=== PATIENT | male | born 1950 | race Caucasian/White ===

== ENCOUNTER → 2017-11-17 15:58 | Outpatient (CLI) | payer MEDICARE, MEDICAID, SELFPAY ==
--- NOTE | 2017-11-17 16:09 | MR_ITS ---
MR head/brain wo con HISTORY: ITS.REASON: ESSENTIAL TREMOR, CONFUSION, ABNORMAL CT ORDERING PHYSICIAN: Tiff Snow PATIENT AGE: 67 years Comparison: 10/03/2017 TECHNIQUE: Standard multiplanar multiecho sequences are performed without contrast. FINDINGS: There is mild generalized atrophy. Encephalomalacia changes are present in the left frontal lobe consistent with an old infarction. No midline shift, mass effect, intracranial hemorrhage, hydrocephalus, or acute infarction is evident. There are scattered periventricular and subcortical T2 white matter hyperintensities consistent with ischemic microangiopathic changes. The hippocampal gyri and temporal horns are unremarkable. The limited. Optic chiasm have an unremarkable appearance. The cerebellopontine angles, cerebellum, and brainstem are unremarkable. No mastoid effusion or sinus air-fluid level. IMPRESSION: 1. No acute intracranial findings. 2. Encephalomalacia change from old left frontal infarction. 3. Involutional changes of age with mild atrophy and microangiopathic changes
== END ==
PROVIDERS: Family Provider Internal Medicine Adolescent Medicine; PCP Internal Medicine Adolescent Medicine; Visit Provider Psychiatry & Neurology Neurology
DX: G25.0 Essential tremor (principal); R41.0 Disorientation, unspecified; R93.0 Abnormal findings on diagnostic imaging of skull and head, not elsewhere classified
CPT/HCPCS: 70551

== ENCOUNTER → 2019-03-09 09:39 | Outpatient (CLI) | payer MEDICARE, MEDICAID, SELFPAY ==
[2019-03-09 11:33] LABS: Alanine Aminotransferase 29 U/L (12-78); Albumin Level 4.1 gm/dL (3.4-5.0); Albumin/Globulin Ratio 1.2 (1.1-1.8); Alkaline Phosphatase 78 U/L (46-116); Anion Gap 12.4 mEq/L (5-15); Aspartate Amino Transferase 19 U/L (15-37); Bilirubin,Total 0.3 mg/dL (0.2-1.0); Blood Urea Nitrogen 17 mg/dL (7-18); Carbon Dioxide 29 mmol/L (21.0-32.0); Chloride 93 mmol/L (98-107); Creatinine,Serum 1.37 mg/dL (0.70-1.30); Estimated Glomerular Filt Rate 52 ml/min (>60); GFR (African American) 63 ML/MIN (>60); Globulin 3.3 gm/dl (1.3-3.2); Glucose 122 mg/dL (74-106); Potassium 4.4 mmoL/L (3.5-5.1); Sodium 130 mmol/L (136-145); Total Protein,Serum 7.4 gm/dL (6.4-8.2)
[2019-03-10 11:01] LABS: Prostate Specific Ag 4.8 ng/mL (0.0-4.0)
[2019-03-10 13:29] LABS: Prostate Specific Ag, Diagnost 5.43 ng/mL (0.0-4.0)
== END ==
PROVIDERS: Visit Provider Internal Medicine Adolescent Medicine
DX: R97.20 Elevated prostate specific antigen [PSA] (principal)
CPT/HCPCS: 36415; 80053; 84153; 84154; G0103

== ENCOUNTER → 2019-06-08 09:36 | Outpatient (CLI) | payer MEDICARE, MEDICAID, SELFPAY ==
--- NOTE | 2019-06-08 09:46 | XR_ITS ---
PROCEDURE: XR KNEE LT 3V CLINICAL INDICATION: OSTEOARTHRITIS COMPARISON: No exams were available for comparison FINDINGS: No fracture or dislocation. No lytic or blastic change. There is normal mineralization. Mild patellofemoral osteoarthritis with loss of cartilaginous joint space is noted. Other findings:Mild atherosclerotic vascular calcifications are noted. IMPRESSION: mild osteoarthritis with no acute bone pathology. Dictated by: Tony Bradley 06/08/2019 10:26 Electronically signed by Tony Bradley in [place] 06/08/2019 10:26
--- NOTE | 2019-06-08 09:46 | XR_ITS ---
PROCEDURE: XR KNEE RT 3V CLINICAL INDICATION: OSTEOARTHRITIS COMPARISON: No exams were available for comparison FINDINGS: No fracture or dislocation. No lytic or blastic change. There is normal mineralization. There is mild medial compartment osteoarthritis. A small suprapatellar joint effusion is noted. There are atherosclerotic vascular calcifications. Other findings:None. IMPRESSION: Medial compartment osteoarthritis with small joint effusion. Dictated by: Tony Bradley 06/08/2019 10:24 Electronically signed by Tony Bradley in [facility] 06/08/2019 10:24
== END ==
PROVIDERS: PCP Internal Medicine Adolescent Medicine; Visit Provider Internal Medicine Adolescent Medicine
DX: M17.0 Bilateral primary osteoarthritis of knee (principal)
CPT/HCPCS: 73562

== ENCOUNTER → 2019-06-28 12:55 | Outpatient (POV) | payer MEDICARE, MEDICAID, SELFPAY | PROVIDERS: Visit Provider Dermatology | DX: Z00.00 Encounter for general adult medical examination without abnormal findings (principal) ==

== ENCOUNTER → 2020-03-27 08:59 | Outpatient (POV) | payer MEDICARE, MEDICAID, SELFPAY | PROVIDERS: Visit Provider Dermatology | DX: Z00.00 Encounter for general adult medical examination without abnormal findings (principal) ==

== ENCOUNTER → 2020-05-07 14:08 | Outpatient (CLI) | payer MEDICARE, MEDICAID, SELFPAY ==
--- NOTE | 2020-05-07 14:11 | MR_ITS ---
PROCEDURE: MR HEAD/BRAIN WO CON CLINICAL INDICATION: DIPLOPIA, VERTIGO HX OF STROKE X3-4YRS AGO. HEADACHE. Memory LOSS. ABNORMAL GAIT. PRIOR MRI 06-08-19 COMPARISON: MR BRAINWO MR head/brain wo con from 11/17/2017 TECHNIQUE: Routine multiplanar multi echo sequences are performed without gadolinium enhancement. FINDINGS: No midline shift, mass effect, intracranial hemorrhage, or hydrocephalus. No evidence of acute infarction. There is generalized atrophy with scattered periventricular T2 white matter hyperintensities consistent with ischemic gliotic change from microvascular disease. There are encephalomalacia changes in the left frontal lobe with increased T2 signal but no evidence of restricted diffusion consistent with an old infarction. There are small old lacunar infarctions on the left. The pituitary, optic chiasm, corpus callosum, and craniocervical junction have an unremarkable appearance. There are degenerative changes in the upper cervical spine at C3-C4 with bulging disc/disc osteophyte complex with canal stenosis and mild impingement upon the cord. MRI of the cervical spine may provide further evaluation if clinically warranted. There is mild mucosal thickening of the maxillary sinus on the right. No mastoid effusion IMPRESSION: 1. No acute intracranial findings. No significant change. 2. Chronic ischemic changes as detailed above with old infarction in the left frontal parietal region an old left-sided lacunar infarctions 3. Canal stenosis at C3-C4 with reversal of lordosis and degenerative disc disease Dictated by: Abilio Higuera MD 05/09/2020 09:03 Abilio Higuera MD in [place] 05/09/2020 09:03
--- NOTE | 2020-05-07 14:41 | CA_ITS ---
APPROVED REPORT Account Services Associate: Keily Newton RVT Laterality: Bilateral Study Quality: Good Indications: SLURRED SPEECH Risk Factors Hypertension: TIA/CVA History Hyperlipidemia Doppler Spectral Velocity Analysis ECA (R) 118.20/20.60 cm/s ECA (L) 73.70/12.90 cm/s dICA (R) 68.50/24.80 cm/s dICA (L) 96.80/31.70 cm/s Pérez (R) 61.70/22.30 cm/s Pérez (L) 86.50/25.70 cm/s pICA (R) 84.00/31.70 cm/s pICA (L) 85.70/26.60 cm/s dCCA (R) 52.30/12.00 cm/s dCCA (L) 64.30/16.30 cm/s pCCA (R) 74.90/16.00 cm/s pCCA (L) 87.40/16.30 cm/s Vert (R) 30.80/8.60 cm/s Vert (L) 52.30/12.00 cm/s ICA/CCA 1.61 ICA/CCA 1.51 Findings Study suggests less than 20% stenosis of the right internal cartoid artery. Study suggests 20-49% stenosis (lower end of scale) of the left internal cartoid artery. Antegrade flow seen bilateral vertebral arteries. Conclusion Study suggests less than 20% stenosis of the right internal cartoid artery. Study suggests 20-49% stenosis (lower end of scale) of the left internal cartoid artery. Antegrade flow seen bilateral vertebral arteries. Electronically signed by : Abilio Higuera MD 05/08/2020 17:03:58
== END ==
PROVIDERS: PCP Internal Medicine Adolescent Medicine; Visit Provider Internal Medicine Adolescent Medicine
DX: R42 Dizziness and giddiness (principal); R47.1 Dysarthria and anarthria; H53.2 Diplopia
CPT/HCPCS: 70551; 93880

== ENCOUNTER → 2020-06-20 10:12 | Outpatient (CLI) | payer MEDICARE, MEDICAID, SELFPAY ==
[2020-06-20 11:11] LABS: Coronavirus 19 IgG Antibody Negative (Negative); Coronavirus 19 IgM Antibody Negative (Negative)
== END ==
PROVIDERS: Visit Provider Internal Medicine Gastroenterology
DX: Z01.812 Encounter for preprocedural laboratory examination (principal); Z20.822 Contact with and (suspected) exposure to COVID-19; Z12.11 Encounter for screening for malignant neoplasm of colon; D64.9 Anemia, unspecified; Z86.010 Personal history of colon polyps
CPT/HCPCS: 36415; 86328

== ENCOUNTER 2020-06-22 06:57 | Day surgery (SDC) | payer MEDICARE, MEDICAID, SELFPAY ==
[2020-06-14 14:08] VITALS: BMI 26.2
[2020-06-22] VITALS (7 sets, daily range): BP systolic 104–157; BP diastolic 62–102; PULSE 68–80; RESP 18; TEMP 36.1–36.6; O2SAT 92–97
[2020-06-22 07:31] LABS: POC Glucose,Bedside 153 (70-110)
--- NOTE | 2020-06-22 08:13 | HMH.ANESCL ---
[facility] Anesthesia Checklist - Patient Identification Patient Identification: Arm Band - Structural Data Admitted From: Home Planned Operative Procedure/s: egd/colonoscopy Consent for Planned Operative Procedure(s) Verified: Yes Verified Documents: Surgical Consent, History and Physical - NPO Status Verified Time NPO: 00:00 - Additional verifications Anesthesia Reactions: No - Airway Assessment C-Spine Mobility Assessed: Yes (mp2) TMJ Mobility Assessed: Yes Dentition: Poor Dentition - Neurological Assessment Level of Consciousness: Awake, Alert - Anesthesia Plan Anesthesia Risk discussed: Yes Anesthesia Plan: Verified ASA Class: III Anesthesia Type: MAC [facility] History I have reviewed the patient's past medical history: Yes Medical History: Reports:: Cerebrovascular Accident, Diabetes Mellitus Type 2, Hyperlipidemia, Hypertension Denies:: Cancer, Diabetes Mellitus Type 1, Internal Pacemaker, MRSA, Seizures *Have you ever received a pneumonia vaccine?: Yes *Have you received a flu vaccine this season?: Yes Other Medical History: Reports: Arthritis Anesthesia experience/problems:: nac Other Surgeries: Yes: Other. No: Pacemaker Amputation: No Fractures: No - *Social History Last grade of school completed: 7th or 8th Smoking Status: Unknown if ever smoked Smoking End Date: 25 yrs ago Alcohol Intake: never Substance Use Type: denies use *Occupational Status:: retired Housing: house Household Members: spouse *Travel in the last 8 weeks: None Family Hx:: Stroke
--- NOTE | 2020-06-22 08:23 | P.PCN_ITS ---
[facility] Procedure Note Procedure Note:: Upper Endoscopy Procedure Report: Esophagogastroduodenoscopy with cold biopsies and APC ablation/coagulation Endoscopost: Ascencion Ariza II, MD Referring Physician: Douglas Monge M.D. Date of Procedure: June 22, 2020 Equipment: Olympus GIF 180 standard upper endoscope Sedation: MAC sedation Indications: Mr. Howell is a 69-year-old gentleman with iron deficiency anemia. The patient had similar issues 5 years ago and had diagnostic panendoscopy at that time. The patient reports no anticoagulation. He reports no melena or hematochezia. He has not had any Hemoccult testing to my knowledge. He reports no heartburn, reflux, indigestion, abdominal pain or dysphagia. Procedure: Prior to the procedure, a history and physical exam was performed, and patient's medications and allergies were reviewed. The risks, benefits and alternatives of the sedation and procedure were discussed with the patient. All questions were answered and informed consent was obtained. The patient was brought to the procedure room. Patient identification and proposed procedure were verified by the physician and the nurse. The patient was placed in a left lateral decubitus position and the scope was passed under direct vision. Throughout the procedure, the patient's blood pressure, pulse, and oxygen saturations were monitored continuously. The upper GI endoscopy was accomplished without difficulty. The patient tolerated the procedure well. Findings: The scope was passed directly into the upper esophagus and advanced to the third portion of the duodenum. There were multiple angiodysplasias/AVMs identified in the third, second and first portion of the duodenum and approximately 12 of these were coagulated using APC ablation (argon plasma offset printing pressmen). There were a couple of these angiodysplasia/AVMs in the duodenal bulb and these were also coagulated. The scope was withdrawn through a normal pylorus into the stomach. There was several AVMs/angiodysplasias in the stomach and there was some coffee-ground in the stomach indicative of some active bleeding from these gastric angiodysplasias. These were also all coagulated using the APC. There was some mild erosive gastritis. Cold biopsies were taken from the gastric antrum and body. Upon retroflexion there was no hiatal hernia. The scope was then withdrawn into the esophagus. There was no evidence of reflux esophagitis, varices or Andersen's. There was a proximal esophageal inlet patch. The remainder of the esophageal mucosa was normal. Impression: 1. Gastric and duodenal AVMs/angiodysplasias (multiple) status post APC (argon plasma coagulation) ablation Plan: I do feel that the patient's iron deficiency anemia is related to the angiodysplasias. I will follow-up the gastric biopsies. I will proceed with colonoscopy.
--- NOTE | 2020-06-22 08:42 | P.PCN_ITS ---
[facility] Procedure Note Procedure Note:: Colonoscopy Procedure Report: Colonoscopy Endoscopist: Ascencion Ariza II, MD Referring physician: Douglas Monge M.D. Date of Procedure: June 22, 2020 Equipment: Olympus 180 variable stiffness pediatric colonoscope Sedation: MAC sedation Indication: Mr. Howell is a 69-year-old gentleman who is here for diagnostic colonoscopy secondary to iron deficiency anemia. He does take ibuprofen every 2 to 3 days for headaches. He is not on any anticoagulation. He did have similar iron deficiency 5 years ago and underwent panendoscopy (Dr. Yemi Winkler). He does state that he had polyps. He reports no rectal bleeding, abdominal pain or weight loss. He does have some mild chronic constipation. He does state that his maternal grandmother had colon cancer. The patient did have angiodysplasias of the stomach and duodenum with some old heme. Procedure: Prior to the procedure, a history and physical exam was performed, and patient's medications and allergies were reviewed. The risks, benefits and alternatives of the sedation and procedure were discussed with the patient. All questions we re answered and informed consent was obtained. The patient was brought to the procedure room. Patient identification and proposed procedure were verified by the physician and the nurse. The patient was placed in a left lateral decubitus position and the scope was passed under direct vision. Throughout the procedure, the patient's blood pressure, pulse, and oxygen saturations were monitored continuously. The colonoscopy was accomplished without difficulty. The patient tolerated the procedure well. Findings: On digital rectal examination there was some anal stenosis/anal fibrosis. There were no external hemorrhoids. The prostate was 2+, smooth, soft, symmetric without nodules. The colonoscope was introduced through the anal canal to the rectum and advanced to the cecum. The ileocecal valve and appendiceal orifice were identified. The scope was advanced a short distance into the ileum which appeared grossly normal. The scope was then withdrawn into the colon. The cecum, ascending, transverse, descending, sigmoid and rectum were grossly normal. There were no mucosal abnormalities identified. There was remarkable colonic redundancy. Upon retroflexion within the rectum there were grade 1-2 internal hemorrhoids.The preparation was good throughout with [place] Preparation Score of 7 out of 9. The cecal time was 10 minutes. Impression: 1. Normal colonoscopy with intubation of the terminal ileum 2. Marked colonic redundancy 3. Grade 1-2 internal hemorrhoids 4. Mild anal stenosis/anal fibrosis Plan: There was no etiology for the patient's iron deficiency anemia from the lower digestive tract. I suspect that this is chronic gastrointestinal blood loss from the angiodysplasias in the upper digestive tract. I will discuss this with the patient and family. I am going to repeat hemoglobin, hematocrit and iron studies today. I would also like for him to undergo Hemoccult testing. If he is Hemoccult positive, I would recommend that we do video capsule enterosc opy/PillCam.
[2020-06-22 09:21] LABS: Hematocrit 25.5 % (42.0-52.0)
[2020-06-22 09:29] LABS: Iron 28 ug/dL (49-181)
[2020-06-22 09:39] LABS: Total Iron Binding Capacity 334 ug/dL (261-462)
[2020-06-22 09:40] LABS: Hemoglobin 7.6 g/dL (14.1-18.0)
[2020-06-22 10:05] LABS: Ferritin 10.1 ng/ml (17.9-464)
== END 2020-06-22 09:40 | disposition hospice, home (50) ==
PROVIDERS: PCP Internal Medicine Adolescent Medicine; Visit Provider Internal Medicine Gastroenterology
PROC: 0DJ08ZZ Inspection of Upper Intestinal Tract, Via Natural or Artificial Opening Endoscopic (ICD-10-PCS; CPT 43235; principal; 2020-06-22 08:00)
DX: K31.811 Angiodysplasia of stomach and duodenum with bleeding (principal); K64.0 First degree hemorrhoids; K62.4 Stenosis of anus and rectum; Q43.8 Other specified congenital malformations of intestine; Z86.010 Personal history of colon polyps; Z87.19 Personal history of other diseases of the digestive system; Z79.1 Long term (current) use of non-steroidal anti-inflammatories (NSAID); E11.9 Type 2 diabetes mellitus without complications; E78.5 Hyperlipidemia, unspecified; I10 Essential (primary) hypertension; M19.90 Unspecified osteoarthritis, unspecified site; Z86.73 Personal history of transient ischemic attack (TIA), and cerebral infarction without residual deficits
CPT/HCPCS: 43239; 43270; 36415; 82728; 82962; 83540; 83550; 85014; 85018; 88305; C2618

== ENCOUNTER → 2020-06-23 09:59 | Outpatient (CLI) | payer MEDICARE, MEDICAID, SELFPAY ==
[2020-06-23 10:10] VITALS: BP 136/74; PULSE 81; RESP 16; TEMP 36.9; O2SAT 96
[2020-06-23 10:40] VITALS: BP 131/78; PULSE 79; RESP 16; TEMP 36.9; O2SAT 98
== END ==
PROVIDERS: PCP Internal Medicine Adolescent Medicine; Visit Provider Internal Medicine Gastroenterology
DX: D50.9 Iron deficiency anemia, unspecified (principal)
CPT/HCPCS: 96365; J1756

== ENCOUNTER → 2020-06-24 13:35 | Outpatient (CLI) | payer MEDICARE, MEDICAID, SELFPAY ==
[2020-06-24 13:52] VITALS: BP 105/66; PULSE 62; RESP 16; O2SAT 96
== END ==
PROVIDERS: PCP Internal Medicine Adolescent Medicine; Visit Provider Internal Medicine Gastroenterology
DX: D50.9 Iron deficiency anemia, unspecified (principal)
CPT/HCPCS: 96365; J1756

== ENCOUNTER → 2020-06-27 12:25 | Outpatient (CLI) | payer MEDICARE, MEDICAID, SELFPAY | PROVIDERS: Visit Provider Internal Medicine Gastroenterology | DX: D50.9 Iron deficiency anemia, unspecified (principal) ==

== ENCOUNTER → 2020-06-30 12:00 | Outpatient (CLI) | payer MEDICARE, MEDICAID, SELFPAY ==
[2020-07-01 15:17] LABS: Occult Blood,Stool Negative (Negative)
[2020-07-01 15:17] LABS: Occult Blood,Stool Negative (Negative)
[2020-07-01 15:17] LABS: Occult Blood,Stool Negative (Negative)
== END ==
PROVIDERS: Visit Provider Internal Medicine Gastroenterology
DX: D64.9 Anemia, unspecified (principal)
CPT/HCPCS: 82272; G0328

== ENCOUNTER → 2020-11-28 07:48 | Outpatient (CLI) | payer MEDICARE, MEDICAID, SELFPAY ==
[2020-11-28 08:47] LABS: Basophils # 0.1 K/mm3 (0-0.2); Basophils % 1.2 % (0.1-2.0); Eosinophils # 0.2 K/mm3 (0.0-0.4); Eosinophils % 3.7 % (0.1-12.0); Hematocrit 35.2 % (42.0-52.0); Hemoglobin 11.8 g/dL (14.1-18.0); Lymphocytes # 1.5 K/mm3 (0.7-4.5); Lymphocytes % 28.1 % (10-50); Mean Corpuscular HGB Conc 33.5 g/dL (31.8-35.4); Mean Corpuscular Hemoglobin 28.9 pg (27.0-31.2); Mean Corpuscular Volume 86.4 fl (80-94); Mean Platelet Volume 7.7 fl (7.4-10.4); Monocytes # 0.4 K/mm3 (0.1-1.0); Monocytes % 6.8 % (1.7-9.3); Neutrophils # 3.1 K/mm3 (1.8-7.8); Neutrophils % 60.2 % (37.0-80.0); Platelet Count 202 K/mm3 (142-424); Red Blood Count 4.07 M/mm3 (4.60-6.20); Red Cell Distribution Width 17.1 % (11.5-17.5); White Blood Count 5.2 K/mm3 (4.8-10.8)
[2020-11-28 09:29] LABS: Alanine Aminotransferase 33 U/L (12-78); Albumin Level 4.2 g/dl (3.5-5.0); Albumin/Globulin Ratio 1.5 (1.1-1.8); Alkaline Phosphatase 92 U/L (38-126); Anion Gap 10.3 mEq/L (5-15); Aspartate Amino Transferase 38 U/L (17-59); Bilirubin,Total 0.4 mg/dl (0.2-1.3); Blood Urea Nitrogen 15 mg/dl (9-20); Calcium 9.1 mg/dl (8.4-10.2); Carbon Dioxide 31 mmol/L (22.0-30.0); Chloride 98 mmol/L (98-107); Chol/HDL Ratio 3.1 (1-3.5); Cholesterol 154 mg/dl (140-200); Estimated Glomerular Filt Rate 60 ml/min (>60); GFR (African American) 72 ML/MIN (>60); Globulin 2.8 g/dL (1.3-3.2); Glucose 127 mg/dl (74-100); HDL Cholesterol 49 mg/dl (40-60); Potassium 5.3 mmoL/L (3.5-5.1); Sodium 134 mmol/L (136-145); Triglycerides 75 mg/dl (30-150); VLDL Cholesterol 15 mg/dL (0-40)
[2020-11-28 09:42] LABS: Direct LDL Cholesterol 77.95 mg/dL (100-129)
[2020-11-28 10:02] LABS: Thyroid Stimulating Hormone 1.22 uIU/mL (0.465-4.68)
[2020-11-28 10:20] LABS: Vitamin B12 > 1000 pg/mL (239-931)
[2020-11-28 11:04] LABS: Ferritin 9.92 ng/ml (17.9-464)
== END ==
PROVIDERS: Visit Provider Internal Medicine Adolescent Medicine
DX: E78.5 Hyperlipidemia, unspecified (principal); E11.42 Type 2 diabetes mellitus with diabetic polyneuropathy; D50.9 Iron deficiency anemia, unspecified; Z79.84 Long term (current) use of oral hypoglycemic drugs
CPT/HCPCS: 80053; 80061; 82607; 82728; 84443; 85025

== ENCOUNTER → 2021-01-08 07:42 | Outpatient (CLI) | payer MEDICARE, MEDICAID, SELFPAY ==
[2021-01-08 08:22] LABS: Basophils # 0.1 K/mm3 (0-0.2); Basophils % 1.9 % (0.1-2.0); Eosinophils # 0.1 K/mm3 (0.0-0.4); Hematocrit 39.8 % (42.0-52.0); Hemoglobin 12.9 g/dL (14.1-18.0); Lymphocytes # 1.1 K/mm3 (0.7-4.5); Lymphocytes % 24.1 % (10-50); Mean Corpuscular HGB Conc 32.4 g/dL (31.8-35.4); Mean Corpuscular Hemoglobin 30.1 pg (27.0-31.2); Mean Corpuscular Volume 92.7 fl (80-94); Mean Platelet Volume 7.7 fl (7.4-10.4); Monocytes # 0.3 K/mm3 (0.1-1.0); Monocytes % 6.2 % (1.7-9.3); Neutrophils # 3.1 K/mm3 (1.8-7.8); Neutrophils % 64.7 % (37.0-80.0); Platelet Count 216 K/mm3 (142-424); White Blood Count 4.7 K/mm3 (4.8-10.8)
[2021-01-08 08:36] LABS: Hemoglobin A1C 5.4 % (4.0-6.0)
[2021-01-08 08:43] LABS: Chloride 93 mmol/L (98-107); Potassium 4.8 mmoL/L (3.5-5.1); Sodium 130 mmol/L (136-145)
[2021-01-08 08:45] LABS: Alanine Aminotransferase 32 U/L (12-78); Albumin/Globulin Ratio 1.5 (1.1-1.8); Alkaline Phosphatase 95 U/L (38-126); Anion Gap 11.8 mEq/L (5-15); Aspartate Amino Transferase 34 U/L (17-59); Bilirubin,Total 0.3 mg/dl (0.2-1.3); Blood Urea Nitrogen 16 mg/dl (9-20); Carbon Dioxide 30 mmol/L (22.0-30.0); Estimated Glomerular Filt Rate 55 ml/min (>60); GFR (African American) 66 ML/MIN (>60); Globulin 2.6 g/dL (1.3-3.2); Total Protein,Serum 6.6 g/dl (6.3-8.2)
[2021-01-08 08:46] LABS: Calcium 8.9 mg/dl (8.4-10.2); Glucose 130 mg/dl (74-100); HDL Cholesterol 40 mg/dl (40-60); Triglycerides 114 mg/dl (30-150); VLDL Cholesterol 23 mg/dL (0-40)
[2021-01-08 08:57] LABS: Direct LDL Cholesterol 61.98 mg/dL (100-129)
[2021-01-08 09:47] LABS: Prostate Specific Ag, Diagnost 4.15 ng/ml (0.0-4.0)
[2021-01-08 15:48] LABS: Chol/HDL Ratio 3.3 (1-3.5); Cholesterol 130 mg/dl (140-200)
== END ==
PROVIDERS: Visit Provider Internal Medicine Adolescent Medicine
DX: E11.42 Type 2 diabetes mellitus with diabetic polyneuropathy (principal); E78.5 Hyperlipidemia, unspecified; R97.20 Elevated prostate specific antigen [PSA]
CPT/HCPCS: 36415; 80053; 80061; 83036; 84153; 85025

== ENCOUNTER → 2021-04-16 14:58 | Outpatient (CLI) | payer MEDICARE, MEDICAID, SELFPAY ==
--- NOTE | 2021-04-16 15:02 | CT_ITS ---
PROCEDURE: CT FACIAL BONES WO CON CLINICAL HISTORY: CHRONIC MAXILLARY SINUSITIS COMPARISON: No exams were available for comparison TECHNIQUE: Axial images obtained with sagittal and coronal reformats. All CT scans at the facility use one or more dose reduction, viz: automated exposure control, ma/kV adjustment per patient size (including targeted exams where dose is matched to indication, i.e. head), or iterative reconstruction technique. FINDINGS: There is moderate to severe mucosal thickening of the left maxillary sinus with an air-fluid level in the left maxillary sinus. Moderate lobular mucosal thickening involves the floor the right maxillary sinus consistent with underlying retention cyst. There is mild mucosal thickening of the ethmoid sinuses. The frontal sinus has an unremarkable appearance. No mastoid effusion. There is mild pneumatization of the temporal bone posteriorly on both sides. There is mild leftward nasal septal deviation with small bilateral nisa bullosa left slightly larger than right. There is occlusion of the left ostiomeatal complex from edema or mucous. Right OMC is patent. Unremarkable TMJs. There is a prominent zone of lucency around the right posterior maxillary molar which has 3 roots. Artifact is present from the patient's of dentition. IMPRESSION: Paranasal sinus disease as described above worse in the left maxillary sinus with moderate to severe mucosal thickening and an air-fluid level. There is occlusion of the left OMC. Mild leftward nasal septal deviation Periapical abscess around the right posterior molar which has 3 tooth roots Dictated by: Abilio Higuera MD 04/17/2021 12:17 Abilio Higuera MD in [place] 04/17/2021 12:17
== END ==
PROVIDERS: PCP Internal Medicine Adolescent Medicine; Visit Provider Internal Medicine Adolescent Medicine
DX: J32.0 Chronic maxillary sinusitis (principal)
CPT/HCPCS: 70486

== ENCOUNTER → 2021-08-21 15:58 | Outpatient (CLI) | payer MEDICARE, MEDICAID, SELFPAY ==
--- NOTE | 2021-08-21 16:03 | XR_ITS ---
FINAL REPORT CLINICAL HISTORY: FALL X 3 DAYS AGO. C/O RT HAND PAIN FINDINGS: 3 views of the right hand were obtained. There is a distal radius fracture with mild impaction favored to be acute. This is best seen on the lateral view. There are mild and moderate degenerative changes of the hand and wrist. There is chronic deformity of the distal 5th metacarpal. There are calcifications along the dorsal wrist. IMPRESSION: Mildly impacted distal radius fracture is favored to be acute. Reviewed, Interpreted and Dictated by Brett Velazco III, MD Transcribed by Wyatt Barroso Authenticated by Brett Velazco III, MD on 08/21/2021 04:39:00 PM [facility]
== END ==
PROVIDERS: PCP Internal Medicine Adolescent Medicine; Visit Provider Internal Medicine Adolescent Medicine
DX: M79.641 Pain in right hand (principal)
CPT/HCPCS: 73130

== ENCOUNTER → 2021-09-17 12:14 | Outpatient (CLI) | payer MEDICARE, MEDICAID, SELFPAY ==
--- NOTE | 2021-09-17 12:31 | XR_ITS ---
FINAL REPORT CLINICAL HISTORY: rt wrist fx COMPARISON: Hand radiograph dated August 21, 2021 FINDINGS: RIGHT WRIST Three views demonstrate an impacted fracture of the distal radius favoring acute superimposed over chronic. There is also a fracture of the ulnar styloid process. There are moderate and severe degenerative changes of the wrist. The bones are osteopenic. There is soft tissue calcifications in the wrist. IMPRESSION: Fractures as described. Osteopenia. Moderate and severe degenerative change. Reviewed, Interpreted and Dictated by Brett Velazco III, MD Transcribed by Ana Laura Schroeder Authenticated by Brett Velazco III, MD on 09/17/2021 01:56:22 PM [facility][1]
--- NOTE | 2021-09-17 12:31 | XR_ITS ---
FINAL REPORT CLINICAL HISTORY: wrist pain FINDINGS: LEFT WRIST Three views demonstrate no acute fracture or dislocation. The bones are osteopenic. There are severe degenerative changes. There is soft tissue calcifications. IMPRESSION: Osteopenia. Severe degenerative change. Reviewed, Interpreted and Dictated by Brett Velazco III, MD Transcribed by Ana Laura Schroeder Authenticated by Brett Velazco III, MD on 09/17/2021 01:56:21 PM [facility]
== END ==
PROVIDERS: PCP Internal Medicine Adolescent Medicine; Visit Provider Physician Assistant Surgical
DX: M25.532 Pain in left wrist; S52.501D Unspecified fracture of the lower end of right radius, subsequent encounter for closed fracture with routine healing
CPT/HCPCS: 73110

== ENCOUNTER 2021-09-17 13:50 | Outpatient (RCR) | payer MEDICARE, MEDICAID, SELFPAY | END 2021-09-17 14:48 | disposition home or self-care (01) | LOC: OT 13:50 | PROVIDERS: Visit Provider Orthopaedic Surgery | DX: S52.501D Unspecified fracture of the lower end of right radius, subsequent encounter for closed fracture with routine healing (principal) | CPT/HCPCS: 97763 ==

== ENCOUNTER → 2021-10-08 08:33 | Outpatient (CLI) | payer MEDICARE, MEDICAID, SELFPAY ==
--- NOTE | 2021-10-08 08:51 | XR_ITS ---
FINAL REPORT CLINICAL HISTORY: wrist fx...pain at ulner COMPARISON: September 17, 2021 FINDINGS: 3 views of the right wrist were obtained. There is an impacted, comminuted, and transverse fracture of the distal radial metaphysis. There is indentation of the scaphoid into the distal radial metaphysis measuring up to 4 mm that is similar to the prior exam. Again seen is a nondisplaced transverse fracture through the ulnar styloid process. IMPRESSION: Wrist fractures similar to prior. Reviewed, Interpreted and Dictated by Jad Chatman MD Transcribed by Wyatt Barroso Authenticated by Jad Chatman MD on 10/08/2021 09:33:57 AM [facility]
== END ==
PROVIDERS: PCP Internal Medicine Adolescent Medicine; Visit Provider Orthopaedic Surgery
DX: S52.501D Unspecified fracture of the lower end of right radius, subsequent encounter for closed fracture with routine healing (principal)
CPT/HCPCS: 73110

== ENCOUNTER 2024-09-29 15:28 | Outpatient (CLI) | payer MEDICARE, MEDICAID, SELFPAY ==
[2024-09-29 17:22] LABS: Basophils # 0.1 K/mm3 (0-0.2); Basophils % 0.5 % (0.1-2.0); Eosinophils % 0.2 % (0.1-12.0); Hematocrit 33.6 % (42.0-52.0); Hemoglobin 10.8 g/dL (14.1-18.0); Immature Granulocytes # 0.25 10^3uL; Immature Granulocytes % 1.8 %; Lymphocytes # 0.8 K/mm3 (0.7-4.5); Lymphocytes % 5.8 % (10-50); Mean Corpuscular HGB Conc 32.1 g/dL (31.8-35.4); Mean Corpuscular Hemoglobin 32.7 pg (27.0-31.2); Mean Corpuscular Volume 101.8 fl (80-94); Mean Platelet Volume 9.8 fl (7.4-10.4); Monocytes % 7.4 % (1.7-9.3); Neutrophils # 11.4 K/mm3 (1.8-7.8); Neutrophils % 84.3 % (37.0-80.0); Nucleated Red Blood Cells # 0 10^3/uL; Nucleated Red Blood Cells % 0 %; Platelet Count 503 K/mm3 (142-424); Red Cell Distribution Width 12.8 % (11.5-17.5); Red Cell Distribution Width-SD 47.7 fL; White Blood Count 13.5 K/mm3 (4.8-10.8)
[2024-09-29 17:52] LABS: Alanine Aminotransferase 318 U/L (12-78); Albumin Level 3.9 g/dl (3.5-5.0); Albumin/Globulin Ratio 1.5 (1.1-1.8); Alkaline Phosphatase 366 U/L (38-126); Anion Gap 30.8 mEq/L (5-15); Aspartate Amino Transferase 193 U/L (17-59); Bilirubin,Total 0.8 mg/dl (0.2-1.3); Blood Urea Nitrogen 66 mg/dl (9-20); Calcium 9.6 mg/dl (8.4-10.2); Carbon Dioxide 13 mmol/L (22.0-30.0); Chloride 85 mmol/L (98-107); Estimated Glomerular Filt Rate 18 ml/min (>60); GFR (African American) 22 ML/MIN (>60); Globulin 2.6 g/dL (1.3-3.2); Potassium 5.8 mmoL/L (3.5-5.1); Sodium 123 mmol/L (136-145); Total Protein,Serum 6.5 g/dl (6.3-8.2)
[2024-09-29 18:28] LABS: HIV Combo NEGATIVE (Negative)
[2024-09-29 19:10] LABS: Glucose 825 mg/dl (74-100)
[2024-09-29 19:30] LABS: Hepatitis C Ab Qual. W/ RFX NEGATIVE (Negative)
== END 2024-09-29 23:59 | disposition home or self-care (01) ==
PROVIDERS: PCP Internal Medicine; Visit Provider Internal Medicine
DX: Z00.00 Encounter for general adult medical examination without abnormal findings (principal); Z11.59 Encounter for screening for other viral diseases; Z11.4 Encounter for screening for human immunodeficiency virus [HIV]; N18.9 Chronic kidney disease, unspecified; D64.9 Anemia, unspecified; R53.83 Other fatigue
CPT/HCPCS: 80053; 85025; 86803; 87389

== ENCOUNTER 2024-09-30 11:15 | Inpatient (IN) | payer MEDICARE, MEDICAID, SELFPAY ==
[2024-09-30] VITALS (21 sets, daily range): BP systolic 109–155; BP diastolic 55–95; PULSE 79–107; RESP 14–21; TEMP 36.4–36.7; O2SAT 93–100; BMI 21.3; BMI 21.4; BMI 19.6
[2024-09-30 11:34] LABS: Microscopic, Urine URINE MICROSCOPIC (MICROSCOPIC)
--- NOTE | 2024-09-30 11:38 | ECG_ITS ---
APPROVED REPORT Exam: Resting ECG HR:102 bpm ECG Measurements Heart Rate 102 AXES KS 132 P 56 QRSd 85 QRS 32 QT 329 T 77 QTc 388 Conclusion Sinus tachycardia Nonspecific ST changes Electronically signed by : WALLY MUHAMMAD, 10/02/2024 19:39:32
[2024-09-30 11:42] LABS: Appearance,Urine CLOUDY (Clear); Bilirubin,Urine Negative (Negative); Blood, Urine 3+ (Negative); Color,Urine YELLOW (Yellow); Glucose,Urine (UA) 3+ (Negative); Ketones,Urine 1+ (Negative); Leukocyte Esterase,Urine 1+ (Negative); Nitrate,Urine Negative (Negative); PH,Urine 5.5 (5.0-8.5); Protein,Urine 1+ (Negative); Urobilinogen,Urine 0.2 EU/dl (0.2)
--- NOTE | 2024-09-30 11:44 | PC.NURSE ---
evelia check glucose and it read high
--- NOTE | 2024-09-30 11:46 | PC.NURSE ---
Labs from Dr Smith yesterday included abnormal values on the following: Glucose 825, GFR 18, Creatinine 3.3, Potassium 5.8, Sodium 123, ALT 318, and AST 193
[2024-09-30 12:01] LABS: Bacteria,Urine Trace /lpf; WBC,Urine 20-50 #/hpf (0-3)
--- NOTE | 2024-09-30 12:04 | XR_ITS ---
FINAL REPORT CLINICAL HISTORY: ams, weak, soa COMPARISON: None FINDINGS: A portable view of the chest is obtained. Cardiac and mediastinal silhouettes are normal. Low lung volumes are present, without infiltrate or mass identified. There is no pleural effusion or pneumothorax. IMPRESSION: No acute process on this portable exam. Reviewed, Interpreted and Dictated by Vanessa Elmore MD Transcribed by Rosa Mesa Authenticated and [facility]
[2024-09-30 12:17] LABS: Basophils # 0.1 K/mm3 (0-0.2); Basophils % 0.4 % (0.1-2.0); Eosinophils % 0.1 % (0.1-12.0); Hematocrit 35.6 % (42.0-52.0); Hemoglobin 10.9 g/dL (14.1-18.0); Immature Granulocytes % 1.5 %; Lymphocytes # 0.6 K/mm3 (0.7-4.5); Lymphocytes % 4.3 % (10-50); Mean Corpuscular HGB Conc 30.6 g/dL (31.8-35.4); Mean Corpuscular Hemoglobin 32.7 pg (27.0-31.2); Mean Corpuscular Volume 106.9 fl (80-94); Mean Platelet Volume 9.9 fl (7.4-10.4); Neutrophils # 11.9 K/mm3 (1.8-7.8); Neutrophils % 86.7 % (37.0-80.0); Nucleated Red Blood Cells # 0 10^3/uL; Nucleated Red Blood Cells % 0 %; Platelet Count 474 K/mm3 (142-424); Red Blood Count 3.33 M/mm3 (4.60-6.20); Red Cell Distribution Width 12.8 % (11.5-17.5); Red Cell Distribution Width-SD 49.9 fL; White Blood Count 13.7 K/mm3 (4.8-10.8)
[2024-09-30 12:21] LABS: Albumin Level 4.1 g/dl (3.5-5.0); Chloride 89 mmol/L (98-107); Potassium 5.4 mmoL/L (3.5-5.1); Sodium 127 mmol/L (136-145)
[2024-09-30 12:24] LABS: Alanine Aminotransferase 274 U/L (12-78); Albumin/Globulin Ratio 1.1 (1.1-1.8); Alkaline Phosphatase 387 U/L (38-126); Anion Gap 33.4 mEq/L (5-15); Aspartate Amino Transferase 111 U/L (17-59); Bilirubin,Total 0.7 mg/dl (0.2-1.3); Blood Urea Nitrogen 78 mg/dl (9-20); Calcium 10.3 mg/dl (8.4-10.2); Creatinine Clearance Estimated 16 mL/min (50-200); Estimated Glomerular Filt Rate 14 ml/min (>60); GFR (African American) 17 ML/MIN (>60); Globulin 3.6 g/dL (1.3-3.2); Total Protein,Serum 7.7 g/dl (6.3-8.2)
[2024-09-30 12:25] LABS: Activated Partial Thrombo Time 27.1 seconds (22.8-30.6); Chol/HDL Ratio 4.2 (1-3.5); Cholesterol 129 mg/dl (140-200); HDL Cholesterol 31 mg/dl (40-60); INR 1.15 (0.9-1.1); Lipase 146 U/L (23-300); Prothrombin Time 12.6 seconds (10.1-12.5); Triglycerides 195 mg/dl (30-150); VLDL Cholesterol 39 mg/dL (0-40)
--- NOTE | 2024-09-30 12:29 | PC.NURSE ---
spoke with respiratory(alban) about vbg order and blood was at lab
--- NOTE | 2024-09-30 12:32 | HMH.EDGENADL ---
Discharge Plan Disposition Patient Disposition: Admitted Chief Complaint: Weakness Prescriptions Prescriptions: No Action montelukast 10 mg tablet 10 mg PO DAILY Patient Comments: TAKE ONE TABLET BY MOUTH EVERY DAY atorvastatin 40 mg tablet 40 mg PO DAILY Patient Comments: TAKE ONE TABLET BY MOUTH EVERY DAY amlodipine 5 mg tablet 5 mg PO DAILY Patient Comments: TAKE ONE TABLET BY MOUTH EVERY DAY donepezil 10 mg tablet 10 mg PO DAILY Patient Comments: TAKE ONE TABLET BY MOUTH AT BEDTIME propranolol 20 mg tablet 20 mg PO BID Patient Comments: TAKE ONE TABLET BY MOUTH TWICE DAILY metformin 500 MG tablet 1 tab PO DAILY primidone 250 MG tablet 1 tab PO BID tamsulosin 0.4 MG capsule 1 tab PO DAILY celecoxib 200 MG capsule 200 mg PO BID enalapril maleate 10 MG tablet 10 mg PO DAILY famotidine 20 MG tablet 20 mg PO DAILY lansoprazole 30 MG capsule,delayed release(DR/EC) 30 mg PO DAILY cinnamon bark 500 MG capsule 1,000 mg PO BID [id number] 1 EACH tablet 1 tab PO DAILY mirabegron 25 MG tablet extended release 24 hr 25 mg PO DAILY Referrals Follow up/Referrals: Yonathan Smith DO [Primary Care Provider] - See instructions Clinical Impressions Clinical Impression: Diabetes mellitus with hyperosmolarity without hyperglycemic hyperosmolar nonketotic coma, Hypothyroidism, Acute confusion, Acute hyperkalemia, Acute hyponatremia, Acute UTI, RINA (acute kidney injury) Print Language Print Language: Maltese Discharge ED Provider: Nehemiah Hyman General Adult HPI General Chief complaint: Weakness Stated complaint: abnormal labs-Dr. Opal Smith Time Seen by Provider: 09/30/24 11:35 Mode of Arrival: Wheelchair Source of Information: Patient and Relative Description of Symptoms (Recalled from ER Triage Doc. by RN): Pt was seen at Dr Jordan office yesterday, labs were drawn, pt states he gave him a muscle relaxer. Today he has increased weakness, increased confusion and shaking. Pt denies any CP or SOA History of Present Illness HPI narrative: Please note that above description of symptoms, in this electronic medical record under categorization of recalled from ER triage doctor by RN are reflective of an initial nursing assessment, however, is not reflective of my full history and physical exam that was personally taken and clarified. Consequentially, this preceding description of symptoms, which may include the patient's categorized chief complaint in the EMR, do not reflect my personal clinical impression, and the ultimate description of history of present illness and patient stated complaints should be deferred to this section of the note. Unless stated otherwise or congruent with this section of the note, additional signs, symptoms, or incongruence should be interpreted as inaccurate with my clinical impression. Related Data Home Medications ?Medication ?Instructions ?Recorded ?Confirmed metformin 500 mg tablet 1 tab PO DAILY Diabetes 10/03/17 09/29/24 primidone 250 mg tablet 1 tab PO BID Tremors 10/03/17 09/29/24 tamsulosin 0.4 mg capsule 1 tab PO DAILY URINARY FLOW 10/03/17 09/29/24 celecoxib 200 mg capsule 200 mg PO BID Arthritis 06/14/20 09/29/24 cinnamon bark 500 mg capsule 1,000 mg PO BID Supplement 06/14/20 09/29/24 enalapril maleate 10 mg tablet 10 mg PO DAILY bp 06/14/20 09/29/24 famotidine 20 mg tablet 20 mg PO DAILY Reflux/Acid reflux 06/14/20 09/29/24 lansoprazole 30 mg capsule,delayed 30 mg PO DAILY Reflux/Acid reflux 06/14/20 09/29/24 release mirabegron 25 mg tablet,extended 25 mg PO DAILY urinary 06/14/20 09/29/24 release 24 hr [id number] 300 mcg-K 60 1 tab PO DAILY Supplement 06/14/20 09/29/24 mcg-lycop 600 mcg-lutein 300 mcg tablet amlodipine 5 mg tablet 5 mg PO DAILY 09/29/24 09/29/24 atorvastatin 40 mg tablet 40 mg PO DAILY 09/29/24 09/29/24 donepezil 10 mg tablet 10 mg PO DAILY 09/29/24 09/29/24 montelukast 10 mg tablet 10 mg PO DAILY 09/29/24 09/29/24 propranolol 20 mg tablet 20 mg PO BID 09/29/24 09/29/24 Allergies Allergy/AdvReac Type Severity Reaction Status Date / Time methocarbamol AdvReac Verified 09/29/24 14:45 [facility] Disclaimer: The information contained in this section may have been updated after the patient was seen, as this information can be updated by other users. Medical History (Updated 09/30/24 @ 13:25 by Nehemiah Hyman MD) Occasional tremors Diabetes Alzheimers disease Hypertension Surgical History (Updated 09/29/24 @ 14:38 by MARIELENA Westbrook) History of testicular surgery Social History (Updated 09/29/24 @ 14:25 by MARIELENA Westbrook) Smoking Status: Former smoker second hand exposure: Yes alcohol intake: never substance use type: denies use current occupational status: retired Travel in the last 8 weeks?: None household members: spouse housing: house caffeine: Yes Have you lived/traveled outside [place] in past 30 days?: No Contact w/someone who lives/traveled outside US past 30 days?: No Exposure to someone with infectious disease in past 14 days?: No Do you have a fever (greater than 100.4 F or 38 C)?: No Have you tested positive for COVID-19?: No Exposed to someone with COVID-19 in past 14 days?: No Do you have a sore throat?: No Do you have a cough?: No Do you have any weakness?: No Do you have any diarrhea?: No Are you experiencing any unusual bleeding?: No Do you have any muscle aches/pain?: No Do you have any abdominal pain?: No Are you experiencing loss of taste or smell?: No Other Medical History Have you received the Flu Vaccine for this season: Yes Have you received the Pneumonia Vaccine: No ROS Obtained: Yes All systems reviewed & no additional complaints except as documented Physical Exam General General appearance: alert Head Head exam: atraumatic and normocephalic Eye Eye exam: Present normal appearance, PERRL and EOMI Neck Neck exam: Present normal inspection, full ROM and trachea midline Respiratory Respiratory exam: Absent respiratory distress, wheezes, stridor, accessory muscle use or prolonged expiratory phase Cardiovascular Cardiovascular exam: Present other (Pulses equal symmetric in upper and lower extremities) Abdominal Exam Abdominal exam: Present soft; Absent distention, tenderness or pulsatile mass Extremities Exam Extremities exam: Absent edema Neurological Exam Neurological exam: Present alert, oriented X3 and CN II-XII intact; Absent motor sensory deficit Skin Skin exam: Present warm and dry; Absent diaphoresis or erythema Medical Decision Making Medical Records Medical records reviewed: Yes I reviewed the patient's medical records. Screening: Per USPSTF and CDC recommendations, given the prevalence of disease in our region, it is our hospital?s policy to screen for HIV and viral Hepatitis for all patients aged 18 and over and those with ongoing risk factors. Palmer Inquiry Pt receiving controlled substance: No Palmer was queried for this patient: No Vital Signs: 09/30/24 11:30 09/30/24 11:34 09/30/24 12:00 Temperature 98.1 F 98.1 F Temperature Source Oral Pulse Rate 102 H 97 H Pulse Rate [Left] 103 H Respiratory Rate 14 15 17 Blood Pressure 133/83 109/73 L Blood Pressure [Right Arm] 133/83 Blood Pressure Mean [Right Arm] 99 Blood Pressure Source [Right Arm] Automatic Cuff Blood Pressure Position [Right Arm] Sitting 02 Sat by Pulse Oximetry 95 95 94 L Oxygen Delivery Method Room Air Room Air 09/30/24 12:30 09/30/24 13:00 Temperature Temperature Source Pulse Rate 96 H 97 H Pulse Rate [Left] Respiratory Rate 19 21 Blood Pressure 143/80 H 143/80 H Blood Pressure [Right Arm] Blood Pressure Mean [Right Arm] Blood Pressure Source [Right Arm] Blood Pressure Position [Right Arm] 02 Sat by Pulse Oximetry 96 95 Oxygen Delivery Method Room Air Lab Data Lab Results 09/30/24 11:27: Urine Color Yellow, Urine Appearance Cloudy, Urine pH 5.5, Ur Specific [place] 1.010, Urine Protein 1+ A, Urine Glucose (UA) 3+, Urine Ketones 1+, Urine Blood 3+ A, Urine Nitrate Negative, Urine Bilirubin Negative, Urine Urobilinogen 0.2, Ur Leukocyte Esterase 1+ A, Urine RBC 10-20, Urine WBC 20-50, Ur Squamous Epith Cells None, Urine Bacteria Trace 09/30/24 12:29: VBG pH 7.17 L, VBG pCO2 32.8 L, VBG pO2 50.4 H, VBG HCO3 11.6 L, VBG Total CO2 12.6 L, VBG O2 Saturation 77.7 H, VBG Base Excess -17.0 L, VBG Lactic Acid 2.4 H 09/30/24 : WBC 13.7 H, RBC 3.33 L, Hgb 10.9 L, Hct 35.6 L, MCV 106.9 H, MCH 32.7 H, MCHC 30.6 L, RDW 12.8, Plt Count 474 H, MPV 9.9, Neut % (Auto) 86.7 H, Lymph % (Auto) 4.3 L, [place] % (Auto) 7.0, Eos % (Auto) 0.1, Baso % (Auto) 0.4, Neut # (Auto) 11.9 H, Lymph # (Auto) 0.6 L, [place] # (Auto) 1.0, Eos # (Auto) 0.0, Baso # (Auto) 0.1, PT 12.6 H, INR 1.15 H, APTT 27.1, Sodium 127 L, Potassium 5.4 H, Chloride 89 L, Carbon Dioxide 10 L D, Anion Gap 33.4 H, BUN 78 H, Creatinine 4.10 H D, Estimated Creat Clear 16, Estimated GFR 14 L*, Est GFR ( Amer) 17 L* D, Glucose 1111 H* D, Hemoglobin A1c 10.0 H, Calcium 10.3 H, Magnesium 2.0, Total Bilirubin 0.7, AST 111 H D, ALT 274 H, Alkaline Phosphatase 387 H, Troponin I < 0.01, NT-Pro-B Natriuret Pep 413 H, Total Protein 7.7, Albumin 4.1, Globulin 3.6 H, Albumin/Globulin Ratio 1.1, Triglycerides 195 H, Cholesterol 129 L, LDL Cholesterol Direct 47.87 L, VLDL Cholesterol 39, HDL Cholesterol 31 L, Cholesterol/HDL Ratio 4.2 H, Lipase 146, TSH 0.21 L, Thyroxine (T4) 5.3 L 09/30/24 Unknown 09/30/24 Unknown Orders (Tests/Meds): ED MEDICATIONS Generic Name Dose Route Start Last Admin Trade Name Freq PRN Reason Stop Dose Admin Dextrose 50 ml 09/30/24 12:39 Dextrose 50% 50ml Syringe (Crash Cart) IVP 10/30/24 12:38 NEEDED PRN per DKA protocol for FSBS </= 50 Insulin Human Regular 100 unit 101 mls @ 7.422 mls/hr 09/30/24 12:40 09/30/24 13:10 / Sodium Chloride IV 10/30/24 12:39 0.1 units/kg/hr .[id number] HARI 7.42 mls/hr Administration Protocol 0.1 UNITS/KG/HR Sodium Chloride 1,000 mls @ 150 mls/hr 09/30/24 12:45 Sod Chlor 0.9% 1000ml Bag IV 10/30/24 12:44 .[id number] HARI Potassium Chloride/Sodium Chloride 1,000 mls @ 150 mls/hr 09/30/24 13:00 Kcl 20 Meq In Ns 1,000 Ml Iv Soln IV 10/30/24 12:59 .[id number] HARI Insulin Glargine 20 unit 09/30/24 21:00 Insulin Glargine 100 Units/Ml 3ml Flexpen SUBCUT 10/30/24 20:59 HS HARI Discontinued Medications Generic Name Dose Route Start Last Admin Trade Name Freq PRN Reason Stop Dose Admin Potassium Chloride/Sodium Chloride 1,000 mls @ 150 mls/hr 09/30/24 12:45 Kcl 40 Meq-Ns 1,000ml Iv Soln IV 10/30/24 12:44 .[id number] HARI Sodium Bicarbonate 50 meq 09/30/24 12:39 09/30/24 13:15 Sodium Bicarb 8.4% 50ml Syringe (Crash Cart) IV 09/30/24 12:40 50 meq ONCE ONE Administration ORDERS Category Date Time Status Nutrition Consult [CONS] Routine Cons 09/30/24 13:14 Active XR chest portable Stat Exams 09/30/24 12:04 Completed Basic Metabolic Panel Q4H Lab 09/30/24 13:15 Ordered Basic Metabolic Panel Q4H Lab 09/30/24 17:15 Ordered Basic Metabolic Panel Q4H Lab 09/30/24 21:15 Ordered Basic Metabolic Panel Q4H Lab 10/01/24 01:15 Ordered Basic Metabolic Panel Q4H Lab 10/01/24 05:15 Ordered Basic Metabolic Panel Q4H Lab 10/01/24 09:15 Ordered Complete Blood Count Auto Diff AMLAB Lab 10/01/24 06:00 Ordered Complete Blood Count Auto Diff Stat Lab 09/30/24 Completed Comprehensive Metabolic Panel AMLAB Lab 10/01/24 06:00 Ordered Comprehensive Metabolic Panel Stat Lab 09/30/24 Completed Hemoglobin A1C Stat Lab 09/30/24 Completed Lactic Acid Stat Lab 09/30/24 12:04 Ordered Lipase Stat Lab 09/30/24 Completed Lipid Panel Stat Lab 09/30/24 Completed Magnesium AMLAB Lab 10/01/24 06:00 Ordered Magnesium Q4H Lab 09/30/24 13:15 Ordered Magnesium Q4H Lab 09/30/24 17:15 Ordered Magnesium Q4H Lab 09/30/24 21:15 Ordered Magnesium Q4H Lab 10/01/24 01:15 Ordered Magnesium Q4H Lab 10/01/24 05:15 Ordered Magnesium Q4H Lab 10/01/24 09:15 Ordered Magnesium Stat Lab 09/30/24 Completed NT Pro Brain Natriuretic Pep. Stat Lab 09/30/24 Completed PT INR [Prothrombin Time INR] Stat Lab 09/30/24 Completed PTT [Activated Partial Thrombo Time] Stat Lab 09/30/24 Completed Phosphorous Q4H Lab 09/30/24 13:15 Ordered Phosphorous Q4H Lab 09/30/24 17:15 Ordered Phosphorous Q4H Lab 09/30/24 21:15 Ordered Phosphorous Q4H Lab 10/01/24 01:15 Ordered Phosphorous Q4H Lab 10/01/24 05:15 Ordered Phosphorous Q4H Lab 10/01/24 09:15 Ordered T4 (Thyroxine) Stat Lab 09/30/24 Completed TSH [Thyroid Stimulating Hormone] Stat Lab 09/30/24 Completed Troponin I Q3H Lab 09/30/24 15:15 Ordered Troponin I Q3H Lab 09/30/24 18:15 Ordered Troponin I Stat Lab 09/30/24 Completed UA [Urinalysis and Microscopic] Stat Lab 09/30/24 11:27 Completed Urinalysis and Microscopic Stat Lab 09/30/24 12:05 Ordered Blood Culture Stat Micro 09/30/24 12:23 Received Urine Culture Stat Micro 09/30/24 11:27 Received Venous Blood Gas Stat RT 09/30/24 12:29 Completed Medical Decision Narrative: 74-year-old history of hypertension, hyperlipidemia, CKD, diabetes presenting with multiple lab abnormalities, weakness, confusion. Patient was seen by his family doctor yesterday, labs were drawn, with numerous abnormalities, recommend he come to the emergency department. Patient states that he has been confused and weak for about 7 to 10 days at this point. Family at bedside to provide most of history. States that started with weakness, turned into confusion, now is having largely no appetite. Denies dysuria, hematuria, abdominal pain, nausea, vomiting, chest pain, shortness of breath, or any other concerns. Alert and oriented currently, but intermittently confused about the day with basic tasks [History was obtained via conversation with patient and family. On arrival, patient hemodynamically stable, alert, oriented x4, appropriate, GCS 15, moving all extremities spontaneously, pupils equal and reactive to light. Full physical exam performed and significant for chronically ill-appearing male who is thin, dry mucous membranes. Speaking full sentences, alert and oriented, neurologically intact. Cardiopulmonary exam within normal limits. Lungs are clear anterior and posterior bilaterally, abdomen is soft, nontender, nondistended. Dry mucous membranes. Differential includes HHNK, DKA, other metabolic abnormality/emergency, sepsis, urinary tract infection, pneumonia, medication noncompliance, ACS, SC, among others. Patient placed on continuous cardiac monitoring and continuous pulse ox with initial blood pressure 133/83, heart rate 103, saturation 95% on room air. Independent interpretation of EKG shows sinus tachycardia 102 bpm with [place] interval 132, QRS 85, QTc 388. T wave inversions in 1 and aVL with no reciprocal change. No evidence of peaked T waves or hyperkalemic change. Patient was given IV fluids initially for symptomatic management and correction of underlying abnormalities. Workup independently interpreted and significant for leukocytosis 13.7 with relative neutrophilia. Patient's coags nonactionable. VBG with metabolic acidosis with incomplete respiratory compensation pH 7.17, bicarb low at 11, CO2 low at 32 and lactate elevated at 2.4. Chemistry concerning for severe DKA. Hyponatremia 127, potassium elevated at 5.4, anion gap 33.4 with RINA on CKD creatinine 4.1 and BUN 78 up from baseline creatinine of about 1.3-1.4. Patient's glucose 1100 and A1c 10.0. I will also elevated with AST/ALT/alk phos 111/274/387 respectively. Bilirubin normal. Troponin negative, BNP mildly elevated. Patient's triglycerides also elevated and thyroid studies consistent with hypothyroidism. UA with blood, protein, trace ketones, white cells. On independent interpretation of imaging, no acute cardiopulmonary space disease on chest x-ray. See radiology read for full review of final results. On reevaluation, patient is resting at baseline, very pleasant. Given ceftriaxone for urinary tract infection on catheter specimen UA with blood, protein, leukocyte esterase and numerous leukocytes. Tissue perfusion reassessment performed within 3 hours, patient mentating, following commands, good capillary refill and hemodynamically stable. Given fluids, started on insulin drip. Given patient presentation, workup, history, this most likely represents new onset DKA versus HHNK. Hospitalist was consulted and case was discussed at length, patient to be admitted for further definitive management. Because patient high risk for clinical decompensation, deemed appropriate for inpatient admission. Results were relayed to patient who voiced understanding and patient was agreeable to inpatient admission and management. Patient was admitted to the hospital for further definitive management. [employer] disclaimer Much of this encounter note is an electronic senior management consultant spoken language to printed text. Electronic senior management consultant of the spoken language may permit errors. Although I have reviewed the note, some errors may still exist. Critical Care Critical Care Time Critical Care Time: Yes (endocrine) Attestation: On 09/30/24, the high probability of a clinically significant, sudden or life threatening deterioration of the following system(s) required my full and direct attention, intervention and personal management. The time I documented below is in addition to time spent performing reported procedures but includes the following listed in this critical care notation. Total Time Total Critical Care Time: 45
[2024-09-30 12:33] LABS: VBG HCO3 11.6 mmol/L (23-30); VBG Oxygen Saturation 77.7 % (50-70); VBG PCO2 32.8 mmol/L (35-51); VBG PO2 50.4 mmol/L (28-40); VBG Total CO2 12.6 mmol/L (23-27)
[2024-09-30 12:34] LABS: NT Pro Brain Natriuretic Pep. 413 pg/mL (0-125)
[2024-09-30 12:36] LABS: Direct LDL Cholesterol 47.87 mg/dL (100-129)
[2024-09-30 12:38] LABS: Lactate Venous 2.4 mmol/L (0.4-2.0); VBG PH 7.17 mmol/L (7.31-7.41)
[2024-09-30 12:39] LABS: Carbon Dioxide 10 mmol/L (22.0-30.0); Glucose 1111 mg/dl (74-100)
[2024-09-30 12:40] LABS: Troponin I < 0.01 ng/ml (0.00-0.034)
[2024-09-30 12:41] LABS: T4 (Thyroxine) 5.3 ug/dl (5.53-11.0)
--- NOTE | 2024-09-30 12:44 | PC.NURSE ---
notified of CO2 10, Cr 4.10, and glucose of 1111.
[2024-09-30 12:55] LABS: Thyroid Stimulating Hormone 0.21 uIU/mL (0.465-4.68)
[2024-09-30] MEDS: INSULIN REGULAR, HUMAN 100 UNIT in 0.9 % SODIUM CHLORIDE 100 ML 7.42 UNIT IV (13:10)
--- NOTE | 2024-09-30 13:14 | PC.NURSE ---
niles wants a blood draw for glucose at 15:30
[2024-09-30] MEDS: SODIUM BICARB 8.4% 50ML SYRINGE (CRASH CART) 50 MEQ IV (13:15)
--- NOTE | 2024-09-30 13:16 | P.HP_ITS ---
History of Present Illness *Admission Date: 09/30/24 *Reason for visit:: Tremor, weakness, urinary incontinence *History of present illness: Mr. Howell is a 70-year-old male with history of hypertension, hyperlipidemia, CKD, diabetes, tremor. Presented with worsening weakness and confusion over the past several days. States that symptoms of gotten significantly worse over the past month after starting methocarbamol for leg pain. Presented to new doctor to establish care yesterday and labs were drawn. Found to have significant abnormalities with kidney dysfunction and hyperglycemia. Sent to the ER for further management. Stable on room air. Denies dysuria, vomiting, chest pain or shortness of breath. Does state he has been urinating frequently and having urinary incontinence. Alert and oriented. at bedside helps supplement history. Labs obtained showing glucose of 1111, creatinine of 4.1, baseline approximately 1.4. Afebrile. White count of 13.7. Meeting sepsis criteria along with DKA. Medicine consulted for admission and further management Initiated on DKA protocol with insulin drip. On arrival to the floor, glucose improving to about 800. Continues to be quite elevated necessitating IV fluids and insulin drip. Stable on room air. [facility] Disclaimer: The information contained in this section may have been updated after the patient was seen, as this information can be updated by other users. Medical History Occasional tremors Diabetes Alzheimers disease Hypertension Surgical History History of testicular surgery Social History Smoking Status: Former smoker second hand exposure: Yes alcohol intake: former substance use type: denies use current occupational status: retired Travel in the last 8 weeks?: None household members: spouse housing: house marital status: caffeine: Yes Have you lived/traveled outside [place] in past 30 days?: No Contact w/someone who lives/traveled outside US past 30 days?: No Exposure to someone with infectious disease in past 14 days?: No Do you have a fever (greater than 100.4 F or 38 C)?: No Have you tested positive for COVID-19?: No Exposed to someone with COVID-19 in past 14 days?: No Do you have a sore throat?: No Do you have a cough?: No Do you have any weakness?: No Are you experiencing any nausea/vomitting?: No Do you have any diarrhea?: No Are you experiencing any unusual bleeding?: No Do you have any muscle aches/pain?: No Do you have any abdominal pain?: No Are you experiencing loss of taste or smell?: No Other Medical History Have you received the Flu Vaccine for this season: Yes Have you received the Pneumonia Vaccine: No Review of Systems Review of Systems Review of systems (narrative): 14 point review of systems performed, pertinent positives and negatives as per HPI Meds Home Medications and Allergies Home Medications ?Medication ?Instructions ?Recorded ?Confirmed ?Type metformin 500 mg tablet 500 mg PO DAILY 10/03/17 09/30/24 History primidone 250 mg tablet 500 mg PO BID 10/03/17 09/30/24 History tamsulosin 0.4 mg capsule 1 tab PO DAILY 10/03/17 09/30/24 History celecoxib 200 mg capsule 200 mg PO BID 06/14/20 09/30/24 History famotidine 20 mg tablet 20 mg PO BID 06/14/20 09/30/24 History lansoprazole 30 mg capsule,delayed 30 mg PO DAILY 06/14/20 09/30/24 History release mirabegron 25 mg tablet,extended 25 mg PO DAILY 06/14/20 09/30/24 History release 24 hr amlodipine 5 mg tablet 5 mg PO DAILY 09/29/24 09/30/24 History atorvastatin 40 mg tablet 40 mg PO DAILY 09/29/24 09/30/24 History donepezil 10 mg tablet 10 mg PO HS 09/29/24 09/30/24 History montelukast 10 mg tablet 10 mg PO HS 09/29/24 09/30/24 History cinnamon bark 500 mg capsule 1,000 mg PO BID 09/30/24 09/30/24 History (Cinnamon) loratadine 10 mg tablet 10 mg PO DAILY 09/30/24 09/30/24 History mirabegron 25 mg tablet,extended 25 mg PO DAILY 09/30/24 09/30/24 History release 24 hr (Myrbetriq) [id number] 300 mcg-K 60 1 tab PO DAILY 09/30/24 09/30/24 History mcg-lycop 600 mcg-lutein 300 mcg tablet (Centrum Silver Ultra Men's) propranolol 20 mg tablet 20 mg PO BID 09/30/24 09/30/24 History New Prescriptions to Start Prescriptions: Allergies Allergy/AdvReac Type Severity Reaction Status Date / Time methocarbamol AdvReac Verified 09/29/24 14:45 Exam Data for Last 24 hours Vital signs and Labs for Last 24 Hours: Temp Pulse Resp BP Pulse Ox O2 Del Method 98.1 F 97 H 21 143/80 H 95 Room Air 09/30/24 11:34 09/30/24 13:00 09/30/24 13:00 09/30/24 13:00 09/30/24 13:00 09/30/24 12:30 Laboratory Results - last 24 hr 09/30/24 11:27: Urine Color Yellow, Urine Appearance Cloudy, Urine pH 5.5, Ur Specific [place] 1.010, Urine Protein 1+ A, Urine Glucose (UA) 3+, Urine Ketones 1+, Urine Blood 3+ A, Urine Nitrate Negative, Urine Bilirubin Negative, Urine Urobilinogen 0.2, Ur Leukocyte Esterase 1+ A, Urine RBC 10-20, Urine WBC 20-50, Ur Squamous Epith Cells None, Urine Bacteria Trace 09/30/24 12:29: VBG pH 7.17 L, VBG pCO2 32.8 L, VBG pO2 50.4 H, VBG HCO3 11.6 L, VBG Total CO2 12.6 L, VBG O2 Saturation 77.7 H, VBG Base Excess -17.0 L, VBG Lactic Acid 2.4 H 09/30/24 : WBC 13.7 H, RBC 3.33 L, Hgb 10.9 L, Hct 35.6 L, MCV 106.9 H, MCH 32.7 H, MCHC 30.6 L, RDW 12.8, Plt Count 474 H, MPV 9.9, Neut % (Auto) 86.7 H, Lymph % (Auto) 4.3 L, [place] % (Auto) 7.0, Eos % (Auto) 0.1, Baso % (Auto) 0.4, Neut # (Auto) 11.9 H, Lymph # (Auto) 0.6 L, [place] # (Auto) 1.0, Eos # (Auto) 0.0, Baso # (Auto) 0.1, PT 12.6 H, INR 1.15 H, APTT 27.1, Sodium 127 L, Potassium 5.4 H, Chloride 89 L, Carbon Dioxide 10 L D, Anion Gap 33.4 H, BUN 78 H, Creatinine 4.10 H D, Estimated Creat Clear 16, Estimated GFR 14 L*, Est GFR ( Amer) 17 L* D, Glucose 1111 H* D, Hemoglobin A1c 10.0 H, Calcium 10.3 H, Magnesium 2.0, Total Bilirubin 0.7, AST 111 H D, ALT 274 H, Alkaline Phosphatase 387 H, Troponin I < 0.01, NT-Pro-B Natriuret Pep 413 H, Total Protein 7.7, Albumin 4.1, Globulin 3.6 H, Albumin/Globulin Ratio 1.1, Triglycerides 195 H, Cholesterol 129 L, LDL Cholesterol Direct 47.87 L, VLDL Cholesterol 39, HDL Cholesterol 31 L, Cholesterol/HDL Ratio 4.2 H, Lipase 146, TSH 0.21 L, Thyroxine (T4) 5.3 L I & O for Last 24 hours: Intake & Output 09/27/24 09/28/24 09/29/24 09/30/24 23:59 23:59 23:59 23:59 Weight 73.482 kg Constitutional Constitutional: mild distress, thin, chronically ill appearing and cooperative *Routine HEENT Exam Head: Present normocephalic Eye: Present EOMI and PERRL ENT: Present mucous membranes moist Comments: Poor dentition *Routine Neck Exam Neck: Present supple; Absent lymphadenopathy *Routine Respiratory Exam Respiratory: Present CTA bilaterally; Absent rhonchi, wheezes or crackles *Routine Cardiovascular Exam Cardiovascular: Present tachycardia *Routine Abdominal Exam Abdominal: Present soft and normoactive bowel sounds; Absent tenderness *Routine Rectal Exam Rectal:: deferred *Routine Genitalia Exam Genitalia:: deferred *Routine Extremities Exam Extremities: Absent cyanosis, clubbing or edema Comments: Thin *Routine Skin Exam Skin: Present intact and warm; Absent rash *Routine Neurological Exam Neurological: Present alert, oriented X3, moving all extremities and tremors; Absent altered mental status Assessment and Plan *Assessment and plan (1) DKA (diabetic ketoacidosis): Status: Acute Category: Medical Code(s): E11.10 - Type 2 diabetes mellitus with ketoacidosis without coma (2) High anion gap metabolic acidosis: Status: Acute Category: Medical Code(s): E87.29 - Other acidosis (3) Sepsis: Status: Acute Category: Medical Code(s): A41.9 - Sepsis, unspecified organism (4) Acute UTI: Status: Acute Category: Medical Code(s): N39.0 - Urinary tract infection, site not specified (5) RINA (acute kidney injury): Status: Acute Category: Medical Code(s): N17.9 - Acute kidney failure, unspecified (6) Acute hyponatremia: Status: Acute Category: Medical Code(s): E87.1 - Hypo-osmolality and hyponatremia (7) Acute hyperkalemia: Status: Acute Category: Medical Code(s): E87.5 - Hyperkalemia (8) Hypothyroidism: Status: Acute Category: Medical Code(s): E03.9 - Hypothyroidism, unspecified (9) Essential tremor: Status: Acute Category: Medical Code(s): G25.0 - Essential tremor Plan 74-year-old male who presents with weakness, polyuria, sepsis criteria with elevated white count, tachycardia, renal failure. Discussed case with ER physician, requested admission for further management of DKA. I agreed to admit for further management of his DKA. Admitted to ICU on insulin drip. Glucose severely elevated at 1111 on presentation. Necessitating inpatient management. High risk of decompensation. Problems addressed as follows: DKA High anion gap metabolic acidosis -Anion gap 33, bicarb 10, pH 7.17 on presentation. Glucose 1111. Initiated on DKA protocol with insulin drip. A1c obtained, 10. - Fluids per protocol for DKA - Initiate insulin glargine 20 units this evening - Will transition to basal bolus regimen once gap is closed. BMP ordered every 4 hours. Phosphorus every 4 hours. Repeat CBC, CMP, magnesium ordered for the morning. - TSH 0.21 - Only on metformin at home, holding at this time. UTI: Sepsis: -Meeting criteria with tachycardia, white count of 13.7, grossly abnormal urine. Initiated on ceftriaxone daily. Monitor urine and blood cultures. Continue ceftriaxone pending improvement in symptoms. Will hold on SGLT2 medications for his diabetes due to UTI - Continue tamsulosin 0.4 mg daily RINA, baseline creatinine 1.3. Presented with creatinine of 4.1. BUN 78. Suspect secondary to dehydration versus medication effect. Will obtain CK to rule out rhabdomyolysis given patient's complaint of muscle pain and dark urine. Monitor for improvement with fluid resuscitation in the setting of DKA. Monitoring BMP every 4 hours. - Electrolyte disturbances with pseudohyponatremia with sodium of 127, when corrected for hyperglycemia, sodium within normal range. Potassium 5.4. - Mild elevation in liver enzymes with AST 111, ALT 274, alk phos 387. Longstanding tremor: Continue propranolol 20 mg twice daily and primidone 500 mg twice daily DNR Full liquid Lovenox 30 mg subcu daily
[2024-09-30] MEDS: 0.9% NaCl w/20mEq KCL 1,000 ML 150 ML IV ×2 (13:19→20:09)
--- NOTE | 2024-09-30 13:28 | HMH.PHAINT1 ---
Pharmacy Intervention Comments: MEDICATION RECONCILIATION COMPLETED ON PATIENT USING EXTERNAL FILL HISTORY FROM PHARMACY. -DANIEL LAIRD, GENNAD
[2024-09-30 13:51] LABS: Chloride 90 mmol/L (98-107); Potassium 5.8 mmoL/L (3.5-5.1); Sodium 129 mmol/L (136-145)
[2024-09-30 13:54] LABS: Anion Gap 31.8 mEq/L (5-15); Calcium 9.9 mg/dl (8.4-10.2); Carbon Dioxide 13 mmol/L (22.0-30.0); Creatinine Clearance Estimated 16 mL/min (50-200); Estimated Glomerular Filt Rate 14 ml/min (>60); GFR (African American) 17 ML/MIN (>60)
[2024-09-30 13:59] LABS: Blood Urea Nitrogen 80 mg/dl (9-20)
[2024-09-30] MEDS: CEFTRIAXONE 1 GM 1 GM in 0.9 % SODIUM CHLORIDE 50 ML IV (13:59)
[2024-09-30 14:07] LABS: Glucose,Random 1057 mg/dL (74-100)
[2024-09-30 14:08] LABS: Glucose 1074 mg/dl (74-100)
--- NOTE | 2024-09-30 14:08 | PC.NURSE ---
notified of BUN of 80, Cr of 4.10, Glucose of 1057.
--- NOTE | 2024-09-30 14:25 | PC.NURSE ---
Male wee bag applied to pt due to weakness and unsteadiness. Family at bedside
[2024-09-30] MEDS: ACETAMINOPHEN 1,000MG/100ML VIAL 1000 MG IV (14:29)
[2024-09-30] MEDS: LIDOCAINE 5% TRANSDERMAL PATCH 1 EACH TD (14:29)
--- NOTE | 2024-09-30 15:52 | PC.NURSE ---
arrived by w/c from ED
--- NOTE | 2024-09-30 16:17 | PC.NURSE ---
a FSBS ,per DKA [id number] finger stick protocol, was obtained on the patient @1617, the glucometer read HI
[2024-09-30 16:31] LABS: Troponin I < 0.01 ng/ml (0.00-0.034)
[2024-09-30 16:35] LABS: Reflex Lactic Add Lactic Reflex
[2024-09-30 16:45] LABS: Chloride 96 mmol/L (98-107); Potassium 5.1 mmoL/L (3.5-5.1); Sodium 132 mmol/L (136-145)
[2024-09-30 16:48] LABS: Anion Gap 22.1 mEq/L (5-15); Blood Urea Nitrogen 79 mg/dl (9-20); Calcium 9.9 mg/dl (8.4-10.2); Carbon Dioxide 19 mmol/L (22.0-30.0); Estimated Glomerular Filt Rate 15 ml/min (>60); GFR (African American) 18 ML/MIN (>60); Magnesium 2.1 mg/dl (1.6-2.3); Phosphorous 4.1 mg/dl (2.5-4.5)
[2024-09-30 16:49] LABS: Lactic Acid 1.7 mmol/L (0.7-2.1)
[2024-09-30 16:59] LABS: Creatinine Clearance Estimated 16 mL/min (50-200); Glucose 802 mg/dl (74-100)
[2024-09-30] MEDS: INSULIN GLARGINE 100 UNITS/ML 3ML FLEXPEN 20 UNIT SUBCUT (17:46)
[2024-09-30 18:01] LABS: Creatine Kinase 80 U/L (55-170)
[2024-09-30 18:15] LABS: Glucose,Random 609 mg/dL (74-100)
[2024-09-30 19:10] LABS: Glucose,Random 685 mg/dL (74-100)
[2024-09-30] MEDS: PROPRANOLOL 20MG TAB 20 MG PO (20:06)
[2024-09-30] MEDS: DONEPEZIL 10MG TAB 10 MG PO (20:06)
[2024-09-30] MEDS: MONTELUKAST SODIUM 10MG TAB 10 MG PO (20:06)
[2024-09-30] MEDS: PANTOPRAZOLE 40MG TABLET 40 MG PO (20:07)
[2024-09-30] MEDS: FAMOTIDINE 20MG TABLET 20 MG PO (20:08)
[2024-09-30] MEDS: CYCLOBENZAPRINE 10MG TABLET 10 MG PO (20:13)
--- NOTE | 2024-09-30 20:35 | PC.NURSE ---
critical result received from lab for critical glucose of 813. provider aware. patient insulin gtt continues
[2024-09-30 20:37] LABS: Glucose,Random 813 mg/dL (74-100)
--- NOTE | 2024-09-30 20:52 | PC.NURSE ---
critical result received from lab for critical glucose of 750. provider aware. patient insulin gtt continues
[2024-09-30 20:53] LABS: Glucose,Random 750 mg/dL (74-100)
[2024-09-30 21:44] LABS: Anion Gap 16.7 mEq/L (5-15); Blood Urea Nitrogen 78 mg/dl (9-20); Calcium 9.4 mg/dl (8.4-10.2); Carbon Dioxide 22 mmol/L (22.0-30.0); Chloride 97 mmol/L (98-107); Creatinine Clearance Estimated 19 mL/min (50-200); Estimated Glomerular Filt Rate 18 ml/min (>60); GFR (African American) 22 ML/MIN (>60); Magnesium 2.3 mg/dl (1.6-2.3); Phosphorous 2.9 mg/dl (2.5-4.5); Potassium 4.7 mmoL/L (3.5-5.1); Sodium 131 mmol/L (136-145)
[2024-09-30 21:57] LABS: Glucose 652 mg/dl (74-100)
--- NOTE | 2024-09-30 21:57 | PC.NURSE ---
critical result received from lab for critical glucose of 652. provider aware. patient insulin gtt continues
--- NOTE | 2024-09-30 22:42 | PC.NURSE ---
critical result received from lab for critical glucose of 660. provider aware. patient insulin gtt continues
[2024-09-30 22:43] LABS: Glucose,Random 660 mg/dL (74-100)
[2024-09-30 23:25] LABS: POC Glucose,Bedside 424 (70-110)
[2024-10-01] VITALS (16 sets, daily range): BP systolic 113–193; BP diastolic 73–116; PULSE 73–103; RESP 12–23; TEMP 36.4–37.1; O2SAT 91–98; BMI 20.3
[2024-10-01 01:35] LABS: Chloride 105 mmol/L (98-107); Sodium 137 mmol/L (136-145)
[2024-10-01 01:36] LABS: Potassium 4.6 mmoL/L (3.5-5.1)
[2024-10-01 01:38] LABS: Anion Gap 14.6 mEq/L (5-15); Blood Urea Nitrogen 71 mg/dl (9-20); Carbon Dioxide 22 mmol/L (22.0-30.0); Creatinine Clearance Estimated 18 mL/min (50-200); Estimated Glomerular Filt Rate 17 ml/min (>60); GFR (African American) 21 ML/MIN (>60)
[2024-10-01 01:39] LABS: Calcium 9.9 mg/dl (8.4-10.2); Glucose 367 mg/dl (74-100)
[2024-10-01] MEDS: INSULIN REGULAR, HUMAN 100 UNIT in 0.9 % SODIUM CHLORIDE 100 ML IV (04:41)
[2024-10-01] MEDS: 0.9% NaCl w/20mEq KCL 1,000 ML 150 ML IV (04:42)
[2024-10-01 05:07] LABS: POC Glucose,Bedside 327 (70-110)
[2024-10-01 05:24] LABS: POC Glucose,Bedside 322 (70-110)
[2024-10-01 05:24] LABS: POC Glucose,Bedside 319 (70-110)
[2024-10-01 05:24] LABS: POC Glucose,Bedside 343 (70-110)
[2024-10-01 05:24] LABS: POC Glucose,Bedside 332 (70-110)
[2024-10-01 05:24] LABS: POC Glucose,Bedside 314 (70-110)
[2024-10-01 06:14] LABS: POC Glucose,Bedside 303 (70-110)
[2024-10-01 07:26] LABS: POC Glucose,Bedside 292 (70-110)
[2024-10-01 07:29] LABS: Basophils # 0.1 K/mm3 (0-0.2); Basophils % 0.4 % (0.1-2.0); Eosinophils # 0.1 Kmm3 (0.0-0.4); Eosinophils % 1.1 % (0.1-12.0); Hemoglobin 9.9 g/dL (14.1-18.0); Immature Granulocytes # 0.13 10^3uL; Immature Granulocytes % 1.1 %; Lymphocytes # 0.9 K/mm3 (0.7-4.5); Lymphocytes % 7.9 % (10-50); Mean Corpuscular HGB Conc 34.1 g/dL (31.8-35.4); Mean Corpuscular Hemoglobin 32.6 pg (27.0-31.2); Mean Corpuscular Volume 95.4 fl (80-94); Mean Platelet Volume 9.6 fl (7.4-10.4); Monocytes # 0.7 K/mm3 (0.1-1.0); Monocytes % 6.4 % (1.7-9.3); Neutrophils # 9.6 K/mm3 (1.8-7.8); Neutrophils % 83.1 % (37.0-80.0); Nucleated Red Blood Cells # 0 10^3/uL; Nucleated Red Blood Cells % 0 %; Platelet Count 323 K/mm3 (142-424); Red Blood Count 3.04 M/mm3 (4.60-6.20); Red Cell Distribution Width-SD 41.9 fL; White Blood Count 11.5 K/mm3 (4.8-10.8)
[2024-10-01 07:41] LABS: Anion Gap 14.5 mEq/L (5-15); Blood Urea Nitrogen 67 mg/dl (9-20); Calcium 9.6 mg/dl (8.4-10.2); Carbon Dioxide 21 mmol/L (22.0-30.0); Chloride 108 mmol/L (98-107); Creatinine Clearance Estimated 22 mL/min (50-200); Estimated Glomerular Filt Rate 21 ml/min (>60); GFR (African American) 25 ML/MIN (>60); Glucose 283 mg/dl (74-100); Magnesium 2.1 mg/dl (1.6-2.3); Phosphorous 2.6 mg/dl (2.5-4.5); Potassium 4.5 mmoL/L (3.5-5.1); Sodium 139 mmol/L (136-145)
[2024-10-01 08:07] LABS: Albumin Level 3.1 g/dl (3.5-5.0); Chloride 109 mmol/L (98-107); Potassium 4.7 mmoL/L (3.5-5.1); Sodium 139 mmol/L (136-145)
[2024-10-01 08:10] LABS: Alanine Aminotransferase 278 U/L (12-78); Alkaline Phosphatase 356 U/L (38-126); Anion Gap 13.7 mEq/L (5-15); Aspartate Amino Transferase 254 U/L (17-59); Bilirubin,Total 0.4 mg/dl (0.2-1.3); Blood Urea Nitrogen 67 mg/dl (9-20); Carbon Dioxide 21 mmol/L (22.0-30.0); Creatinine Clearance Estimated 21 mL/min (50-200); Estimated Glomerular Filt Rate 20 ml/min (>60); GFR (African American) 24 ML/MIN (>60); Total Protein,Serum 6.1 g/dl (6.3-8.2)
[2024-10-01 08:11] LABS: Calcium 9.4 mg/dl (8.4-10.2); Glucose 302 mg/dl (74-100); Magnesium 1.8 mg/dl (1.6-2.3)
[2024-10-01 08:24] LABS: POC Glucose,Bedside 359 (70-110)
[2024-10-01] MEDS: INSULIN GLARGINE 100 UNITS/ML 3ML FLEXPEN 30 UNIT SUBCUT (09:02)
[2024-10-01] MEDS: PROPRANOLOL 20MG TAB 20 MG PO ×2 (09:03→21:24)
[2024-10-01] MEDS: ENOXAPARIN 30MG/0.3ML SYRINGE 30 MG SUBCUT (09:03)
[2024-10-01] MEDS: PRIMIDONE 250MG TABLET 500 MG PO ×2 (09:03→21:24)
[2024-10-01 09:23] LABS: POC Glucose,Bedside 467 (70-110)
[2024-10-01 11:12] LABS: POC Glucose,Bedside 468 (70-110)
[2024-10-01] MEDS: humaLOG 100 UNITS/ML 10ML VIAL (SSI) SUBCUT ×3 (11:24→21:29)
[2024-10-01 12:42] LABS: Chloride 106 mmol/L (98-107); Potassium 4.8 mmoL/L (3.5-5.1); Sodium 136 mmol/L (136-145)
[2024-10-01 12:44] LABS: Blood Urea Nitrogen 66 mg/dl (9-20); Creatinine Clearance Estimated 23 mL/min (50-200); Estimated Glomerular Filt Rate 21 ml/min (>60); GFR (African American) 26 ML/MIN (>60)
[2024-10-01 12:45] LABS: Anion Gap 16.8 mEq/L (5-15); Calcium 9.1 mg/dl (8.4-10.2); Carbon Dioxide 18 mmol/L (22.0-30.0); Magnesium 1.9 mg/dl (1.6-2.3); Phosphorous 2.8 mg/dl (2.5-4.5)
[2024-10-01 12:52] LABS: Glucose 446 mg/dl (74-100)
[2024-10-01] MEDS: CEFTRIAXONE 1 GM 1 GM in 0.9 % SODIUM CHLORIDE 50 ML IV (14:58)
--- NOTE | 2024-10-01 15:56 | EXP.ACUTE.PN ---
Subjective *Date: 10/01/24 *Time: 15:56 Interval history: Feeling somewhat better today but still feeling ill. Tremor present. Legs responded well to cyclobenzaprine overnight. Anion gap closed this morning on labs. Will transition from drip to basal bolus regimen. Stable on room air. Afebrile. No nausea or vomiting. Urine culture growing gram-negative rods. Tolerating full liquid diet Medical Exam Vital signs and Labs for Last 24 Hours: Vital Signs Temp Pulse Pulse Resp BP Pulse Ox O2 Del Method 10/01/24 14:00 98.8 F 96 H 20 140/86 93 L 10/01/24 12:00 80 10/01/24 12:00 87 16 137/84 94 L Room Air 10/01/24 11:58 Room Air 10/01/24 11:00 Room Air 10/01/24 11:00 81 22 138/79 93 L Room Air 10/01/24 10:00 77 20 152/94 H 97 Room Air 10/01/24 09:00 96 H 18 135/76 94 L Room Air 10/01/24 09:00 Room Air 10/01/24 08:00 100 H 10/01/24 08:00 Room Air 10/01/24 08:00 97.8 F 103 H 23 145/86 H 98 Room Air 10/01/24 07:00 101 H 21 193/116 H 95 Room Air 10/01/24 06:00 88 13 93 L Room Air 10/01/24 05:00 87 14 134/83 93 L Room Air 10/01/24 04:00 84 10/01/24 04:00 98.4 F 87 17 113/73 92 L Room Air 10/01/24 03:00 86 15 131/79 94 L Room Air 10/01/24 02:00 85 17 123/74 93 L Room Air 10/01/24 01:00 84 16 121/77 92 L Room Air 10/01/24 01:00 Room Air 10/01/24 00:00 97.6 F 81 12 123/76 93 L Room Air 09/30/24 23:00 82 16 126/76 96 Room Air 09/30/24 23:00 Room Air 09/30/24 22:00 79 18 155/95 H 100 Room Air 09/30/24 21:00 79 16 118/78 93 L Room Air 09/30/24 21:00 Room Air 09/30/24 20:00 96 H 09/30/24 20:00 97.7 F 96 H 16 133/75 94 L Room Air 09/30/24 19:00 101 H 19 128/78 97 Room Air 09/30/24 19:00 Room Air 09/30/24 18:00 107 H 18 134/57 L 97 Room Air 09/30/24 17:22 Room Air 09/30/24 16:06 95 H 09/30/24 16:05 97.6 F 89 18 119/75 96 Room Air 09/30/24 16:00 100 H 100 Room Air Intake and Output 09/30/24 10/01/24 10/01/24 23:59 07:59 15:59 Intake Total 1338.133 / 2556.133 1238.40 / 3007.567 1769.167 / 3007.567 Output Total 225 / 225 300 / 600 300 / 600 Balance 1113.133 / 2331.133 938.40 / 2407.567 1469.167 / 2407.567 Intake: Intake, Oral Amount 640 / 880 240 / 840 600 / 840 Intake, Total IV Amount 698.133 / 1676.133 998.40 / 2167.567 1169.167 / 2167.567 0.9% NaCl w/20mEq KCL 1,000 ml 631 / 1609 978 / 2130 1152 / 2130 @ 150 mls/hr IV .[id number] [facility] Rx# :[id number] Output: Output, Urine Amount 225 / 225 300 / 600 300 / 600 Other: Number of Unmeasured Voids 0 1 Weight 69.456 kg 71.985 kg Patient Weight 10/01/24 23:59 Weight 71.985 kg Laboratory Results - last 24 hr 09/30/24 11:27: Urine Color Yellow, Urine Appearance Cloudy, Urine pH 5.5, Ur Specific [place] 1.010, Urine Protein 1+ A, Urine Glucose (UA) 3+, Urine Ketones 1+, Urine Blood 3+ A, Urine Nitrate Negative, Urine Bilirubin Negative, Urine Urobilinogen 0.2, Ur Leukocyte Esterase 1+ A, Urine RBC 10-20, Urine WBC 20-50, Ur Squamous Epith Cells None, Urine Bacteria Trace 09/30/24 15:23: Troponin I < 0.01 09/30/24 16:30: Sodium 132 L, Potassium 5.1, Chloride 96 L, Carbon Dioxide 19 L, Anion Gap 22.1 H, BUN 79 H, Creatinine 4.00 H, Estimated Creat Clear 16, Estimated GFR 15 L*, Est GFR ( Amer) 18 L*, Glucose 802 H* D, Lactate 1.7, Calcium 9.9, Phosphorus 4.1 D, Magnesium 2.1 09/30/24 17:41: Random Glucose 609 H* D, Total Creatine Kinase 80 09/30/24 18:40: Random Glucose 685 H* 09/30/24 19:22: Random Glucose 813 H* 09/30/24 20:16: Random Glucose 750 H* 09/30/24 21:22: Sodium 131 L, Potassium 4.7, Chloride 97 L, Carbon Dioxide 22, Anion Gap 16.7 H, BUN 78 H, Creatinine 3.30 H, Estimated Creat Clear 19, Estimated GFR 18 L*, Est GFR ( Amer) 22 L D, Glucose 652 H*, Calcium 9.4, Phosphorus 2.9 D, Magnesium 2.3 09/30/24 22:15: Random Glucose 660 H* 09/30/24 23:18: POC Glucose 424 H* 09/30/24 23:58: POC Glucose 327 H* 10/01/24 01:08: Sodium 137, Potassium 4.6, Chloride 105, Carbon Dioxide 22, Anion Gap 14.6, BUN 71 H, Creatinine 3.50 H, Estimated Creat Clear 18, Estimated GFR 17 L*, Est GFR ( Amer) 21 L, Glucose 367 H D, POC Glucose 343 H*, Calcium 9.9, Phosphorus 3.0, Magnesium 2.0 D 10/01/24 01:58: POC Glucose 332 H* 10/01/24 03:23: POC Glucose 322 H* 10/01/24 04:08: POC Glucose 314 H* 10/01/24 05:16: POC Glucose 319 H* 10/01/24 05:56: POC Glucose 303 H* 10/01/24 06:15: WBC 11.5 H, RBC 3.04 L, Hgb 9.9 L, Hct 29.0 L, MCV 95.4 H, MCH 32.6 H, MCHC 34.1, RDW 12.0, Plt Count 323 D, MPV 9.6, Neut % (Auto) 83.1 H, Lymph % (Auto) 7.9 L, [place] % (Auto) 6.4, Eos % (Auto) 1.1, Baso % (Auto) 0.4, Neut # (Auto) 9.6 H, Lymph # (Auto) 0.9, [place] # (Auto) 0.7, Eos # (Auto) 0.1, Baso # (Auto) 0.1, Sodium 139 10/01/24 06:15: Sodium 139, Potassium 4.5 10/01/24 06:15: Potassium 4.7, Chloride 108 H 10/01/24 06:15: Chloride 109 H, Carbon Dioxide 21 L 10/01/24 06:15: Carbon Dioxide 21 L, Anion Gap 14.5 10/01/24 06:15: Anion Gap 13.7, BUN 67 H 10/01/24 06:15: BUN 67 H, Creatinine 3.00 H 10/01/24 06:15: Creatinine 3.10 H, Estimated Creat Clear 22 10/01/24 06:15: Estimated Creat Clear 21, Estimated GFR 21 L 10/01/24 06:15: Estimated GFR 20 L, Est GFR ( Amer) 25 L 10/01/24 06:15: Est GFR ( Amer) 24 L, Glucose 283 H D 10/01/24 06:15: Glucose 302 H, Calcium 9.6 10/01/24 06:15: Calcium 9.4, Phosphorus 2.6, Magnesium 2.1 10/01/24 06:15: Magnesium 1.8 D, Total Bilirubin 0.4, AST 254 H D, ALT 278 H, Alkaline Phosphatase 356 H, Total Protein 6.1 L, Albumin 3.1 L D, Globulin 3.0, Albumin/Globulin Ratio 1.0 L 10/01/24 07:16: POC Glucose 292 H 10/01/24 08:07: POC Glucose 359 H* 10/01/24 09:10: POC Glucose 467 H* 10/01/24 11:01: POC Glucose 468 H* 10/01/24 11:58: Sodium 136, Potassium 4.8, Chloride 106, Carbon Dioxide 18 L, Anion Gap 16.8 H, BUN 66 H, Creatinine 2.90 H, Estimated Creat Clear 23, Estimated GFR 21 L, Est GFR ( Amer) 26 L, Glucose 446 H* D, Calcium 9.1, Phosphorus 2.8, Magnesium 1.9 I & O for Labs for Last 24 Hours: Intake & Output 09/28/24 09/29/24 09/30/24 10/01/24 23:59 23:59 23:59 23:59 Intake Total 1338.133 / 2556.133 3007.567 / 3007.567 Output Total 225 / 225 600 / 600 Balance 1113.133 / 2331.133 2407.567 / 2407.567 Weight 69.456 kg 71.985 kg Microbiology Reports for the Last 24 Hours: Microbiology 09/30/24 12:23 Blood Blood Culture - Preliminary 09/30/24 12:23 Blood Blood Culture - Preliminary NO GROWTH AFTER 24 HOURS 09/30/24 11:27 Urine,Clean Catch Urine Culture - Preliminary Gram Negative Rods Constitutional: Present mild distress, thin, chronically ill appearing and cooperative Head: Present atraumatic and normocephalic ENT: Present normal exam Respiratory: Present normal respiratory effort; Absent rhonchi, wheezes or crackles Cardiac: Present Reg Rate and Rhythm GI: Present soft and normal bowel sounds; Absent distention or tenderness Extremities: Present normal inspection and full ROM Skin: Present intact; Absent erythema Neuro: Present Grossly Intact, alert, awake, oriented x 3 and moves all extremities Comment:: tremor Assessment and Plan *Assessment and plan (1) DKA (diabetic ketoacidosis): Status: Acute Category: Medical Code(s): E11.10 - Type 2 diabetes mellitus with ketoacidosis without coma (2) High anion gap metabolic acidosis: Status: Acute Category: Medical Code(s): E87.29 - Other acidosis (3) Sepsis: Status: Acute Category: Medical Code(s): A41.9 - Sepsis, unspecified organism (4) Acute UTI: Status: Acute Category: Medical Code(s): N39.0 - Urinary tract infection, site not specified (5) RINA (acute kidney injury): Status: Acute Category: Medical Code(s): N17.9 - Acute kidney failure, unspecified (6) Acute hyponatremia: Status: Acute Category: Medical Code(s): E87.1 - Hypo-osmolality and hyponatremia (7) Acute hyperkalemia: Status: Acute Category: Medical Code(s): E87.5 - Hyperkalemia (8) Hypothyroidism: Status: Acute Category: Medical Code(s): E03.9 - Hypothyroidism, unspecified (9) Essential tremor: Status: Acute Category: Medical Code(s): G25.0 - Essential tremor Plan 74-year-old male who presents with weakness, polyuria, sepsis criteria with elevated white count, tachycardia, renal failure. Discussed case with ER physician, requested admission for further management of DKA. I agreed to admit for further management of his DKA. Admitted to ICU on insulin drip. Doing better today with glucose, 300s overnight. Gap closed this morning. Transition off drip. Continues to require inpatient management. Downgrade from the ICU. Problems addressed as follows: DKA, high risk of decompensation High anion gap metabolic acidosis -Anion gap 33, bicarb 10, pH 7.17 on presentation. Glucose 1111. Initiated on DKA protocol with insulin drip. A1c obtained, 10. - Anion gap closed this morning at 13, sodium 139, chloride 109, glucose 305 on morning labs. Potassium 4.7. Magnesium 1.8. Liver enzymes improving with AST 254, ALT 278. Repeat CMP ordered for the evening repeat CBC, CMP, magnesium and phosphorus ordered for the morning - Additional dose of insulin glargine 30 units this morning. Will schedule daily - Continue sliding scale insulin with fingersticks ACHS, high intensity. Initiate 10 units short acting insulin with meals in addition to sliding scale - Advance to diabetic diet - TSH 0.21 - Only on metformin at home, holding at this time. - Insulin adjustments needing intensive monitoring UTI: Sepsis: -Meeting criteria with tachycardia, white count of 13.7, grossly abnormal urine. Initiated on ceftriaxone daily. - Urine culture growing gram-negative rods. Blood cultures remain negative. Continue antibiotics with ceftriaxone 1 g daily. White count improved to 11.5 - Will hold on SGLT2 medications for his diabetes due to UTI - Continue tamsulosin 0.4 mg daily RINA, baseline creatinine 1.3. Presented with creatinine of 4.1. BUN 78. Suspect secondary to dehydration versus medication effect. CK normal at 80 - Kidney function showing improvement with BUN 67, creatinine 3.1. Longstanding tremor: Continue propranolol 20 mg twice daily and primidone 500 mg twice daily DNR Diabetic diet Lovenox 30 mg subcu daily
[2024-10-01 17:15] LABS: POC Glucose,Bedside 351 (70-110)
[2024-10-01] MEDS: humaLOG 100 UNITS/ML 10ML VIAL (SSI) 10 UNIT SUBCUT (17:26)
[2024-10-01 18:22] LABS: Chloride 105 mmol/L (98-107)
[2024-10-01 18:23] LABS: Albumin Level 3.4 g/dl (3.5-5.0); Potassium 4.8 mmoL/L (3.5-5.1); Sodium 134 mmol/L (136-145)
[2024-10-01 18:25] LABS: Blood Urea Nitrogen 64 mg/dl (9-20); Creatinine Clearance Estimated 22 mL/min (50-200); Estimated Glomerular Filt Rate 21 ml/min (>60); GFR (African American) 25 ML/MIN (>60)
[2024-10-01 18:26] LABS: Alanine Aminotransferase 367 U/L (12-78); Alkaline Phosphatase 328 U/L (38-126); Anion Gap 13.8 mEq/L (5-15); Aspartate Amino Transferase 427 U/L (17-59); Bilirubin,Total 0.4 mg/dl (0.2-1.3); Calcium 9.1 mg/dl (8.4-10.2); Carbon Dioxide 20 mmol/L (22.0-30.0); Globulin 3.4 g/dL (1.3-3.2); Glucose 365 mg/dl (74-100); Total Protein,Serum 6.8 g/dl (6.3-8.2)
[2024-10-01] MEDS: PANTOPRAZOLE 40MG TABLET 40 MG PO (21:23)
[2024-10-01] MEDS: DONEPEZIL 10MG TAB 10 MG PO (21:23)
[2024-10-01] MEDS: MONTELUKAST SODIUM 10MG TAB 10 MG PO (21:24)
[2024-10-01] MEDS: TAMSULOSIN 0.4MG CAPSULE 0.4 MG PO (21:24)
[2024-10-01] MEDS: FAMOTIDINE 20MG TABLET 10 MG PO (21:25)
[2024-10-01] MEDS: CYCLOBENZAPRINE 10MG TABLET 10 MG PO (21:26)
[2024-10-02] VITALS: BP 153/78; PULSE 93; RESP 18; TEMP 36.8; O2SAT 97
[2024-10-02 04:00] VITALS: BP 143/70; PULSE 103; RESP 18; TEMP 36.6; O2SAT 97; BMI 20.3
[2024-10-02] MEDS: humaLOG 100 UNITS/ML 10ML VIAL (SSI) SUBCUT ×2 (05:31→11:37)
[2024-10-02] MEDS: humaLOG 100 UNITS/ML 10ML VIAL (SSI) 10 UNIT SUBCUT ×2 (05:31→11:37)
[2024-10-02 05:32] LABS: POC Glucose,Bedside 302 (70-110)
--- NOTE | 2024-10-02 06:17 | PC.NURSE ---
pt is alert and oriented x 4 throughout shift. pt has rested well this shift. pt did require insulin coverage at both 2100 and 0600. pt has had no acute changes this shift.
[2024-10-02 07:56] LABS: Basophils % 0.4 % (0.1-2.0); Eosinophils # 0.1 Kmm3 (0.0-0.4); Eosinophils % 1.1 % (0.1-12.0); Hematocrit 30.2 % (42.0-52.0); Hemoglobin 10.2 g/dL (14.1-18.0); Lymphocytes # 1.1 K/mm3 (0.7-4.5); Lymphocytes % 10.8 % (10-50); Mean Corpuscular HGB Conc 33.8 g/dL (31.8-35.4); Mean Corpuscular Hemoglobin 32.4 pg (27.0-31.2); Mean Corpuscular Volume 95.9 fl (80-94); Mean Platelet Volume 9.4 fl (7.4-10.4); Monocytes # 0.5 K/mm3 (0.1-1.0); Monocytes % 5.2 % (1.7-9.3); Neutrophils # 8.4 K/mm3 (1.8-7.8); Neutrophils % 81.5 % (37.0-80.0); Nucleated Red Blood Cells # 0 10^3/uL; Nucleated Red Blood Cells % 0 %; Platelet Count 292 K/mm3 (142-424); Red Blood Count 3.15 M/mm3 (4.60-6.20); Red Cell Distribution Width 12.2 % (11.5-17.5); White Blood Count 10.2 K/mm3 (4.8-10.8)
[2024-10-02 08:00] VITALS: BP 145/85; PULSE 111; RESP 16; TEMP 36.6; O2SAT 94
[2024-10-02 08:13] LABS: Albumin Level 3.4 g/dl (3.5-5.0); Chloride 106 mmol/L (98-107); Potassium 4.2 mmoL/L (3.5-5.1); Sodium 135 mmol/L (136-145)
[2024-10-02 08:16] LABS: Alanine Aminotransferase 360 U/L (12-78); Alkaline Phosphatase 315 U/L (38-126); Anion Gap 13.2 mEq/L (5-15); Aspartate Amino Transferase 346 U/L (17-59); Bilirubin,Total 0.4 mg/dl (0.2-1.3); Blood Urea Nitrogen 62 mg/dl (9-20); Calcium 9.5 mg/dl (8.4-10.2); Carbon Dioxide 20 mmol/L (22.0-30.0); Creatinine Clearance Estimated 24 mL/min (50-200); Estimated Glomerular Filt Rate 23 ml/min (>60); GFR (African American) 28 ML/MIN (>60); Globulin 3.5 g/dL (1.3-3.2); Glucose 300 mg/dl (74-100); Phosphorous 3.2 mg/dl (2.5-4.5); Total Protein,Serum 6.9 g/dl (6.3-8.2)
[2024-10-02 08:17] LABS: Magnesium 1.7 mg/dl (1.6-2.3)
[2024-10-02] MEDS: INSULIN GLARGINE 100 UNITS/ML 3ML FLEXPEN 30 UNIT SUBCUT (08:31)
[2024-10-02] MEDS: ENOXAPARIN 30MG/0.3ML SYRINGE 30 MG SUBCUT (08:31)
[2024-10-02] MEDS: PROPRANOLOL 20MG TAB 20 MG PO (08:32)
[2024-10-02] MEDS: PRIMIDONE 250MG TABLET 500 MG PO (08:32)
[2024-10-02 08:44] LABS: POC Glucose,Bedside 325 (70-110)
--- NOTE | 2024-10-02 09:57 | EXP.DC.SUM ---
General Admission date:: 09/30/24 Discharge date: 10/02/24 HPI HPI HPI: Mr. Howell is a 70-year-old male with history of hypertension, hyperlipidemia, CKD, diabetes, tremor. Presented with worsening weakness and confusion over the past several days. States that symptoms of gotten significantly worse over the past month after starting methocarbamol for leg pain. Presented to new doctor to establish care yesterday and labs were drawn. Found to have significant abnormalities with kidney dysfunction and hyperglycemia. Sent to the ER for further management. Stable on room air. Denies dysuria, vomiting, chest pain or shortness of breath. Does state he has been urinating frequently and having urinary incontinence. Alert and oriented. at bedside helps supplement history. Labs obtained showing glucose of 1111, creatinine of 4.1, baseline approximately 1.4. Afebrile. White count of 13.7. Meeting sepsis criteria along with DKA. Medicine consulted for admission and further management Initiated on DKA protocol with insulin drip. On arrival to the floor, glucose improving to about 800. Continues to be quite elevated necessitating IV fluids and insulin drip. Stable on room air. Hospital Course Hospital Course Hospital Course: 74-year-old male who presents with weakness, polyuria, sepsis criteria with elevated white count, tachycardia, renal failure. Discussed case with ER physician, requested admission for further management of DKA. I agreed to admit for further management of his DKA. Admitted to ICU on insulin drip. Doing better today with glucose, 300s overnight. Gap closed by the following morning. Transitioned off insulin drip to basal bolus regimen. Able to titrate to maintain glucose less than 350. Kidney function improving. Anion gap remains closed. Tolerating p.o. intake. Stable discharge home with close follow-up with his PCP and further management as an outpatient. Problems addressed as follows: DKA, high risk of decompensation High anion gap metabolic acidosis - Anion gap 33, bicarb 10, pH 7.17 on presentation. Glucose 1111. Initiated on DKA protocol with insulin drip. A1c found to be 10. Initiated on insulin drip with good improvement. Anion gap closed by morning. Seeing improvement electrolytes and kidney function. Liver enzymes remain mildly elevated during admission. Liver enzymes remained between 250 and 350. Recommend holding Lipitor at discharge. Gradually titrated insulin regimen. Insulin glargine titrated to 40 units every morning. Will continue with 15 units with every meal. Initiated on metformin 500 mg twice daily. Consider increasing to thousand twice daily at follow-up with PCP. TSH found to be 0.21. Able to advance diet. Patient overall doing better with improvement in glucose control. Morning glucose 300 on day of discharge. Electrolytes stable. Glucometer sent at discharge. Counseled to monitor 3-4 times a day and take log with him to PCP for further adjustment. UTI: Sepsis: - Meeting criteria with tachycardia, white count of 13.7, grossly abnormal urine. Initiated on ceftriaxone daily. Urine growing gram-negative rods. Still awaiting speciation and sensitivity. Given improvement on ceftriaxone however and normalization of white count to 10, will transition to cefdinir 300 mg daily to complete 7 days total of antibiotics. Will hold on SGLT2 medications for his diabetes due to UTI. Continue tamsulosin 0.4 mg daily RINA, baseline creatinine 1.3. Presented with creatinine of 4.1. BUN 78. Suspect secondary to dehydration versus medication effect. CK normal at 80. Gradual improvement in kidney function with BUN 62, creatinine 2.7 on day of discharge. Needs repeat labs within the next week to monitor for continued improvement Longstanding tremor: Continue propranolol 20 mg twice daily and primidone 500 mg twice daily Total time spent on discharge 36 minutes in counseling, documentation, chart review, and direct care with patient. Exam Data for Last 24 hours Vital signs and Labs for Last 24 Hours: Temp Pulse Resp BP Pulse Ox O2 Del Method 97.8 F 111 H 16 145/85 H 94 L Room Air 10/02/24 08:00 10/02/24 08:00 10/02/24 08:00 10/02/24 08:00 10/02/24 08:00 10/02/24 08:55 Laboratory Results - last 24 hr 10/01/24 11:01: POC Glucose 468 H* 10/01/24 11:58: Sodium 136, Potassium 4.8, Chloride 106, Carbon Dioxide 18 L, Anion Gap 16.8 H, BUN 66 H, Creatinine 2.90 H, Estimated Creat Clear 23, Estimated GFR 21 L, Est GFR ( Amer) 26 L, Glucose 446 H* D, Calcium 9.1, Phosphorus 2.8, Magnesium 1.9 10/01/24 17:08: POC Glucose 351 H* 10/01/24 18:10: Sodium 134 L, Potassium 4.8, Chloride 105, Carbon Dioxide 20 L, Anion Gap 13.8, BUN 64 H, Creatinine 3.00 H, Estimated Creat Clear 22, Estimated GFR 21 L, Est GFR ( Amer) 25 L, Glucose 365 H, Calcium 9.1, Total Bilirubin 0.4, AST 427 H* D, ALT 367 H*, Alkaline Phosphatase 328 H, Total Protein 6.8, Albumin 3.4 L, Globulin 3.4 H, Albumin/Globulin Ratio 1.0 L 10/02/24 05:23: POC Glucose 302 H* 10/02/24 07:20: WBC 10.2, RBC 3.15 L, Hgb 10.2 L, Hct 30.2 L, MCV 95.9 H, MCH 32.4 H, MCHC 33.8, RDW 12.2, Plt Count 292, MPV 9.4, Neut % (Auto) 81.5 H, Lymph % (Auto) 10.8, Harvey % (Auto) 5.2, Eos % (Auto) 1.1, Baso % (Auto) 0.4, Neut # (Auto) 8.4 H, Lymph # (Auto) 1.1, Harvey # (Auto) 0.5, Eos # (Auto) 0.1, Baso # (Auto) 0.0, Sodium 135 L, Potassium 4.2, Chloride 106, Carbon Dioxide 20 L, Anion Gap 13.2, BUN 62 H, Creatinine 2.70 H, Estimated Creat Clear 24, Estimated GFR 23 L, Est GFR ( Amer) 28 L, Glucose 300 H, Calcium 9.5, Phosphorus 3.2, Magnesium 1.7 D, Total Bilirubin 0.4, AST 346 H*, ALT 360 H*, Alkaline Phosphatase 315 H, Total Protein 6.9, Albumin 3.4 L, Globulin 3.5 H, Albumin/Globulin Ratio 1.0 L 10/02/24 08:30: POC Glucose 325 H* I & O for Last 24 hours: Intake & Output 09/29/24 09/30/24 10/01/24 10/02/24 23:59 23:59 23:59 23:59 Intake Total 1338.133 / 2556.133 3407.567 / 3407.567 240 / 240 Output Total 225 / 225 600 / 600 0 / 0 Balance 1113.133 / 2331.133 2807.567 / 2807.567 240 / 240 Weight 69.456 kg 71.985 kg 71.94 kg Microbiology Reports for the Last 24 Hours: Microbiology 09/30/24 12:23 Blood Blood Culture - Preliminary 09/30/24 12:23 Blood Blood Culture - Preliminary NO GROWTH AFTER 24 HOURS 09/30/24 11:27 Urine,Clean Catch Urine Culture - Preliminary Gram Negative Rods Constitutional Constitutional: no acute distress, thin, chronically ill appearing and cooperative *Routine HEENT Exam Head: Present normocephalic Eye: Present EOMI and PERRL ENT: Present mucous membranes moist *Routine Neck Exam Neck: Present supple; Absent lymphadenopathy *Routine Respiratory Exam Respiratory: Present CTA bilaterally; Absent rhonchi, wheezes or crackles *Routine Cardiovascular Exam Cardiovascular: Present RRR *Routine Abdominal Exam Abdominal: Present soft and normoactive bowel sounds; Absent tenderness *Routine Rectal Exam Patient deferred: visual exam *Routine Exam Patient deferred: penile exam *Routine Extremities Exam Extremities: Absent cyanosis, clubbing or edema *Routine Skin Exam Skin: Present intact and warm; Absent rash *Routine Neurological Exam Neurological: Present alert, oriented X3, moving all extremities and tremors; Absent altered mental status Results Data Completed and Pending Labs on day of discharge: Labs from last 24 hours 10/02/24 10/02/24 10/02/24 08:30 07:20 05:23 WBC 10.2 RBC 3.15 L Hgb 10.2 L Hct 30.2 L MCV 95.9 H MCH 32.4 H MCHC 33.8 RDW 12.2 Plt Count 292 MPV 9.4 Neut % (Auto) 81.5 H Lymph % (Auto) 10.8 Harvey % (Auto) 5.2 Eos % (Auto) 1.1 Baso % (Auto) 0.4 Neut # (Auto) 8.4 H Lymph # (Auto) 1.1 Harvey # (Auto) 0.5 Eos # (Auto) 0.1 Baso # (Auto) 0.0 Sodium 135 L Potassium 4.2 Chloride 106 Carbon Dioxide 20 L Anion Gap 13.2 BUN 62 H Creatinine 2.70 H Estimated Creat Clear 24 Estimated GFR 23 L Est GFR ( Amer) 28 L Glucose 300 H POC Glucose 325 H* 302 H* Calcium 9.5 Phosphorus 3.2 Magnesium 1.7 D Total Bilirubin 0.4 AST 346 H* ALT 360 H* Alkaline Phosphatase 315 H Total Protein 6.9 Albumin 3.4 L Globulin 3.5 H Albumin/Globulin Ratio 1.0 L 10/01/24 10/01/24 10/01/24 18:10 17:08 11:58 WBC RBC Hgb Hct MCV MCH MCHC RDW Plt Count MPV Neut % (Auto) Lymph % (Auto) Harvey % (Auto) Eos % (Auto) Baso % (Auto) Neut # (Auto) Lymph # (Auto) Harvey # (Auto) Eos # (Auto) Baso # (Auto) Sodium 134 L 136 Potassium 4.8 4.8 Chloride 105 106 Carbon Dioxide 20 L 18 L Anion Gap 13.8 16.8 H BUN 64 H 66 H Creatinine 3.00 H 2.90 H Estimated Creat Clear 22 23 Estimated GFR 21 L 21 L Est GFR ( Amer) 25 L 26 L Glucose 365 H 446 H* D POC Glucose 351 H* Calcium 9.1 9.1 Phosphorus 2.8 Magnesium 1.9 Total Bilirubin 0.4 AST 427 H* D ALT 367 H* Alkaline Phosphatase 328 H Total Protein 6.8 Albumin 3.4 L Globulin 3.4 H Albumin/Globulin Ratio 1.0 L 10/01/24 11:01 WBC RBC Hgb Hct MCV MCH MCHC RDW Plt Count MPV Neut % (Auto) Lymph % (Auto) Harvey % (Auto) Eos % (Auto) Baso % (Auto) Neut # (Auto) Lymph # (Auto) Harvey # (Auto) Eos # (Auto) Baso # (Auto) Sodium Potassium Chloride Carbon Dioxide Anion Gap BUN Creatinine Estimated Creat Clear Estimated GFR Est GFR ( Amer) Glucose POC Glucose 468 H* Calcium Phosphorus Magnesium Total Bilirubin AST ALT Alkaline Phosphatase Total Protein Albumin Globulin Albumin/Globulin Ratio Preliminary micro results at discharge 09/30/24 12:23 Blood Culture - Preliminary Blood 09/30/24 12:23 Blood Culture - Preliminary Blood NO GROWTH AFTER 24 HOURS 09/30/24 11:27 Urine Culture - Preliminary Urine,Clean Catch Gram Negative Rods DS: Diagnosis Discharge Diagnosis (1) DKA (diabetic ketoacidosis): Status: Acute Code(s): E11.10 - Type 2 diabetes mellitus with ketoacidosis without coma (2) High anion gap metabolic acidosis: Status: Acute Code(s): E87.29 - Other acidosis (3) Sepsis: Status: Acute Code(s): A41.9 - Sepsis, unspecified organism (4) Acute UTI: Status: Acute Code(s): N39.0 - Urinary tract infection, site not specified (5) RINA (acute kidney injury): Status: Acute Code(s): N17.9 - Acute kidney failure, unspecified (6) Acute hyponatremia: Status: Acute Code(s): E87.1 - Hypo-osmolality and hyponatremia (7) Acute hyperkalemia: Status: Acute Code(s): E87.5 - Hyperkalemia (8) Hypothyroidism: Status: Acute Code(s): E03.9 - Hypothyroidism, unspecified (9) Essential tremor: Status: Acute Code(s): G25.0 - Essential tremor Meds Home Medications and Allergies Home Medications ?Medication ?Instructions ?Recorded ?Confirmed ?Type primidone 250 mg tablet 500 mg PO BID 10/03/17 09/30/24 History tamsulosin 0.4 mg capsule 1 tab PO DAILY 10/03/17 09/30/24 History celecoxib 200 mg capsule 200 mg PO BID 06/14/20 09/30/24 History famotidine 20 mg tablet 20 mg PO BID 06/14/20 09/30/24 History lansoprazole 30 mg capsule,delayed 30 mg PO DAILY 06/14/20 09/30/24 History release mirabegron 25 mg tablet,extended 25 mg PO DAILY 06/14/20 09/30/24 History release 24 hr amlodipine 5 mg tablet 5 mg PO DAILY 09/29/24 09/30/24 History atorvastatin 40 mg tablet 40 mg PO DAILY 09/29/24 09/30/24 History donepezil 10 mg tablet 10 mg PO HS 09/29/24 09/30/24 History montelukast 10 mg tablet 10 mg PO HS 09/29/24 09/30/24 History cinnamon bark 500 mg capsule 1,000 mg PO BID 09/30/24 09/30/24 History (Cinnamon) loratadine 10 mg tablet 10 mg PO DAILY 09/30/24 09/30/24 History mirabegron 25 mg tablet,extended 25 mg PO DAILY 09/30/24 09/30/24 History release 24 hr (Myrbetriq) szuariph-tu-btxud 300 mcg-K 60 1 tab PO DAILY 09/30/24 09/30/24 History mcg-lycop 600 mcg-lutein 300 mcg tablet (Centrum Silver Ultra Men's) propranolol 20 mg tablet 20 mg PO BID 09/30/24 09/30/24 History cefdinir 300 mg capsule 300 mg PO BID #10 caps 10/02/24 Rx insulin glargine 100 unit/mL (3 40 unit (0.4 mL) SQ DAILY #15 mL 10/02/24 Rx mL) subcutaneous pen (Lantus Solostar U-100 Insulin) insulin lispro 100 unit/mL 15 unit (0.15 mL) SQ AC 30 days 10/02/24 Rx subcutaneous pen #15 mL lancets 23 gauge (Accu-Chek #200 ea 10/02/24 Rx Safe-T-Pro) metformin 500 mg tablet 500 mg PO BIDWMEAL 30 days #60 tabs 10/02/24 Rx pen needle, diabetic 31 gauge x #100 ea 10/02/24 Rx 1/4 New Prescriptions to Start Prescriptions: Yaya Lamb insulin glargine [Lantus Solostar U-100 Insulin] Yaya Lee insulin lispro Yaya Lee lancets [Accu-Chek Safe-T-Pro] Yaya Lee metformin Yaya Lee pen needle, diabetic Yaya Lee Allergies Allergy/AdvReac Type Severity Reaction Status Date / Time methocarbamol AdvReac Verified 09/29/24 14:45 Discharge Plan Disposition Patient Disposition: Home, Self-Care Condition: Fair Discharge Order Discharge Orders: Discharge Order (Routine); Ordered 10/02/24 Ordered By: Yaya Lee Follow up Plan Follow up with: Yonathan Smith DO [Primary Care Provider] - 1 week (Please call for follow up appointment) Prescriptions/Medication Reconciliation: New insulin glargine [Lantus Solostar U-100 Insulin] 100 unit/mL (3 mL) Insulin Pen 40 unit SQ DAILY Qty: 15 0RF insulin lispro 100 unit/mL insulin pen 15 unit SQ AC 30 Days Qty: 15 0RF (DME) pen needle, diabetic 31 gauge x 1/4 needle See Rx Instructions .ROUTE .MEDSUPPLY Qty: 100 4RF Rx Instructions: use with insulin 4x a day (DME) Accu-Chek Safe-T-Pro 23 gauge misc See Rx Instructions .Route Qty: 200 0RF Rx Instructions: 4 times a day cefdinir 300 mg capsule 300 mg PO BID Qty: 10 0RF Continued montelukast 10 mg tablet 10 mg PO HS Patient Comments: TAKE ONE TABLET BY MOUTH EVERY DAY amlodipine 5 mg tablet 5 mg PO DAILY Patient Comments: TAKE ONE TABLET BY MOUTH EVERY DAY donepezil 10 mg tablet 10 mg PO HS Patient Comments: TAKE ONE TABLET BY MOUTH AT BEDTIME propranolol 20 mg tablet 20 mg PO BID Patient Comments: TAKE ONE TABLET BY MOUTH TWICE DAILY loratadine 10 mg Tablet 10 mg PO DAILY cinnamon bark [Cinnamon] 500 mg Capsule 1,000 mg PO BID Centrum Silver Ultra Men's [id number] mcg Tablet 1 tab PO DAILY mirabegron [Myrbetriq] 25 mg tablet extended release 24 hr 25 mg PO DAILY Patient Comments: TAKE ONE TABLET BY MOUTH EVERY DAY primidone 250 MG tablet 500 mg PO BID tamsulosin 0.4 MG capsule 1 tab PO DAILY celecoxib 200 MG capsule 200 mg PO BID famotidine 20 MG tablet 20 mg PO BID lansoprazole 30 MG capsule,delayed release(DR/EC) 30 mg PO DAILY mirabegron 25 MG tablet extended release 24 hr 25 mg PO DAILY Changed metformin 500 MG tablet 500 mg PO BIDWMEAL 30 Days Qty: 60 0RF Held atorvastatin 40 mg tablet 40 mg PO DAILY Hold Instructions: pending improvement/normalization of liver enzymes Patient Comments: TAKE ONE TABLET BY MOUTH EVERY DAY Other Ambulatory Orders: Comprehensive Metabolic Panel (Routine) Timeframe: 3 Days Facility: [facility] - Location: Laboratory Ordered By: Yaya Lee Problem Reconciliation Problems Reviewed?: Yes Patient Discharge Instructions ACTIVITY: Continue current activity DIET: continue same diet and diabetic diet Additional Instructions: glucometer called into [facility] along with test strips. Patient Instructions: DI for Urinary Tract Infection (UTI), Diabetic Ketoacidosis, DI for Diabetic Ketoacidosis, DI for Acute Kidney Injury Print Language: Turkish Providers Primary Care Provider: Yonathan Smith Admit Provider: Yaya Lee Attending Provider: Yaya Lee
[2024-10-02] MEDS: METFORMIN 500MG TABLET 500 MG PO (10:50)
[2024-10-02] MEDS: INSULIN GLARGINE 100 UNITS/ML 3ML FLEXPEN 10 UNIT SUBCUT (10:50)
[2024-10-02 11:12] LABS: POC Glucose,Bedside 392 (70-110)
[2024-10-02] MEDS: CEFTRIAXONE 1 GM 1 GM in 0.9 % SODIUM CHLORIDE 50 ML IV (11:36)
--- NOTE | 2024-10-03 11:07 | SW/DCPLANNER ---
Spoke with patient on the phone. Patient stated that he is doing okay just very tired. Patient stated that he is aware of his upcoming appointment. Patient stated should be getting his medicine today. Patient stated that he has no concerns or questions at this time. Monserrat Chandra
[2024-10-04 14:35] LABS: POC Glucose,Bedside 542 (70-110)
[2024-10-04 14:36] LABS: POC Glucose,Bedside > 600 (70-110)
[2024-10-04 14:37] LABS: POC Glucose,Bedside > 600 (70-110)
[2024-10-04 14:37] LABS: POC Glucose,Bedside > 600 (70-110)
[2024-10-04 14:38] LABS: POC Glucose,Bedside > 600 (70-110)
[2024-10-04 14:39] LABS: POC Glucose,Bedside > 600 (70-110)
[2024-10-04 14:39] LABS: POC Glucose,Bedside > 600 (70-110)
== END 2024-10-02 13:26 | disposition home or self-care (01) | DRG 871 ==
LOC: ER 13:25 → 2ND 14:58
PROVIDERS: Nurse Practitioner Acute Care; Admitting Provider Internal Medicine Adolescent Medicine; Emergency Provider Emergency Medicine; PCP Internal Medicine; Visit Provider Internal Medicine Adolescent Medicine
DX: A41.9 Sepsis, unspecified organism (principal); E11.10 Type 2 diabetes mellitus with ketoacidosis without coma; N17.9 Acute kidney failure, unspecified; N39.0 Urinary tract infection, site not specified; E78.5 Hyperlipidemia, unspecified; G30.9 Alzheimer's disease, unspecified; R25.1 Tremor, unspecified; F02.80 Dementia in other diseases classified elsewhere, unspecified severity, without behavioral disturbance, psychotic disturbance, mood disturbance, and anxiety; E11.22 Type 2 diabetes mellitus with diabetic chronic kidney disease; I12.9 Hypertensive chronic kidney disease with stage 1 through stage 4 chronic kidney disease, or unspecified chronic kidney disease; N18.9 Chronic kidney disease, unspecified; E03.9 Hypothyroidism, unspecified; Z88.8 Allergy status to other drugs, medicaments and biological substances; Z79.84 Long term (current) use of oral hypoglycemic drugs; Z79.899 Other long term (current) drug therapy; Z66 Do not resuscitate; Z87.891 Personal history of nicotine dependence
CPT/HCPCS: 36415; 71045; 80048; 80053; 80061; 81001; 82550; 82803; 82947; 82962; 83036; 83605; 83690; 83735; 83880; 84100; 84436; 84443; 84484; 85025; 85610; 85730; 87040; 87081; 87086; 87088; 87186; 93005; 99291; J0131; J0696; J1650

== ENCOUNTER 2024-10-17 09:21 | Emergency (ER) | payer MEDICARE, MEDICAID, SELFPAY ==
[2024-10-17] VITALS (11 sets, daily range): BP systolic 98–147; BP diastolic 59–96; PULSE 60–83; RESP 10–15; TEMP 36.6; O2SAT 95–100; BMI 22.4
--- NOTE | 2024-10-17 09:29 | ECG_ITS ---
APPROVED REPORT Exam: Resting ECG HR:71 bpm ECG Measurements Heart Rate 71 AXES ME 172 P 69 QRSd 86 QRS 42 QT 355 T 78 QTc 377 Conclusion SINUS RHYTHM NORMAL ECG Electronically signed by : VLADIMIR OCAMPO, 10/19/2024 02:20:12
--- NOTE | 2024-10-17 09:29 | PC.NURSE ---
stroke alert at this time.
--- NOTE | 2024-10-17 09:32 | PC.NURSE ---
Patients FSBS is 192.
--- NOTE | 2024-10-17 09:33 | CT_ITS ---
FINAL REPORT TECHNIQUE: Thin section axial images were obtained from skull base to vertex without contrast. Coronal reconstruction images were obtained from the axial data. Exam was performed using dose reduction techniques such as automated exposure control, adjustment of the mA and kV according to patient size, and use of iterative reconstruction technique. CLINICAL HISTORY: possible stroke, fall, L arm sensory and dysarthri FINDINGS: There is an old lacunar infarct in the left basal ganglia. There is encephalomalacia in the left frontal lobe also likely related to old infarct. No mass effect or midline shift. No intracranial hemorrhage. No hydrocephalus. Periventricular low density is likely related to changes of chronic small vessel ischemia. The basilar cisterns are preserved. The posterior fossa is without acute abnormality. The soft tissues are without acute abnormality. No acute osseous abnormality is identified. IMPRESSION: No acute intracranial abnormality. Chronic findings as above. Reviewed, Interpreted and Dictated by Vanessa Elmore MD Transcribed by Maribeth Ortiz Authenticated and . [facility]
--- NOTE | 2024-10-17 09:33 | CT_ITS ---
FINAL REPORT TECHNIQUE: Thin section axial images were obtained through the neck and head after contrast administration per CT angiogram protocol. Multiplanar reconstruction images were obtained from the axial data. Exam was performed using dose reduction techniques such as automated exposure control, adjustment of the mA and kV according to patient's size, and use of iterative reconstruction technique. CLINICAL HISTORY: possible stroke, fall, L arm sensory and dysarthri FINDINGS: CTA NECK: Aortic arch: There is a normal three-vessel configuration to the aortic arch. There is no significant stenosis of the great vessels at their origins. Right carotid artery: The right common carotid artery is patent without stenosis. There is calcification of the bulb with 50% stenosis of the proximal ICA just distal to the bulb. Remaining right ICA is patent to the skull base. Left carotid artery: The left common carotid artery is patent without stenosis. Calcification is seen at the bulb. Otherwise, the cervical portions of the left internal carotid artery are patent without stenosis. 0% stenosis per NASCET criteria. Vertebral arteries: The vertebral arteries are patent. No significant stenosis. Other soft tissues: Unremarkable. CTA HEAD: The intracerebral portions of the carotid arteries are patent. The anterior and posterior circulation are patent. The basilar artery is patent. The vertebral arteries are patent. There is no significant stenosis, aneurysm, or AVM. IMPRESSION: CTA NECK: 50% stenosis of the right ICA. CTA HEAD: No large vessel occlusion or significant stenosis. Reviewed, Interpreted and Dictated by Vanessa Elmore MD Transcribed by Maribeth Ortiz Authenticated and [facility]
--- NOTE | 2024-10-17 09:33 | CT_ITS ---
FINAL REPORT TECHNIQUE: Thin section axial images were obtained through the neck and head after contrast administration per CT angiogram protocol. Multiplanar reconstruction images were obtained from the axial data. Exam was performed using dose reduction techniques such as automated exposure control, adjustment of the mA and kV according to patient's size, and use of iterative reconstruction technique. CLINICAL HISTORY: possible stroke, fall, L arm sensory and dysarthri FINDINGS: CTA NECK: Aortic arch: There is a normal three-vessel configuration to the aortic arch. There is no significant stenosis of the great vessels at their origins. Right carotid artery: The right common carotid artery is patent without stenosis. There is calcification of the bulb with 50% stenosis of the proximal ICA just distal to the bulb. Remaining right ICA is patent to the skull base. Left carotid artery: The left common carotid artery is patent without stenosis. Calcification is seen at the bulb. Otherwise, the cervical portions of the left internal carotid artery are patent without stenosis. 0% stenosis per NASCET criteria. Vertebral arteries: The vertebral arteries are patent. No significant stenosis. Other soft tissues: Unremarkable. IMPRESSION: 50% stenosis of the proximal right ICA. Reviewed, Interpreted and Dictated by Vanessa Elmore MD Transcribed by Maribeth Ortiz Authenticated and [facility]
--- NOTE | 2024-10-17 09:34 | HMH.EDGENADL ---
Discharge Plan Disposition Patient Disposition: Xfer Short-Term Hosp Prescriptions Prescriptions: No Action montelukast 10 mg tablet 10 mg PO HS Patient Comments: TAKE ONE TABLET BY MOUTH EVERY DAY atorvastatin 40 mg tablet 40 mg PO DAILY Patient Comments: TAKE ONE TABLET BY MOUTH EVERY DAY amlodipine 5 mg tablet 5 mg PO DAILY Patient Comments: TAKE ONE TABLET BY MOUTH EVERY DAY donepezil 10 mg tablet 10 mg PO HS Patient Comments: TAKE ONE TABLET BY MOUTH AT BEDTIME enalapril maleate 10 mg tablet 10 mg PO DAILY Patient Comments: TAKE ONE TABLET BY MOUTH EVERY DAY (DME) blood-glucose meter [Accu-Chek Guide Me Glucose Mtr] [facility] See Rx Instructions .ROUTE .MEDSUPPLY Qty: 1 Patient Comments: USE TO test blood sugar FOUR TIMES DAILY OR NEEDED Rx Instructions: As directed (DME) Accu-Chek Guide test strips Strip See Rx Instructions .ROUTE .MEDSUPPLY Qty: 10 Patient Comments: USE 1 new test strip TO test blood sugar DIRECTED FOUR TIMES DAILY OR NEEDED Rx Instructions: As directed (DME) lancets [Accu-Chek Softclix Lancets] [facility] See Rx Instructions .ROUTE .MEDSUPPLY Qty: 100 Patient Comments: USE 1 new lancet TO test blood sugar FOUR TIMES DAILY OR NEEDED Rx Instructions: As directed (DME) Dexcom G7 Sensor Device See Rx Instructions .Route Qty: 3 6RF Rx Instructions: As directed Jardiance 25 mg tablet 25 mg PO DAILY Qty: 30 2RF metformin 1,000 mg tablet 1,000 mg PO BID Qty: 60 2RF propranolol 20 mg tablet 20 mg PO BID Patient Comments: TAKE ONE TABLET BY MOUTH TWICE DAILY loratadine 10 mg Tablet 10 mg PO DAILY cinnamon bark [Cinnamon] 500 mg Capsule 1,000 mg PO BID Centrum Silver Ultra Men's [id number] mcg Tablet 1 tab PO DAILY mirabegron [Myrbetriq] 25 mg tablet extended release 24 hr 25 mg PO DAILY Patient Comments: TAKE ONE TABLET BY MOUTH EVERY DAY insulin glargine [Lantus Solostar U-100 Insulin] 100 unit/mL (3 mL) Insulin Pen 40 unit SQ DAILY Qty: 15 0RF insulin lispro 100 unit/mL insulin pen 15 unit SQ AC 30 Days Qty: 15 0RF (DME) pen needle, diabetic 31 gauge x 1/4 needle See Rx Instructions .ROUTE .MEDSUPPLY Qty: 100 4RF Rx Instructions: use with insulin 4x a day (DME) Accu-Chek Safe-T-Pro 23 gauge misc See Rx Instructions .Route Qty: 200 0RF Rx Instructions: 4 times a day cefdinir 300 mg capsule 300 mg PO BID Qty: 10 0RF primidone 250 MG tablet 500 mg PO BID tamsulosin 0.4 MG capsule 1 tab PO DAILY celecoxib 200 MG capsule 200 mg PO BID famotidine 20 MG tablet 20 mg PO BID lansoprazole 30 MG capsule,delayed release(DR/EC) 30 mg PO DAILY Referrals Follow up/Referrals: Yonathan Smith DO [Primary Care Provider, Family Practice] - See instructions Clinical Impressions Clinical Impression: Acute CVA (cerebrovascular accident), RINA (acute kidney injury), Acute hyperkalemia, Acute uremia, Acute hyponatremia Print Language Print Language: [place] Discharge ED Provider: Delgado Rice General Adult HPI General Chief complaint: Neuro Symptoms/Deficit Stated complaint: [id number], slurring words, disoriented Time Seen by Provider: 10/17/24 09:25 History of Present Illness HPI narrative: Patient is a 74-year-old male with past medical history of insulin-dependent diabetes, hypothyroidism, CKD who presents emergency department for evaluation of strokelike symptoms. Patient was in his normal state of health in his chair at approximately 7 AM this morning when he was noticed to have slurred speech and sensory changes on the left side of his body. He had an unwitnessed fall prior to this while trying to rise from his chair but denies hitting his head or loss of consciousness as well as anticoagulants. He normally gets around with some difficulty without assistance but is ambulatory under his own accord. No chest pain reported. No other acute complaints at this time. Please note that above description of symptoms, in this electronic medical record under categorization of recalled from ER triage doctor by RN are reflective of an initial nursing assessment, however, is not reflective of my full history and physical exam that was personally taken and clarified. Consequentially, this preceding description of symptoms, which may include the patient's categorized chief complaint in the EMR, do not reflect my personal clinical impression, and the ultimate description of history of present illness and patient stated complaints should be deferred to this section of the note. Unless stated otherwise or congruent with this section of the note, additional signs, symptoms, or incongruence should be interpreted as inaccurate with my clinical impression. Related Data Home Medications ?Medication ?Instructions ?Recorded ?Confirmed primidone 250 mg tablet 500 mg PO BID 10/03/17 10/13/24 tamsulosin 0.4 mg capsule 1 tab PO DAILY 10/03/17 10/13/24 celecoxib 200 mg capsule 200 mg PO BID 06/14/20 10/13/24 famotidine 20 mg tablet 20 mg PO BID 06/14/20 10/13/24 lansoprazole 30 mg capsule,delayed 30 mg PO DAILY 06/14/20 10/13/24 release amlodipine 5 mg tablet 5 mg PO DAILY 09/29/24 10/13/24 atorvastatin 40 mg tablet 40 mg PO DAILY 09/29/24 10/13/24 Held on 10/02/24. Instructions: pending improvement/normalization of liver enzymes donepezil 10 mg tablet 10 mg PO HS 09/29/24 10/13/24 montelukast 10 mg tablet 10 mg PO HS 09/29/24 10/13/24 cinnamon bark 500 mg capsule 1,000 mg PO BID 09/30/24 10/13/24 (Cinnamon) loratadine 10 mg tablet 10 mg PO DAILY 09/30/24 10/13/24 mirabegron 25 mg tablet,extended 25 mg PO DAILY 09/30/24 10/13/24 release 24 hr (Myrbetriq) [id number] 300 mcg-K 60 1 tab PO DAILY 09/30/24 10/13/24 mcg-lycop 600 mcg-lutein 300 mcg tablet (Centrum Silver Ultra Men's) propranolol 20 mg tablet 20 mg PO BID 09/30/24 10/13/24 blood sugar diagnostic (Accu-Chek #10 ea 10/13/24 10/13/24 Guide test strips) blood-glucose meter (Accu-Chek #1 ea 10/13/24 10/13/24 Guide Me Glucose Meter) enalapril maleate 10 mg tablet 10 mg PO DAILY 10/13/24 10/13/24 lancets (Accu-Chek Softclix #100 ea 10/13/24 10/13/24 Lancets) Previous Rx's ?Medication ?Instructions ?Recorded cefdinir 300 mg capsule 300 mg PO BID #10 caps 10/02/24 insulin glargine 100 unit/mL (3 40 unit (0.4 mL) SQ DAILY #15 mL 10/02/24 mL) subcutaneous pen (Lantus Solostar U-100 Insulin) insulin lispro 100 unit/mL 15 unit (0.15 mL) SQ AC 30 days 10/02/24 subcutaneous pen #15 mL lancets 23 gauge (Accu-Chek #200 ea 10/02/24 Safe-T-Pro) pen needle, diabetic 31 gauge x #100 ea 10/02/24 1 blood-glucose sensor (Dexcom G7 #3 ea 10/13/24 Sensor device) empagliflozin 25 mg tablet 25 mg PO DAILY #30 tabs 10/13/24 (Jardiance) metformin 1,000 mg tablet 1,000 mg PO BID #60 tabs 10/13/24 Allergies Allergy/AdvReac Type Severity Reaction Status Date / Time ezetimibe (From Zetia) AdvReac Severe muscle Verified 10/13/24 14:22 cramps methocarbamol AdvReac Verified 10/13/24 14:14 PFSH COUNTS INCLUDE 234 BEDS AT THE [facility] Disclaimer: The information contained in this section may have been updated after the patient was seen, as this information can be updated by other users. Medical History Alzheimers disease Diabetes Hypertension Occasional tremors Surgical History History of testicular surgery Social History (Updated 10/13/24 @ 14:27 by Isabelle Ramírez CMA) Smoking Status: Former smoker second hand exposure: No alcohol intake: former substance use type: denies use current occupational status: retired and disabled Travel in the last 8 weeks?: None household members: spouse housing: house marital status: caffeine: Yes Have you lived/traveled outside [place] in past 30 days?: No Contact w/someone who lives/traveled outside US past 30 days?: No Exposure to someone with infectious disease in past 14 days?: No Do you have a fever (greater than 100.4 F or 38 C)?: No Have you tested positive for COVID-19?: No Exposed to someone with COVID-19 in past 14 days?: No Do you have a sore throat?: No Do you have a cough?: No Do you have any weakness?: No Do you have any diarrhea?: No Are you experiencing any unusual bleeding?: No Do you have any muscle aches/pain?: No Do you have any abdominal pain?: No Are you experiencing loss of taste or smell?: No Other Medical History Have you received the Flu Vaccine for this season: No Have you received the Pneumonia Vaccine: Yes ROS Obtained: Yes Systems reviewed as appropriate & no additional complaints except as documented Physical Exam General General appearance: alert and in no apparent distress Head Head exam: atraumatic and normocephalic Eye Eye exam: Present PERRL and EOMI ENT ENT exam: Present mucous membranes moist Neck Neck exam: Present normal inspection Chest Chest inspection: Present normal inspection and symmetric chest wall rise Respiratory Respiratory exam: Present normal lung sounds bilaterally; Absent respiratory distress Cardiovascular Cardiovascular exam: Present regular rate and normal rhythm Abdominal Exam Abdominal exam: Present soft; Absent tenderness Extremities Exam Extremities exam: Present normal inspection Neurological Exam Neurological exam: Present alert and motor sensory deficit (Decree sensation left upper extremity); Absent CN II-XII intact (Slight decrease sensation on the face on the left, left superior quadrantanopia, mild dysarthria) Psychiatric Psychiatric exam: Present normal affect Skin Skin exam: Present warm and dry Medical Decision Making Medical Records Screening: Per USPSTF and CDC recommendations, given the prevalence of disease in our region, it is our hospital?s policy to screen for HIV and viral Hepatitis for all patients aged 18 and over and those with ongoing risk factors. [place] Inquiry Pt receiving controlled substance: No Vital Signs: 10/17/24 09:30 10/17/24 09:41 10/17/24 09:54 Temperature 97.9 F Temperature Source Oral Pulse Rate 78 Pulse Rate [Left Radial] 70 Respiratory Rate 15 Blood Pressure 98/61 L 112/61 Blood Pressure [Right Arm] 98/61 L Blood Pressure Mean 71 Blood Pressure Mean [Right Arm] 73 02 Sat by Pulse Oximetry 95 97 Oxygen Delivery Method Room Air 10/17/24 10:06 10/17/24 10:30 10/17/24 11:01 Temperature 97.9 F Temperature Source Pulse Rate 79 75 83 Pulse Rate [Left Radial] Respiratory Rate 12 Blood Pressure 102/73 L 118/67 120/96 H Blood Pressure [Right Arm] Blood Pressure Mean Blood Pressure Mean [Right Arm] 02 Sat by Pulse Oximetry 99 100 Oxygen Delivery Method Lab Data Lab Results 10/17/24 09:32: WBC 9.9, RBC 3.00 L, Hgb 9.9 L, Hct 29.2 L, MCV 97.3 H, MCH 33.0 H, MCHC 33.9, RDW 13.5, Plt Count 311, MPV 8.8, Neut % (Auto) 79.8, Lymph % (Auto) 10.2, Dodge % (Auto) 6.9, Eos % (Auto) 2.2, Baso % (Auto) 0.6, Neut # (Auto) 7.9 H, Lymph # (Auto) 1.0, Dodge # (Auto) 0.7, Eos # (Auto) 0.2, Baso # (Auto) 0.1, PT 10.8, INR 0.97, APTT 26.2, Sodium 128 L, Potassium 6.3 H*, Chloride 103, Carbon Dioxide 13 L, Anion Gap 18.3 H, BUN 132 H*, Creatinine 3.60 H, Estimated Creat Clear 19, Estimated GFR 17 L*, Est GFR ( Amer) 20 L, Glucose 185 H, Calcium 9.9, Total Bilirubin 0.5, AST 40, ALT 57, Alkaline Phosphatase 241 H, Troponin I < 0.01, Total Protein 7.4, Albumin 3.8, Globulin 3.6 H, Albumin/Globulin Ratio 1.1, Triglycerides 272 H, Cholesterol 153, LDL Cholesterol Direct 59.86 L, VLDL Cholesterol 54 H, HDL Cholesterol 33 L, Cholesterol/HDL Ratio 4.6 H, TSH 1.54, Free T4 0.71 L, Plasma/Serum Alcohol < 10 10/17/24 09:32 10/17/24 09:32 Orders (Tests/Meds): ED MEDICATIONS Generic Name Dose Route Start Last Admin Trade Name Freq PRN Reason Stop Dose Admin Calcium Gluconate/Sodium Chloride 2 gm in 100 mls @ 50 mls/hr 10/17/24 10:14 10/17/24 10:29 Calcium Gluconate 2,000mg/100ml Nacl Premix IV 10/17/24 12:13 50 mls/hr ONCE ONE Administration Sodium Chloride 10 ml 10/17/24 09:33 10/17/24 09:43 Sodium Chloride 0.9% 10ml Flush Syringe IV 11/16/24 09:32 10 ml NEEDED PRN Administration Maintain IV Site Discontinued Medications Generic Name Dose Route Start Last Admin Trade Name Jodi PRN Reason Stop Dose Admin Dextrose 50 ml 10/17/24 10:13 10/17/24 10:29 Dextrose 50% 50ml Syringe (Crash Cart) IVP 10/17/24 10:14 50 ml ONCE ONE Administration Lactated Ringer's 500 mls @ 999 mls/hr 10/17/24 10:31 Lactated Ringer's 1000 Ml Bag IV 10/17/24 11:01 .Q31M ONE Insulin Human Regular 5 unit 10/17/24 10:13 10/17/24 10:29 Insulin Human Regular 100 Units/Ml 10ml Vial IVP 10/17/24 10:14 5 unit ONCE ONE Administration Iopamidol 80 ml 10/17/24 09:42 10/17/24 09:43 Iopamidol-370 (76%);100ml Bottle IV 10/17/24 09:43 80 ml ONCE ONE Administration Sodium Chloride 50 ml 10/17/24 09:40 10/17/24 09:43 0.9 % Sodium Chloride 50 Ml Vial IV 10/17/24 09:41 50 ml ONCE ONE Administration Tenecteplase 18 mg 10/17/24 10:40 10/17/24 10:59 Tenecteplase 50mg Vial IV 10/17/24 10:41 18 mg ONCE ONE Administration ORDERS Category Date Time Status CT angio head Stat Cat Scan 10/17/24 09:[address] angio neck Stat Cat Scan 10/17/24 09:[address] cervical spine wo con Stat Cat Scan 10/17/24 09:[address] head/brain wo con Stat Cat Scan 10/17/24 09:33 Completed Activated Partial Thrombo Time Stat Lab 10/17/24 09:32 Completed Complete Blood Count Auto Diff Stat Lab 10/17/24 09:32 Completed Comprehensive Metabolic Panel Stat Lab 10/17/24 09:32 Completed Drug Screen,Urine Stat Lab 10/17/24 09:33 Ordered Ethyl Alcohol Stat Lab 10/17/24 09:32 Completed Free T4 (Free Thyroxine) Stat Lab 10/17/24 09:32 Completed Lipid Panel Stat Lab 10/17/24 09:32 Completed Prothrombin Time INR Stat Lab 10/17/24 09:32 Completed TSH [Thyroid Stimulating Hormone] Stat Lab 10/17/24 09:32 Completed Troponin I Q3H Lab 10/17/24 12:45 Ordered Troponin I Q3H Lab 10/17/24 15:45 Ordered Troponin I Stat Lab 10/17/24 09:32 Completed Urinalysis and Microscopic Stat Lab 10/17/24 09:33 Ordered ECG Data Tracing #1: Independently interpreted by me rate is 71, rhythm is regular, axis is normal, no ST elevation in anatomical contiguous leads, QTc 377. Medical Decision Narrative: In summary patient is 74-year-old male with past medical history described above presents emergency department for evaluation of strokelike symptoms after a fall. Patient is hemodynamically stable and nontoxic-appearing upon arrival, afebrile. Last known normal with strokelike symptoms since 7 AM this morning. Patient undergo rapid stroke protocol, CT of the cervical spine without contrast will be added. Fingerstick upon arrival nonactionable. Noncontrasted CT scan of the head informally visualized by me, no acute large intra-axial hemorrhage. Hematologic labs reviewed by me have significant metabolic derangement with potassium of 6.3, hyponatremia 128 significant uremia 132 with worsening creatinine from his baseline. 5 units of insulin and an amp of D50 will be administered as well as 2 g of calcium gluconate, he does not have any significant EKG changes at this time. NIH is 4 with decreased sensation to the left face and left upper extremity, left superior quadrantanopia as well as mild dysarthria. Noncontrasted CT scan of the head no acute intracranial abnormality, chronic findings with old lacunar infarct in the left basal ganglia. CTA head and neck 50% stenosis of the right ICA, no large vessel occlusion. The case was discussed with [facility] stroke navigator, although metabolic derangement can be the cause for his symptoms CVA can also be confounding this picture as well. I had shared decision-making discussion as to the utility of tenecteplase as well as the risks including internal bleeding and intracranial bleeding, they wish to proceed with TNK at this time which will be administered given that he has no absolute contraindications dosed by pharmacy. Patient remained hemodynamically stable in the emergency department without arrhythmias, C-spine was subsequently cleared and he was transferred to [facility] to be taken care of by Dr. Arteaga for continued evaluation. Critical Care Critical Care Time Critical Care Time: Yes Attestation: On 10/17/24, the high probability of a clinically significant, sudden or life threatening deterioration of the following system(s) required my full and direct attention, intervention and personal management. The time I documented below is in addition to time spent performing reported procedures but includes the following listed in this critical care notation. Total Time Total Critical Care Time: 45
--- NOTE | 2024-10-17 09:36 | CT_ITS ---
FINAL REPORT TECHNIQUE: Thin section axial images were obtained through the cervical spine without contrast. Multiplanar reconstruction images were obtained from the axial data. Exam was performed using dose reduction techniques. This study was performed with techniques to keep radiation doses as low as reasonably achievable (ALARA). Individualized dose reduction techniques using automated exposure control or adjustment of mA and/or kV according to the patient's size were employed. CLINICAL HISTORY: fall COMPARISON: None FINDINGS: There is no acute fracture or acute malalignment of the cervical spine. There is mild anterolisthesis of C3 on C4, favor degenerative. The C4 and C5 vertebral bodies are fused. There is no evidence of unilateral or bilateral facet lock. The craniocervical junction is intact. There is advanced multilevel degenerative disc disease present. Vertebral body height is preserved. No acute paraspinal abnormality is identified. IMPRESSION: Advanced multilevel degenerative disease is present, favor chronic. No acute osseous abnormality of the cervical spine. Reviewed, Interpreted and Dictated by Vanessa Elmore MD Transcribed by Rosa Mesa Authenticated and [facility]
[2024-10-17] MEDS: IOPAMIDOL-370 (76%);100ML BOTTLE 80 ML IV (09:43)
[2024-10-17] MEDS: 0.9 % SODIUM CHLORIDE 50 ML VIAL IV (09:43)
[2024-10-17] MEDS: SODIUM CHLORIDE 0.9% 10ML FLUSH SYRINGE 10 ML IV (09:43)
[2024-10-17 09:44] LABS: Basophils # 0.1 K/mm3 (0-0.2); Basophils % 0.6 % (0.1-2.0); Eosinophils # 0.2 Kmm3 (0.0-0.4); Eosinophils % 2.2 % (0.1-12.0); Hematocrit 29.2 % (42.0-52.0); Hemoglobin 9.9 g/dL (14.1-18.0); Immature Granulocytes # 0.03 10^3uL; Immature Granulocytes % 0.3 %; Lymphocytes % 10.2 % (10-50); Mean Corpuscular HGB Conc 33.9 g/dL (31.8-35.4); Mean Corpuscular Volume 97.3 fl (80-94); Mean Platelet Volume 8.8 fl (7.4-10.4); Monocytes # 0.7 K/mm3 (0.1-1.0); Monocytes % 6.9 % (1.7-9.3); Neutrophils # 7.9 K/mm3 (1.8-7.8); Neutrophils % 79.8 % (37.0-80.0); Nucleated Red Blood Cells # 0 10^3/uL; Nucleated Red Blood Cells % 0 %; Platelet Count 311 K/mm3 (142-424); Red Cell Distribution Width 13.5 % (11.5-17.5); Red Cell Distribution Width-SD 48.3 fL; White Blood Count 9.9 K/mm3 (4.8-10.8)
[2024-10-17 09:50] LABS: Chloride 103 mmol/L (98-107); Sodium 128 mmol/L (136-145)
[2024-10-17 09:52] LABS: Creatinine Clearance Estimated 19 mL/min (50-200); Estimated Glomerular Filt Rate 17 ml/min (>60); GFR (African American) 20 ML/MIN (>60)
[2024-10-17 09:53] LABS: Alanine Aminotransferase 57 U/L (12-78); Alkaline Phosphatase 241 U/L (38-126); Aspartate Amino Transferase 40 U/L (17-59); Bilirubin,Total 0.5 mg/dl (0.2-1.3); Calcium 9.9 mg/dl (8.4-10.2); Carbon Dioxide 13 mmol/L (22.0-30.0); Chol/HDL Ratio 4.6 (1-3.5); Cholesterol 153 mg/dl (140-200); Glucose 185 mg/dl (74-100); HDL Cholesterol 33 mg/dl (40-60); Total Protein,Serum 7.4 g/dl (6.3-8.2); Triglycerides 272 mg/dl (30-150); VLDL Cholesterol 54 mg/dL (0-40)
[2024-10-17 09:58] LABS: Activated Partial Thrombo Time 26.2 seconds (22.8-30.6); INR 0.97 (0.9-1.1); Prothrombin Time 10.8 seconds (10.1-12.5)
[2024-10-17 10:04] LABS: Anion Gap 18.3 mEq/L (5-15); Potassium 6.3 mmoL/L (3.5-5.1)
[2024-10-17 10:05] LABS: Blood Urea Nitrogen 132 mg/dl (9-20)
[2024-10-17 10:07] LABS: Albumin Level 3.8 g/dl (3.5-5.0); Albumin/Globulin Ratio 1.1 (1.1-1.8); Direct LDL Cholesterol 59.86 mg/dL (100-129); Globulin 3.6 g/dL (1.3-3.2)
[2024-10-17 10:08] LABS: Troponin I < 0.01 ng/ml (0.00-0.034)
--- NOTE | 2024-10-17 10:20 | PC.NURSE ---
Patient was placed in a C collar until his scans are back.
[2024-10-17 10:22] LABS: Ethyl Alcohol < 10 mg/dl (0-10)
[2024-10-17 10:26] LABS: Thyroid Stimulating Hormone 1.54 uIU/mL (0.465-4.68)
[2024-10-17] MEDS: DEXTROSE 50% 50ML SYRINGE (CRASH CART) 50 ML IVP (10:29)
[2024-10-17] MEDS: CALCIUM GLUC IN NACL, ISO-OSM 2 GM/100 ML BAG IV (10:29)
[2024-10-17] MEDS: INSULIN HUMAN REGULAR 100 UNITS/ML 10ML VIAL 5 UNIT IVP (10:29)
--- NOTE | 2024-10-17 10:30 | PC.NURSE ---
CALLING [facility] AT THIS TIME.
--- NOTE | 2024-10-17 10:32 | PC.NURSE ---
o/p with stroke navigator at this time.
--- NOTE | 2024-10-17 10:47 | PC.NURSE ---
spoke with marco in pharmacy for TNK dosing
--- NOTE | 2024-10-17 10:48 | PC.NURSE ---
weather check with [facility]
[2024-10-17 10:49] LABS: Free T4 (Free Thyroxine) 0.71 ng/dl (0.78-2.19)
--- NOTE | 2024-10-17 10:52 | PC.NURSE ---
[facility] accepted pt. ETA in 20 minutes. house notified
--- NOTE | 2024-10-17 10:53 | PC.NURSE ---
exlcusion criteria went over with pt and family at bedside
--- NOTE | 2024-10-17 10:53 | PC.NURSE ---
facesheet faxed to [facility] at this time.
[2024-10-17] MEDS: TENECTEPLASE 50MG VIAL 18 MG IV (10:59)
== END 2024-10-17 11:35 | disposition short-term general hospital (02) ==
PROVIDERS: Emergency Provider Emergency Medicine; PCP Internal Medicine
DX: I63.9 Cerebral infarction, unspecified (principal); E87.5 Hyperkalemia; E87.1 Hypo-osmolality and hyponatremia; N17.9 Acute kidney failure, unspecified; R47.81 Slurred speech; R29.704 NIHSS score 4; N18.9 Chronic kidney disease, unspecified; I12.9 Hypertensive chronic kidney disease with stage 1 through stage 4 chronic kidney disease, or unspecified chronic kidney disease; E11.22 Type 2 diabetes mellitus with diabetic chronic kidney disease; Z87.891 Personal history of nicotine dependence
CPT/HCPCS: 70450; 70496; 70498; 72125; 80053; 80061; 80320; 84439; 84443; 84484; 85025; 85610; 85730; 93005; 96365; 96375; 99291; J0612; J3101; Q9967

== ENCOUNTER 2024-10-31 07:50 | Outpatient (CLI) | payer MEDICARE, MEDICAID, SELFPAY ==
--- OUTSIDE RECORDS SUMMARY | 2024-10-31 07:53 | XMS_ITS ---
Author Organization Unknown TREATMENT PLAN [facility] Start Date Provider Encounter for Check-up [phone] [facility]
[2024-10-31 09:51] LABS: Albumin Level 3.4 g/dl (3.5-5.0); Chloride 96 mmol/L (98-107)
[2024-10-31 09:52] LABS: Potassium 4.3 mmoL/L (3.5-5.1); Sodium 124 mmol/L (136-145)
[2024-10-31 09:54] LABS: Estimated Glomerular Filt Rate 15 ml/min (>60); GFR (African American) 18 ML/MIN (>60)
[2024-10-31 09:55] LABS: Alanine Aminotransferase 638 U/L (12-78); Alkaline Phosphatase 463 U/L (38-126); Anion Gap 20.3 mEq/L (5-15); Aspartate Amino Transferase 322 U/L (17-59); Bilirubin,Total 0.7 mg/dl (0.2-1.3); Calcium 9.1 mg/dl (8.4-10.2); Carbon Dioxide 12 mmol/L (22.0-30.0); Globulin 3.5 g/dL (1.3-3.2); Glucose 269 mg/dl (74-100); Total Protein,Serum 6.9 g/dl (6.3-8.2)
[2024-10-31 09:57] LABS: Hemoglobin A1C 10.3 % (4.0-6.0)
[2024-10-31 10:07] LABS: Blood Urea Nitrogen 84 mg/dl (9-20)
[2024-11-01 12:07] LABS: Albumin, U 243.3 ug/mL (Not Estab.); Albumin/Creatinine Ratio 294 mg/g creat (0-29); Creatinine, Urine 82.7 mg/dL (Not Estab.)
== END 2024-10-31 23:59 | disposition home or self-care (01) ==
LOC: LAB 07:51
PROVIDERS: Internal Medicine Adolescent Medicine; PCP Internal Medicine; Visit Provider Internal Medicine
DX: E11.00 Type 2 diabetes mellitus with hyperosmolarity without nonketotic hyperglycemic-hyperosmolar coma (NKHHC) (principal); Z79.4 Long term (current) use of insulin
CPT/HCPCS: 36415; 80053; 82043; 82570; 83036

== ENCOUNTER 2024-11-10 08:04 | Outpatient (CLI) | payer MEDICARE, MEDICAID, SELFPAY ==
--- NOTE | 2024-11-10 08:30 | US_ITS ---
FINAL REPORT TECHNIQUE: Multiple transverse and longitudinal images CLINICAL HISTORY: elevated AST/ALT COMPARISON: None FINDINGS: There is a 10 mm gallstone in the proximal gallbladder without acute gallbladder disease. No biliary ductal dilatation is appreciated. No fluid collections are seen. Limited portions of the right liver are unremarkable. Limited portions of the right kidney are unremarkable. Pancreas is largely obscured. IMPRESSION: 1. Uncomplicated cholelithiasis. 2. No evidence of biliary obstruction Reviewed, Interpreted and Dictated by Edita Cervantes MD Transcribed by Rosa Mesa Authenticated and . [facility]
== END 2024-11-10 23:59 | disposition home or self-care (01) ==
LOC: RAD 08:05
PROVIDERS: PCP Internal Medicine; Visit Provider Internal Medicine
DX: K80.20 Calculus of gallbladder without cholecystitis without obstruction (principal)
CPT/HCPCS: 76705

== ENCOUNTER 2024-11-10 10:04 | Outpatient (CLI) | payer MEDICARE, MEDICAID, SELFPAY ==
--- NOTE | 2024-11-10 10:08 | XR_ITS ---
FINAL REPORT CLINICAL HISTORY: left shoulder injury COMPARISON: None FINDINGS: LEFT SHOULDER: 3 views show no evidence of an acute, displaced fracture or dislocation of the visualized bony architecture. Mild degenerative joint disease is present. IMPRESSION: Mild degenerative changes. No acute bony abnormality. Reviewed, Interpreted and Dictated by Edita Cervantes MD Transcribed by Rosa Mesa Authenticated and [facility]
[2024-11-10 15:40] LABS: Basophils # 0.1 K/mm3 (0-0.2); Basophils % 0.6 % (0.1-2.0); Eosinophils % 0.4 % (0.1-12.0); Hematocrit 22.7 % (42.0-52.0); Hemoglobin 7.6 g/dL (14.1-18.0); Immature Granulocytes # 0.07 10^3uL; Immature Granulocytes % 0.6 %; Lymphocytes # 0.8 K/mm3 (0.7-4.5); Lymphocytes % 7.1 % (10-50); Mean Corpuscular HGB Conc 33.5 g/dL (31.8-35.4); Mean Corpuscular Hemoglobin 31.5 pg (27.0-31.2); Mean Corpuscular Volume 94.2 fl (80-94); Mean Platelet Volume 8.6 fl (7.4-10.4); Monocytes % 8.8 % (1.7-9.3); Neutrophils % 82.5 % (37.0-80.0); Nucleated Red Blood Cells # 0 10^3/uL; Nucleated Red Blood Cells % 0 %; Platelet Count 532 K/mm3 (142-424); Red Blood Count 2.41 M/mm3 (4.60-6.20); Red Cell Distribution Width 14.7 % (11.5-17.5); White Blood Count 10.9 K/mm3 (4.8-10.8)
[2024-11-10 16:09] LABS: Alanine Aminotransferase 266 U/L (12-78); Albumin Level 3.9 g/dl (3.5-5.0); Albumin/Globulin Ratio 1.2 (1.1-1.8); Alkaline Phosphatase 374 U/L (38-126); Anion Gap 26.5 mEq/L (5-15); Aspartate Amino Transferase 233 U/L (17-59); Bilirubin,Total 0.8 mg/dl (0.2-1.3); Calcium 9.9 mg/dl (8.4-10.2); Carbon Dioxide 16 mmol/L (22.0-30.0); Chloride 88 mmol/L (98-107); Estimated Glomerular Filt Rate 17 ml/min (>60); GFR (African American) 20 ML/MIN (>60); Globulin 3.3 g/dL (1.3-3.2); Glucose 172 mg/dl (74-100); Potassium 4.5 mmoL/L (3.5-5.1); Sodium 126 mmol/L (136-145); Total Protein,Serum 7.2 g/dl (6.3-8.2)
[2024-11-10 16:24] LABS: Blood Urea Nitrogen 106 mg/dl (9-20)
== END 2024-11-10 23:59 | disposition home or self-care (01) ==
LOC: RAD 10:05
PROVIDERS: PCP Internal Medicine; Visit Provider Internal Medicine
DX: Z00.00 Encounter for general adult medical examination without abnormal findings (principal); M19.012 Primary osteoarthritis, left shoulder; S46.002A Unspecified injury of muscle(s) and tendon(s) of the rotator cuff of left shoulder, initial encounter; S46.212A Strain of muscle, fascia and tendon of other parts of biceps, left arm, initial encounter; D64.9 Anemia, unspecified; E87.1 Hypo-osmolality and hyponatremia; N17.9 Acute kidney failure, unspecified; R74.01 Elevation of levels of liver transaminase levels
CPT/HCPCS: 73030; 80053; 85025

== ENCOUNTER 2024-11-11 14:05 | Inpatient (IN) | payer MEDICARE, MEDICAID, SELFPAY ==
[2024-11-11] VITALS (23 sets, daily range): BP systolic 104–154; BP diastolic 64–85; PULSE 55–108; RESP 14–24; TEMP 36.4–37; O2SAT 94–100; BMI 19.0; BMI 19.4
--- NOTE | 2024-11-11 15:27 | CT_ITS ---
PROCEDURE INFORMATION: Exam: CT Abdomen And Pelvis Without Contrast Exam date and time: 11/11/2024 4:08 PM Age: 74 years old Clinical indication: Abdominal pain; Additional info: Lower pelvic pain, rectal pain TECHNIQUE: Imaging protocol: Computed tomography of the abdomen and pelvis without contrast. Radiation optimization: All CT scans at this facility use at least one of these dose optimization techniques: automated exposure control; mA and/or kV adjustment per patient size (includes targeted exams where dose is matched to clinical indication); or iterative reconstruction. COMPARISON: US ABDOMEN LIMITED 11/10/2024 8:20 AM FINDINGS: Lungs: 3.1 x 5.7 cm thick rimmed cavitating lesion in the right lung base. Diaphragm: Moderate hiatal hernia. Liver: Normal. No mass. Gallbladder and biliary ducts: Nonobstructive cholelithiasis. Pancreas: Normal. No ductal dilation. Spleen: Benign calcified splenic granulomas. Adrenal glands: Normal. No mass. Kidneys and ureters: Air within the bilateral renal pelvicaliceal systems, with mild bilateral symmetric hydroureteronephrosis without obstructing stones. Stomach and bowel: Severe constipation and moderate bloating. No definite bowel obstruction. Suggested mild circumferential wall thickening at the distal rectum, near the anorectal junction. Appendix: No evidence of appendicitis. Intraperitoneal space: Unremarkable. No free air. No significant fluid collection. Vasculature: Severe atherosclerosis. No aneurysms. Lymph nodes: Unremarkable. No enlarged lymph nodes. Urinary bladder: Severely distended urinary bladder with intraluminal air. Slight nodularity to the posterior/inferior wall of the urinary bladder (at the prostate interface). Reproductive: Severe prostatomegaly. Bones/joints: Mild degenerative changes thoracolumbar spine. No aggressive osseous lesions. Soft tissues: Bilateral fat containing inguinal hernias. IMPRESSION: 1. High probability of severe bladder outlet obstruction from prostatomegaly. Additional indenting BPH nodules or early infiltrative prostatic disease into the inferior/posterior wall of the urinary bladder. Consider urology consultation. 2. Air within the renal excretory system and bladder is most probably related to recent catheterization. Differential would include underlying infectious process. Consider urinalysis. 3. Severe constipation and moderate bloating. No definite bowel obstruction. 4. Suggested mild circumferential wall thickening at the distal rectum, near the anorectal junction. Questions artifactual mucosal crowding, mild proctitis, or occult neoplasia. Consider follow-up with direct visualization or MRI of the pelvis (rectal protocol). 5. 3.1 x 5.7 cm thick rimmed cavitating lesion in the right lung base. Incompletely characterized in this examination. Follow-up chest CT with intravenous contrast is recommended.
[2024-11-11] MEDS: LACTATED RINGERS 1000ML 1,000 ML 999 ML IV (15:40)
--- NOTE | 2024-11-11 15:44 | HMH.EDGENADL ---
Discharge Plan Disposition Patient Disposition: Admitted Prescriptions Prescriptions: No Action montelukast 10 mg tablet 10 mg PO HS Patient Comments: TAKE ONE TABLET BY MOUTH EVERY DAY donepezil 10 mg tablet 10 mg PO HS Patient Comments: TAKE ONE TABLET BY MOUTH AT BEDTIME (DME) blood-glucose meter [Accu-Chek Guide Me Glucose Mtr] Misc See Rx Instructions .ROUTE .MEDSUPPLY Qty: 1 Patient Comments: USE TO test blood sugar FOUR TIMES DAILY OR NEEDED Rx Instructions: As directed (DME) Accu-Chek Guide test strips Strip See Rx Instructions .ROUTE .MEDSUPPLY Qty: 10 Patient Comments: USE 1 new test strip TO test blood sugar DIRECTED FOUR TIMES DAILY OR NEEDED Rx Instructions: As directed (DME) lancets [Accu-Chek Softclix Lancets] [facility] [place] .ROUTE .MEDSUPPLY Qty: 100 Patient Comments: USE 1 new lancet TO test blood sugar FOUR TIMES DAILY OR NEEDED Rx Instructions: As directed (DME) Dexcom G7 Sensor Device See Rx Instructions .Route Qty: 3 6RF Rx Instructions: As directed atorvastatin 80 mg tablet 80 mg PO HS Patient Comments: TAKE ONE TABLET BY MOUTH EVERY NIGHT clopidogrel 75 mg tablet 75 mg PO DAILY Patient Comments: TAKE ONE TABLET BY MOUTH EVERY DAY aspirin 81 mg tablet,chewable 1 tab PO DAILY Patient Comments: CHEW ONE TABLET BY MOUTH EVERY DAY sodium bicarbonate 650 mg tablet 650 mg PO BID Patient Comments: TAKE TWO TABLETS BY MOUTH TWICE DAILY midodrine 10 mg tablet 10 mg PO BID Patient Comments: TAKE ONE TABLET BY MOUTH TWICE DAILY polyethylene glycol 3350 17 gram/dose powder 17 g PO DAILY Qty: 119 0RF senna 8.6 mg capsule 8.6 mg PO BID PRN (Reason: constipation) Qty: 60 0RF propranolol 20 mg tablet 20 mg PO BID Patient Comments: TAKE ONE TABLET BY MOUTH TWICE DAILY Centrum Silver Ultra Men's [id number] mcg Tablet 1 tab PO DAILY mirabegron [Myrbetriq] 25 mg tablet extended release 24 hr 25 mg PO DAILY Patient Comments: TAKE ONE TABLET BY MOUTH EVERY DAY insulin glargine [Lantus Solostar U-100 Insulin] 100 unit/mL (3 mL) Insulin Pen 40 unit SQ DAILY Qty: 15 0RF insulin lispro 100 unit/mL insulin pen 15 unit SQ AC 30 Days Qty: 15 0RF (DME) pen needle, diabetic 31 gauge x 1/4 needle See Rx Instructions .ROUTE .MEDSUPPLY Qty: 100 4RF Rx Instructions: use with insulin 4x a day (DME) Accu-Chek Safe-T-Pro 23 gauge misc See Rx Instructions .Route Qty: 200 0RF Rx Instructions: 4 times a day primidone 250 MG tablet 500 mg PO BID tamsulosin 0.4 MG capsule 1 tab PO DAILY famotidine 20 MG tablet 20 mg PO BID lansoprazole 30 MG capsule,delayed release(DR/EC) 30 mg PO DAILY Clinical Impressions Clinical Impression: Acute renal failure, Cholestatic hepatitis, Acute UTI, Sepsis, Metabolic acidosis Print Language Print Language: Czech Discharge ED Provider: Nehemiah Hyman General Adult HPI General Chief complaint: Weakness Stated complaint: Pain and weakness, kidneys Time Seen by Provider: 11/11/24 14:56 Mode of Arrival: Wheelchair Source of Information: Patient Description of Symptoms (Recalled from ER Triage Doc. by RN): everything is wrong with me Patient states he has hemorrhoids and has been unable to urinate. Patient states he has known kidney disease, but is unable to say how long its been going on. Patient states that he saw his PCP yesterday, had labs done, an X-ray of his left shoulder, and ultrasound of his liver and kidneys done. Patient states PCP told him if he gets worse to come to the ER. History of Present Illness HPI narrative: Please note that above description of symptoms, in this electronic medical record under categorization of recalled from ER triage doctor by RN are reflective of an initial nursing assessment, however, is not reflective of my full history and physical exam that was personally taken and clarified. Consequentially, this preceding description of symptoms, which may include the patient's categorized chief complaint in the EMR, do not reflect my personal clinical impression, and the ultimate description of history of present illness and patient stated complaints should be deferred to this section of the note. Unless stated otherwise or congruent with this section of the note, additional signs, symptoms, or incongruence should be interpreted as inaccurate with my clinical impression. Related Data Home Medications ?Medication ?Instructions ?Recorded ?Confirmed primidone 250 mg tablet 500 mg PO BID 10/03/17 11/10/24 tamsulosin 0.4 mg capsule 1 tab PO DAILY 10/03/17 11/10/24 famotidine 20 mg tablet 20 mg PO BID 06/14/20 11/10/24 lansoprazole 30 mg capsule,delayed 30 mg PO DAILY 06/14/20 11/10/24 release donepezil 10 mg tablet 10 mg PO HS 09/29/24 11/10/24 montelukast 10 mg tablet 10 mg PO HS 09/29/24 11/10/24 mirabegron 25 mg tablet,extended 25 mg PO DAILY 09/30/24 11/10/24 release 24 hr (Myrbetriq) zlxsmkaf-[id number] 300 mcg-K 60 1 tab PO DAILY 09/30/24 11/10/24 mcg-lycop 600 mcg-lutein 300 mcg tablet (Centrum Silver Ultra Men's) propranolol 20 mg tablet 20 mg PO BID 09/30/24 11/10/24 blood sugar diagnostic (Accu-Chek #10 ea 10/13/24 11/10/24 Guide test strips) blood-glucose meter (Accu-Chek #1 ea 10/13/24 11/10/24 Guide Me Glucose Meter) lancets (Accu-Chek Softclix #100 ea 10/13/24 11/10/24 Lancets) aspirin 81 mg chewable tablet 1 tab PO DAILY 10/27/24 11/10/24 atorvastatin 80 mg tablet 80 mg PO HS 10/27/24 11/10/24 clopidogrel 75 mg tablet 75 mg PO DAILY 10/27/24 11/10/24 midodrine 10 mg tablet 10 mg PO BID 11/04/24 11/10/24 sodium bicarbonate 650 mg tablet 650 mg PO BID 11/04/24 11/10/24 Previous Rx's ?Medication ?Instructions ?Recorded insulin glargine 100 unit/mL (3 40 unit (0.4 mL) SQ DAILY #15 mL 10/02/24 mL) subcutaneous pen (Lantus Solostar U-100 Insulin) insulin lispro 100 unit/mL 15 unit (0.15 mL) SQ AC 30 days 10/02/24 subcutaneous pen #15 mL lancets 23 gauge (Accu-Chek #200 ea 10/02/24 Safe-T-Pro) pen needle, diabetic 31 gauge x #100 ea 10/02/2405/21 blood-glucose sensor ([employer] G7 #3 ea 10/13/24 Sensor device) polyethylene glycol 3350 17 17 g PO DAILY #119 grams 11/04/24 gram/dose oral powder sennosides 8.6 mg capsule (senna) 8.6 mg PO BID PRN constipation #60 11/04/24 caps Allergies Allergy/AdvReac Type Severity Reaction Status Date / Time ezetimibe (From Zetia) AdvReac Severe muscle Verified 11/10/24 08:54 cramps methocarbamol AdvReac Verified 11/10/24 08:54 PFSH [facility] Disclaimer: The information contained in this section may have been updated after the patient was seen, as this information can be updated by other users. Medical History Occasional tremors Diabetes Alzheimers disease Hypertension Surgical History History of testicular surgery Social History Smoking Status: Former smoker second hand exposure: No alcohol intake: former substance use type: denies use current occupational status: retired and disabled Travel in the last 8 weeks?: None household members: spouse housing: house marital status: caffeine: Yes Have you lived/traveled outside [place] in past 30 days?: No Contact w/someone who lives/traveled outside US past 30 days?: No Exposure to someone with infectious disease in past 14 days?: No Do you have a fever (greater than 100.4 F or 38 C)?: No Have you tested positive for COVID-19?: No Exposed to someone with COVID-19 in past 14 days?: No Do you have a sore throat?: No Do you have a cough?: No Do you have any weakness?: No Do you have any diarrhea?: No Are you experiencing any unusual bleeding?: No Do you have any muscle aches/pain?: No Do you have any abdominal pain?: No Are you experiencing loss of taste or smell?: No Other Medical History Have you received the Flu Vaccine for this season: No Have you received the Pneumonia Vaccine: Yes ROS Obtained: Yes All systems reviewed & no additional complaints except as documented Physical Exam General General appearance: alert, cachectic and other (Chronically ill, in no acute distress) Head Head exam: atraumatic and normocephalic Eye Eye exam: Present normal appearance, PERRL and EOMI Neck Neck exam: Present normal inspection, full ROM and trachea midline Respiratory Respiratory exam: Absent respiratory distress, wheezes, stridor, accessory muscle use or prolonged expiratory phase Cardiovascular Cardiovascular exam: Present regular rate, normal rhythm and other (Pulses equal symmetric in upper and lower extremities) Abdominal Exam Abdominal exam: Present soft; Absent distention, tenderness or pulsatile mass Extremities Exam Extremities exam: Absent edema Neurological Exam Neurological exam: Present alert, oriented X3 and CN II-XII intact; Absent motor sensory deficit Skin Skin exam: Present warm, dry and pallor; Absent diaphoresis or erythema Medical Decision Making Medical Records Medical records reviewed: Yes I reviewed the patient's medical records. Screening: Per USPSTF and CDC recommendations, given the prevalence of disease in our region, it is our hospital?s policy to screen for HIV and viral Hepatitis for all patients aged 18 and over and those with ongoing risk factors. Palmer Inquiry Pt receiving controlled substance: No Palmer was queried for this patient: No Vital Signs: 11/11/24 14:16 11/11/24 15:10 11/11/24 15:30 Temperature 97.8 F Temperature Source Oral Pulse Rate 101 H 100 H Pulse Rate [Right Brachial] 108 H Respiratory Rate 17 18 15 Blood Pressure 134/83 123/81 Blood Pressure [Right Arm] 104/64 L Blood Pressure Mean 99 101 Blood Pressure Mean [Right Arm] 77 Blood Pressure Source [Right Arm] Automatic Cuff Blood Pressure Position [Right Arm] Sitting 02 Sat by Pulse Oximetry 98 94 L 97 Oxygen Delivery Method Room Air Room Air 11/11/24 16:00 11/11/24 16:30 11/11/24 17:00 Temperature Temperature Source Pulse Rate 100 H 55 L 101 H Pulse Rate [Right Brachial] Respiratory Rate 19 14 19 Blood Pressure 141/79 H 149/82 H 154/85 H Blood Pressure [Right Arm] Blood Pressure Mean 102 100 91 Blood Pressure Mean [Right Arm] Blood Pressure Source [Right Arm] Blood Pressure Position [Right Arm] 02 Sat by Pulse Oximetry 98 100 99 Oxygen Delivery Method Room Air Room Air Room Air 11/11/24 17:30 11/11/24 18:00 Temperature Temperature Source Pulse Rate 101 H 101 H Pulse Rate [Right Brachial] Respiratory Rate 16 14 Blood Pressure 147/78 H 144/79 H Blood Pressure [Right Arm] Blood Pressure Mean 101 100 Blood Pressure Mean [Right Arm] Blood Pressure Source [Right Arm] Blood Pressure Position [Right Arm] 02 Sat by Pulse Oximetry 96 100 Oxygen Delivery Method Room Air Room Air Lab Data Lab Results 11/11/24 15:27: VBG pH 7.36, VBG pCO2 34.5 L, VBG pO2 38.8, VBG HCO3 19.1 L, VBG Total CO2 20.2 L, VBG O2 Saturation 70.9 H, VBG Base Excess -6.3 L, VBG Lactic Acid 1.3 11/11/24 15:39: WBC 11.3 H, RBC 2.23 L, Hgb 7.3 L, Hct 21.0 L, MCV 94.2 H, MCH 32.7 H, MCHC 34.8, RDW 14.9, Plt Count 423, MPV 8.2, Neut % (Auto) 87.2 H, Lymph % (Auto) 4.6 L, [place] % (Auto) 6.7, Eos % (Auto) 0.5, Baso % (Auto) 0.4, Neut # (Auto) 9.8 H, Lymph # (Auto) 0.5 L, [place] # (Auto) 0.8, Eos # (Auto) 0.1, Baso # (Auto) 0.1, Total Counted 100, Neutrophils % (Manual) 95 H, Lymphocytes % (Manual) 1 L, Monocytes % (Manual) 4, Platelet Estimate Normal, RBC Morphology Not Reportable, Ovalocytes 1+, Sodium 126 L, Potassium 3.7, Chloride 88 L, Carbon Dioxide 18 L, Anion Gap 23.7 H, BUN 101 H*, Creatinine 3.90 H, Estimated Creat Clear 15, Estimated GFR 15 L*, Est GFR ( Amer) 18 L*, Glucose 198 H, Calcium 9.2, Total Bilirubin 0.7, AST 493 H* D, ALT 409 H*, Alkaline Phosphatase 477 H, Total Protein 8.1, Albumin 4.0, Globulin 4.1 H, Albumin/Globulin Ratio 1.0 L, Lipase 241, Urine Color Yellow, Urine Appearance Slightly cloudy, Urine pH 6.0, Ur Specific [place] 1.010, Urine Protein 1+ A, Urine Glucose (UA) Negative, Urine Ketones Negative, Urine Blood 1+ A, Urine Nitrate Positive A, Urine Bilirubin Negative, Urine Urobilinogen 0.2, Ur Leukocyte Esterase 3+ A, Urine RBC 5-10, Urine WBC Tntc, Ur Squamous Epith Cells 3-5, Urine Bacteria 4+ 11/11/24 17:20: Blood Type A Negative 11/11/24 17:39: Urine Color Yellow, Urine Appearance Slightly cloudy, Urine pH 6.0, Ur Specific [place] 1.010, Urine Protein 1+ A, Urine Glucose (UA) Negative, Urine Ketones Negative, Urine Blood 2+ A, Urine Nitrate Positive A, Urine Bilirubin Negative, Urine Urobilinogen 0.2, Ur Leukocyte Esterase 3+ A, Urine RBC 5-10, Urine WBC Tntc, Ur Squamous Epith Cells 5-10, Urine Bacteria 4+ 11/11/24 15:39 11/11/24 15:39 Orders (Tests/Meds): ED MEDICATIONS Generic Name Dose Route Start Last Admin Trade Name Freq PRN Reason Stop Dose Admin Meropenem 1 gm/ Sodium 100 mls @ 100 mls/hr 11/11/24 18:30 Chloride IV 11/21/24 18:29 Q12H [facility] Insulin Human Lispro 0 unit 11/11/24 21:00 Humalog 100 Units/Ml 10ml Vial ([facility]) SUBCUT 12/11/24 20:59 ACHS [facility] Protocol Discontinued Medications Generic Name Dose Route Start Last Admin Trade Name Freq PRN Reason Stop Dose Admin Lactated Ringer's 1,000 mls @ 999 mls/hr 11/11/24 15:27 11/11/24 15:40 Lactated Ringer's 1000 Ml Bag IV 11/11/24 16:27 999 mls/hr .Q1H1M ONE Administration Sodium Chloride 1,000 mls @ 999 mls/hr 11/11/24 16:22 11/11/24 16:35 Sod Chlor 0.9% 1000ml Bag IV 11/11/24 17:22 999 mls/hr .Q1H1M ONE Administration Ceftriaxone Sodium 2 gm/ 100 mls @ 200 mls/hr 11/11/24 16:22 11/11/24 16:35 Sodium Chloride IV 11/11/24 16:51 200 mls/hr ONCE ONE Administration ORDERS Category Date Time Status Type and Screen Stat BBK 11/11/24 17:[address] abdomen pelvis wo con Stat Cat Scan 11/11/24 15:27 Completed CBC w/Auto Diff [Complete Blood Count Auto Diff] Stat Lab 11/11/24 15:39 Completed CMP [Comprehensive Metabolic Panel] Stat Lab 11/11/24 15:39 Completed Complete Blood Count Auto Diff AMLAB Lab 11/12/24 06:00 Ordered Comprehensive Metabolic Panel AMLAB Lab 11/12/24 06:00 Ordered Lipase Stat Lab 11/11/24 15:39 Completed Magnesium AMLAB Lab 11/12/24 06:00 Ordered Phosphorous AMLAB Lab 11/12/24 06:00 Ordered UA [Urinalysis and Microscopic] Stat Lab 11/11/24 15:39 Completed Urinalysis and Microscopic Stat Lab 11/11/24 17:39 Completed Blood Culture Stat Micro 11/11/24 18:20 Ordered Urine Culture Stat Micro 11/11/24 15:39 Received VBG [Venous Blood Gas] Stat RT 11/11/24 15:27 Completed Medical Decision Narrative: This is a 74-year-old male history of hypertension, lipid, CVA, type 2 diabetes, metabolic derangements, CKD, chronic liver disease, presenting with multiple complaints. Patient states that he has too much potassium in my kidneys. He states that he thinks this is due to a stroke in the past. He also states that today, he mostly presented because he was having multiple episodes of diarrhea throughout the past few days which were nonbloody not mucousy, but he feels like a hemorrhoid fell out and prevented me from going anymore. He thinks that he has a prolapsed hemorrhoid, but no blood in the stool. Urinating without issue. Has not had a bowel movement in 2 days at this point. No abdominal tenderness, has a lot of vague, nondescript complaints. History was obtained via conversation with patient and . On arrival, patient hemodynamically stable, alert, [oriented x4, ][appropriate, ]GCS [15], moving all extremities spontaneously, pupils equal and reactive to light. Full physical exam performed and significant for clinically unwell appearing male who is chronically ill, but no acute distress. Mildly tachycardic. Lungs are clear, cardiac exam without murmurs gallops or rubs. He is peers to be in sinus rhythm. No lower extremity edema. Pulses equal and symmetric. He is pale and sallow. Abdomen is soft, nontender, nondistended. Does have some lower abdominal fullness concern for distended bladder. Patient does have multiple external hemorrhoids, no internal hemorrhoids that are obvious and no prolapsed rectum. Differential includes urinary tract infection, sepsis, pyelonephritis, pancreatitis, stool impaction, bowel obstruction, metabolic abnormality, kidney failure, endocrinologic abnormality, among others. Patient placed on continuous cardiac monitoring and continuous pulse ox with initial blood pressure 104/64, heart rate 108, saturation 98% on room air. Patient was given 1 L fluids initially for symptomatic management[ and correction of underlying abnormalities]. Workup independently interpreted and significant for patient has leukocytosis, anemia of 7.3 which seems to be downtrending over time. VBG with compensated metabolic acidosis. Chemistry with numerous abnormalities including hyponatremia, hypochloremia, anion gap of 23, BUN 101/creatinine 3.9 up from normal baseline consistent with prerenal injury. Acute hepatitis with AST 493, ALT 4 9 and alkaline phosphatase elevated 477 potentially cholestatic. Urinalysis with concern for UTI. Given 2 g of ceftriaxone and another liter of fluids. Because hemoglobin likely to be delusional, type and screen was sent and blood was ordered. On independent interpretation of imaging, patient has bladder distention, gas in his bladder consistent with urinary tract infection and gas producing organism. Rectal fullness, unknown if this is mass, although this was not obvious on physical exam. Radiology also read cavitary lesions in the right lower lung. See radiology read for full review of final results. On reevaluation, I told patient he needs to be transferred. Patient states he does not would be transferred, wants to stay at [facility] at all costs. Causes were discussed with patient including renal failure, hepatic failure, multiorgan failure and . Patient voiced his understanding. He states that he wants to stay here because he is most comfortable here and there are worse things than , per him. Patient in his right mind, has capacity to make this decision. I called the hospitals and had prolonged discussion with him. Hospitalist wants to come see patient before agreeing to admit versus talking to patient to try to convince for transfer, which we both feel is most appropriate. After conversation with hospitalist, agreeable to admission, patient agrees to go DNR/DNI. [Tissue perfusion reassessment performed within 3 hours, patient mentating, following commands, good capillary refill and hemodynamically stable.] Given patient presentation, workup, history, this most likely represents multiorgan system failure, acute urinary retention, acute symptomatic anemia. Because patient high risk for clinical decompensation, deemed appropriate for inpatient admission. Results were relayed to patient who voiced understanding and patient was agreeable to inpatient admission and management. Patient was admitted to the hospital for further definitive management. [employer] disclaimer Much of this encounter note is an electronic chuck boner spoken language to printed text. Electronic chuck boner of the spoken language may permit errors. Although I have reviewed the note, some errors may still exist. Critical Care Critical Care Time Critical Care Time: Yes (renal, hematologic) Attestation: On 11/11/24, the high probability of a clinically significant, sudden or life threatening deterioration of the following system(s) required my full and direct attention, intervention and personal management. The time I documented below is in addition to time spent performing reported procedures but includes the following listed in this critical care notation. Total Time Total Critical Care Time: 45
[2024-11-11 15:46] LABS: Microscopic, Urine URINE MICROSCOPIC (MICROSCOPIC)
[2024-11-11 15:48] LABS: Lactate Venous 1.3 mmol/L (0.4-2.0); VBG HCO3 19.1 mmol/L (23-30); VBG PCO2 34.5 mmol/L (35-51); VBG PH 7.36 mmol/L (7.31-7.41); VBG PO2 38.8 mmol/L (28-40)
[2024-11-11 15:49] LABS: Bilirubin,Urine Negative (Negative); Color,Urine YELLOW (Yellow); Glucose,Urine (UA) Negative (Negative); Ketones,Urine Negative (Negative); Leukocyte Esterase,Urine 3+ (Negative); PH,Urine 6.0 (5.0-8.5); Protein,Urine 1+ (Negative); Specific Gravity, Urine 1.010 (1.005-1.030); Urobilinogen,Urine 0.2 EU/dl (0.2)
[2024-11-11 15:50] LABS: Hemoglobin 7.3 g/dL (14.1-18.0); Immature Granulocytes % 0.6 %; Mean Corpuscular HGB Conc 34.8 g/dL (31.8-35.4); Mean Corpuscular Hemoglobin 32.7 pg (27.0-31.2); Mean Corpuscular Volume 94.2 fl (80-94); Nucleated Red Blood Cells % 0 %; Platelet Count 423 K/mm3 (142-424); Red Blood Count 2.23 M/mm3 (4.60-6.20); Red Cell Distribution Width-SD 50.8 fL; White Blood Count 11.3 K/mm3 (4.8-10.8)
[2024-11-11 15:54] LABS: Albumin Level 4.0 g/dl (3.5-5.0); Chloride 88 mmol/L (98-107)
[2024-11-11 15:55] LABS: Hematocrit 21.0 % (42.0-52.0); Potassium 3.7 mmoL/L (3.5-5.1); Sodium 126 mmol/L (136-145)
--- NOTE | 2024-11-11 15:55 | PC.NURSE ---
Tonya from lab called critical on pt Hematacrit is 21
[2024-11-11 15:57] LABS: Alanine Aminotransferase 409 U/L (12-78); Alkaline Phosphatase 477 U/L (38-126); Anion Gap 23.7 mEq/L (5-15); Aspartate Amino Transferase 493 U/L (17-59); Bilirubin,Total 0.7 mg/dl (0.2-1.3); Carbon Dioxide 18 mmol/L (22.0-30.0); Creatinine Clearance Estimated 15 mL/min (50-200); Creatinine,Serum 3.90 mg/dl (0.66-1.25); Estimated Glomerular Filt Rate 15 ml/min (>60); GFR (African American) 18 ML/MIN (>60)
[2024-11-11 15:58] LABS: Albumin/Globulin Ratio 1.0 (1.1-1.8); Calcium 9.2 mg/dl (8.4-10.2); Globulin 4.1 g/dL (1.3-3.2); Glucose 198 mg/dl (74-100); Lipase 241 U/L (23-300); Total Protein,Serum 8.1 g/dl (6.3-8.2)
[2024-11-11 16:00] LABS: Blood Urea Nitrogen 101 mg/dl (9-20)
--- NOTE | 2024-11-11 16:05 | HMH.ITSTN ---
Per Yenni, okay to change exam to without due to low GFR
[2024-11-11 16:13] LABS: Bacteria,Urine 4+ /lpf; WBC,Urine TNTC #/hpf (0-3)
[2024-11-11] MEDS: 0.9 % SODIUM CHLORIDE 1000ML 1,000 ML 999 ML IV (16:35)
[2024-11-11 16:36] LABS: Total Cells Counted 100
[2024-11-11 16:37] LABS: Ovalocytes 1+
--- NOTE | 2024-11-11 17:13 | PC.NURSE ---
Urine Output 350mL
[2024-11-11 17:42] LABS: Microscopic, Urine URINE MICROSCOPIC (MICROSCOPIC)
--- NOTE | 2024-11-11 17:43 | PC.NURSE ---
Dr. Lee at bedside.
[2024-11-11 17:46] LABS: Bilirubin,Urine Negative (Negative); Color,Urine YELLOW (Yellow); Glucose,Urine (UA) Negative (Negative); Ketones,Urine Negative (Negative); Leukocyte Esterase,Urine 3+ (Negative); PH,Urine 6.0 (5.0-8.5); Protein,Urine 1+ (Negative); Specific Gravity, Urine 1.010 (1.005-1.030); Urobilinogen,Urine 0.2 EU/dl (0.2)
[2024-11-11 18:05] LABS: Bacteria,Urine 4+ /lpf; WBC,Urine TNTC #/hpf (0-3)
--- NOTE | 2024-11-11 18:17 | EXP.HP ---
History of Present Illness *Admission Date: 11/11/24 *Reason for visit:: Difficulty urinating, weakness *History of present illness: Mr. Howell is a 74-year-old male with history of hypertension, hyperlipidemia, CKD, diabetes, tremor, Alzheimer's. Was recently admitted for DKA and uncontrolled diabetes. Also recently had episode of stroke and was sent to [facility] for further management after anticoagulation. He presents today with complaint of everything is wrong with me . Patient states that he has been having inability to urinate, was having diarrhea and now has not had a bowel movement over a day. Seen yesterday by his PCP and found to have some abnormal labs. He was encouraged to come to the ER if symptoms got worse. Denies nausea, vomiting, monica fever. Overall just does not feel well per his report. Workup in the ER with labs and imaging performed. Labs with significant abnormalities, hemoglobin low at 7.3, dropped from 10.2 one month ago. Sodium low at 126, chloride 88. Kidney function abnormal BUN 101, creatinine 3.9. Baseline creatinine approximately 2.5. Glucose elevated 198. Liver enzymes elevated in the 4-500 range with AST, ALT, alk phos. Urine grossly abnormal 4+ bacteria, leuk esterase, nitrates. CT obtained abdomen showing bladder obstruction, enlarged prostate, gas in kidneys/collecting system. Denies any recent catheterization or manipulation of bladder. Also noted to have significant stool burden concerning for constipation, thickening of distal rectum, along with cavitary lesion of right lower lung. Patient such as multiorgan failure with renal failure, liver injury, anemia, concerning for emphysematous pyelonephritis. Medicine consulted for admission. Extensive discussion with patient about need for transfer to higher level of care. Patient states he does not want to be transferred at all cost. States he is DNR/DNI. Wants to stay in be treated to the best of our abilities even if there are things we cannot manage. After much discussion with patient, ER physician, decision made to admit for further care. Cultures obtained in the ER, initiated on broad-spectrum antibiotics with ceftriaxone 2 g IV once PFSH PFSH Disclaimer: The information contained in this section may have been updated after the patient was seen, as this information can be updated by other users. Medical History Severe protein-calorie malnutrition Occasional tremors Diabetes Alzheimers disease Hypertension Surgical History History of testicular surgery Social History Smoking Status: Former smoker second hand exposure: No alcohol intake: former substance use type: denies use current occupational status: retired and disabled Travel in the last 8 weeks?: None household members: spouse housing: house marital status: caffeine: Yes Other Medical History Have you received the Flu Vaccine for this season: No Have you received the Pneumonia Vaccine: Yes Review of Systems Review of Systems Review of systems (narrative): 14 point review of systems performed, pertinent positives and negatives as per HPI Meds Home Medications and Allergies Home Medications ?Medication ?Instructions ?Recorded ?Confirmed ?Type primidone 250 mg tablet 500 mg PO BID 10/03/17 11/10/24 History tamsulosin 0.4 mg capsule 1 tab PO DAILY 10/03/17 11/10/24 History famotidine 20 mg tablet 20 mg PO BID 06/14/20 11/10/24 History lansoprazole 30 mg capsule,delayed 30 mg PO DAILY 06/14/20 11/10/24 History release donepezil 10 mg tablet 10 mg PO HS 09/29/24 11/10/24 History montelukast 10 mg tablet 10 mg PO HS 09/29/24 11/10/24 History mirabegron 25 mg tablet,extended 25 mg PO DAILY 09/30/24 11/10/24 History release 24 hr (Myrbetriq) uldyyoul-dd-dfmvk 300 mcg-K 60 1 tab PO DAILY 09/30/24 11/10/24 History mcg-lycop 600 mcg-lutein 300 mcg tablet (Centrum Silver Ultra Men's) propranolol 20 mg tablet 20 mg PO BID 09/30/24 11/10/24 History insulin glargine 100 unit/mL (3 40 unit (0.4 mL) SQ DAILY #15 mL 10/02/24 11/10/24 Rx mL) subcutaneous pen (Lantus Solostar U-100 Insulin) insulin lispro 100 unit/mL 15 unit (0.15 mL) SQ AC 30 days 10/02/24 11/10/24 Rx subcutaneous pen #15 mL lancets 23 gauge (Accu-Chek #200 ea 10/02/24 11/10/24 Rx Safe-T-Pro) pen needle, diabetic 31 gauge x #100 ea 10/02/24 11/10/24 Rx 1/4 blood sugar diagnostic (Accu-Chek #10 10/13/24 11/10/24 History Guide test strips) blood-glucose meter (Accu-Chek #1 ea 10/13/24 11/10/24 History Guide Me Glucose Meter) blood-glucose sensor (Dexcom G7 #3 ea 10/13/24 11/10/24 Rx Sensor device) lancets (Accu-Chek Softclix #100 10/13/24 11/10/24 History Lancets) aspirin 81 mg chewable tablet 1 tab PO DAILY 10/27/24 11/10/24 History atorvastatin 80 mg tablet 80 mg PO HS 10/27/24 11/10/24 History clopidogrel 75 mg tablet 75 mg PO DAILY 10/27/24 11/10/24 History midodrine 10 mg tablet 10 mg PO BID 11/04/24 11/10/24 History polyethylene glycol 3350 17 17 g PO DAILY #119 grams 11/04/24 11/10/24 Rx gram/dose oral powder sennosides 8.6 mg capsule (senna) 8.6 mg PO BID PRN constipation #60 11/04/24 11/10/24 Rx caps sodium bicarbonate 650 mg tablet 650 mg PO BID 11/04/24 11/10/24 History New Prescriptions to Start Prescriptions: Allergies Allergy/AdvReac Type Severity Reaction Status Date / Time ezetimibe (From Zetia) AdvReac Severe muscle Verified 11/10/24 08:54 cramps methocarbamol AdvReac Verified 11/10/24 08:54 Exam Data for Last 24 hours Vital signs and Labs for Last 24 Hours: Temp Pulse Resp BP Pulse Ox O2 Del Method 97.8 F 101 H 14 144/79 H 100 Room Air 11/11/24 14:16 11/11/24 18:00 11/11/24 18:00 11/11/24 18:00 11/11/24 18:00 11/11/24 18:00 Laboratory Results - last 24 hr 11/11/24 15:27: VBG pH 7.36, VBG pCO2 34.5 L, VBG pO2 38.8, VBG HCO3 19.1 L, VBG Total CO2 20.2 L, VBG O2 Saturation 70.9 H, VBG Base Excess -6.3 L, VBG Lactic Acid 1.3 11/11/24 15:39: WBC 11.3 H, RBC 2.23 L, Hgb 7.3 L, Hct 21.0 L, MCV 94.2 H, MCH 32.7 H, MCHC 34.8, RDW 14.9, Plt Count 423, MPV 8.2, Neut % (Auto) 87.2 H, Lymph % (Auto) 4.6 L, [place] % (Auto) 6.7, Eos % (Auto) 0.5, Baso % (Auto) 0.4, Neut # (Auto) 9.8 H, Lymph # (Auto) 0.5 L, [place] # (Auto) 0.8, Eos # (Auto) 0.1, Baso # (Auto) 0.1, Total Counted 100, Neutrophils % (Manual) 95 H, Lymphocytes % (Manual) 1 L, Monocytes % (Manual) 4, Platelet Estimate Normal, RBC Morphology Not Reportable, Ovalocytes 1+, Sodium 126 L, Potassium 3.7, Chloride 88 L, Carbon Dioxide 18 L, Anion Gap 23.7 H, BUN 101 H*, Creatinine 3.90 H, Estimated Creat Clear 15, Estimated GFR 15 L*, Est GFR ( Amer) 18 L*, Glucose 198 H, Calcium 9.2, Total Bilirubin 0.7, AST 493 H* D, ALT 409 H*, Alkaline Phosphatase 477 H, Total Protein 8.1, Albumin 4.0, Globulin 4.1 H, Albumin/Globulin Ratio 1.0 L, Lipase 241, Urine Color Yellow, Urine Appearance Slightly cloudy, Urine pH 6.0, Ur Specific [place] 1.010, Urine Protein 1+ A, Urine Glucose (UA) Negative, Urine Ketones Negative, Urine Blood 1+ A, Urine Nitrate Positive A, Urine Bilirubin Negative, Urine Urobilinogen 0.2, Ur Leukocyte Esterase 3+ A, Urine RBC 5-10, Urine WBC Tntc, Ur Squamous Epith Cells 3-5, Urine Bacteria 4+ 11/11/24 17:20: Blood Type A Negative 11/11/24 17:39: Urine Color Yellow, Urine Appearance Slightly cloudy, Urine pH 6.0, Ur Specific [place] 1.010, Urine Protein 1+ A, Urine Glucose (UA) Negative, Urine Ketones Negative, Urine Blood 2+ A, Urine Nitrate Positive A, Urine Bilirubin Negative, Urine Urobilinogen 0.2, Ur Leukocyte Esterase 3+ A, Urine RBC 5-10, Urine WBC Tntc, Ur Squamous Epith Cells 5-10, Urine Bacteria 4+ I & O for Last 24 hours: Intake & Output 11/08/24 11/09/24 11/10/24 11/11/24 23:59 23:59 23:59 23:59 Output Total 1250 / 1250 Balance -1250 / -1250 Weight 63.503 kg Constitutional Constitutional: moderate distress, thin, chronically ill appearing and cooperative *Routine HEENT Exam Head: Present normocephalic Eye: Present EOMI and PERRL ENT: Present mucous membranes moist Comments: Poor dentition *Routine Neck Exam Neck: Present supple; Absent lymphadenopathy *Routine Respiratory Exam Respiratory: Present CTA bilaterally; Absent rhonchi, wheezes or crackles *Routine Cardiovascular Exam Cardiovascular: Present tachycardia *Routine Abdominal Exam Abdominal: Present soft, normoactive bowel sounds, tenderness (Mild, nonfocal) and distended *Routine Rectal Exam Rectal:: deferred *Routine Genitalia Exam Genitalia:: deferred *Routine Extremities Exam Extremities: Absent cyanosis, clubbing or edema Comments: Thin *Routine Skin Exam Skin: Present intact and warm; Absent rash *Routine Neurological Exam Neurological: Present alert, oriented X3, moving all extremities and tremors; Absent altered mental status Assessment and Plan *Assessment and plan (1) Emphysematous pyelonephritis: Status: Acute Category: Medical Code(s): N12 - Tubulo-interstitial nephritis, not specified as acute or chronic (2) Cholestatic hepatitis: Status: Acute Category: Medical Code(s): K75.89 - Other specified inflammatory liver diseases (3) RINA (acute kidney injury): Status: Acute Category: Medical Code(s): N17.9 - Acute kidney failure, unspecified (4) Acute uremia: Status: Acute Category: Medical Code(s): N19 - Unspecified kidney failure (5) Insulin dependent type 2 diabetes mellitus: Status: Acute Category: Medical Code(s): E11.9 - Type 2 diabetes mellitus without complications; Z79.4 - emt intermediate (current) use of insulin (6) Tremor: Status: Chronic Category: Medical Code(s): R25.1 - Tremor, unspecified (7) Alzheimers disease: Status: Chronic Category: Medical Code(s): G30.9 - Alzheimer's disease, unspecified; F02.80 - Dementia in other diseases classified elsewhere, unspecified severity, without behavioral disturbance, psychotic disturbance, mood disturbance, and anxiety (8) Acute UTI: Status: Acute Category: Medical Code(s): N39.0 - Urinary tract infection, site not specified (9) Severe protein-calorie malnutrition: Status: Acute Category: Medical Code(s): E43 - Unspecified severe protein-calorie malnutrition Plan 74-year-old male who presents with weakness, urinary obstruction, concern for infection. Imaging showing gas in the renal collecting system concerning for emphysematous pyelonephritis. Aide case with ER physician, extensive discussion about patient's comorbidities, multiorgan dysfunction, severity of illness and need for transfer to higher level of care. Patient unwilling to be transferred but not safe to discharge home. I decided to admit to the ICU for further management given patient's complexity. Patient. Guarded prognosis. Continue broad-spectrum antibiotics. Awaiting cultures. Problems addressed as follows: Emphysematous pyelonephritis UTI -Was admitted a month ago with UTI and DKA. Per my review of CT of abdomen, has gas in his kidneys and collecting system. Urinary obstruction noted. Urine grossly abnormal with 4+ bacteria, leuk esterase and nitrate. - Urine and blood cultures obtained and pending - Received 2 g ceftriaxone in the ER. Will transition to meropenem given risk for resistant pathogens, continue meropenem 1 g twice daily renally dosed - Tracey catheter in place for obstruction. Anticipate discharge with Tracey - Continue tamsulosin 0.4 mg nightly RINA on CKD 4. BUN elevated at 101, creatinine elevated at 3.9. Baseline approximately 2.5-2.8. Cholestatic hepatitis: - Liver function abnormal with AST 493, ALT 4 9, alk phos 477. Bilirubin normal at 0.7. Concern for hepatobiliary pattern. Will hold statin. Repeat CMP, CBC, magnesium and phosphorus ordered for the morning. Will obtain INR to monitor for synthetic function. Albumin normal at 4.0 Poorly controlled diabetes - A1c 10.3 on 10/31. Still above goal of 7. Continue basal insulin 30 units glargine nightly, with sliding scale. Fingersticks ACHS. - Continue diabetic diet - TSH 0.21 1 month ago -Intolerant of metformin. Will hold at this time Anemia:, Unclear etiology. Hemoglobin low at 7.3, repeat level ordered for this afternoon after admission due to fluids in the ER. If drops below 7, low threshold to transfuse. Transfusion threshold less than 7. 2 units typed and crossed. Unclear etiology of potential loss whether its malnutrition, chronic disease, renal failure, secondary to thickening of rectum (neoplasm?). Longstanding tremor: Continue propranolol 20 mg twice daily and primidone 500 mg twice daily Constipation: Initiate MiraLAX once tonight, doxazosin to twice daily. Constipation seen on CT of abdomen. DNR/DNI Anticoagulation contraindicated due to anemia Diabetic diet
--- NOTE | 2024-11-11 18:27 | PC.NURSE ---
PT ADMITTED, ROOM 262SD. HOUSE KEEPING CLEANING ROOM. ALL STAFF NOTIFIED
--- NOTE | 2024-11-11 18:51 | PC.NURSE ---
Patient report called to [facility], ICU.
[2024-11-11 19:05] LABS: Hematocrit 18.5 % (42.0-52.0)
[2024-11-11 19:07] LABS: Hemoglobin 6.3 g/dL (14.1-18.0)
[2024-11-11] MEDS: LIDOCAINE 5% TRANSDERMAL PATCH 2 EACH TD (21:45)
[2024-11-11] MEDS: TAMSULOSIN 0.4MG CAPSULE 0.4 MG PO (21:48)
[2024-11-11] MEDS: humaLOG 100 UNITS/ML 10ML VIAL (SSI) SUBCUT (21:48)
[2024-11-12] VITALS (27 sets, daily range): BP systolic 114–138; BP diastolic 59–87; PULSE 90–103; RESP 11–20; TEMP 36.4–37.6; O2SAT 94–98
[2024-11-12 00:16] LABS: Hematocrit 21.7 % (42.0-52.0)
[2024-11-12 00:29] LABS: Hemoglobin 7.4 g/dL (14.1-18.0)
[2024-11-12 03:52] LABS: POC Glucose,Bedside 168 (70-110)
[2024-11-12 05:44] LABS: Albumin Level 3.0 g/dl (3.5-5.0); Chloride 93 mmol/L (98-107); Sodium 125 mmol/L (136-145)
[2024-11-12 05:45] LABS: Potassium 3.4 mmoL/L (3.5-5.1)
[2024-11-12 05:46] LABS: Nucleated Red Blood Cells % 0 %
[2024-11-12 05:47] LABS: Alanine Aminotransferase 401 U/L (12-78); Albumin/Globulin Ratio 0.9 (1.1-1.8); Alkaline Phosphatase 425 U/L (38-126); Anion Gap 20.4 mEq/L (5-15); Aspartate Amino Transferase 495 U/L (17-59); Bilirubin,Total 0.7 mg/dl (0.2-1.3); Carbon Dioxide 15 mmol/L (22.0-30.0); Creatinine Clearance Estimated 21 mL/min (50-200); Creatinine,Serum 2.90 mg/dl (0.66-1.25); Estimated Glomerular Filt Rate 21 ml/min (>60); GFR (African American) 26 ML/MIN (>60); Globulin 3.2 g/dL (1.3-3.2); Total Protein,Serum 6.2 g/dl (6.3-8.2)
[2024-11-12 05:48] LABS: Calcium 8.2 mg/dl (8.4-10.2); Glucose 270 mg/dl (74-100); Magnesium 1.7 mg/dl (1.6-2.3); Phosphorous 4.5 mg/dl (2.5-4.5)
[2024-11-12 05:52] LABS: Blood Urea Nitrogen 87 mg/dl (9-20)
[2024-11-12 06:11] LABS: Hematocrit 27.2 % (42.0-52.0); Hemoglobin 9.4 g/dL (14.1-18.0); Immature Granulocytes % 0.8 %; Mean Corpuscular HGB Conc 34.6 g/dL (31.8-35.4); Mean Corpuscular Hemoglobin 31.2 pg (27.0-31.2); Mean Corpuscular Volume 90.4 fl (80-94); Platelet Count 345 K/mm3 (142-424); Red Blood Count 3.01 M/mm3 (4.60-6.20); Red Cell Distribution Width-SD 49.1 fL; White Blood Count 9.2 K/mm3 (4.8-10.8)
[2024-11-12] MEDS: humaLOG 100 UNITS/ML 10ML VIAL (SSI) SUBCUT ×4 (06:39→20:58)
[2024-11-12] MEDS: MEROPENEM 1 GM in 0.9 % SODIUM CHLORIDE 100 ML IV ×2 (06:39→17:54)
[2024-11-12 07:06] LABS: RBC Morphology Normal; Total Cells Counted 100
[2024-11-12 07:39] LABS: POC Glucose,Bedside 310 (70-110)
[2024-11-12] MEDS: PRIMIDONE 250MG TABLET 500 MG PO ×2 (08:28→20:11)
[2024-11-12] MEDS: CLOPIDOGREL 75MG TAB 75 MG PO (08:28)
--- NOTE | 2024-11-12 08:30 | PC.NURSE ---
[id number]- yardage caller surgery was paged at this time for consult per order.
[2024-11-12] MEDS: INSULIN GLARGINE 100 UNITS/ML 3ML FLEXPEN 30 UNIT SUBCUT (09:08)
--- NOTE | 2024-11-12 09:59 | HMH.PHAINT1 ---
Pharmacy Intervention Comments: MEDICATION RECONCILIATION COMPLETE USING EXTERNAL PHARMACY FILL HISTORY AND RECENT MD OFFICE VISIT NOTE.
[2024-11-12 11:38] LABS: POC Glucose,Bedside 187 (70-110)
--- NOTE | 2024-11-12 16:13 | HMH.PTEV ---
Physical Therapy Evaluation Rehab PT IP Evaluation Start: 11/11/24 22:11 Freq: ONCE Status: Active Protocol: Document 11/12/24 16:00 PDESEROUX (Rec: 11/12/24 16:13 [email or web address] [id number]) Subjective/History History History Pt. is a 74 year old male w/ a PMH of hypertension, hyperlipidemia, CKD, diabetes, tremor, and Alzheimer's who presents to [facility] ICU w/ a c/o fatigue, weakness, and the inability to urinate. Pt. report he was recently admitted for DKA and uncontrolled diabetes. Pt. states since he had his stroke everything has been down hill from there. Pt. reports prior to his stroke he was able to IND. ambulate and perform ADLs himself. However, pt. states since the stroke he has needed assistance from his family members w/ ADLs including ambulating, transfers, and bathing. Pt.'s was bedside and stated that he was able to ambulate all over the house, but vocalizes having to assist pt. w/ basic ADLs at this current time. Pt. c/o weakness all the time. Pt. reports he lives w/ his in a 1 story home. Pt. reports ambulating w/ an AD in the house, states he has to take his urinal container with him. Subjective Subjective Pt. reports, I'll try to get up for you. Pt.'s and daughter were at bedside upon entering room. New diagnosis of No cancer in past 12 months? [facility] How much help from another person do you currently need... Turning from your A lot back to your side while in a flat bed without using bedrails? Moving from lying on A lot back to sitting on the side of a flat bed without using bedrails? Moving to and from a A lot bed to a chair ( including a wheelchair)? Standing up from a A lot chair using your arms? (e.g., wheelchair, bedside chair) Walking in hospital A lot room? Climbing 3-5 steps Total with a railing? Mobility Score [address] [facility] Mobility 4 Move to chair/commode Mobility Calculator Rehab PT IP Eval Objective Appearance Patient Behavior Appropriate,Cooperative,Fatigued Patient Orientation Person,Place,Time,Birthday Difficulty following none instructions Speech Pattern Clear,Appropriate,Coherent Ambulation Patient Able to No Ambulate Balance Ability to Arise Able, uses arms to help Sitting Balance Steady, safe Standing Balance Steady, wide stance Dynamic Sitting Good Balance Ability Dynamic Standing Good Balance Ability Transfers Bed Transfer Ability Moderate x 1 (50% assist) Chair Transfer Moderate x 1 (50% assist) Ability Sit to Stand Bed Moderate x 1 (50% assist) Transfer Ability Sit to Stand Chair Moderate x 1 (50% assist) Transfer Ability Pain Left Shoulder Pain Intensity 9 ROM LLE PT ROM Status WFL RLE PT ROM Status WFL MMT RLE PT MMT ABN LLE PT MMT ABN Rehab PT IP prob,goals,plan Problems Date of Evaluation: 11/12/24 PT IP Problems Bed Mobility,Transfers,Gait,Balance,Self care,Safety Rehab Potential Rehab Potential Fair Equipment Needs Assistive Devices Standard Walker Plan PT Intervention Plan Bed Mobility,Transfers,Gait,Balance,Self care,Safety, Therapeutic Exercise PT Plan Frequency BID Duration LOS Discharge Goals Bed Transfer Ability Minimal x 1 (25% assist) Sit to Stand Chair Minimal x 1 (25% assist) Transfer Ability Discharge Plan PT Discharge Plan PT recommendation to a Long-term rehab. facility upon discharge from [facility], once medically stable per MD. Pt.'s current level of activity status coupled w/ assistance in home environment increases pt. risk to have a fall. Pt. would receive further benefit on improved muscle strength, stamina, and endurance to enhance current ADL quality and status to improve risk for a fall in home environment. While pt.'s stay at [facility] pt. would receive further benefit from skilled Acute Care PT to improve deficits and reduce risk for a fall. Eval Complexity Eval Charge Codes 64644 - Moderate Complexity PHYSICIAN CERTIFICATION: I certify the specified therapy services for Rene Howell are required, authorized, and reviewed every 30 days.
[2024-11-12 16:36] LABS: POC Glucose,Bedside 251 (70-110)
--- NOTE | 2024-11-12 19:32 | P.PN_ITS ---
Subjective *Date: 11/12/24 *Time: 21:40 Interval history: Patient feeling marginally better today. Remains afebrile. Stable on room air. Blood pressure remains within normal range. No nausea or vomiting. Having a bowel movement this morning. Medical Exam Vital signs and Labs for Last 24 Hours: Vital Signs Temp Pulse Pulse Resp BP BP Pulse Ox 11/12/24 18:57 11/12/24 18:00 99 H 16 125/76 97 11/12/24 17:00 11/12/24 16:00 98.8 F 94 H 16 138/80 96 11/12/24 16:00 90 11/12/24 15:00 11/12/24 14:00 101 H 20 136/87 94 L 11/12/24 14:00 96 11/12/24 14:00 98 H 16 136/87 96 11/12/24 13:00 11/12/24 12:00 90 11/12/24 12:00 98.1 F 92 H 16 124/69 95 11/12/24 11:00 11/12/24 10:00 90 16 121/75 96 11/12/24 08:52 11/12/24 08:46 97 11/12/24 08:00 97.6 F 93 H 18 127/75 97 11/12/24 08:00 90 11/12/24 06:00 90 14 133/76 96 11/12/24 05:00 11/12/24 04:35 98.6 F 94 H 16 131/73 96 11/12/24 04:15 92 H 17 96 11/12/24 04:00 90 11/12/24 04:00 98.8 F 98 H 17 127/71 96 11/12/24 03:35 98.9 F 92 H 14 127/70 95 11/12/24 03:10 98.9 F 92 H 14 125/68 95 11/12/24 03:00 11/12/24 02:10 99.6 F 97 H 14 114/65 94 L 11/12/24 02:00 100 H 95 11/12/24 02:00 11/12/24 02:00 98 H 13 120/67 96 11/12/24 01:55 98.8 F 98 H 14 121/59 L 95 11/12/24 01:40 98.6 F 99 H 11 L 119/61 95 11/12/24 01:25 98.4 F 102 H 14 116/67 96 11/12/24 01:20 99.3 F 103 H 13 138/65 97 11/12/24 01:15 99.6 F 100 H 13 127/66 97 11/12/24 01:10 97.5 F L 99 H 16 132/68 96 11/12/24 01:00 11/12/24 01:00 11/12/24 00:55 98.0 F 100 H 20 125/67 97 11/12/24 00:00 100 H 11/12/24 00:00 98 H 15 127/65 98 11/11/24 22:52 11/11/24 22:40 98.4 F 98 H 17 124/77 96 11/11/24 22:30 98.4 F 97 H 16 122/67 97 11/11/24 22:00 99 H 15 126/69 95 11/11/24 21:30 98.5 F 98 H 16 128/65 96 11/11/24 21:15 98.5 F 102 H 17 130/78 96 11/11/24 21:00 98.6 F 102 H 20 130/71 95 11/11/24 21:00 11/11/24 20:45 98.6 F 101 H 18 123/67 95 11/11/24 20:40 98.2 F 101 H 17 124/65 96 11/11/24 20:35 97.5 F L 101 H 18 113/64 96 11/11/24 20:30 97.8 F 100 H 24 125/66 96 11/11/24 20:05 98.4 F 100 H 20 130/76 100 11/11/24 20:00 100 H 11/11/24 20:00 95 11/11/24 20:00 98.4 F 101 H 16 130/76 96 O2 Del Method 11/12/24 18:57 Room Air 11/12/24 18:00 Room Air 11/12/24 17:00 Room Air 11/12/24 16:00 Room Air 11/12/24 16:00 11/12/24 15:00 Room Air 11/12/24 14:00 Room Air 11/12/24 14:00 Room Air 11/12/24 14:00 Room Air 11/12/24 13:00 Room Air 11/12/24 12:00 11/12/24 12:00 Room Air 11/12/24 11:00 Room Air 11/12/24 10:00 Room Air 11/12/24 08:52 Room Air 11/12/24 08:46 Room Air 11/12/24 08:00 Room Air 11/12/24 08:00 11/12/24 06:00 Room Air 11/12/24 05:00 Room Air 11/12/24 04:35 11/12/24 04:15 11/12/24 04:00 11/12/24 04:00 Room Air 11/12/24 03:35 11/12/24 03:10 11/12/24 03:00 Room Air 11/12/24 02:10 11/12/24 02:00 Room Air 11/12/24 02:00 Room Air 11/12/24 02:00 11/12/24 01:55 11/12/24 01:40 11/12/24 01:25 11/12/24 01:20 11/12/24 01:15 11/12/24 01:10 11/12/24 01:00 Room Air 11/12/24 01:00 Room Air 11/12/24 00:55 11/12/24 00:00 11/12/24 00:00 Room Air 11/11/24 22:52 Room Air 11/11/24 22:40 11/11/24 22:30 11/11/24 22:00 11/11/24 21:30 11/11/24 21:15 11/11/24 21:00 11/11/24 21:00 Room Air 11/11/24 20:45 11/11/24 20:40 11/11/24 20:35 11/11/24 20:30 11/11/24 20:05 11/11/24 20:00 11/11/24 20:00 Room Air 11/11/24 20:00 Room Air Intake and Output 11/12/24 11/12/24 11/12/24 07:59 15:59 23:59 Intake Total 0 / 730 310 / 730 420 / 730 Output Total 1775 / 3500 850 / 3500 875 / 3500 Balance -1775 / -2770 -540 / -2770 -455 / -2770 Intake: Intake, Oral Amount 210 / 630 420 / 630 Intake, Total IV Amount 100 / 100 Meropenem 1 gm In 0.9 % Sodium 100 / 100 Chloride 100 ml @ 100 mls/hr IV Q12H [facility] Rx#:[id number] Intake (Blood Product) Amt 0 / 0 Red Blood Cells Unit 0 / 0 [id number] Output: Output, Urine Amount 1775 / 3500 850 / 3500 875 / 3500 Other: Number of Unmeasured Voids 0 0 0 Number of Bowel Movements 1 Weight 67 kg Patient Weight 11/12/24 23:59 Weight 67 kg Laboratory Results - last 24 hr 11/11/24 15:39: Urine Color Yellow, Urine Appearance Slightly cloudy, Urine pH 6.0, Ur Specific Powderly 1.010, Urine Protein 1+ A, Urine Glucose (UA) Negative, Urine Ketones Negative, Urine Blood 1+ A, Urine Nitrate Positive A, Urine Bilirubin Negative, Urine Urobilinogen 0.2, Ur Leukocyte Esterase 3+ A, Urine RBC 5-10, Urine WBC Tntc, Ur Squamous Epith Cells 3-5, Urine Bacteria 4+ 11/11/24 17:20: Blood Type A Negative, Antibody Screen Negative, Crossmatch (AHG) See Detail 11/11/24 19:19: Blood Type Confirm A Negative 11/11/24 21:29: POC Glucose 168 H 11/12/24 00:00: Hgb 7.4 L D, Hct 21.7 L 11/12/24 05:00: Sodium 125 L, Potassium 3.4 L, Chloride 93 L, Carbon Dioxide 15 L, Anion Gap 20.4 H, BUN 87 H, Creatinine 2.90 H D, Estimated Creat Clear 21, Estimated GFR 21 L, Est GFR ( Amer) 26 L D, Glucose 270 H D, Calcium 8.2 L, Phosphorus 4.5, Magnesium 1.7, Total Bilirubin 0.7, AST 495 H*, ALT 401 H*, Alkaline Phosphatase 425 H, Total Protein 6.2 L, Albumin 3.0 L D, Globulin 3.2, Albumin/Globulin Ratio 0.9 L 11/12/24 05:38: WBC 9.2, RBC 3.01 L D, Hgb 9.4 L D, Hct 27.2 L, MCV 90.4, MCH 31.2, MCHC 34.6, RDW 14.8, Plt Count 345, MPV 8.2, Neut % (Auto) 85.6 H, Lymph % (Auto) 5.9 L, Pitt % (Auto) 6.6, Eos % (Auto) 0.7, Baso % (Auto) 0.4, Neut # (Auto) 7.9 H, Lymph # (Auto) 0.5 L, Pitt # (Auto) 0.6, Eos # (Auto) 0.1, Baso # (Auto) 0.0, Total Counted 100, Neutrophils % (Manual) 84 H, Lymphocytes % (Manual) 6 L, Monocytes % (Manual) 8, Eosinophils % (Manual) 1, Basophils % (Manual) 1.0, Platelet Estimate Normal, RBC Morphology Normal 11/12/24 06:18: POC Glucose 310 H* 11/12/24 11:11: POC Glucose 187 H 11/12/24 16:29: POC Glucose 251 H I & O for Labs for Last 24 Hours: Intake & Output 11/09/24 11/10/24 11/11/24 11/12/24 23:59 23:59 23:59 23:59 Intake Total 282 / 282 730 / 730 Output Total 750 / 750 3500 / 3500 Balance -468 / -468 -2770 / -2770 Weight 65.119 kg 67 kg Microbiology Reports for the Last 24 Hours: Microbiology 11/11/24 18:30 Blood Blood Culture - Preliminary NO GROWTH AFTER 24 HOURS 11/11/24 18:33 Blood Blood Culture - Preliminary NO GROWTH AFTER 24 HOURS 11/11/24 15:39 Urine,Clean Catch Urine Culture - Preliminary Gram Negative Rods Constitutional: Present mild distress, thin, chronically ill appearing and cooperative Head: Present atraumatic and normocephalic ENT: Present normal exam Respiratory: Present normal respiratory effort; Absent rhonchi, wheezes or crackles Cardiac: Present Reg Rate and Rhythm GI: Present soft, tenderness (Nonfocal) and normal bowel sounds; Absent distention Extremities: Present normal inspection and full ROM; Absent edema Skin: Present intact; Absent erythema Neuro: Present Grossly Intact, alert, awake, oriented x 3 and moves all extremities Comment:: tremor Assessment and Plan *Assessment and plan (1) Emphysematous pyelonephritis: Status: Acute Category: Medical Code(s): N12 - Tubulo-interstitial nephritis, not specified as acute or chronic (2) Cholestatic hepatitis: Status: Acute Category: Medical Code(s): K75.89 - Other specified inflammatory liver diseases (3) RINA (acute kidney injury): Status: Acute Category: Medical Code(s): N17.9 - Acute kidney failure, unspecified (4) Acute uremia: Status: Acute Category: Medical Code(s): N19 - Unspecified kidney failure (5) Insulin dependent type 2 diabetes mellitus: Status: Acute Category: Medical Code(s): E11.9 - Type 2 diabetes mellitus without complications; Z79.4 - long-term (current) use of insulin (6) Tremor: Status: Chronic Category: Medical Code(s): R25.1 - Tremor, unspecified (7) Alzheimers disease: Status: Chronic Category: Medical Code(s): G30.9 - Alzheimer's disease, unspecified; F02.80 - Dementia in other diseases classified elsewhere, unspecified severity, without behavioral disturbance, psychotic disturbance, mood disturbance, and anxiety (8) Acute UTI: Status: Acute Category: Medical Code(s): N39.0 - Urinary tract infection, site not specified (9) Severe protein-calorie malnutrition: Status: Acute Category: Medical Code(s): E43 - Unspecified severe protein-calorie malnutrition Plan 74-year-old male who presents with weakness, urinary obstruction, concern for infection. Imaging showing gas in the renal collecting system concerning for emphysematous pyelonephritis. Aide case with ER physician, extensive discussion about patient's comorbidities, multiorgan dysfunction, severity of illness and need for transfer to higher level of care. Patient unwilling to be transferred but not safe to discharge home. I decided to admit to the ICU for further management given patient's complexity. Condition remains serious, prognosis remains guarded. Continuing broad-spectrum antibiotics awaiting urine culture. Problems addressed as follows: Emphysematous pyelonephritis UTI -Was admitted a month ago with UTI and DKA. Urine at that time positive for E. coli. CT on admission showing gas in kidneys and collecting system. - Having good output after placement of catheter yesterday. -3 L since admission. Total output over 4 L. - Blood culture still pending. Urine culture growing greater than 100,000 CFU's of gram-negative rods - Continue meropenem 1 g twice daily - Continue tamsulosin 0.4 mg nightly, initiate finasteride 5 mg daily - Anticipate discharge with Alexy FLYNN on CKD 4. BUN elevated at 101, creatinine elevated at 3.9 on admission; Kidney function improving with BUN 87, creatinine 2.9. Potassium 3.4. Baseline approximately 2.5-2.8. Cholestatic hepatitis: - INR 0.97, synthetic function remains intact - CT shows normal liver, gallbladder and biliary ducts with nonobstructing cholelithiasis. Pancreas with no ductal dilatation. Patient does have circumferential wall thickening in the distal rectum. Will screen for neoplastic process with CEA and CA 19-9 ordered for the morning - AST 495, ALT 401, alk phos 425. Bilirubin normal at less than 1. - Will consider right upper quadrant ultrasound on day to evaluate transaminitis. - GGT ordered for the morning Poorly controlled diabetes - A1c 10.3 on 10/31. Still above goal of 7. Continue morning long-acting insulin 30 units. Increase sliding scale to high intensity. Continue fingersticks ACHS. - Morning glucose 324 - Continue diabetic diet - TSH 0.21 1 month ago -Intolerant of metformin. Will hold at this time Anemia: Transfused last night due to drop in hemoglobin to 6.3. Received 2 units. Hemoglobin improved to 9.4 this morning. - Transfusion threshold less than 7. 2 units typed and crossed. Unclear etiology of potential loss whether its malnutrition, chronic disease, renal failure, secondary to thickening of rectum (neoplasm?). Longstanding tremor: Continue propranolol 20 mg twice daily and primidone 500 mg twice daily Constipation: Continue MiraLAX daily, continue docusate/senna twice daily. Severe Constipation seen on CT of abdomen. DNR/DNI Anticoagulation contraindicated due to anemia and unknown source of blood loss Diabetic diet
[2024-11-12] MEDS: TAMSULOSIN 0.4MG CAPSULE 0.4 MG PO (20:11)
[2024-11-12] MEDS: LIDOCAINE 5% TRANSDERMAL PATCH 2 EACH TD (20:11)
[2024-11-12] MEDS: OXYCODONE 5MG IMMEDIATE RELEASE TABLET 2.5 MG PO (20:20)
[2024-11-12 21:02] LABS: POC Glucose,Bedside 222 (70-110)
[2024-11-13] VITALS (8 sets, daily range): BP systolic 110–146; BP diastolic 60–87; PULSE 80–106; RESP 11–20; TEMP 36.4–37.5; O2SAT 94–96; BMI 25.0
[2024-11-13 04:44] LABS: Acinetobacter calcoaceticus-ba Not Detected; Bacteroides fragilis Not Detected; Candida auris Not Detected; Candida glabrata Not Detected; Enterobacterales Not Detected; Enterococcus faecalis Not Detected; Enterococcus faecium Not Detected; Klebsiella aerogenes Not Detected; Klebsiella pneumoniae grp Not Detected; Proteus spp. Not Detected; Salmonella spp. Not Detected; Serratia marcescens Not Detected; Staphylococcus epidermidis Not Detected; Staphylococcus lugdunensis Not Detected; Staphylococcus spp. Detected; Stenotrophomonas maltophilia Not Detected; Streptococcus agalactiae(GrpB) Not Detected; Streptococcus pyogenes Group A Not Detected; Streptococcus spp. Not Detected; mecA/C and MREJ (MRSA) Detected
[2024-11-13] MEDS: VANCOMYCIN/WATER FOR INJ (PEG) 1.25 GM/250 ML PIGGYBACK IV (05:52)
[2024-11-13] MEDS: humaLOG 100 UNITS/ML 10ML VIAL (SSI) SUBCUT ×4 (06:07→21:37)
[2024-11-13] MEDS: MEROPENEM 1 GM in 0.9 % SODIUM CHLORIDE 100 ML IV (06:08)
[2024-11-13 06:09] LABS: POC Glucose,Bedside 179 (70-110)
[2024-11-13] MEDS: VANCOMYCIN CONSULT REQUEST 1 EACH NOTAPPLIC (06:10)
--- NOTE | 2024-11-13 07:45 | EXP.PHA.CONS ---
Pharmacy Consult Date: 11/13/24 Time: 07:46 Referring provider: DR MEADOWS Reason for Consult:: VANCOMYCIN DOSING CONSULT Allergies Allergy/AdvReac Type Severity Reaction Status Date / Time ezetimibe (From Zetia) AdvReac Severe muscle Verified 11/10/24 08:54 cramps methocarbamol AdvReac Verified 11/10/24 08:54 Home Medications ?Medication ?Instructions ?Recorded ?Confirmed ?Type primidone 250 mg tablet 500 mg PO BID 10/03/17 11/12/24 History tamsulosin 0.4 mg capsule 1 tab PO HS 10/03/17 11/12/24 History famotidine 20 mg tablet 20 mg PO BID 06/14/20 11/12/24 History lansoprazole 30 mg capsule,delayed 30 mg PO DAILY 06/14/20 11/12/24 History release donepezil 10 mg tablet 10 mg PO HS 09/29/24 11/12/24 History montelukast 10 mg tablet 10 mg PO HS 09/29/24 11/12/24 History mirabegron 25 mg tablet,extended 25 mg PO DAILY 09/30/24 11/12/24 History release 24 hr (Myrbetriq) nglnrouw-hy-ajkuh 300 mcg-K 60 1 tab PO DAILY 09/30/24 11/12/24 History mcg-lycop 600 mcg-lutein 300 mcg tablet (Centrum Silver Ultra Men's) propranolol 20 mg tablet 20 mg PO BID 09/30/24 11/12/24 History insulin glargine 100 unit/mL (3 40 unit (0.4 mL) SQ DAILY #15 mL 10/02/24 11/12/24 Rx mL) subcutaneous pen (Lantus Solostar U-100 Insulin) insulin lispro 100 unit/mL 15 unit (0.15 mL) SQ AC 30 days 10/02/24 11/12/24 Rx subcutaneous pen #15 mL aspirin 81 mg chewable tablet 1 tab PO DAILY 10/27/24 11/12/24 History atorvastatin 80 mg tablet 80 mg PO HS 10/27/24 11/12/24 History clopidogrel 75 mg tablet 75 mg PO DAILY 10/27/24 11/12/24 History midodrine 10 mg tablet 10 mg PO BID 11/04/24 11/12/24 History polyethylene glycol 3350 17 17 g PO DAILY #119 grams 11/04/24 11/12/24 Rx gram/dose oral powder sennosides 8.6 mg capsule (senna) 8.6 mg PO BID PRN constipation #60 11/04/24 11/12/24 Rx caps sodium bicarbonate 650 mg tablet 1,300 mg PO BID 11/04/24 11/12/24 History New Prescriptions to Start Prescriptions: Height: 1.83 m Weight: 83.8 kg Laboratory Results:: Laboratory Results - last 24 hr 11/11/24 18:30: A. baumannii (PCR) Not detected, Bacteroides fragilis Not detected, Jenelle albicans (PCR) Not detected, Jenelle auris (PCR) Not detected, C. glabrata (PCR) Not detected, C. krusei (PCR) Not detected, C. parapsilosis (PCR) Not detected, C. tropicalis (PCR) Not detected, Cryptococcus neoformans PCR Not detected, Enterobacterales (PCR) Not detected, Enterococc faecalis PCR Not detected, Enterococc faecium PCR Not detected, E. coli (PCR) Not detected, H. influenzae DNA Not detected, Klebsiella aerogenes (PCR) Not detected, Klebsiella oxytoca PCR Not detected, K. pneumoniae group (PCR) Not detected, List. monocytogenes PCR Not detected, N. meningitidis (PCR) Not detected, Proteus species (PCR) Not detected, Salmonella spp. (PCR) Not detected, Serratia marcescens PCR Not detected, Staphylococcus sp PCR Detected, Staph aureus (PCR) Detected, mecA/C & MREJ Resist Gene Detected, mecA/C-Methicil Resis Gene Not applicable, Staph epidermidis (PCR) Not detected, Staph lugdunensis (TEM-PCR) Not detected, S. maltophilia (PCR) Not detected, Streptococcus sp PCR Not detected, S.agalactiae Grp B FELIBERTO Not detected, Strep pneumoniae (PCR) Not detected, S. pyogenes GrpA FELIBERTO Not detected, P. aeruginosa (PCR) Not detected, Mayte/B-Vanco Res Genes Not applicable, blaIMP Car res Gene PCR Not applicable, KPC-Carbap Res Gene PCR Not applicable, blaNDM Car Res Gene PCR Not applicable, OXA-48 Carbapenem Resis Gene (PCR) Not applicable, blaVIM Car Res Gene PCR Not applicable, CTX-M Gene Resistance (PCR) Not applicable, MCR-1 Resistance Gene Not applicable 11/12/24 11:11: POC Glucose 187 H 11/12/24 16:29: POC Glucose 251 H 11/12/24 20:54: POC Glucose 222 H 11/13/24 06:01: POC Glucose 179 H Medical History: Medical History (Updated 11/11/24 @ 18:51 by Yaya Meadows MD) Severe protein-calorie malnutrition Occasional tremors Diabetes Alzheimers disease Hypertension Assessment and Plan Assessment and plan all Dx Assessment and Plan for all problems:: Pharmacokinetic dosing service Objective: Age: 74 yo Serum creatinine: 2.9 mg/dL Height: 72.0 Inches Weight (kg): 83.8 Assessment: IBW (kg): 77.60 Dosing wt(kg): 83.8 Estimated Creatinine clearance (ml/min): 24.5 CRCL method: Cockcroft and Gault using ibw(default). Drug selected: Vancomycin Vd (liters): 58.7 (factor used: 0.7 L/kg) Cyrus (hr-1): 0.025 Half life (hrs): 27.73 CLvanco=?? 1.468 L/hr Recommended dose: 1250 mg Interval: 36 hrs Infusion time (hrs): 2.0 Predicted peak (mcg/mL): 35.0 Predicted trough (mcg/mL): 14.96 Total body weight is being used for vancomycin dosing. Recommendations: Give Vancomycin 1250 mg q 36 hrs with an expected Cpeak of 35.0 mcg/ml and an expected Ctrough of 14.96 mcg/ml AUC 0-24 /ELICEO Data: ELICEO 0.5 mcg/mL:?? AUC/ELICEO:? 1135.3 ELICEO 1.0 mcg/mL:?? AUC/ELICEO:? 567.7 --------- ELICEO 1.5 mcg/mL:?? AUC/ELICEO:? 378.4 ELICEO 2.0 mcg/mL:?? AUC/ELICEO:? 283.8 Thank you for the consult
[2024-11-13 07:57] LABS: Hematocrit 27.6 % (42.0-52.0); Hemoglobin 9.5 g/dL (14.1-18.0); Immature Granulocytes % 0.6 %; Mean Corpuscular HGB Conc 34.4 g/dL (31.8-35.4); Mean Corpuscular Hemoglobin 31.4 pg (27.0-31.2); Mean Corpuscular Volume 91.1 fl (80-94); Nucleated Red Blood Cells % 0 %; Platelet Count 317 K/mm3 (142-424); Red Blood Count 3.03 M/mm3 (4.60-6.20); Red Cell Distribution Width-SD 51.8 fL; White Blood Count 9.0 K/mm3 (4.8-10.8)
[2024-11-13 08:23] LABS: Alanine Aminotransferase 544 U/L (12-78); Albumin Level 2.9 g/dl (3.5-5.0); Albumin/Globulin Ratio 0.9 (1.1-1.8); Alkaline Phosphatase 491 U/L (38-126); Anion Gap 17.2 mEq/L (5-15); Aspartate Amino Transferase 695 U/L (17-59); Bilirubin,Total 0.6 mg/dl (0.2-1.3); Blood Urea Nitrogen 67 mg/dl (9-20); Calcium 9.1 mg/dl (8.4-10.2); Carbon Dioxide 20 mmol/L (22.0-30.0); Chloride 90 mmol/L (98-107); Creatinine Clearance Estimated 31 mL/min (50-200); Creatinine,Serum 2.50 mg/dl (0.66-1.25); Estimated Glomerular Filt Rate 25 ml/min (>60); GFR (African American) 31 ML/MIN (>60); Gamma Glutamyl Transpeptidase 1162 U/L (15-73); Globulin 3.4 g/dL (1.3-3.2); Glucose 177 mg/dl (74-100); Magnesium 1.5 mg/dl (1.6-2.3); Phosphorous 4.0 mg/dl (2.5-4.5); Potassium 3.2 mmoL/L (3.5-5.1); Sodium 124 mmol/L (136-145); Total Protein,Serum 6.3 g/dl (6.3-8.2)
[2024-11-13 08:57] LABS: Creatine Kinase 48 U/L (55-170)
[2024-11-13 08:58] LABS: Iron 37 ug/dL (49-181)
[2024-11-13 09:07] LABS: Total Iron Binding Capacity 171 ug/dL (261-462)
[2024-11-13] MEDS: OXYCODONE 5MG IMMEDIATE RELEASE TABLET 2.5 MG PO ×2 (09:15→23:58)
[2024-11-13] MEDS: CLOPIDOGREL 75MG TAB 75 MG PO (09:15)
[2024-11-13] MEDS: POLYETHYLENE GLYCOL 3350 17 GM PACKET PO ×2 (09:16→16:31)
[2024-11-13] MEDS: POTASSIUM CHLORIDE 20MEQ TAB 40 MEQ PO ×2 (09:16→12:07)
[2024-11-13] MEDS: SENNOSIDES 8.6MG/DOCUSATE 50MG TABLET 1 TAB PO ×2 (09:16→21:23)
[2024-11-13] MEDS: FINASTERIDE 5MG TABLET 5 MG PO (09:16)
[2024-11-13] MEDS: MAGNESIUM SULFATE IN WATER 2 GM/50 ML PIGGYBACK IV ×2 (09:17→10:22)
[2024-11-13] MEDS: INSULIN GLARGINE 100 UNITS/ML 3ML FLEXPEN 30 UNIT SUBCUT (09:17)
[2024-11-13] MEDS: MAGNESIUM CITRATE 10OZ BOTTLE 5 OZ PO ×2 (09:18→17:40)
[2024-11-13 09:25] LABS: RBC Morphology Normal; Total Cells Counted 100
[2024-11-13 11:04] LABS: Ferritin 4500 ng/ml (17.9-464)
[2024-11-13] MEDS: CEFTRIAXONE 1 GM 1 GM in 0.9 % SODIUM CHLORIDE 50 ML IV (12:07)
--- NOTE | 2024-11-13 13:14 | PC.NURSE ---
Pt arrived to med/surg floor @ this time
--- NOTE | 2024-11-13 14:10 | EXP.ACUTE.PN ---
Subjective *Date: 11/13/24 *Time: 17:25 Interval history: Patient afebrile and on room air this morning. No significant bowel movement, did have small loose stool yesterday. Having good urine output. Kidney function showing improvement but liver enzymes worsening today. Alert and oriented x 3 on exam. Medical Exam Vital signs and Labs for Last 24 Hours: Vital Signs Temp Pulse Resp BP Pulse Ox O2 Del Method 11/13/24 13:00 Room Air 11/13/24 12:00 80 11/13/24 12:00 98.2 F 91 H 12 125/77 96 11/13/24 11:00 Room Air 11/13/24 09:00 Room Air 11/13/24 08:00 100 H 11/13/24 08:00 96 Room Air 11/13/24 08:00 122/70 11/13/24 07:00 91 H 15 115/66 96 Room Air 11/13/24 07:00 Room Air 11/13/24 06:00 95 H 20 110/60 96 Room Air 11/13/24 05:00 Room Air 11/13/24 04:00 96 H 11/13/24 04:00 98.8 F 95 H 11 L 122/73 95 Room Air 11/13/24 02:47 Room Air 11/13/24 02:00 94 L Room Air 11/13/24 02:00 91 H 13 114/69 94 L Room Air 11/13/24 01:00 Room Air 11/13/24 00:00 99.5 F 94 H 12 125/72 95 Room Air 11/13/24 00:00 90 11/12/24 23:00 Room Air 11/12/24 22:00 94 H 13 129/77 95 Room Air 11/12/24 21:00 Room Air 11/12/24 20:00 90 11/12/24 20:00 91 H 20 128/71 96 Room Air 11/12/24 19:53 95 Room Air 11/12/24 19:30 99.5 F 95 H 14 124/72 95 Room Air 11/12/24 18:57 Room Air 11/12/24 18:00 99 H 16 125/76 97 Room Air 11/12/24 17:00 Room Air 11/12/24 16:00 98.8 F 94 H 16 138/80 96 Room Air 11/12/24 16:00 90 06/28/25 15:00 Room Air Intake and Output 11/12/24 11/13/24 11/13/24 23:59 07:59 15:59 Intake Total 420 / 950 297 / 897 600 / 897 Output Total 1450 / 4075 1150 / 2070 920 / 2070 Balance -1030 / -3125 -853 / -1173 -320 / -1173 Intake: Intake, Oral Amount 420 / 850 220 / 820 600 / 820 Intake, Other Amount Intake, Total IV Amount Meropenem 1 gm In 0.9 % Sodium Chloride 100 ml @ 100 mls/hr IV Q12H [facility] Rx#:[id number] Output: Output, Urine Amount 1450 / 4075 1150 / 1150 Output, Urine Amount (Catheter) 920 / 920 Tracey 920 / 920 Other: Intake, Other Source Saline Solution Number of Unmeasured Voids 0 0 0 Weight 83.8 kg Patient Weight 11/13/24 23:59 Weight 83.8 kg Laboratory Results - last 24 hr 11/11/24 18:30: A. baumannii (PCR) Not detected, Bacteroides fragilis Not detected, Jenelle albicans (PCR) Not detected, Jenelle auris (PCR) Not detected, C. glabrata (PCR) Not detected, C. krusei (PCR) Not detected, C. parapsilosis (PCR) Not detected, C. tropicalis (PCR) Not detected, Cryptococcus neoformans PCR Not detected, Enterobacterales (PCR) Not detected, Enterococc faecalis PCR Not detected, Enterococc faecium PCR Not detected, E. coli (PCR) Not detected, H. influenzae DNA Not detected, Klebsiella aerogenes (PCR) Not detected, Klebsiella oxytoca PCR Not detected, K. pneumoniae group (PCR) Not detected, List. monocytogenes PCR Not detected, N. meningitidis (PCR) Not detected, Proteus species (PCR) Not detected, Salmonella spp. (PCR) Not detected, Serratia marcescens PCR Not detected, Staphylococcus sp PCR Detected, Staph aureus (PCR) Detected, mecA/C & MREJ Resist Gene Detected, mecA/C-Methicil Resis Gene Not applicable, Staph epidermidis (PCR) Not detected, Staph lugdunensis (TEM-PCR) Not detected, S. maltophilia (PCR) Not detected, Streptococcus sp PCR Not detected, S.agalactiae Grp B FELIBERTO Not detected, Strep pneumoniae (PCR) Not detected, S. pyogenes GrpA FELIBERTO Not detected, P. aeruginosa (PCR) Not detected, Mayte/B-Vanco Res Genes Not applicable, blaIMP Car res Gene PCR Not applicable, KPC-Carbap Res Gene PCR Not applicable, blaNDM Car Res Gene PCR Not applicable, OXA-48 Carbapenem Resis Gene (PCR) Not applicable, blaVIM Car Res Gene PCR Not applicable, CTX-M Gene Resistance (PCR) Not applicable, MCR-1 Resistance Gene Not applicable 11/12/24 16:29: POC Glucose 251 H 11/12/24 20:54: POC Glucose 222 H 11/13/24 06:01: POC Glucose 179 H 11/13/24 07:35: WBC 9.0, RBC 3.03 L, Hgb 9.5 L, Hct 27.6 L, MCV 91.1, MCH 31.4 H, MCHC 34.4, RDW 15.5, Plt Count 317, MPV 8.0, Neut % (Auto) 87.5 H, Lymph % (Auto) 4.0 L, [place] % (Auto) 7.1, Eos % (Auto) 0.6, Baso % (Auto) 0.2, Neut # (Auto) 7.9 H, Lymph # (Auto) 0.4 L, [place] # (Auto) 0.6, Eos # (Auto) 0.1, Baso # (Auto) 0.0, Total Counted 100, Neutrophils % (Manual) 89 H, Lymphocytes % (Manual) 6 L, Monocytes % (Manual) 4, Basophils % (Manual) 1.0, Platelet Estimate Normal, RBC Morphology Normal, Sodium 124 L, Potassium 3.2 L, Chloride 90 L, Carbon Dioxide 20 L, Anion Gap 17.2 H, BUN 67 H, Creatinine 2.50 H, Estimated Creat Clear 31, Estimated GFR 25 L, Est GFR ( Amer) 31 L, Glucose 177 H, Calcium 9.1, Phosphorus 4.0, Magnesium 1.5 L D, Iron 37 L, TIBC 171 L, Iron Saturation 21.77295, Ferritin 4500 H D, Total Bilirubin 0.6, GGT 1162 H, AST 695 H* D, ALT 544 H*, Alkaline Phosphatase 491 H, Total Creatine Kinase 48 L, Total Protein 6.3, Albumin 2.9 L, Globulin 3.4 H, Albumin/Globulin Ratio 0.9 L I & O for Labs for Last 24 Hours: Intake & Output 11/10/24 11/11/24 11/12/24 11/13/24 23:59 23:59 23:59 23:59 Intake Total 282 / 282 730 / 950 897 / 897 Output Total 750 / 750 4075 / 4075 2069 / 2069 Balance -468 / -468 -3345 / -3125 -1173 / -1173 Weight 65.119 kg 67 kg 83.8 kg Microbiology Reports for the Last 24 Hours: Microbiology 11/11/24 15:39 Urine,Clean Catch Urine Culture - Final Escherichia coli 11/11/24 18:30 Blood Blood Culture - Preliminary 11/11/24 18:33 Blood Blood Culture - Preliminary NO GROWTH AFTER 24 HOURS Constitutional: Present mild distress, thin, chronically ill appearing and cooperative Head: Present atraumatic and normocephalic ENT: Present normal exam Respiratory: Present normal respiratory effort; Absent rhonchi, wheezes or crackles Cardiac: Present Reg Rate and Rhythm GI: Present soft, tenderness (Nonfocal) and normal bowel sounds; Absent distention Extremities: Present normal inspection and full ROM; Absent edema Skin: Present intact; Absent erythema Neuro: Present Grossly Intact, alert, awake, oriented x 3 and moves all extremities Comment:: tremor Assessment and Plan *Assessment and plan (1) Emphysematous pyelonephritis: Status: Acute Category: Medical Code(s): N12 - Tubulo-interstitial nephritis, not specified as acute or chronic (2) Cholestatic hepatitis: Status: Acute Category: Medical Code(s): K75.89 - Other specified inflammatory liver diseases (3) RINA (acute kidney injury): Status: Acute Category: Medical Code(s): N17.9 - Acute kidney failure, unspecified (4) Acute uremia: Status: Acute Category: Medical Code(s): N19 - Unspecified kidney failure (5) Insulin dependent type 2 diabetes mellitus: Status: Acute Category: Medical Code(s): E11.9 - Type 2 diabetes mellitus without complications; 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 (6) Tremor: Status: Chronic Category: Medical Code(s): R25.1 - Tremor, unspecified (7) Alzheimers disease: Status: Chronic Category: Medical Code(s): G30.9 - Alzheimer's disease, unspecified; F02.80 - Dementia in other diseases classified elsewhere, unspecified severity, without behavioral disturbance, psychotic disturbance, mood disturbance, and anxiety (8) Acute UTI: Status: Acute Category: Medical Code(s): N39.0 - Urinary tract infection, site not specified (9) Severe protein-calorie malnutrition: Status: Acute Category: Medical Code(s): E43 - Unspecified severe protein-calorie malnutrition Plan 74-year-old male who presents with weakness, urinary obstruction, concern for infection. Imaging showing gas in the renal collecting system concerning for emphysematous pyelonephritis. Aide case with ER physician, extensive discussion about patient's comorbidities, multiorgan dysfunction, severity of illness and need for transfer to higher level of care. Patient unwilling to be transferred but not safe to discharge home. I decided to admit to the ICU for further management given patient's complexity. Condition remains serious, prognosis remains guarded. Continuing broad-spectrum antibiotics awaiting urine culture. GI consulted to evaluate in the morning. Problems addressed as follows: Emphysematous pyelonephritis UTI, E. coli -Was admitted a month ago with UTI and DKA. Urine at that time positive for E. coli. CT on admission showing gas in kidneys and collecting system. - Negative over 4-1/2 L since admission. Put out -2-1/2 L in the past 24 hours. Catheter helping with obstruction. Will continue to leave in place. - Single bottle from 4 bottles of blood cultures returned positive for MRSA, suspect commensal however empirically started on vancomycin given patient's tenuous condition, will monitor for 48 hours and consider discontinuing. - Urine culture growing E. coli that is pansensitive. Transition to ceftriaxone 1 g daily. - Continue tamsulosin 0.4 mg nightly, initiate finasteride 5 mg daily - Anticipate discharge with Tracey RINA on CKD 4. RINA improving. BUN elevated at 101, creatinine elevated at 3.9 on admission; BUN 67, creatinine 2.5. Potassium 3.2, magnesium 1.5, appears close to baseline kidney function. Cholestatic hepatitis: - INR 0.97, synthetic function remains intact - CT shows normal liver, gallbladder and biliary ducts with nonobstructing cholelithiasis. Pancreas with no ductal dilatation. Patient does have circumferential wall thickening in the distal rectum - CEA and CA 19-9 ordered and pending. - Liver enzymes worsening, bilirubin 0.6, AST 695, ALT 544, alk phos 491. Consistent with cholestatic pattern. GGT elevated at 1162. Will obtain iron studies, ceruloplasmin, Hepatitis panel - GI consulted to evaluate in the morning. -Abdominal duplex ordered to evaluate portal flow -Had right upper quadrant ultrasound obtained a week ago that showed essentially normal liver and no significant biliary obstruction. Unclear etiology of patient's elevated liver enzymes. - Review of medications contains primidone, may impact alk phos and transaminases. Will hold today to monitor for improvement. - Also concern that is related to his underlying metabolic disease/diabetes along with poor p.o. intake/refeeding. - CBC, CMP, magnesium ordered daily. Will repeat BMP this evening to monitor kidney function and electrolytes Poorly controlled diabetes - A1c 10.3 on 10/31. Still above goal of 7. Continue sliding scale high intensity. Continue fingersticks ACHS. - Morning glucose a little better at 177. Will increase basal insulin to 40 units tomorrow morning - Continue diabetic diet - TSH 0.21 1 month ago -Intolerant of metformin. Will hold at this time Anemia: - Status posttransfusion of 2 units, hemoglobin stable at 9.5 this morning. - Transfusion threshold less than 7. Unclear etiology of potential loss whether its malnutrition, chronic disease, renal failure, secondary to thickening of rectum (neoplasm?). Longstanding tremor: Holding propranolol and primidone due to his constipation and liver enzyme elevation. Monitor tremor. Will cautiously resume if necessary Constipation: Severe on CT on admission. Continue MiraLAX daily. Continue docusate senna twice daily. Will administer mag citrate once today. DNR/DNI Initiate Lovenox 30 mg subcu daily Diabetic diet
[2024-11-13 17:29] LABS: Anion Gap 16.2 mEq/L (5-15); Blood Urea Nitrogen 62 mg/dl (9-20); Calcium 9.3 mg/dl (8.4-10.2); Carbon Dioxide 25 mmol/L (22.0-30.0); Chloride 87 mmol/L (98-107); Creatinine Clearance Estimated 31 mL/min (50-200); Creatinine,Serum 2.50 mg/dl (0.66-1.25); Estimated Glomerular Filt Rate 25 ml/min (>60); GFR (African American) 31 ML/MIN (>60); Glucose 301 mg/dl (74-100); Magnesium 2.7 mg/dl (1.6-2.3); Potassium 5.2 mmoL/L (3.5-5.1); Sodium 123 mmol/L (136-145)
[2024-11-13] MEDS: SODIUM BICARBONATE 650MG TABLET 650 MG PO (21:23)
[2024-11-13] MEDS: TAMSULOSIN 0.4MG CAPSULE 0.4 MG PO (21:23)
[2024-11-13 21:37] LABS: POC Glucose,Bedside 197 (70-110)
--- NOTE | 2024-11-13 22:40 | PC.NURSE ---
Patient has lidocaine patches due at 2100 tonight for left shoulder. Patient states he doesn't think that they are really helping so he doesn't want them. Pt was offered a oxycodone for the pain and he stated they didn't help either. Patient was asked about what happened to his left arm and he said a day or 2 before coming into the ER I woke up and was unable to lift my arm, went to family doctor and they did xrays and it shows i have something tore in the shoulder area. Pt denies falling
[2024-11-14] VITALS: BP 139/83; PULSE 105; RESP 16; TEMP 36.8; O2SAT 96
[2024-11-14 04:00] VITALS: BP 137/78; PULSE 100; RESP 16; TEMP 36.6; O2SAT 94; BMI 19.5
[2024-11-14 06:09] LABS: POC Glucose,Bedside 201 (70-110)
--- NOTE | 2024-11-14 06:40 | PC.NURSE ---
Patient alert and oriented all night. Patient slept on and off all night and would call out and ask to be turned from either his back to his right side. Patient has redness on his coccyx. Mepalex has been applied. Patient did not want the lidocaine patches. When patient is repositioned a pillow is placed under the left arm due to patient not being able to lift the arm and any little movement causes him pain. Patient has still not had a bowel movement at this time has only been passing gas. Patient is NPO and has gi consult and possible scope today.
--- NOTE | 2024-11-14 06:43 | PC.NURSE ---
Patient had echo completed this am.
--- NOTE | 2024-11-14 07:13 | PC.NURSE ---
Dr. Ariza in the patients room at this time
--- NOTE | 2024-11-14 07:18 | EXP.GE.CONS ---
History of Present Illness *Admission Date: 11/11/24 *History of present illness: Mr. Howell is a 74-year-old gentleman who is admitted with DKA and uncontrolled diabetes. He recently had a stroke. Incidentally, he has had elevated liver chemistries that are more than 10 times the upper limit of normal with both hepatocellular and cholestatic hepatic injury. This is new and first noted in September 2024. He reports no abdominal pain and CAT scan showed normal liver. He also has renal failure and emphysematous pyelonephritis. The patient has lost 20 to 30 pounds over the last couple of months. He reports no abdominal pain. He reports no alcohol. His ultrasound showed uncomplicated cholelithiasis with no evidence of biliary obstruction. His CAT scan did show severe constipation and moderate bloating. He also had mild circumferential wall thickening at the distal rectum near the anorectal junction (possible mild stercoral proctitis). [facility] Disclaimer: The information contained in this section may have been updated after the patient was seen, as this information can be updated by other users. Medical History Severe protein-calorie malnutrition Occasional tremors Diabetes Alzheimers disease Hypertension Surgical History History of testicular surgery Social History Smoking Status: Former smoker second hand exposure: No alcohol intake: former substance use type: denies use current occupational status: retired and disabled Travel in the last 8 weeks?: None household members: spouse housing: house marital status: caffeine: Yes Have you lived/traveled outside [place] in past 30 days?: No Contact w/someone who lives/traveled outside US past 30 days?: No Exposure to someone with infectious disease in past 14 days?: No Do you have a fever (greater than 100.4 F or 38 C)?: No Have you tested positive for COVID-19?: No Exposed to someone with COVID-19 in past 14 days?: No Do you have a sore throat?: No Do you have a cough?: No Do you have any weakness?: No Are you experiencing any nausea/vomitting?: No Do you have any diarrhea?: No Are you experiencing any unusual bleeding?: No Do you have any muscle aches/pain?: No Do you have any abdominal pain?: No Are you experiencing loss of taste or smell?: No Meds Home Medications and Allergies Home Medications ?Medication ?Instructions ?Recorded ?Confirmed ?Type primidone 250 mg tablet 500 mg PO BID 10/03/17 11/12/24 History tamsulosin 0.4 mg capsule 1 tab PO HS 10/03/17 11/12/24 History famotidine 20 mg tablet 20 mg PO BID 06/14/20 11/12/24 History lansoprazole 30 mg capsule,delayed 30 mg PO DAILY 06/14/20 11/12/24 History release donepezil 10 mg tablet 10 mg PO HS 09/29/24 11/12/24 History montelukast 10 mg tablet 10 mg PO HS 09/29/24 11/12/24 History mirabegron 25 mg tablet,extended 25 mg PO DAILY 09/30/24 11/12/24 History release 24 hr (Myrbetriq) [id number] 300 mcg-K 60 1 tab PO DAILY 09/30/24 11/12/24 History mcg-lycop 600 mcg-lutein 300 mcg tablet (Centrum Silver Ultra Men's) propranolol 20 mg tablet 20 mg PO BID 09/30/24 11/12/24 History insulin glargine 100 unit/mL (3 40 unit (0.4 mL) SQ DAILY #15 mL 10/02/24 11/12/24 Rx mL) subcutaneous pen (Lantus Solostar U-100 Insulin) insulin lispro 100 unit/mL 15 unit (0.15 mL) SQ AC 30 days 10/02/24 11/12/24 Rx subcutaneous pen #15 mL aspirin 81 mg chewable tablet 1 tab PO DAILY 10/27/24 11/12/24 History atorvastatin 80 mg tablet 80 mg PO HS 10/27/24 11/12/24 History clopidogrel 75 mg tablet 75 mg PO DAILY 10/27/24 11/12/24 History midodrine 10 mg tablet 10 mg PO BID 11/04/24 11/12/24 History polyethylene glycol 3350 17 17 g PO DAILY #119 grams 11/04/24 11/12/24 Rx gram/dose oral powder sennosides 8.6 mg capsule (senna) 8.6 mg PO BID PRN constipation #60 11/04/24 11/12/24 Rx caps sodium bicarbonate 650 mg tablet 1,300 mg PO BID 11/04/24 11/12/24 History New Prescriptions to Start Prescriptions: Allergies Allergy/AdvReac Type Severity Reaction Status Date / Time ezetimibe (From Zetia) AdvReac Severe muscle Verified 11/10/24 08:54 cramps methocarbamol AdvReac Verified 11/10/24 08:54 Exam (Inpt) Vital signs and Labs for Last 24 Hours: Temp Pulse Resp BP Pulse Ox O2 Del Method 97.8 F 100 H 16 137/78 94 L Room Air 11/14/24 04:00 11/14/24 04:00 11/14/24 04:00 11/14/24 04:00 11/14/24 04:00 11/14/24 06:39 Laboratory Results - last 24 hr 11/13/24 07:35: WBC 9.0, RBC 3.03 L, Hgb 9.5 L, Hct 27.6 L, MCV 91.1, MCH 31.4 H, MCHC 34.4, RDW 15.5, Plt Count 317, MPV 8.0, Neut % (Auto) 87.5 H, Lymph % (Auto) 4.0 L, [place] % (Auto) 7.1, Eos % (Auto) 0.6, Baso % (Auto) 0.2, Neut # (Auto) 7.9 H, Lymph # (Auto) 0.4 L, [place] # (Auto) 0.6, Eos # (Auto) 0.1, Baso # (Auto) 0.0, Total Counted 100, Neutrophils % (Manual) 89 H, Lymphocytes % (Manual) 6 L, Monocytes % (Manual) 4, Basophils % (Manual) 1.0, Platelet Estimate Normal, RBC Morphology Normal, Sodium 124 L, Potassium 3.2 L, Chloride 90 L, Carbon Dioxide 20 L, Anion Gap 17.2 H, BUN 67 H, Creatinine 2.50 H, Estimated Creat Clear 31, Estimated GFR 25 L, Est GFR ( Amer) 31 L, Glucose 177 H, Calcium 9.1, Phosphorus 4.0, Magnesium 1.5 L D, Iron 37 L, TIBC 171 L, Iron Saturation 21.01314, Ferritin 4500 H D, Total Bilirubin 0.6, GGT 1162 H, AST 695 H* D, ALT 544 H*, Alkaline Phosphatase 491 H, Total Creatine Kinase 48 L, Total Protein 6.3, Albumin 2.9 L, Globulin 3.4 H, Albumin/Globulin Ratio 0.9 L 11/13/24 16:10: Sodium 123 L, Potassium 5.2 H D, Chloride 87 L, Carbon Dioxide 25, Anion Gap 16.2 H, BUN 62 H, Creatinine 2.50 H, Estimated Creat Clear 31, Estimated GFR 25 L, Est GFR ( Amer) 31 L, Glucose 301 H D, Calcium 9.3, Magnesium 2.7 H D 11/13/24 21:30: POC Glucose 197 H 11/14/24 05:55: POC Glucose 201 H I & O for Labs for Last 24 Hours: Intake & Output 11/11/24 11/12/24 11/13/24 11/14/24 23:59 23:59 23:59 23:59 Intake Total 282 / 282 730 / 950 897 / 897 Output Total 750 / 750 4075 / 4075 2970 / 2970 1300 / 1300 Balance -468 / -468 -3345 / -3125 -2073 / -2073 -1300 / -1300 Weight 143 lb 9 oz 147 lb 11.355 oz 184 lb 11.958 oz 144 lb 9 oz Microbiology Reports for the Last 24 Hours: Microbiology 11/11/24 18:33 Blood Blood Culture - Preliminary NO GROWTH AFTER 48 HOURS 11/11/24 15:39 Urine,Clean Catch Urine Culture - Final Escherichia coli 11/11/24 18:30 Blood Blood Culture - Preliminary Constitutional: no acute distress, thin and chronically ill appearing Comment:: Thin chronically ill-appearing male in no acute distress GI: Present soft Comments:: Normoactive bowel sounds, mild distention, nontender Results Labs 11/13/24 07:35 11/13/24 16:10 Labs: Laboratory Results - last 24 hr 11/13/24 07:35: WBC 9.0, RBC 3.03 L, Hgb 9.5 L, Hct 27.6 L, MCV 91.1, MCH 31.4 H, MCHC 34.4, RDW 15.5, Plt Count 317, MPV 8.0, Neut % (Auto) 87.5 H, Lymph % (Auto) 4.0 L, [place] % (Auto) 7.1, Eos % (Auto) 0.6, Baso % (Auto) 0.2, Neut # (Auto) 7.9 H, Lymph # (Auto) 0.4 L, [place] # (Auto) 0.6, Eos # (Auto) 0.1, Baso # (Auto) 0.0, Total Counted 100, Neutrophils % (Manual) 89 H, Lymphocytes % (Manual) 6 L, Monocytes % (Manual) 4, Basophils % (Manual) 1.0, Platelet Estimate Normal, RBC Morphology Normal, Sodium 124 L, Potassium 3.2 L, Chloride 90 L, Carbon Dioxide 20 L, Anion Gap 17.2 H, BUN 67 H, Creatinine 2.50 H, Estimated Creat Clear 31, Estimated GFR 25 L, Est GFR ( Amer) 31 L, Glucose 177 H, Calcium 9.1, Phosphorus 4.0, Magnesium 1.5 L D, Iron 37 L, TIBC 171 L, Iron Saturation 21.55148, Ferritin 4500 H D, Total Bilirubin 0.6, GGT 1162 H, AST 695 H* D, ALT 544 H*, Alkaline Phosphatase 491 H, Total Creatine Kinase 48 L, Total Protein 6.3, Albumin 2.9 L, Globulin 3.4 H, Albumin/Globulin Ratio 0.9 L 11/13/24 16:10: Sodium 123 L, Potassium 5.2 H D, Chloride 87 L, Carbon Dioxide 25, Anion Gap 16.2 H, BUN 62 H, Creatinine 2.50 H, Estimated Creat Clear 31, Estimated GFR 25 L, Est GFR ( Amer) 31 L, Glucose 301 H D, Calcium 9.3, Magnesium 2.7 H D 11/13/24 21:30: POC Glucose 197 H 11/14/24 05:55: POC Glucose 201 H Assessment and Plan *Assessment and plan (1) Cholestatic hepatitis: Status: Acute Category: Medical Code(s): K75.89 - Other specified inflammatory liver diseases (2) Elevated alkaline phosphatase level: Status: Acute Category: Medical Code(s): R74.8 - Abnormal levels of other serum enzymes (3) Elevated liver transaminase level: Status: Acute Category: Medical Code(s): R74.01 - Elevation of levels of liver transaminase levels Plan 1. Acute/subacute elevated liver chemistries and both cholestatic and hepatocellular pattern of liver injury. In terms of etiology, I would consider drug-induced, infectious, granulomatous hepatitis, autoimmune hepatitis or vascular. Will send additional serologies. If no etiology determined, would then consider percutaneous liver biopsy. I have seen and examined the patient.
[2024-11-14 07:37] LABS: Hematocrit 28.2 % (42.0-52.0); Hemoglobin 9.7 g/dL (14.1-18.0); Immature Granulocytes % 0.9 %; Mean Corpuscular HGB Conc 34.4 g/dL (31.8-35.4); Mean Corpuscular Hemoglobin 31.0 pg (27.0-31.2); Mean Corpuscular Volume 90.1 fl (80-94); Nucleated Red Blood Cells % 0 %; Platelet Count 342 K/mm3 (142-424); Red Blood Count 3.13 M/mm3 (4.60-6.20); Red Cell Distribution Width-SD 49.4 fL; White Blood Count 8.1 K/mm3 (4.8-10.8)
[2024-11-14 07:46] LABS: Albumin Level 3.6 g/dl (3.5-5.0); Chloride 92 mmol/L (98-107); Potassium 5.1 mmoL/L (3.5-5.1); Sodium 127 mmol/L (136-145)
[2024-11-14 07:48] LABS: Blood Urea Nitrogen 61 mg/dl (9-20); Creatinine Clearance Estimated 24 mL/min (50-200); Creatinine,Serum 2.50 mg/dl (0.66-1.25); Estimated Glomerular Filt Rate 25 ml/min (>60); GFR (African American) 31 ML/MIN (>60)
[2024-11-14 07:49] LABS: Albumin/Globulin Ratio 0.9 (1.1-1.8); Alkaline Phosphatase 775 U/L (38-126); Anion Gap 17.1 mEq/L (5-15); Bilirubin,Total 0.8 mg/dl (0.2-1.3); Calcium 9.1 mg/dl (8.4-10.2); Carbon Dioxide 23 mmol/L (22.0-30.0); Globulin 4.0 g/dL (1.3-3.2); Glucose 205 mg/dl (74-100); Total Protein,Serum 7.6 g/dl (6.3-8.2)
[2024-11-14 08:00] VITALS: BP 123/80; PULSE 91; RESP 16; TEMP 36.6; O2SAT 93
[2024-11-14 08:00] LABS: Alanine Aminotransferase 1074 U/L (12-78); Aspartate Amino Transferase 1365 U/L (17-59)
--- NOTE | 2024-11-14 08:29 | SW/DCPLANNER ---
Addendum entered by [facility] 11/17/24 14:27: Patient will discharge home w/ Hospice and family today. Addendum entered by [facility] 11/17/24 11:41: Alicja w/ Hospice will be at bedside to evaluate patient today. Addendum entered by [facility] 11/17/24 10:25: I have also updated [facility] masters/ [facility] regarding home w/ Hospice. Addendum entered by [facility] 11/17/24 10:18: Patient/family prefer to return home w/ Hospice services at this time. Patient information will be faxed to [facility] this AM. I will continue to follow up. Addendum entered by [facility] 11/14/24 13:52: Crystal masters/ [facility] is willing to accept this patient SNF level of care under [employer]. Patient is agreeable to placement at [facility] and has accepted bed offer. I will continue to follow up w/ Crystal. Addendum entered by [facility] 11/14/24 10:28: Patient and are agreeable to placement and prefer to stay in [place]. I will fax patient information to [facility] and [facility]. Discharge date is unknown at this time. I will continue to follow up. Original Note: I spoke w/ patient this AM regarding plans once medically stable for discharge. PT evaluated patient and recommends SNF level of care. Patient stated that he is considering this option but wants to have further discussion once arrives at [facility] today. I will follow up w/ patient and once she arrives to visit. Discharge date is unknown at this time.
[2024-11-14] MEDS: SODIUM BICARBONATE 650MG TABLET 650 MG PO ×3 (09:34→20:38)
[2024-11-14] MEDS: INSULIN GLARGINE 100 UNITS/ML 3ML FLEXPEN 40 UNIT SUBCUT (09:35)
[2024-11-14] MEDS: POLYETHYLENE GLYCOL 3350 17 GM PACKET PO ×2 (09:40→16:17)
[2024-11-14] MEDS: FINASTERIDE 5MG TABLET 5 MG PO (09:41)
[2024-11-14] MEDS: CLOPIDOGREL 75MG TAB 75 MG PO (09:41)
[2024-11-14] MEDS: SENNOSIDES 8.6MG/DOCUSATE 50MG TABLET 1 TAB PO ×2 (09:41→20:38)
[2024-11-14] MEDS: humaLOG 100 UNITS/ML 10ML VIAL (SSI) SUBCUT ×3 (10:36→20:38)
--- NOTE | 2024-11-14 10:39 | HMH.OTEV ---
OT Inpatient Evaluation Rehab OT IP Evaluation Start: 11/14/24 10:29 Freq: ONCE Status: Active Protocol: Document 11/14/24 10:30 [facility] (Rec: 11/14/24 10:39 [facility] [id number]) Rehab OT IP Assessment Subjective History Pt oriented x 3 on arrival; pt's present and supportive. Pt admitted on 11/11/24 due to difficulty urinating and weakness. History ad physical: Mr. Howell is a 74-year-old male with history of hypertension, hyperlipidemia, CKD, diabetes, tremor, Alzheimer's. Was recently admitted for DKA and uncontrolled diabetes. Also recently had episode of stroke and was sent to [facility] for further management after anticoagulation. He presents today with complaint of everything is wrong with me . Patient states that he has been having inability to urinate, was having diarrhea and now has not had a bowel movement over a day. Seen yesterday by his PCP and found to have some abnormal labs. He was encouraged to come to the ER if symptoms got worse. Denies nausea, vomiting, monica fever. Overall just does not feel well per his report. Workup in the ER with labs and imaging performed. Labs with significant abnormalities, hemoglobin low at 7.3, dropped from 10.2 one month ago. Sodium low at 126, chloride 88. Kidney function abnormal BUN 101, creatinine 3.9. Baseline creatinine approximately 2.5. Glucose elevated 198. Liver enzymes elevated in the 4-500 range with AST, ALT, alk phos. Urine grossly abnormal 4+ bacteria, leuk esterase, nitrates. CT obtained abdomen showing bladder obstruction, enlarged prostate, gas in kidneys/collecting system. Denies any recent catheterization or manipulation of bladder. Also noted to have significant stool burden concerning for constipation, thickening of distal rectum, along with cavitary lesion of right lower lung. Subjective Prior to being in the hospital, pt lived at home with his . Pt claims he was requiring assistance with dressing and bathing. Pt dependent upon family for completion of all IADLs. Pt was using a rolling walker during functional transfers. Objective Patient Orientation Person,Place,Birthday Right Upper Min Limitation <25% Extremity Gross ROM Left Upper Extremity Min Limitation <25% Gross ROM Shoulder ROM Muscle Weakness Limitations Elbow ROM Muscle Weakness Limitations Wrist Limitations of Muscle Weakness Range of Motion Bed Mobility bed mobility-scooting,bed mobility - supine/sit Assist Level Minimal x 1 (25% assist) Transfer Training Sit/Stand Transfer Assist Level Moderate x 1 (50% assist) Rehab OT IP prob,goals,plan Problems Date of Evaluation: 11/14/24 OT IP Problems Bed Mobility,Transfers,Balance,Self care,Safety Rehab Potential Rehab Potential Good Equipment Needs Assistive Devices Rolling / Wheeled Walker Plan OT intervention Plan Bed Mobility,Transfers,Balance,Self care,Safety, Therapeutic Exercise OT Plan Frequency Daily Duration LOS Discharge Goals Bed Mobility Ability Assistance x1 Sit to Stand Chair Minimal x 1 (25% assist) Transfer Ability Chair Transfer Contact Guard/Hand Hold,Minimal x 1 (25% assist) Ability Chair Transfer Sit to/from Ambulatory Technique Chair Transfer Rolling Walker Assistive Devices Lower Body Dressing Moderate Assistance Ability Upper Body Dressing Minimal Assistance Ability Performing Toilet Minimal Assistance Hygiene Ability Overall Commode/ Contact Guard,Minimal Assistance Toilet Transfer Ability Commode/Toilet Sit to/from Ambulatory Transfer Technique Discharge Plan OT Discharge Plan Pt will continue to be seen for OT services while at [facility]. Pt would benefit most from short term rehab at SNF following discharge. Continued skilled therapy is important in order for patient to improve strength, safety, endurance, and ADL independence to reach PLOF. Eval Complexity Eval Charge Codes 33646 - Moderate Complexity PHYSICIAN CERTIFICATION: I certify the specified therapy services for Rene Howell are required, authorized, and reviewed every 30 days.
[2024-11-14 11:17] LABS: POC Glucose,Bedside 273 (70-110)
[2024-11-14] MEDS: CEFTRIAXONE 1 GM 1 GM in 0.9 % SODIUM CHLORIDE 50 ML IV (11:29)
[2024-11-14 12:33] LABS: POC Glucose,Bedside 340 (70-110)
[2024-11-14 13:16] LABS: CA 19-9 31 U/mL (0-35); CEA 5.9 ng/mL (0.0-4.7)
[2024-11-14 14:40] LABS: POC Glucose,Bedside 323 (70-110)
[2024-11-14 15:45] VITALS: BP 134/80; PULSE 93; RESP 16; TEMP 36.6; O2SAT 96
--- NOTE | 2024-11-14 16:14 | CT_ITS ---
PROCEDURE INFORMATION: Exam: CT Chest Without Contrast; Diagnostic Exam date and time: 11/14/2024 4:54 PM Age: 74 years old Clinical indication: Condition or disease; Other: Right lung cavitary lesion TECHNIQUE: Imaging protocol: Diagnostic computed tomography of the chest without contrast. Radiation optimization: All CT scans at this facility use at least one of these dose optimization techniques: automated exposure control; mA and/or kV adjustment per patient size (includes targeted exams where dose is matched to clinical indication); or iterative reconstruction. COMPARISON: CR XR CHEST PORTABLE 09/30/2024 12:08 PM FINDINGS: Lungs: Thick walled cavitary lesion within the right medial lung base has an elliptical almost pancake shaped morphology. Measures 17 mm in craniocaudal dimension by 5 cm in AP dimension by 3.9 cm medial-lateral dimension. There is minimal surrounding ground-glass reaction. No other lung lesions are identified. The remainder of the lung parenchyma appears unremarkable. Pleural spaces: Unremarkable. No pneumothorax. No pleural effusion. Heart: See Vasculature finding. Coronary arteries: Three-vessel coronary artery calcifications. Lymph nodes: Unremarkable. No enlarged lymph nodes. Vasculature: The mediastinal structures including the esophagus, trachea, great vessels, and heart show no evidence of injury or acute pathologic processes. Bones/joints: Unremarkable. No acute fracture. Soft tissues: Chest wall subcutaneous tissues and musculature appear unremarkable. IMPRESSION: Cavitary thick-walled lesion within the right medial lung base. While malignancy is still within the differential diagnosis, would be unusual morphology. Suspect that this is inflammatory such as a lung abscess possibly due to aspiration given the distribution. Recommend pulmonary consultation.
[2024-11-14 16:35] LABS: POC Glucose,Bedside 257 (70-110)
--- NOTE | 2024-11-14 17:04 | PC.NURSE ---
not notified when patient left floor for radidology but returned at 17:05
--- NOTE | 2024-11-14 17:11 | EXP.ACUTE.PN ---
Subjective *Date: 11/14/24 *Time: 21:40 Interval history: Stable on room air. Denies nausea or vomiting. Complains of mild right upper quadrant pain. Passing gas but no bowel movement. Afebrile. Medical Exam Vital signs and Labs for Last 24 Hours: Vital Signs Temp Pulse Resp BP Pulse Ox O2 Del Method 11/14/24 16:52 Room Air 11/14/24 15:45 98 F 93 H 16 134/80 96 Room Air 11/14/24 15:00 Room Air 11/14/24 12:38 Room Air 11/14/24 10:42 Room Air 11/14/24 08:00 Room Air 11/14/24 08:00 97.9 F 91 H 16 123/80 93 L Room Air 11/14/24 06:39 Room Air 11/14/24 05:00 Room Air 11/14/24 04:00 97.8 F 100 H 16 137/78 94 L Room Air 11/14/24 02:57 Room Air 11/14/24 01:00 Room Air 11/14/24 00:00 98.3 F 105 H 16 139/83 96 Room Air 11/13/24 23:00 Room Air 11/13/24 21:00 Room Air 11/13/24 20:00 106 H 95 Room Air 11/13/24 20:00 97.6 F 106 H 12 146/87 H 95 Room Air 11/13/24 18:26 Room Air Intake and Output 11/14/24 11/14/24 11/14/24 07:59 15:59 23:59 Intake Total 640 / 1120 480 / 1120 Output Total 1300 / 1300 Balance -1300 / -180 640 / -180 480 / -180 Intake: Intake, Oral Amount 640 / 1120 480 / 1120 Output: Output, Urine Amount 1300 / 1300 Other: Weight 65.572 kg Patient Weight 11/14/24 23:59 Weight 65.572 kg Laboratory Results - last 24 hr 11/13/24 07:35: Carcinoembryonic Ag 5.9 H, CA 19-9 Antigen 31 11/13/24 11:16: POC Glucose 340 H* 11/13/24 16:10: Sodium 123 L, Potassium 5.2 H D, Chloride 87 L, Carbon Dioxide 25, Anion Gap 16.2 H, BUN 62 H, Creatinine 2.50 H, Estimated Creat Clear 31, Estimated GFR 25 L, Est GFR ( Amer) 31 L, Glucose 301 H D, Calcium 9.3, Magnesium 2.7 H D 11/13/24 16:29: POC Glucose 323 H* 11/13/24 21:30: POC Glucose 197 H 11/14/24 05:55: POC Glucose 201 H 11/14/24 06:48: WBC 8.1, RBC 3.13 L, Hgb 9.7 L, Hct 28.2 L, MCV 90.1, MCH 31.0, MCHC 34.4, RDW 15.1, Plt Count 342, MPV 8.3, Neut % (Auto) 80.0, Lymph % (Auto) 7.3 L, Liberty % (Auto) 10.0 H, Eos % (Auto) 1.1, Baso % (Auto) 0.7, Neut # (Auto) 6.5, Lymph # (Auto) 0.6 L, Liberty # (Auto) 0.8, Eos # (Auto) 0.1, Baso # (Auto) 0.1, Sodium 127 L, Potassium 5.1, Chloride 92 L, Carbon Dioxide 23, Anion Gap 17.1 H, BUN 61 H, Creatinine 2.50 H, Estimated Creat Clear 24, Estimated GFR 25 L, Est GFR ( Amer) 31 L, Glucose 205 H D, Calcium 9.1, Total Bilirubin 0.8, AST 1365 H* D, ALT 1074 H*, Alkaline Phosphatase 775 H, Total Protein 7.6, Albumin 3.6 D, Globulin 4.0 H, Albumin/Globulin Ratio 0.9 L 11/14/24 10:35: POC Glucose 273 H 11/14/24 16:16: POC Glucose 257 H I & O for Labs for Last 24 Hours: Intake & Output 11/11/24 11/12/24 11/13/24 11/14/24 23:59 23:59 23:59 23:59 Intake Total 282 / 282 730 / 950 897 / 897 1120 / 1120 Output Total 750 / 750 4075 / 4075 2970 / 2970 1300 / 1300 Balance -468 / -468 -3345 / -3125 -2073 / -207 -180 / -180 Weight 65.119 kg 67 kg 83.8 kg 65.572 kg Microbiology Reports for the Last 24 Hours: Microbiology 11/11/24 18:30 Blood Blood Culture - Preliminary Gram Positive Cocci 11/11/24 18:33 Blood Blood Culture - Preliminary NO GROWTH AFTER 48 HOURS Constitutional: Present mild distress, thin, chronically ill appearing and cooperative Head: Present atraumatic and normocephalic ENT: Present normal exam Respiratory: Present normal respiratory effort; Absent rhonchi, wheezes or crackles Cardiac: Present Reg Rate and Rhythm GI: Present soft, tenderness (Nonfocal) and normal bowel sounds; Absent distention Extremities: Present normal inspection and full ROM; Absent edema Skin: Present intact; Absent erythema Neuro: Present Grossly Intact, alert, awake, oriented x 3 and moves all extremities Comment:: tremor Assessment and Plan *Assessment and plan (1) Emphysematous pyelonephritis: Status: Acute Category: Medical Code(s): N12 - Tubulo-interstitial nephritis, not specified as acute or chronic (2) Cholestatic hepatitis: Status: Acute Category: Medical Code(s): K75.89 - Other specified inflammatory liver diseases (3) RINA (acute kidney injury): Status: Acute Category: Medical Code(s): N17.9 - Acute kidney failure, unspecified (4) Acute uremia: Status: Acute Category: Medical Code(s): N19 - Unspecified kidney failure (5) Insulin dependent type 2 diabetes mellitus: Status: Acute Category: Medical Code(s): E11.9 - Type 2 diabetes mellitus without complications; Z79.4 - jail (current) use of insulin (6) Tremor: Status: Chronic Category: Medical Code(s): R25.1 - Tremor, unspecified (7) Alzheimers disease: Status: Chronic Category: Medical Code(s): G30.9 - Alzheimer's disease, unspecified; F02.80 - Dementia in other diseases classified elsewhere, unspecified severity, without behavioral disturbance, psychotic disturbance, mood disturbance, and anxiety (8) Acute UTI: Status: Acute Category: Medical Code(s): N39.0 - Urinary tract infection, site not specified (9) Severe protein-calorie malnutrition: Status: Acute Category: Medical Code(s): E43 - Unspecified severe protein-calorie malnutrition Plan 74-year-old male who presents with weakness, urinary obstruction, concern for infection. Imaging showing gas in the renal collecting system concerning for emphysematous pyelonephritis. Aide case with ER physician, extensive discussion about patient's comorbidities, multiorgan dysfunction, severity of illness and need for transfer to higher level of care. Patient unwilling to be transferred but not safe to discharge home. I decided to admit to the ICU for further management given patient's complexity. Condition remains serious, prognosis remains guarded. Continue ceftriaxone for E. coli UTI. GI evaluated today. Additional labs obtained to evaluate worsening hepatitis. Continues to require patient management. Problems addressed as follows: Emphysematous pyelonephritis UTI, E. coli -Was admitted a month ago with UTI and DKA. Urine at that time positive for E. coli. CT on admission showing gas in kidneys and collecting system. - Negative volume status since admission, appears to be auto diuresing with resolution of bladder obstruction and improvement in kidney function. - Catheter remains in place - Single bottle from 4 bottles of blood cultures returned positive for MRSA, suspect commensal however empirically started on vancomycin given patient's tenuous condition, will monitor for 48 hours and consider discontinuing. - Continue ceftriaxone 1 g daily for total of 7 days to treat pansensitive E. coli - Continue tamsulosin 0.4 mg nightly, initiate finasteride 5 mg daily - Anticipate discharge with Tracey RINA on CKD 4. RINA appears to be stabilized. BUN remains elevated at 61, creatinine 2.5. Sodium 127, showing slight improvement. Potassium 5.1; initiated sodium bicarb 650 mg p.o. twice daily to address acidosis and hyponatremia Cholestatic hepatitis: - CT shows normal liver, gallbladder and biliary ducts with nonobstructing cholelithiasis. Pancreas with no ductal dilatation. Patient does have circumferential wall thickening in the distal rectum -Right upper quadrant Doppler pending to evaluate portal flow and hepatic vein - CEA marginally elevated above 5, CA 19-9 within normal range - Liver enzymes worsening, bilirubin 0.8, AST doubled to 1365, ALT 1074, alk phos 775; GGT elevated at 1162. - Iron studies low with TIBC of 171, iron level 37. Ferritin elevated at 4500, consistent with acute inflammation/acute phase reactant. CRP pending for the morning - GI evaluated, pattern both mixed cholestatic and hepatocellular. Differential includes drug-induced, infectious, granulomatous hepatitis, autoimmune or vascular. Additional serologies ordered including LUIS E, alpha-1 antitrypsin, hepatitis panel -Caution with hepatotoxic drugs - Had right upper quadrant ultrasound obtained a week ago that showed essentially normal liver and no significant biliary obstruction. Unclear etiology of patient's elevated liver enzymes. - Continue to hold primidone and propranolol - Also concern that is related to his underlying metabolic disease/diabetes along with poor p.o. intake/refeeding. - CBC, CMP, magnesium ordered daily. Will repeat BMP this evening to monitor kidney function and electrolytes Poorly controlled diabetes - A1c 10.3 on 10/31. Still above goal of 7. Continue sliding scale high intensity. Continue fingersticks ACHS. - Morning glucose 205. Will increase basal insulin to 40 units tomorrow morning - Continue diabetic diet - TSH 0.21 1 month ago - Intolerant of metformin. Will hold at this time - Cortisol pending for the morning Anemia: - Status posttransfusion of 2 units, hemoglobin stable at 9.7 this morning. - Transfusion threshold less than 7. Unclear etiology of potential loss whether its malnutrition, chronic disease, renal failure, secondary to thickening of rectum (neoplasm?). Longstanding tremor: Holding propranolol and primidone due to his constipation and liver enzyme elevation. Monitor tremor. Will cautiously resume if necessary Constipation: Severe on CT on admission. Continue MiraLAX daily. Continue docusate senna twice daily. Will administer mag citrate once today. DNR/DNI Initiate Lovenox 30 mg subcu daily Diabetic diet
--- NOTE | 2024-11-14 17:26 | PC.NURSE ---
PT IS RESTING IN BED. ALERT AND ORIENTED X4. EATING AND DRINKING WELL. PT TOLERATED SITTING UP IN THE CHAIR FOR A SHORT PERIOD THIS SHIFT. AMBULATED IN THE ROOM WITH WALKER. LEFT ARM TENDERNESS NOTED (PHYSICIAN NOTIFIED). LUNG SOUNDS DIMINISHED. ABDOMEN SOFT/NON TENDER WITH ACTIVE BOWEL SOUNDS. NO BOWEL MOVEMENT THIS SHIFT HOWEVER PT STATES HE IS PASSING FLATUS. WILL CONTINUE TO MONITOR.
[2024-11-14] MEDS: VANCOMYCIN/WATER FOR INJ (PEG) 1.25 GM/250 ML PIGGYBACK IV (17:50)
--- NOTE | 2024-11-14 19:15 | CA_ITS ---
APPROVED REPORT EXAM: Limited 2D Echocardiogram Deli Worker: Vianey Squires CRT Ht: 6 ft 0 in Wt: 184lbs BSA: 2.06 BP: 144/79 mmHg Indications: Heart Failure, CVA/TIA, Diabetes, Hyperlipidemia, Hypertension Very limited echo poor ultrasound windows. PT has Left shoulder injury refused to roll, scanned flat on back. Other Information Study Quality: Technically Difficult Conclusion This is a limited TTE to evaluate for LV systolic function. Limited windows are obtained. The left ventricle is normal in size. There is increased LV wall thickness. There is normal global LV systolic function. There are no regional wall motion abnormalities present. LVEF is 60%. Electronically signed by : Bia Pool MD 11/14/2024 12:44:49
[2024-11-14 19:42] VITALS: BP 157/84; PULSE 98; RESP 18; TEMP 36.8; O2SAT 97
[2024-11-14] MEDS: LIDOCAINE 5% TRANSDERMAL PATCH 2 EACH TD (20:36)
[2024-11-14] MEDS: TAMSULOSIN 0.4MG CAPSULE 0.4 MG PO (20:38)
[2024-11-14 21:38] LABS: POC Glucose,Bedside 252 (70-110)
[2024-11-15] VITALS: BP 133/75; PULSE 99; RESP 17; TEMP 36.5; O2SAT 94
[2024-11-15] MEDS: OXYCODONE 5MG IMMEDIATE RELEASE TABLET 2.5 MG PO (02:09)
[2024-11-15 04:00] VITALS: BP 161/86; PULSE 100; RESP 17; TEMP 36.8; O2SAT 94; BMI 19.5
[2024-11-15 05:21] LABS: Hepatitis B Core Antibody, IgM Negative (Negative); Hepatitis B Surface Antigen Negative (Negative); Hepatitis C Antibody Non Reactive (Non Reactive)
--- NOTE | 2024-11-15 05:21 | PC.NURSE ---
Pt A&OX4 and has tolerated room air. VSS. Lung sounds clear and bowel sounds active. He has complained of left shoulder pain twice this shift and was medicated per MAR. Tracey has remained in place with good output. No complaints at this time, call light within reach.
[2024-11-15] MEDS: humaLOG 100 UNITS/ML 10ML VIAL (SSI) SUBCUT ×4 (05:42→20:33)
[2024-11-15 06:16] LABS: POC Glucose,Bedside 238 (70-110)
[2024-11-15 06:30] LABS: Hematocrit 26.7 % (42.0-52.0); Hemoglobin 9.0 g/dL (14.1-18.0); Immature Granulocytes % 0.6 %; Mean Corpuscular HGB Conc 33.7 g/dL (31.8-35.4); Mean Corpuscular Hemoglobin 30.7 pg (27.0-31.2); Mean Corpuscular Volume 91.1 fl (80-94); Nucleated Red Blood Cells % 0 %; Platelet Count 314 K/mm3 (142-424); Red Blood Count 2.93 M/mm3 (4.60-6.20); Red Cell Distribution Width-SD 50.0 fL; White Blood Count 8.3 K/mm3 (4.8-10.8)
[2024-11-15 06:46] LABS: Alanine Aminotransferase 733 U/L (12-78); Albumin Level 3.4 g/dl (3.5-5.0); Albumin/Globulin Ratio 0.9 (1.1-1.8); Alkaline Phosphatase 641 U/L (38-126); Anion Gap 16.1 mEq/L (5-15); Aspartate Amino Transferase 631 U/L (17-59); Bilirubin,Total 0.9 mg/dl (0.2-1.3); Blood Urea Nitrogen 64 mg/dl (9-20); Calcium 9.4 mg/dl (8.4-10.2); Carbon Dioxide 24 mmol/L (22.0-30.0); Chloride 87 mmol/L (98-107); Creatinine Clearance Estimated 23 mL/min (50-200); Creatinine,Serum 2.60 mg/dl (0.66-1.25); Estimated Glomerular Filt Rate 24 ml/min (>60); GFR (African American) 29 ML/MIN (>60); Globulin 3.7 g/dL (1.3-3.2); Glucose 225 mg/dl (74-100); Potassium 5.1 mmoL/L (3.5-5.1); Sodium 122 mmol/L (136-145); Total Protein,Serum 7.1 g/dl (6.3-8.2)
[2024-11-15 07:00] LABS: C-Reactive Protein 251.0 mg/L (0-4)
[2024-11-15 08:00] VITALS: BP 143/79; PULSE 91; RESP 18; TEMP 36.7; O2SAT 95
[2024-11-15] MEDS: CLOPIDOGREL 75MG TAB 75 MG PO (08:31)
[2024-11-15] MEDS: SODIUM BICARBONATE 650MG TABLET 650 MG PO ×3 (08:31→20:28)
[2024-11-15] MEDS: SENNOSIDES 8.6MG/DOCUSATE 50MG TABLET 1 TAB PO ×2 (08:31→20:28)
[2024-11-15] MEDS: FINASTERIDE 5MG TABLET 5 MG PO (08:31)
[2024-11-15] MEDS: POLYETHYLENE GLYCOL 3350 17 GM PACKET PO ×4 (08:32→23:21)
[2024-11-15] MEDS: INSULIN GLARGINE 100 UNITS/ML 3ML FLEXPEN 40 UNIT SUBCUT (08:32)
--- NOTE | 2024-11-15 11:20 | EXP.PN ---
Subjective *Date: 11/15/24 *Time: 11:20 Interval history: The patient has been up in armchair today and no abdominal complaints. Patient is tolerating diet. He has had much difficulty moving his bowels. He does report that he had Hemoccult testing at [facility] couple weeks ago that was normal. He has had 2 prior colonoscopies according to the patient. His CAT scan showed severe constipation with thickening of the distal rectum at the anorectal junction. Most of his labs which I ordered are pending. Exam Data for Last 24 hours Vital signs and Labs for Last 24 Hours: Temp Pulse Resp BP Pulse Ox O2 Del Method 98.0 F 91 H 18 143/79 H 95 Room Air 11/15/24 08:00 11/15/24 08:00 11/15/24 08:00 11/15/24 08:00 11/15/24 08:00 11/15/24 10:53 Laboratory Results - last 24 hr 11/13/24 07:35: Carcinoembryonic Ag 5.9 H, CA 19-9 Antigen 31 11/13/24 11:16: POC Glucose 340 H* 11/13/24 16:10: Ceruloplasmin 53.8 H, Hepatitis A IgM Ab Negative, Hep Bs Antigen Negative, Hep B Core IgM Ab Negative, Hepatitis C Antibody Non reactive, HCV RNA PCR Test Info Comment 11/13/24 16:29: POC Glucose 323 H* 11/14/24 10:33: Ceruloplasmin 56.4 H, Hepatitis A IgM Ab Negative, Hep Bs Antigen Negative, Hep B Core IgM Ab Negative, Hepatitis C Antibody Non reactive 11/14/24 16:16: POC Glucose 257 H 11/14/24 20:28: POC Glucose 252 H 11/15/24 05:39: POC Glucose 238 H 11/15/24 06:03: WBC 8.3, RBC 2.93 L, Hgb 9.0 L, Hct 26.7 L, MCV 91.1, MCH 30.7, MCHC 33.7, RDW 15.0, Plt Count 314, MPV 8.0, Neut % (Auto) 76.7, Lymph % (Auto) 10.2, Sargent % (Auto) 10.1 H, Eos % (Auto) 1.9, Baso % (Auto) 0.5, Neut # (Auto) 6.4, Lymph # (Auto) 0.9, S[place]ent # (Auto) 0.8, Eos # (Auto) 0.2, Baso # (Auto) 0.0, Sodium 122 L, Potassium 5.1, Chloride 87 L, Carbon Dioxide 24, Anion Gap 16.1 H, BUN 64 H, Creatinine 2.60 H, Estimated Creat Clear 23, Estimated GFR 24 L, Est GFR ( Amer) 29 L, Glucose 225 H, Calcium 9.4, Total Bilirubin 0.9, AST 631 H* D, ALT 733 H*, Alkaline Phosphatase 641 H, C-Reactive Protein 251.0 H, Total Protein 7.1, Albumin 3.4 L, Globulin 3.7 H, Albumin/Globulin Ratio 0.9 L I & O for Last 24 hours: Intake & Output 11/12/24 11/13/24 11/14/24 11/15/24 23:59 23:59 23:59 23:59 Intake Total 730 / 950 897 / 897 1480 / 1730 550 / 550 Output Total 4075 / 4075 2970 / 2970 1300 / 2200 2825 / 2825 Balance -3345 / -3125 -2073 / -2073 180 / -470 -2275 / -2275 Weight 147 lb 11.355 oz 184 lb 11.958 oz 144 lb 9 oz 144 lb 4.8 oz Microbiology Reports for the Last 24 Hours: Microbiology 11/11/24 18:30 Blood Blood Culture - Preliminary Staphylococcus aureus Constitutional Constitutional: no acute distress *Routine HEENT Exam Head: Present normocephalic Eye: Present EOMI and PERRL ENT: Present mucous membranes moist *Routine Neck Exam Neck: Present supple; Absent lymphadenopathy *Routine Respiratory Exam Respiratory: Present CTA bilaterally *Routine Cardiovascular Exam Cardiovascular: Present RRR *Routine Abdominal Exam Abdominal: Present soft and normoactive bowel sounds; Absent tenderness *Routine Extremities Exam Extremities: Absent cyanosis, clubbing or edema *Routine Skin Exam Skin: Present warm; Absent rash *Routine Neurological Exam Neurological: Present alert and oriented X3 Assessment and Plan *Assessment and plan (1) Elevated liver transaminase level: Status: Acute Category: Medical Code(s): R74.01 - Elevation of levels of liver transaminase levels (2) Elevated alkaline phosphatase level: Status: Acute Category: Medical Code(s): R74.8 - Abnormal levels of other serum enzymes (3) Abnormal findings on imaging test: Status: Acute Category: Medical Code(s): R93.89 - Abnormal findings on diagnostic imaging of other specified body structures (4) Constipation: Status: Acute Category: Medical Code(s): K59.00 - Constipation, unspecified Plan 1. Elevated alkaline phosphatase and transaminases (mixed hepatocellular and cholestatic liver injury). Routine viral hepatitis testing is normal. Presently, I would suspect drug-induced hepatic injury versus inflammatory/infectious (granulomatous liver disease or autoimmune disease). I will await autoimmune serologies including smooth muscle antibody and ANGIE level. If all test normal, we will need to decide whether we should proceed with percutaneous liver biopsy or a trial of corticosteroids. He does have an elevated C-reactive protein of 251. He also has an elevated ferritin level of 4500. 2. Abnormal thickening of rectum. The patient does state that he had Hemoccult testing at [facility] a couple of weeks ago that was negative. He has had prior colonoscopies but it has been quite sometime. He does have moderate anemia especially on admission with hemoglobin 6.3 and hematocrit 18.5 with normocytic indices. The patient's ferritin was elevated at 4500. His CEA level was slightly elevated at 5.9. I would consider sooner colonoscopy if he were Hemoccult positive presently and we will await the most recent stool testing.
[2024-11-15 11:55] LABS: POC Glucose,Bedside 319 (70-110)
[2024-11-15 12:00] VITALS: BP 146/80; PULSE 90; RESP 16; TEMP 36.9; O2SAT 98
[2024-11-15] MEDS: MAGNESIUM CITRATE 10OZ BOTTLE 10 OZ PO (12:06)
[2024-11-15] MEDS: CEFTRIAXONE 1 GM 1 GM in 0.9 % SODIUM CHLORIDE 50 ML IV (12:08)
--- NOTE | 2024-11-15 15:25 | PC.NURSE ---
PT IS RESTING IN BED. ALERT AND ORIENTED X4. EATING AND DRINKING FAIR. AMBULATED IN THE ROOM WITH PHYSICAL THERAPY. TENDERNESS NOTED TO THE LUE. LUNG SOUNDS DIMINISHED. ABDOMEN FIRM/NON TENDER WITH HYPOACTIVE BOWEL SOUNDS. PASSING FLATUS. WILL CONTINUE TO MONITOR.
[2024-11-15 16:00] VITALS: BP 134/82; PULSE 86; RESP 18; TEMP 36.9; O2SAT 96
[2024-11-15] MEDS: humaLOG 100 UNITS/ML 10ML VIAL (SSI) 6 UNIT SUBCUT (16:34)
[2024-11-15 16:44] LABS: POC Glucose,Bedside 253 (70-110)
[2024-11-15] MEDS: METHYLPREDNISOLONE SOD SUCC 40MG VIAL 32 MG IV (17:32)
--- NOTE | 2024-11-15 18:52 | P.PN_ITS ---
Subjective *Date: 11/15/24 *Time: 22:53 Interval history: Tolerating p.o. intake. Still no bowel movement. Passing gas. No nausea or vomiting. Afebrile. Stable on room air Medical Exam Vital signs and Labs for Last 24 Hours: Vital Signs Temp Pulse Resp BP Pulse Ox O2 Del Method 11/15/24 18:16 Room Air 11/15/24 16:40 Room Air 11/15/24 16:00 98.4 F 86 18 134/82 96 Room Air 11/15/24 14:36 Room Air 11/15/24 12:53 Room Air 11/15/24 12:00 98.4 F 90 16 146/80 H 98 Room Air 11/15/24 10:53 Room Air 11/15/24 08:00 Room Air 11/15/24 08:00 98.0 F 91 H 18 143/79 H 95 Room Air 11/15/24 07:33 Room Air 11/15/24 06:46 Room Air 11/15/24 05:00 Room Air 11/15/24 04:00 98.3 F 100 H 17 161/86 H 94 L Room Air 11/15/24 03:00 Room Air 11/15/24 01:00 Room Air 11/15/24 00:00 97.7 F 99 H 17 133/75 94 L Room Air 11/14/24 23:00 Room Air 11/14/24 21:00 Room Air 11/14/24 20:00 Room Air 11/14/24 19:42 98.3 F 98 H 18 157/84 H 97 Room Air Intake and Output 11/15/24 11/15/24 11/15/24 07:59 15:59 23:59 Intake Total 250 / 1280 740 / 1280 290 / 1280 Output Total 1675 / 4250 1850 / 4250 725 / 4250 Balance -1425 / -2970 -1110 / -2970 -435 / -2970 Intake: Intake, Oral Amount 740 / 980 240 / 980 Intake, Total IV Amount 250 / 300 50 / 300 Ceftriaxone 1 gm 1 gm In 0.9 % 50 / 50 Sodium Chloride 50 ml @ 100 mls /hr IV Q24H HARI Rx#:[id number] Vancomycin/Water For Inj (Peg) 250 / 250 1.25 gm In 250 ml @ 125 mls/hr IV Q36H HARI Rx#:[id number] Output: Output, Urine Amount 1675 / 4250 1850 / 4250 725 / 4250 Other: Number of Unmeasured Voids 0 0 0 Weight 65.453 kg Patient Weight 11/15/24 23:59 Weight 65.453 kg Laboratory Results - last 24 hr 11/13/24 16:10: Ceruloplasmin 53.8 H, Hepatitis A IgM Ab Negative, Hep Bs Antigen Negative, Hep B Core IgM Ab Negative, Hepatitis C Antibody Non reactive, HCV RNA PCR Test Info Comment 11/14/24 10:33: Ceruloplasmin 56.4 H, Angiotensin Convert Enz 68, LUIS E Comment Comment, LISSETH-1 Antibody <0.2, SS-A Antibody <0.2, SS-B Antibody <0.2, Sm (Snow) Antibody <0.2, [employer] Antibody <0.2, Scl-70 Scleroderma Ab <0.2, Double Strand DNA Ab <1, Chromatin Antibody <0.2, Centromere B Antibody <0.2, Mitochondria M2 Ab <20.0, Anti-Smooth Muscle Ab 6, Liver/Kid Microsomes Ab 1.2, Hepatitis A IgM Ab Negative, Hep Bs Antigen Negative, Hep B Core IgM Ab Negative, Hepatitis C Antibody Non reactive 11/14/24 20:28: POC Glucose 252 H 11/15/24 05:39: POC Glucose 238 H 11/15/24 06:03: WBC 8.3, RBC 2.93 L, Hgb 9.0 L, Hct 26.7 L, MCV 91.1, MCH 30.7, MCHC 33.7, RDW 15.0, Plt Count 314, MPV 8.0, Neut % (Auto) 76.7, Lymph % (Auto) 10.2, [place] % (Auto) 10.1 H, Eos % (Auto) 1.9, Baso % (Auto) 0.5, Neut # (Auto) 6.4, Lymph # (Auto) 0.9, [place] # (Auto) 0.8, Eos # (Auto) 0.2, Baso # (Auto) 0.0, Sodium 122 L, Potassium 5.1, Chloride 87 L, Carbon Dioxide 24, Anion Gap 16.1 H, BUN 64 H, Creatinine 2.60 H, Estimated Creat Clear 23, Estimated GFR 24 L, Est GFR ( Amer) 29 L, Glucose 225 H, Calcium 9.4, Total Bilirubin 0.9, AST 631 H* D, ALT 733 H*, Alkaline Phosphatase 641 H, C-Reactive Protein 251.0 H, Total Protein 7.1, Albumin 3.4 L, Globulin 3.7 H, Albumin/Globulin Ratio 0.9 L 11/15/24 11:46: POC Glucose 319 H* 11/15/24 16:33: POC Glucose 253 H I & O for Labs for Last 24 Hours: Intake & Output 11/12/24 11/13/24 11/14/24 11/15/24 23:59 23:59 23:59 23:59 Intake Total 730 / 950 897 / 897 1480 / 1730 1280 / 1280 Output Total 4075 / 4075 2970 / 2970 1300 / 2200 4250 / 4250 Balance -3345 / -3125 -2073 / -2073 180 / -470 -2970 / -2970 Weight 67 kg 83.8 kg 65.572 kg 65.453 kg Microbiology Reports for the Last 24 Hours: Microbiology 11/11/24 18:33 Blood Blood Culture - Preliminary NO GROWTH AFTER 4 DAYS 11/11/24 18:30 Blood Blood Culture - Preliminary Staphylococcus aureus Constitutional: Present mild distress, thin, chronically ill appearing and cooperative Head: Present atraumatic and normocephalic ENT: Present normal exam Respiratory: Present normal respiratory effort; Absent rhonchi, wheezes or crackles Cardiac: Present Reg Rate and Rhythm GI: Present soft, tenderness (Nonfocal) and normal bowel sounds; Absent distention Extremities: Present normal inspection and full ROM; Absent edema Skin: Present intact; Absent erythema Neuro: Present Grossly Intact, alert, awake, oriented x 3 and moves all extremities Comment:: tremor Assessment and Plan *Assessment and plan (1) Emphysematous pyelonephritis: Status: Acute Category: Medical Code(s): N12 - Tubulo-interstitial nephritis, not specified as acute or chronic (2) Cholestatic hepatitis: Status: Acute Category: Medical Code(s): K75.89 - Other specified inflammatory liver diseases (3) RINA (acute kidney injury): Status: Acute Category: Medical Code(s): N17.9 - Acute kidney failure, unspecified (4) Acute uremia: Status: Acute Category: Medical Code(s): N19 - Unspecified kidney failure (5) Insulin dependent type 2 diabetes mellitus: Status: Acute Category: Medical Code(s): E11.9 - Type 2 diabetes mellitus without complications; Z79.4 - detention (current) use of insulin (6) Tremor: Status: Chronic Category: Medical Code(s): R25.1 - Tremor, unspecified (7) Alzheimers disease: Status: Chronic Category: Medical Code(s): G30.9 - Alzheimer's disease, unspecified; F02.80 - Dementia in other diseases classified elsewhere, unspecified severity, without behavioral disturbance, psychotic disturbance, mood disturbance, and anxiety (8) Acute UTI: Status: Acute Category: Medical Code(s): N39.0 - Urinary tract infection, site not specified (9) Severe protein-calorie malnutrition: Status: Acute Category: Medical Code(s): E43 - Unspecified severe protein-calorie malnutrition Plan 74-year-old male who presents with weakness, urinary obstruction, concern for infection. Imaging showing gas in the renal collecting system concerning for emphysematous pyelonephritis. Aide case with ER physician, extensive discussion about patient's comorbidities, multiorgan dysfunction, severity of illness and need for transfer to higher level of care. Patient unwilling to be transferred but not safe to discharge home. I decided to admit to the ICU for further management given patient's complexity. Condition remains serious, prognosis remains guarded. Transition to Levaquin for UTI and empiric broad-spectrum coverage. Discontinue ceftriaxone and vancomycin. GI evaluating daily. Labs showing some improvement in liver function. Inflammatory labs continue to be elevated. Hepatitis panel negative. Evaluated today. Continues to require inpatient management. Problems addressed as follows: Emphysematous pyelonephritis UTI, E. coli -Was admitted a month ago with UTI and DKA. Urine at that time positive for E. coli. CT on admission showing gas in kidneys and collecting system. - Negative volume status since admission, appears to be auto diuresing with resolution of bladder obstruction and improvement in kidney function. - Catheter remains in place - Single bottle from 4 bottles of blood cultures returned positive for MRSA, suspect commensal however empirically started on vancomycin given patient's tenuous condition. Discontinue after 48 hours. Low suspicion for staph infection. Transition to levofloxacin renally dosed 750 mg every 48 hours for E. coli UTI) for spectrum coverage. - Continue tamsulosin 0.4 mg nightly, initiate finasteride 5 mg daily - Anticipate discharge with Tracey RINA on CKD 4. RINA appears to be stabilized. BUN remains elevated at 64, creatinine 2.6. Sodium 122, potassium 5.1; continue sodium bicarbonate 650 mg twice daily to address acidosis and hyponatremia. Bicarb 24 today. Cholestatic hepatitis: - CT shows normal liver, gallbladder and biliary ducts with nonobstructing cholelithiasis. Pancreas with no ductal dilatation. Patient does have circumferential wall thickening in the distal rectum -Right upper quadrant Doppler pending to evaluate portal flow and hepatic vein - CEA marginally elevated above 5, CA 19-9 within normal range - Liver enzymes showed improvement today with bilirubin 0.9, AST 631, ALT 730, alk phos 640 - Suspect elevated GGT, ferritin, ceruloplasmin which is 56 are related to inflammation of liver. Extensive discussion with GI today about inflammatory liver process, will initiate steroids with methylprednisolone 32 mg daily and monitor for improvement. - Hepatitis panel negative - GI evaluated, pattern both mixed cholestatic and hepatocellular. Differential includes drug-induced, infectious, granulomatous hepatitis, autoimmune or vascular. Additional serologies ordered including LUIS E, alpha-1 antitrypsin, hepatitis panel -Caution with hepatotoxic drugs - Right upper quadrant Doppler obtained, formal read pending. - Continue to hold primidone and propranolol - Also concern that is related to his underlying metabolic disease/diabetes along with poor p.o. intake/refeeding. - CBC, CMP, magnesium ordered daily. Will repeat BMP this evening to monitor kidney function and electrolytes Poorly controlled diabetes - A1c 10.3 on 10/31. Still above goal of 7. Continue sliding scale high intensity. Continue fingersticks ACHS. - Morning glucose 225. Increase basal to 50 units in the morning. Add additional 6 units short acting plus sliding scale with meals. - Continue diabetic diet - TSH 0.21 1 month ago - Intolerant of metformin. Will hold at this time - Cortisol obtained, result pending Anemia: - Status posttransfusion of 2 units, hemoglobin stable at 9.0 this morning. - Transfusion threshold less than 7. Unclear etiology of potential loss whether its malnutrition, chronic disease, renal failure, secondary to thickening of rectum (neoplasm?). Longstanding tremor: Holding propranolol and primidone due to his constipation and liver enzyme elevation. Monitor tremor. Will cautiously resume if necessary Constipation: Severe on CT on admission. Continue MiraLAX scheduled every 6 hours, docusate senna twice daily, additional 10 ounces of mag citrate today. DNR/DNI Lovenox 30 mg subcu daily Diabetic diet
[2024-11-15 20:00] VITALS: BP 131/82; PULSE 88; RESP 17; TEMP 37.1; O2SAT 95
[2024-11-15] MEDS: LACTATED RINGERS 1000ML 500 ML 250 ML IV (20:27)
[2024-11-15 20:28] LABS: POC Glucose,Bedside 176 (70-110)
[2024-11-15] MEDS: TAMSULOSIN 0.4MG CAPSULE 0.4 MG PO (20:28)
[2024-11-15] MEDS: LIDOCAINE 5% TRANSDERMAL PATCH 2 EACH TD (20:32)
[2024-11-16] VITALS: BP 151/82; PULSE 77; RESP 18; TEMP 36.7; O2SAT 94
[2024-11-16 03:47] VITALS: BP 135/80; PULSE 88; RESP 16; TEMP 36.5; O2SAT 96; BMI 20.3
--- NOTE | 2024-11-16 04:30 | PC.NURSE ---
Pt A&O x4. Pt is on RA. Pt's bowel sounds hyperactive. Pt medicated per JUL. Pt had a small bowel movement. Pt's f/c is having good output. Pt has a slight tremor. Pt has redness to coccyx, mepilex intact. Pt has not voiced any further concerns. Pt resting w/ call light in reach. POC ongoing.
[2024-11-16 05:36] LABS: POC Glucose,Bedside 219 (70-110)
[2024-11-16] MEDS: humaLOG 100 UNITS/ML 10ML VIAL (SSI) 6 UNIT SUBCUT ×3 (05:36→16:53)
[2024-11-16] MEDS: humaLOG 100 UNITS/ML 10ML VIAL (SSI) SUBCUT ×3 (05:36→16:54)
[2024-11-16] MEDS: POLYETHYLENE GLYCOL 3350 17 GM PACKET PO ×2 (05:37→13:10)
[2024-11-16] MEDS: PHA TO NURSING INSTRUCTION 1 EACH NOTAPPLIC (05:52)
[2024-11-16 07:10] LABS: Vancomycin,Trough 11.3 ug/mL (5.0-10.0)
[2024-11-16 08:00] VITALS: BP 135/86; PULSE 89; RESP 16; TEMP 36.4; O2SAT 96
[2024-11-16] MEDS: CLOPIDOGREL 75MG TAB 75 MG PO (09:38)
[2024-11-16] MEDS: FINASTERIDE 5MG TABLET 5 MG PO (09:39)
[2024-11-16] MEDS: INSULIN GLARGINE 100 UNITS/ML 3ML FLEXPEN 50 UNIT SUBCUT (09:40)
[2024-11-16] MEDS: METHYLPREDNISOLONE SOD SUCC 40MG VIAL 32 MG IV (09:42)
[2024-11-16] MEDS: SENNOSIDES 8.6MG/DOCUSATE 50MG TABLET 1 TAB PO (09:43)
[2024-11-16] MEDS: SODIUM BICARBONATE 650MG TABLET 650 MG PO ×3 (09:43→20:55)
--- NOTE | 2024-11-16 09:51 | EXP.PULM.CON ---
History of Present Illness History of present illness: Mr. Howell is a 74-year-old male no significant smoking history, last month greater than 30 years ago with reported hypertension dyslipidemia CKD diabetes Alzheimer's recent stroke presented to the hospital abnormal labs, found to multiorgan failure with renal dysfunction liver injury pyelonephritis being managed in the hospital had a CT abdomen performed that showed concerning right lower lobe pleural-based opacity and pulmonary was called for further evaluation and management. [facility] Disclaimer: The information contained in this section may have been updated after the patient was seen, as this information can be updated by other users. Medical History (Updated 11/16/24 @ 15:45 by Lucas Reis MD) Cavitary lesion of lung Severe protein-calorie malnutrition Occasional tremors Diabetes Alzheimers disease Hypertension Surgical History History of testicular surgery Social History Smoking Status: Former smoker second hand exposure: No alcohol intake: former substance use type: denies use current occupational status: retired and disabled Travel in the last 8 weeks?: None household members: spouse housing: house marital status: caffeine: Yes Review of Systems Constitutional Constitutional: Reports anorexia and Reports fatigue Eyes Eyes: Denies eye discharge, Denies dry eyes, Denies irritation and Denies itchy eyes ENT Ears, Nose, Mouth, and Throat: Denies epistaxis, Denies facial pain, Denies lip swelling and Denies throat swelling *Cardiovascular Cardiovascular: Denies dyspnea and Reports dyspnea on exertion *Respiratory Respiratory: Denies change in phlegm color, Reports chest congestion, Reports cough, Denies dyspnea, Reports dyspnea on exertion, Denies excessive phlegm production, Denies hemoptysis, Denies pain on inspiration, Denies pain with cough and Denies wheezing *Gastrointestinal Gastrointestinal: Denies abdominal pain, Denies belching and Denies cramping *Musculoskeletal Musculoskeletal: Reports back pain, Reports myalgias and Reports other (No small joint swelling or Pain) Psychiatric Psychiatric: Denies homicidal ideation and Denies suicidal ideation Endocrine Endocrine: Reports fatigue and Denies heat intolerance Hematologic/Lymphatic Hematologic/Lymphatic: Denies easy bleeding and Denies lymphadenopathy Allergic/Immunologic Allergic/Immunologic: Denies itchy eyes, Denies lip swelling, Denies throat swelling and Denies wheezing Pulmonology Exam Inpatient Vital signs and Labs for Last 24 Hours: Temp Pulse Resp BP Pulse Ox O2 Del Method 97.5 F L 89 16 135/86 96 Room Air 11/16/24 08:00 11/16/24 08:00 11/16/24 08:00 11/16/24 08:00 11/16/24 08:00 11/16/24 08:00 Laboratory Results - last 24 hr 11/14/24 10:33: Angiotensin Convert Enz 68, LUIS E Comment Comment, LISSETH-1 Antibody <0.2, SS-A Antibody <0.2, SS-B Antibody <0.2, Sm (Snow) Antibody <0.2, INJURY/SAFETY HAZARD ASSESSMENT Antibody <0.2, Scl-70 Scleroderma Ab <0.2, Double Strand DNA Ab <1, Chromatin Antibody <0.2, Centromere B Antibody <0.2, Mitochondria M2 Ab <20.0, Anti-Smooth Muscle Ab 6, Liver/Kid Microsomes Ab 1.2 11/15/24 06:03: Cortisol 35.4 H 11/15/24 11:46: POC Glucose 319 H* 11/15/24 16:33: POC Glucose 253 H 11/15/24 20:20: POC Glucose 176 H 11/16/24 05:29: POC Glucose 219 H 11/16/24 05:49: Vancomycin Trough 11.3 H I & O for Labs for Last 24 Hours: Intake & Output 11/13/24 11/14/24 11/15/24 11/16/24 23:59 23:59 23:59 23:59 Intake Total 897 / 897 1480 / 1730 1280 / 1780 500 / 500 Output Total 2970 / 2970 1300 / 2200 4850 / 5400 1550 / 1550 Balance -2073 / -2073 180 / -470 -3570 / -3620 -1050 / -1050 Weight 184 lb 11.958 oz 144 lb 9 oz 144 lb 4.8 oz 150 lb 1.6 oz Microbiology Reports for the Last 24 Hours: Microbiology 11/11/24 18:33 Blood Blood Culture - Preliminary NO GROWTH AFTER 4 DAYS 11/11/24 18:30 Blood Blood Culture - Preliminary Staphylococcus aureus Constitutional: Present mild distress Head: Present normocephalic and atraumatic ENT: Present normal exam, normal oropharynx and mucous membranes moist Neck: Present normal inspection and full ROM Respiratory: Present prolonged expiratory phase, diminished air movement and able to speak in complete sentences; Absent respiratory distress, wheezes or crackles Cardiac: Present S1/S2, Tachycardia and radial pulses present GI: Present soft and distention; Absent tenderness or guarding Skin: Present intact; Absent cyanosis or jaundice Neuro: Present alert, awake and oriented x 3 Extremities: Present normal inspection; Absent clubbing or cyanosis Psychiatric: Present normal affect and cooperative Meds Home Medications and Allergies Home Medications ?Medication ?Instructions ?Recorded ?Confirmed ?Type primidone 250 mg tablet 500 mg PO BID 10/03/17 11/12/24 History tamsulosin 0.4 mg capsule 1 tab PO HS 10/03/17 11/12/24 History famotidine 20 mg tablet 20 mg PO BID 06/14/20 11/12/24 History lansoprazole 30 mg capsule,delayed 30 mg PO DAILY 06/14/20 11/12/24 History release donepezil 10 mg tablet 10 mg PO HS 09/29/24 11/12/24 History montelukast 10 mg tablet 10 mg PO HS 09/29/24 11/12/24 History mirabegron 25 mg tablet,extended 25 mg PO DAILY 09/30/24 11/12/24 History release 24 hr (Myrbetriq) [id number] 300 mcg-K 60 1 tab PO DAILY 09/30/24 11/12/24 History mcg-lycop 600 mcg-lutein 300 mcg tablet (Centrum Silver Ultra Men's) propranolol 20 mg tablet 20 mg PO BID 09/30/24 11/12/24 History insulin glargine 100 unit/mL (3 40 unit (0.4 mL) SQ DAILY #15 mL 10/02/24 11/12/24 Rx mL) subcutaneous pen (Lantus Solostar U-100 Insulin) insulin lispro 100 unit/mL 15 unit (0.15 mL) SQ AC 30 days 10/02/24 11/12/24 Rx subcutaneous pen #15 mL aspirin 81 mg chewable tablet 1 tab PO DAILY 10/27/24 11/12/24 History atorvastatin 80 mg tablet 80 mg PO HS 10/27/24 11/12/24 History clopidogrel 75 mg tablet 75 mg PO DAILY 10/27/24 11/12/24 History midodrine 10 mg tablet 10 mg PO BID 11/04/24 11/12/24 History polyethylene glycol 3350 17 17 g PO DAILY #119 grams 11/04/24 11/12/24 Rx gram/dose oral powder sennosides 8.6 mg capsule (senna) 8.6 mg PO BID PRN constipation #60 11/04/24 11/12/24 Rx caps sodium bicarbonate 650 mg tablet 1,300 mg PO BID 11/04/24 11/12/24 History New Prescriptions to Start Prescriptions: Allergies Allergy/AdvReac Type Severity Reaction Status Date / Time ezetimibe (From Zetia) AdvReac Severe muscle Verified 11/10/24 08:54 cramps methocarbamol AdvReac Verified 11/10/24 08:54 Results Laboratory Findings 11/16/24 12:13 11/16/24 12:13 Abnormal lab findings: Abnormal Labs 11/11/24 11/11/24 11/11/24 15:27 15:39 17:20 WBC 11.3 H RBC 2.23 L Hgb 7.3 L Hct 21.0 L MCV 94.2 H MCH 32.7 H Neut % (Auto) 87.2 H Lymph % (Auto) 4.6 L Major % (Auto) Neut # (Auto) 9.8 H Lymph # (Auto) 0.5 L Neutrophils % (Manual) 95 H Lymphocytes % (Manual) 1 L VBG pCO2 34.5 L VBG HCO3 19.1 L VBG Total CO2 20.2 L VBG O2 Saturation 70.9 H VBG Base Excess -6.3 L Sodium 126 L Potassium Chloride 88 L Carbon Dioxide 18 L Anion Gap 23.7 H BUN 101 H* Creatinine 3.90 H Estimated GFR 15 L* Est GFR ( Amer) 18 L* Glucose 198 H POC Glucose Calcium Magnesium Iron TIBC Ferritin GGT AST 493 H* D ALT 409 H* Alkaline Phosphatase 477 H Total Creatine Kinase C-Reactive Protein Total Protein Albumin Globulin 4.1 H Albumin/Globulin Ratio 1.0 L Ceruloplasmin Carcinoembryonic Ag Cortisol Urine Protein 1+ A Urine Blood 1+ A Urine Nitrate Positive A Ur Leukocyte Esterase 3+ A Vancomycin Trough Crossmatch ([facility]) See Detail 11/11/24 11/11/24 11/11/24 17:39 18:57 21:29 WBC RBC Hgb 6.3 L* Hct 18.5 L* MCV MCH Neut % (Auto) Lymph % (Auto) Major % (Auto) Neut # (Auto) Lymph # (Auto) Neutrophils % (Manual) Lymphocytes % (Manual) VBG pCO2 VBG HCO3 VBG Total CO2 VBG O2 Saturation VBG Base Excess Sodium Potassium Chloride Carbon Dioxide Anion Gap BUN Creatinine Estimated GFR Est GFR ( Amer) Glucose POC Glucose 168 H Calcium Magnesium Iron TIBC Ferritin GGT AST ALT Alkaline Phosphatase Total Creatine Kinase C-Reactive Protein Total Protein Albumin Globulin Albumin/Globulin Ratio Ceruloplasmin Carcinoembryonic Ag Cortisol Urine Protein 1+ A Urine Blood 2+ A Urine Nitrate Positive A Ur Leukocyte Esterase 3+ A Vancomycin Trough Crossmatch (G) 11/12/24 11/12/24 11/12/24 00:00 05:00 05:38 WBC RBC 3.01 L D Hgb 7.4 L D 9.4 L D Hct 21.7 L 27.2 L MCV MCH Neut % (Auto) 85.6 H Lymph % (Auto) 5.9 L Major % (Auto) Neut # (Auto) 7.9 H Lymph # (Auto) 0.5 L Neutrophils % (Manual) 84 H Lymphocytes % (Manual) 6 L VBG pCO2 VBG HCO3 VBG Total CO2 VBG O2 Saturation VBG Base Excess Sodium 125 L Potassium 3.4 L Chloride 93 L Carbon Dioxide 15 L Anion Gap 20.4 H BUN 87 H Creatinine 2.90 H D Estimated GFR 21 L Est GFR ( Amer) 26 L D Glucose 270 H D POC Glucose Calcium 8.2 L Magnesium Iron TIBC Ferritin GGT AST 495 H* ALT 401 H* Alkaline Phosphatase 425 H Total Creatine Kinase C-Reactive Protein Total Protein 6.2 L Albumin 3.0 L D Globulin Albumin/Globulin Ratio 0.9 L Ceruloplasmin Carcinoembryonic Ag Cortisol Urine Protein Urine Blood Urine Nitrate Ur Leukocyte Esterase Vancomycin Trough Crossmatch ([facility]) 11/12/24 11/12/24 11/12/24 06:18 11:11 16:29 WBC RBC Hgb Hct MCV MCH Neut % (Auto) Lymph % (Auto) Major % (Auto) Neut # (Auto) Lymph # (Auto) Neutrophils % (Manual) Lymphocytes % (Manual) VBG pCO2 VBG HCO3 VBG Total CO2 VBG O2 Saturation VBG Base Excess Sodium Potassium Chloride Carbon Dioxide Anion Gap BUN Creatinine Estimated GFR Est GFR ( Amer) Glucose POC Glucose 310 H* 187 H 251 H Calcium Magnesium Iron TIBC Ferritin GGT AST ALT Alkaline Phosphatase Total Creatine Kinase C-Reactive Protein Total Protein Albumin Globulin Albumin/Globulin Ratio Ceruloplasmin Carcinoembryonic Ag Cortisol Urine Protein Urine Blood Urine Nitrate Ur Leukocyte Esterase Vancomycin Trough Crossmatch ([facility]) 11/12/24 11/13/24 11/13/24 20:54 06:01 07:35 WBC RBC 3.03 L Hgb 9.5 L Hct 27.6 L MCV MCH 31.4 H Neut % (Auto) 87.5 H Lymph % (Auto) 4.0 L Major % (Auto) Neut # (Auto) 7.9 H Lymph # (Auto) 0.4 L Neutrophils % (Manual) 89 H Lymphocytes % (Manual) 6 L VBG pCO2 VBG HCO3 VBG Total CO2 VBG O2 Saturation VBG Base Excess Sodium 124 L Potassium 3.2 L Chloride 90 L Carbon Dioxide 20 L Anion Gap 17.2 H BUN 67 H Creatinine 2.50 H Estimated GFR 25 L Est GFR ( Amer) 31 L Glucose 177 H POC Glucose 222 H 179 H Calcium Magnesium 1.5 L D Iron 37 L TIBC 171 L Ferritin 4500 H D GGT 1162 H AST 695 H* D ALT 544 H* Alkaline Phosphatase 491 H Total Creatine Kinase 48 L C-Reactive Protein Total Protein Albumin 2.9 L Globulin 3.4 H Albumin/Globulin Ratio 0.9 L Ceruloplasmin Carcinoembryonic Ag 5.9 H Cortisol Urine Protein Urine Blood Urine Nitrate Ur Leukocyte Esterase Vancomycin Trough Crossmatch ([facility]) 11/13/24 11/13/24 11/13/24 11:16 16:10 16:29 WBC RBC Hgb Hct MCV MCH Neut % (Auto) Lymph % (Auto) Major % (Auto) Neut # (Auto) Lymph # (Auto) Neutrophils % (Manual) Lymphocytes % (Manual) VBG pCO2 VBG HCO3 VBG Total CO2 VBG O2 Saturation VBG Base Excess Sodium 123 L Potassium 5.2 H D Chloride 87 L Carbon Dioxide Anion Gap 16.2 H BUN 62 H Creatinine 2.50 H Estimated GFR 25 L Est GFR ( Amer) 31 L Glucose 301 H D POC Glucose 340 H* 323 H* Calcium Magnesium 2.7 H D Iron TIBC Ferritin GGT AST ALT Alkaline Phosphatase Total Creatine Kinase C-Reactive Protein Total Protein Albumin Globulin Albumin/Globulin Ratio Ceruloplasmin 53.8 H Carcinoembryonic Ag Cortisol Urine Protein Urine Blood Urine Nitrate Ur Leukocyte Esterase Vancomycin Trough Crossmatch ([facility]) 11/13/24 11/14/24 11/14/24 21:30 05:55 06:48 WBC RBC 3.13 L Hgb 9.7 L Hct 28.2 L MCV MCH Neut % (Auto) Lymph % (Auto) 7.3 L Major % (Auto) 10.0 H Neut # (Auto) Lymph # (Auto) 0.6 L Neutrophils % (Manual) Lymphocytes % (Manual) VBG pCO2 VBG HCO3 VBG Total CO2 VBG O2 Saturation VBG Base Excess Sodium 127 L Potassium Chloride 92 L Carbon Dioxide Anion Gap 17.1 H BUN 61 H Creatinine 2.50 H Estimated GFR 25 L Est GFR ( Amer) 31 L Glucose 205 H D POC Glucose 197 H 201 H Calcium Magnesium Iron TIBC Ferritin GGT AST 1365 H* D ALT 1074 H* Alkaline Phosphatase 775 H Total Creatine Kinase C-Reactive Protein Total Protein Albumin Globulin 4.0 H Albumin/Globulin Ratio 0.9 L Ceruloplasmin Carcinoembryonic Ag Cortisol Urine Protein Urine Blood Urine Nitrate Ur Leukocyte Esterase Vancomycin Trough Crossmatch ([facility]) 11/14/24 11/14/24 11/14/24 10:33 10:35 16:16 WBC RBC Hgb Hct MCV MCH Neut % (Auto) Lymph % (Auto) Major % (Auto) Neut # (Auto) Lymph # (Auto) Neutrophils % (Manual) Lymphocytes % (Manual) VBG pCO2 VBG HCO3 VBG Total CO2 VBG O2 Saturation VBG Base Excess Sodium Potassium Chloride Carbon Dioxide Anion Gap BUN Creatinine Estimated GFR Est GFR ( Amer) Glucose POC Glucose 273 H 257 H Calcium Magnesium Iron TIBC Ferritin GGT AST ALT Alkaline Phosphatase Total Creatine Kinase C-Reactive Protein Total Protein Albumin Globulin Albumin/Globulin Ratio Ceruloplasmin 56.4 H Carcinoembryonic Ag Cortisol Urine Protein Urine Blood Urine Nitrate Ur Leukocyte Esterase Vancomycin Trough Crossmatch ([facility]) 11/14/24 11/15/24 11/15/24 20:28 05:39 06:03 WBC RBC 2.93 L Hgb 9.0 L Hct 26.7 L MCV MCH Neut % (Auto) Lymph % (Auto) Major % (Auto) 10.1 H Neut # (Auto) Lymph # (Auto) Neutrophils % (Manual) Lymphocytes % (Manual) VBG pCO2 VBG HCO3 VBG Total CO2 VBG O2 Saturation VBG Base Excess Sodium 122 L Potassium Chloride 87 L Carbon Dioxide Anion Gap 16.1 H BUN 64 H Creatinine 2.60 H Estimated GFR 24 L Est GFR ( Amer) 29 L Glucose 225 H POC Glucose 252 H 238 H Calcium Magnesium Iron TIBC Ferritin GGT AST 631 H* D ALT 733 H* Alkaline Phosphatase 641 H Total Creatine Kinase C-Reactive Protein 251.0 H Total Protein Albumin 3.4 L Globulin 3.7 H Albumin/Globulin Ratio 0.9 L Ceruloplasmin Carcinoembryonic Ag Cortisol 35.4 H Urine Protein Urine Blood Urine Nitrate Ur Leukocyte Esterase Vancomycin Trough Crossmatch ([facility]) 11/15/24 11/15/24 11/15/24 11:46 16:33 20:20 WBC RBC Hgb Hct MCV MCH Neut % (Auto) Lymph % (Auto) Major % (Auto) Neut # (Auto) Lymph # (Auto) Neutrophils % (Manual) Lymphocytes % (Manual) VBG pCO2 VBG HCO3 VBG Total CO2 VBG O2 Saturation VBG Base Excess Sodium Potassium Chloride Carbon Dioxide Anion Gap BUN Creatinine Estimated GFR Est GFR ( Amer) Glucose POC Glucose 319 H* 253 H 176 H Calcium Magnesium Iron TIBC Ferritin GGT AST ALT Alkaline Phosphatase Total Creatine Kinase C-Reactive Protein Total Protein Albumin Globulin Albumin/Globulin Ratio Ceruloplasmin Carcinoembryonic Ag Cortisol Urine Protein Urine Blood Urine Nitrate Ur Leukocyte Esterase Vancomycin Trough Crossmatch ([facility]) 11/16/24 11/16/24 05:29 05:49 WBC RBC Hgb Hct MCV MCH Neut % (Auto) Lymph % (Auto) Major % (Auto) Neut # (Auto) Lymph # (Auto) Neutrophils % (Manual) Lymphocytes % (Manual) VBG pCO2 VBG HCO3 VBG Total CO2 VBG O2 Saturation VBG Base Excess Sodium Potassium Chloride Carbon Dioxide Anion Gap BUN Creatinine Estimated GFR Est GFR ( Amer) Glucose POC Glucose 219 H Calcium Magnesium Iron TIBC Ferritin GGT AST ALT Alkaline Phosphatase Total Creatine Kinase C-Reactive Protein Total Protein Albumin Globulin Albumin/Globulin Ratio Ceruloplasmin Carcinoembryonic Ag Cortisol Urine Protein Urine Blood Urine Nitrate Ur Leukocyte Esterase Vancomycin Trough 11.3 H Crossmatch ([facility]) Assessment and Plan *Assessment and plan (1) Abnormal findings on imaging test: Status: Acute Category: Medical Code(s): R93.89 - Abnormal findings on diagnostic imaging of other specified body structures (2) Cavitary lesion of lung: Status: Acute Category: Medical Code(s): J98.4 - Other disorders of lung Plan Mr. Howell is a 74-year-old male no significant smoking history, last month greater than 30 years ago with reported hypertension dyslipidemia CKD diabetes Alzheimer's recent stroke presented to the hospital abnormal labs, found to multiorgan failure with renal dysfunction liver injury pyelonephritis being managed in the hospital had a CT abdomen performed that showed concerning right lower lobe pleural-based opacity and pulmonary was called for further evaluation and management. CT chest concerning right lower lobe medial pleural-based opacity with central cavitation noted. No other airspace or consolidative changes appreciated no significant mediastinal or hilar lymphadenopathy appreciated. No recent prior imaging other than CT abdomen from earlier this admission available for review. Noted findings more likely infectious and malignant etiology however cannot completely rule out. Afebrile. Hemodynamically stable. No evidence of leukocytosis. Plan: Continue levofloxacin to complete a total of 10-day course Follow with repeat CT chest in 6 to 8 weeks to further determine the need for biopsy.
--- NOTE | 2024-11-16 11:20 | DIET.NUTRFU ---
meal intake reviewed, meal refusal last 2 meals. Glucerna added to trays. Continue to trigger for severe protein calorie malnutrition. Possible hospice upon discharge, will continue to follow
[2024-11-16] MEDS: MAGNESIUM CITRATE 10OZ BOTTLE 10 OZ PO (11:33)
[2024-11-16] MEDS: LEVOFLOXACIN/D5W 750 MG/150 ML 750 MG/150 ML PIGGYBACK 100 MG IV (11:33)
[2024-11-16 12:00] VITALS: BP 143/88; PULSE 92; RESP 20; TEMP 36.3; O2SAT 99
[2024-11-16 12:00] LABS: Chloride 85 mmol/L (98-107); Potassium 5.4 mmoL/L (3.5-5.1); Sodium 124 mmol/L (136-145)
[2024-11-16 12:03] LABS: Anion Gap 17.4 mEq/L (5-15); Blood Urea Nitrogen 69 mg/dl (9-20); Calcium 9.2 mg/dl (8.4-10.2); Carbon Dioxide 27 mmol/L (22.0-30.0); Creatinine Clearance Estimated 27 mL/min (50-200); Creatinine,Serum 2.30 mg/dl (0.66-1.25); Estimated Glomerular Filt Rate 28 ml/min (>60); GFR (African American) 34 ML/MIN (>60); Glucose 228 mg/dl (74-100)
[2024-11-16 12:38] LABS: Albumin Level 4.0 g/dl (3.5-5.0); Chloride 84 mmol/L (98-107); Potassium 5.5 mmoL/L (3.5-5.1); Sodium 124 mmol/L (136-145)
[2024-11-16 12:40] LABS: Anion Gap 18.5 mEq/L (5-15); Blood Urea Nitrogen 69 mg/dl (9-20); Carbon Dioxide 27 mmol/L (22.0-30.0); Creatinine Clearance Estimated 28 mL/min (50-200); Creatinine,Serum 2.20 mg/dl (0.66-1.25); Estimated Glomerular Filt Rate 29 ml/min (>60); GFR (African American) 36 ML/MIN (>60)
[2024-11-16 12:41] LABS: Alanine Aminotransferase 637 U/L (12-78); Albumin/Globulin Ratio 0.9 (1.1-1.8); Alkaline Phosphatase 728 U/L (38-126); Aspartate Amino Transferase 347 U/L (17-59); Bilirubin,Total 0.7 mg/dl (0.2-1.3); Calcium 9.7 mg/dl (8.4-10.2); Globulin 4.4 g/dL (1.3-3.2); Glucose 246 mg/dl (74-100); Magnesium 2.4 mg/dl (1.6-2.3); Total Protein,Serum 8.4 g/dl (6.3-8.2)
[2024-11-16 12:48] LABS: Hematocrit 31.5 % (42.0-52.0); Hemoglobin 10.5 g/dL (14.1-18.0); Immature Granulocytes % 0.6 %; Mean Corpuscular HGB Conc 33.3 g/dL (31.8-35.4); Mean Corpuscular Hemoglobin 31.0 pg (27.0-31.2); Mean Corpuscular Volume 92.9 fl (80-94); Nucleated Red Blood Cells % 0 %; Platelet Count 376 K/mm3 (142-424); Red Blood Count 3.39 M/mm3 (4.60-6.20); Red Cell Distribution Width-SD 50.0 fL; White Blood Count 8.5 K/mm3 (4.8-10.8)
[2024-11-16 13:25] LABS: RBC Morphology Normal; Total Cells Counted 100
[2024-11-16 16:00] VITALS: BP 140/75; PULSE 82; RESP 18; TEMP 36.9; O2SAT 97
--- NOTE | 2024-11-16 16:39 | P.PN_ITS ---
Subjective *Date: 11/16/24 *Time: 16:39 Interval history: The patient is still having difficulty having a bowel movement. Exam Data for Last 24 hours Vital signs and Labs for Last 24 Hours: Temp Pulse Resp BP Pulse Ox O2 Del Method 97.4 F L 92 H 20 143/88 H 99 Room Air 11/16/24 12:00 11/16/24 12:00 11/16/24 12:00 11/16/24 12:00 11/16/24 12:00 11/16/24 15:00 Laboratory Results - last 24 hr 11/15/24 06:03: Cortisol 35.4 H 11/15/24 16:33: POC Glucose 253 H 11/15/24 20:20: POC Glucose 176 H 11/16/24 05:29: POC Glucose 219 H 11/16/24 05:49: Sodium 124 L, Potassium 5.4 H, Chloride 85 L, Carbon Dioxide 27, Anion Gap 17.4 H, BUN 69 H, Creatinine 2.30 H, Estimated Creat Clear 27, Estimated GFR 28 L, Est GFR ( Amer) 34 L, Glucose 228 H, Calcium 9.2, Vancomycin Trough 11.3 H 11/16/24 12:13: WBC 8.5, RBC 3.39 L, Hgb 10.5 L, Hct 31.5 L, MCV 92.9, MCH 31.0, MCHC 33.3, RDW 14.7, Plt Count 376, MPV 8.5, Neut % (Auto) 89.6 H, Lymph % (Auto) 4.3 L, [place] % (Auto) 4.0, Eos % (Auto) 1.1, Baso % (Auto) 0.4, Neut # (Auto) 7.7, Lymph # (Auto) 0.4 L, [place] # (Auto) 0.3, Eos # (Auto) 0.1, Baso # (Auto) 0.0, Total Counted 100, Neutrophils % (Manual) 90 H, Lymphocytes % (Manual) 4 L, Monocytes % (Manual) 5, Eosinophils % (Manual) 1, Platelet Estimate Normal, RBC Morphology Normal, Sodium 124 L, Potassium 5.5 H, Chloride 84 L, Carbon Dioxide 27, Anion Gap 18.5 H, BUN 69 H, Creatinine 2.20 H, Estimated Creat Clear 28, Estimated GFR 29 L, Est GFR ( Amer) 36 L, Glucose 246 H, Calcium 9.7, Magnesium 2.4 H D, Total Bilirubin 0.7, AST 347 H* D , ALT 637 H*, Alkaline Phosphatase 728 H, Total Protein 8.4 H, Albumin 4.0 D, Globulin 4.4 H, Albumin/Globulin Ratio 0.9 L I & O for Last 24 hours: Intake & Output 11/13/24 11/14/24 11/15/24 11/16/24 23:59 23:59 23:59 23:59 Intake Total 897 / 897 1480 / 1730 1280 / 1780 1010 / 1010 Output Total 2970 / 2970 1300 / 2200 4850 / 5400 2100 / 2100 Balance -2073 / -2073 180 / -470 -3570 / -3620 -1090 / -1090 Weight 184 lb 11.958 oz 144 lb 9 oz 144 lb 4.8 oz 150 lb 1.6 oz Microbiology Reports for the Last 24 Hours: Microbiology 11/11/24 18:33 Blood Blood Culture - Preliminary NO GROWTH AFTER 4 DAYS Constitutional Constitutional: no acute distress *Routine HEENT Exam Head: Present normocephalic Eye: Present EOMI and PERRL ENT: Present mucous membranes moist *Routine Neck Exam Neck: Present supple; Absent lymphadenopathy *Routine Respiratory Exam Respiratory: Present CTA bilaterally *Routine Cardiovascular Exam Cardiovascular: Present RRR *Routine Abdominal Exam Abdominal: Present soft and normoactive bowel sounds; Absent tenderness *Routine Extremities Exam Extremities: Absent cyanosis, clubbing or edema *Routine Skin Exam Skin: Present warm; Absent rash *Routine Neurological Exam Neurological: Present alert and oriented X3 Assessment and Plan *Assessment and plan (1) Constipation: Status: Acute Category: Medical Code(s): K59.00 - Constipation, unspecified (2) Elevated liver transaminase level: Status: Acute Category: Medical Code(s): R74.01 - Elevation of levels of liver transaminase levels (3) Elevated alkaline phosphatase level: Status: Acute Category: Medical Code(s): R74.8 - Abnormal levels of other serum enzymes Plan 1. Hepatocellular/cholestatic hepatitis of unknown etiology. This could be drug-induced, reactive, metabolic. I do feel that a trial of corticosteroids/me thylprednisolone is warranted. I would favor percutaneous liver biopsy if he had less comorbidities. I do think the biopsy poses some risk and methylprednisolone makes sense. I would check liver chemistries at 1, 2 and 4 weeks. If there is complete resolution, I would consider slow taper. If there is no resolution within 4 weeks, I would rapidly taper off. If we have improvement and then taper off of the methylprednisolone and he has repeat escalation then I would consider retrial of methylprednisolone and probably addition of immunosuppressant. At that point we may still consider liver biopsy. 2. Marked constipation With imaging studies showing circumferential wall thickening of the distal rectum at the anorectal junction. I am going to recommend sigmoidoscopy tomorrow morning to assess anal rectal area and exclude mass (benign or malignant stricturing)
[2024-11-16 16:51] LABS: POC Glucose,Bedside 195 (70-110)
[2024-11-16 16:52] LABS: POC Glucose,Bedside 247 (70-110)
--- NOTE | 2024-11-16 17:30 | PC.NURSE ---
pt is A&Ox4. he is a DNR/DNI. he still has had no bowel movement although we have given him several different things to make him go. he still has a pearl catheter. he will be NPO after midnight to have a sigmoidoscopy in the morning. he did not want the lidocaine patch today. he states he didn't feel as if they helped anyways. pt to start the go adonay vidal. Call light is within reach.
[2024-11-16] MEDS: PEG-ELECTROLYTE SOLN 4000ML BOTTLE 4000 ML PO (17:59)
[2024-11-16] MEDS: MINERAL OIL ENEMA 133ML 133 ML RC (18:32)
[2024-11-16 20:00] VITALS: BP 155/90; PULSE 107; RESP 22; TEMP 36.4; O2SAT 96
--- NOTE | 2024-11-16 20:52 | P.PN_ITS ---
Subjective *Date: 11/16/24 *Time: 20:52 Interval history: Had a small bowel movement this morning. Decreased gas production today. Feeling some mild nausea. Afebrile, stable in room air Medical Exam Vital signs and Labs for Last 24 Hours: Vital Signs Temp Pulse Resp BP Pulse Ox O2 Del Method 11/16/24 20:00 97.6 F 107 H 22 155/90 H 96 Room Air 11/16/24 19:36 Room Air 11/16/24 19:03 Room Air 11/16/24 17:15 Room Air 11/16/24 16:00 98.5 F 82 18 140/75 97 Room Air 11/16/24 15:00 Room Air 11/16/24 13:12 Room Air 11/16/24 12:00 97.4 F L 92 H 20 143/88 H 99 Room Air 11/16/24 11:05 Room Air 11/16/24 09:00 Room Air 11/16/24 08:00 96 Room Air 11/16/24 08:00 97.5 F L 89 16 135/86 96 Room Air 11/16/24 06:50 Room Air 11/16/24 05:00 Room Air 11/16/24 03:47 97.7 F 88 16 135/80 96 Room Air 11/16/24 03:00 Room Air 11/16/24 01:00 Room Air 11/16/24 00:00 98.1 F 77 18 151/82 H 94 L Room Air 11/15/24 23:00 Room Air 11/15/24 21:00 Room Air Intake and Output 11/16/24 11/16/24 11/16/24 07:59 15:59 23:59 Intake Total 500 / 1130 240 / 1130 390 / 1130 Output Total 1350 / 3200 750 / 3200 1100 / 3200 Balance -850 / -2070 -510 / -2070 -710 / -2070 Intake: Intake, Oral Amount 240 / 480 240 / 480 Intake, Total IV Amount 500 / 650 150 / 650 Lactated Ringers 1000ML 500 ml 500 / 500 @ 250 mls/hr IV .Q2H ONE Rx#: [id number] Levofloxacin/D5w 750 mg/150 ml 150 / 150 750 mg In 150 ml @ 100 mls/hr IV Q48H [facility] Rx#:[id number] Output: Output, Urine Amount 1350 / 3200 750 / 3200 1100 / 3200 Other: Number of Unmeasured Voids 0 0 Number of Bowel Movements 1 1 Weight 68.084 kg Patient Weight 11/16/24 23:59 Weight 68.084 kg Laboratory Results - last 24 hr 11/14/24 06:48: TB Test (QFT) Nil 0.08, TB Test (QFT) Mitogen 2.48, TB Test (QFT) Ag 1 0.08, TB Test (QFT) Ag 2 0.08, TB Positive Criteria Comment, TB Test (QFT) Interp Negative 11/15/24 06:03: Cortisol 35.4 H 11/16/24 05:29: POC Glucose 219 H 11/16/24 05:49: Sodium 124 L, Potassium 5.4 H, Chloride 85 L, Carbon Dioxide 27, Anion Gap 17.4 H, BUN 69 H, Creatinine 2.30 H, Estimated Creat Clear 27, Estimated GFR 28 L, Est GFR ( Amer) 34 L, Glucose 228 H, Calcium 9.2, Vancomycin Trough 11.3 H 11/16/24 11:35: POC Glucose 247 H 11/16/24 12:13: WBC 8.5, RBC 3.39 L, Hgb 10.5 L, Hct 31.5 L, MCV 92.9, MCH 31.0, MCHC 33.3, RDW 14.7, Plt Count 376, MPV 8.5, Neut % (Auto) 89.6 H, Lymph % (Auto) 4.3 L, Cache % (Auto) 4.0, Eos % (Auto) 1.1, Baso % (Auto) 0.4, Neut # (Auto) 7.7, Lymph # (Auto) 0.4 L, Cache # (Auto) 0.3, Eos # (Auto) 0.1, Baso # (Auto) 0.0, Total Counted 100, Neutrophils % (Manual) 90 H, Lymphocytes % (Manual) 4 L, Monocytes % (Manual) 5, Eosinophils % (Manual) 1, Platelet Es timate Normal, RBC Morphology Normal, Sodium 124 L, Potassium 5.5 H, Chloride 84 L, Carbon Dioxide 27, Anion Gap 18.5 H, BUN 69 H, Creatinine 2.20 H, Estimated Creat Clear 28, Estimated GFR 29 L, Est GFR ( Amer) 36 L, Glucose 246 H, Calcium 9.7, Magnesium 2.4 H D, Total Bilirubin 0.7, AST 347 H* D, ALT 637 H*, Alkaline Phosphatase 728 H, Total Protein 8.4 H, Albumin 4.0 D, Globulin 4.4 H, Albumin/Globulin Ratio 0.9 L 11/16/24 16:44: POC Glucose 195 H I & O for Labs for Last 24 Hours: Intake & Output 11/13/24 11/14/24 11/15/24 11/16/24 23:59 23:59 23:59 23:59 Intake Total 897 / 897 1480 / 1730 1280 / 1780 1130 / 1130 Output Total 2970 / 2970 1300 / 2200 4850 / 5400 3200 / 3200 Balance -2072 / -2072 180 / -470 -3570 / -3620 -2069 / -2069 Weight 83.8 kg 65.572 kg 65.453 kg 68.084 kg Microbiology Reports for the Last 24 Hours: Microbiology 11/11/24 18:33 Blood Blood Culture - Final NO GROWTH AFTER 5 DAYS Constitutional: Present mild distress, thin, chronically ill appearing and cooperative Head: Present atraumatic and normocephalic ENT: Present normal exam Respiratory: Present normal respiratory effort; Absent rhonchi, wheezes or crackles Cardiac: Present Reg Rate and Rhythm GI: Present soft, tenderness (Nonfocal) and normal bowel sounds; Absent distention Extremities: Present normal inspection and full ROM; Absent edema Skin: Present intact; Absent erythema Neuro: Present Grossly Intact, alert, awake, oriented x 3 and moves all extremities Comment:: tremor Assessment and Plan *Assessment and plan (1) Emphysematous pyelonephritis: Status: Acute Category: Medical Code(s): N12 - Tubulo-interstitial nephritis, not specified as acute or chronic (2) Cholestatic hepatitis: Status: Acute Category: Medical Code(s): K75.89 - Other specified inflammatory liver diseases (3) RINA (acute kidney injury): Status: Acute Category: Medical Code(s): N17.9 - Acute kidney failure, unspecified (4) Acute uremia: Status: Acute Category: Medical Code(s): N19 - Unspecified kidney failure (5) Insulin dependent type 2 diabetes mellitus: Status: Acute Category: Medical Code(s): E11.9 - Type 2 diabetes mellitus without complications; Z79.4 - [facility] (current) use of insulin (6) Tremor: Status: Chronic Category: Medical Code(s): R25.1 - Tremor, unspecified (7) Alzheimers disease: Status: Chronic Category: Medical Code(s): G30.9 - Alzheimer's disease, unspecified; F02.80 - Dementia in other diseases classified elsewhere, unspecified severity, without behavioral disturbance, psychotic disturbance, mood disturbance, and anxiety (8) Acute UTI: Status: Acute Category: Medical Code(s): N39.0 - Urinary tract infection, site not specified (9) Severe protein-calorie malnutrition: Status: Acute Category: Medical Code(s): E43 - Unspecified severe protein-calorie malnutrition Plan 74-year-old male who presents with weakness, urinary obstruction, concern for infection. Imaging showing gas in the renal collecting system concerning for emphysematous pyelonephritis. Aide case with ER physician, extensive discussion about patient's comorbidities, multiorgan dysfunction, severity of illness and need for transfer to higher level of care. Patient unwilling to be transferred but not safe to discharge home. I decided to admit to the ICU for further manag ement given patient's complexity. Condition remains serious, prognosis remains guarded. Transition to Levaquin for UTI and empiric broad-spectrum coverage. Discontinue ceftriaxone and vancomycin. GI evaluating daily. Labs showing some improvement in liver function. Inflammatory labs continue to be elevated. Hepatitis panel negative. Evaluated today. Continues to require inpatient management. Problems addressed as follows: Emphysematous pyelonephritis UTI, E. coli -Was admitted a month ago with UTI and DKA. Urine at that time positive for E. coli. CT on admission showing gas in kidneys and collecting system. - Negative volume status since admission, appears to be auto diuresing with resolution of bladder obstruction and improvement in kidney function. - Catheter remains in place - Single bottle from 4 bottles of blood cultures returned positive for MRSA, suspect commensal however empirically started on vancomycin given patient's tenuous condition. Low suspicion for staph infection. Transition to levofloxacin renally dosed 750 mg every 48 hours for E. coli UTI) for spectrum coverage. - Continue tamsulosin 0.4 mg nightly, initiate finasteride 5 mg daily - Anticipate discharge with Tracey RINA on CKD 4. RINA appears to be stabilized. BUN remains elevated at 69, creatinine 2.2. Showing slight improvement. Potassium 5.5, sodium 124. continue sodium bicarbonate 650 mg twice daily to address acidosis and hyponatremia. Bicarb 27 today. Cholestatic hepatitis: - CT shows normal liver, gallbladder and biliary ducts with nonobstructing cholelithiasis. Pancreas with no ductal dilatation. Patient does have circumferential wall thickening in the distal rectum - CEA marginally elevated above 5, CA 19-9 within normal range - Liver enzymes showed improvement today with bilirubin 0.9, AST 631, ALT 730, alk phos 640 - Suspect elevated GGT, ferritin, ceruloplasmin which is 56 are related to inflammation of liver. Extensive discussion with GI today about inflammatory liver process, will initiate steroids with methylprednisolone 32 mg daily and monitor for improvement. - Hepatitis panel negative, TB negative, autoimmune labs pending. - Discussed case with GI today, recommend continuing the steroids. Transition to prednisone 40 mg p.o. daily in the morning. Continue aggressive treatment of constipation. Will proceed with sigmoidoscopy in the morning to evaluate circumferential wall thickening of the distal rectum and anorectal junction -Caution with hepatotoxic drugs - Continue to hold primidone and propranolol - Also concern that is related to his underlying metabolic disease/diabetes along with poor p.o. intake/refeeding. - CBC, CMP, magnesium ordered daily. Poorly controlled diabetes - A1c 10.3 on 10/31. Still above goal of 7. Continue sliding scale high intensity. Continue fingersticks ACHS. - Morning glucose 246. Increase basal to 60 units in the morning. Continue additional 6 units short acting plus sliding scale with meals. - Continue diabetic diet - TSH 0.21 1 month ago - Intolerant of metformin. Will hold at this time - Cortisol elevated at 35, consistent with stress reaction Anemia: - Status posttransfusion of 2 units, hemoglobin stable at 10.5 this morning. - Transfusion threshold less than 7. Unclear etiology of potential loss whether its malnutrition, chronic disease, renal failure, secondary to thickening of rectum (neoplasm?). Longstanding tremor: Holding propranolol and primidone due to his constipation and liver enzyme elevation. Monitor tremor. Will cautiously resume if necessary Constipation: Severe on CT on admission. Continue MiraLAX 1 more time today. Additional dose of mag citrate 10 ounces. Administer mineral oil enema DNR/DNI Lovenox 30 mg subcu daily Diabetic diet
[2024-11-16] MEDS: SENNOSIDES 8.6MG/DOCUSATE 50MG TABLET 2 TAB PO (20:54)
[2024-11-16] MEDS: TAMSULOSIN 0.4MG CAPSULE 0.4 MG PO (20:55)
[2024-11-16 21:10] LABS: POC Glucose,Bedside 120 (70-110)
[2024-11-17] VITALS (14 sets, daily range): BP systolic 117–139; BP diastolic 67–87; PULSE 72–114; RESP 16–18; TEMP 36.2–36.8; O2SAT 93–100; BMI 18.7
--- NOTE | 2024-11-17 05:17 | PC.NURSE ---
Addendum entered by Bronwyn Golden RN 11/17/24 05:54: NPO at midnight Original Note: V/s, ox4. Pt had severe diarrhea due to bowel prep. Pt denied sob and pain. Pt's bottom was clean and a fresh meplex was placed over broken skin/wound area. Plan of care ongoing.
[2024-11-17 06:34] LABS: Hematocrit 26.3 % (42.0-52.0); Immature Granulocytes % 0.8 %; Mean Corpuscular HGB Conc 33.8 g/dL (31.8-35.4); Mean Corpuscular Hemoglobin 30.9 pg (27.0-31.2); Mean Corpuscular Volume 91.3 fl (80-94); Nucleated Red Blood Cells % 0 %; Platelet Count 369 K/mm3 (142-424); Red Blood Count 2.88 M/mm3 (4.60-6.20); Red Cell Distribution Width-SD 49.0 fL; White Blood Count 7.8 K/mm3 (4.8-10.8)
[2024-11-17 06:57] LABS: Alanine Aminotransferase 411 U/L (12-78); Albumin Level 3.3 g/dl (3.5-5.0); Albumin/Globulin Ratio 0.9 (1.1-1.8); Alkaline Phosphatase 515 U/L (38-126); Anion Gap 14.0 mEq/L (5-15); Aspartate Amino Transferase 208 U/L (17-59); Bilirubin,Total 0.6 mg/dl (0.2-1.3); Blood Urea Nitrogen 64 mg/dl (9-20); Calcium 9.1 mg/dl (8.4-10.2); Carbon Dioxide 36 mmol/L (22.0-30.0); Chloride 82 mmol/L (98-107); Creatinine Clearance Estimated 24 mL/min (50-200); Creatinine,Serum 2.40 mg/dl (0.66-1.25); Estimated Glomerular Filt Rate 27 ml/min (>60); GFR (African American) 32 ML/MIN (>60); Globulin 3.5 g/dL (1.3-3.2); Glucose 140 mg/dl (74-100); Magnesium 2.5 mg/dl (1.6-2.3); Potassium 4.0 mmoL/L (3.5-5.1); Sodium 128 mmol/L (136-145); Total Protein,Serum 6.8 g/dl (6.3-8.2)
[2024-11-17 07:01] LABS: POC Glucose,Bedside 154 (70-110)
[2024-11-17 07:59] LABS: Hemoglobin 8.9 g/dL (14.1-18.0)
[2024-11-17] MEDS: CLOPIDOGREL 75MG TAB 75 MG PO (08:22)
[2024-11-17] MEDS: FINASTERIDE 5MG TABLET 5 MG PO (08:22)
[2024-11-17] MEDS: METHYLPREDNISOLONE SOD SUCC 40MG VIAL 32 MG IV (08:23)
[2024-11-17] MEDS: SODIUM BICARBONATE 650MG TABLET 650 MG PO ×2 (08:23→13:50)
[2024-11-17] MEDS: INSULIN GLARGINE 100 UNITS/ML 3ML FLEXPEN 60 UNIT SUBCUT (08:24)
[2024-11-17 08:53] LABS: POC Glucose,Bedside 148 (70-110)
--- NOTE | 2024-11-17 09:09 | EXP.DC.SUM ---
General Admission date:: 11/11/24 Discharge date: 11/17/24 HPI HPI HPI: Mr. Howell is a 74-year-old gentleman who is admitted with DKA and uncontrolled diabetes. He recently had a stroke. Incidentally, he has had elevated liver chemistries that are more than 10 times the upper limit of normal with both hepatocellular and cholestatic hepatic injury. This is new and first noted in September 2024. He reports no abdominal pain and CAT scan showed normal liver. He also has renal failure and emphysematous pyelonephritis. The patient has lost 20 to 30 pounds over the last couple of months. He reports no abdominal pain. He reports no alcohol. His ultrasound showed uncomplicated cholelithiasis with no evidence of biliary obstruction. His CAT scan did show severe constipation and moderate bloating. He also had mild circumferential wall thickening at the distal rectum near the anorectal junction (possible mild stercoral proctitis). Hospital Course Hospital Course Hospital Course: 74-year-old male who presents with weakness, urinary obstruction, concern for infection. Imaging showing gas in the renal collecting system concerning for emphysematous pyelonephritis. Aide case with ER physician, extensive discussion about patient's comorbidities, multiorgan dysfunction, severity of illness and need for transfer to higher level of care. Patient unwilling to be transferred but not safe to discharge home. I decided to admit to the ICU for further management given patient's complexity. Condition showed gradual improvement during admission. Antibiotics were downgraded to Levaquin to complete full course. Pulmonology and GI assisted with care during admission. Liver enzymes showing improvement. Having bowel movements and tolerating p.o. intake prior to discharge home. Tracey catheter left in for chronic retention. Stable discharge home with close follow-up as an outpatient with GI and pulmonology. Patient discharged with hospice due to request of patient and family for resources and given complexity of his underlying condition. Problems addressed as follows: Emphysematous pyelonephritis UTI, E. coli RINA on CKD 4 - Was admitted a month ago at our facility with UTI and DKA. Urine at that time positive for E. coli. CT on admission showing gas in kidneys and collecting system. Tracey catheter was placed due to retention. Had significant output thereafter. Patient showed moderate diuresis and was -11 L during admission. Kidney function improved. Plateaued with BUN of 64, creatinine 2.4. Creatinine initially 3.7. Given obstruction, will leave catheter in place at discharge. Recommend consideration for outpatient urology referral. At a minimum will need his catheter exchanged in 1 month. Initial urine culture showed E. coli that was pansensitive. Antibiotics were de-escalated and transitioned to Levaquin. Will treat for 7 days total with Levaquin 750 mg renally dosed. Completed antibiotic course during admission initiated on tamsulosin 0.4 mg nightly and finasteride 5 mg daily. Consider voiding trial and catheter removal at patient's preference within the next 2 to 4 weeks. - Due to hyponatremia, patient was started on oral sodium bicarbonate. Metabolic acidosis improved with bicarb of 36 on day of discharge. Sodium improving to 128. Chloride 82. Continue to discharge Cholestatic hepatitis: Severe constipation - CT shows normal liver, gallbladder and biliary ducts with nonobstructing cholelithiasis. Pancreas with no ductal dilatation. Patient does have circumferential wall thickening in the distal rectum. Sigmoidoscopy performed on day of discharge that showed stenosis but otherwise low concern for malignancy. Biopsies obtained. GI assisted with care. Extensive workup for transaminitis performed. CEA marginally elevated above 5, CA 19-9 within normal range. Liver enzymes showed gradual improvement. Peaked at AST of 1100, on day of discharge bilirubin 0.6, AST 208, ALT 411, alk phos 515. Elevated GGT, ferritin, ceruloplasmin which is 56 suspected to be related to inflammation of liver. Extensive discussion with GI today about inflammatory liver process, initiated on methylprednisolone. Showing response. Transitioned to prednisone 40 mg daily. Continue for at least a month. Seeing improvement in liver enzymes with steroids. - Hepatitis panel negative, TB negative, autoimmune labs pending. - Patient also found to have significant constipation on abdominal imaging on admission. Aggressive bowel regimen administered. Finally had bowel movements after initiation of bowel prep for sigmoidoscopy. Several large stools. Patient at this time appears to be relatively cleaned out. Continue bowel regimen at discharge. - Recommend holding propranolol. Okay to resume primidone at half dose. If tremors still problematic, okay to increase to full dose 500 mg twice daily at patient's preference in a week. Poorly controlled diabetes - A1c 10.3 on 10/31. Still above goal of 7. Treated with sliding scale insulin and fingersticks ACHS along with basal insulin. Insulin glargine Derrell increased during admission to 60 units daily. Continue insulin lispro 15 units with meals. TSH normal at 0.211-month ago. - Intolerant of metformin. Will hold at this time - Cortisol elevated at 35, consistent with stress reaction Anemia: - Status posttransfusion of 2 units, hemoglobin stable at at 9 or higher with no active signs of bleeding. Unclear etiology of potential loss whether its malnutrition, chronic disease, renal failure, secondary to thickening of rectum. Longstanding tremor: Holding propranolol and primidone due to his constipation and liver enzyme elevation. Tremor worsened. Okay to resume primidone at 250 mg twice daily. If tremor not tolerable in a week, increase to 500 mg twice daily thereafter Total time spent on discharge 32 minutes in counseling, documentation, chart review, and direct care with patient. Exam Data for Last 24 hours Vital signs and Labs for Last 24 Hours: Temp Pulse Resp BP Pulse Ox O2 Del Method 97.5 F L 96 H 16 135/75 98 Room Air 11/17/24 08:00 11/17/24 08:00 11/17/24 08:00 11/17/24 08:00 11/17/24 08:00 11/17/24 08:00 Laboratory Results - last 24 hr 11/14/24 06:48: TB Test (QFT) Nil 0.08, TB Test (QFT) Mitogen 2.48, TB Test (QFT) Ag 1 0.08, TB Test (QFT) Ag 2 0.08, TB Positive Criteria Comment, TB Test (QFT) Interp Negative 11/16/24 05:49: Sodium 124 L, Potassium 5.4 H, Chloride 85 L, Carbon Dioxide 27, Anion Gap 17.4 H, BUN 69 H, Creatinine 2.30 H, Estimated Creat Clear 27, Estimated GFR 28 L, Est GFR ( Amer) 34 L, Glucose 228 H, Calcium 9.2 11/16/24 11:35: POC Glucose 247 H 11/16/24 12:13: WBC 8.5, RBC 3.39 L, Hgb 10.5 L, Hct 31.5 L, MCV 92.9, MCH 31.0, MCHC 33.3, RDW 14.7, Plt Count 376, MPV 8.5, Neut % (Auto) 89.6 H, Lymph % (Auto) 4.3 L, [place] % (Auto) 4.0, Eos % (Auto) 1.1, Baso % (Auto) 0.4, Neut # (Auto) 7.7, Lymph # (Auto) 0.4 L, [place] # (Auto) 0.3, Eos # (Auto) 0.1, Baso # (Auto) 0.0, Total Counted 100, Neutrophils % (Manual) 90 H, Lymphocytes % (Manual) 4 L, Monocytes % (Manual) 5, Eosinophils % (Manual) 1, Platelet Estimate Normal, RBC Morphology Normal, Sodium 124 L, Potassium 5.5 H, Chloride 84 L, Carbon Dioxide 27, Anion Gap 18.5 H, BUN 69 H, Creatinine 2.20 H, Estimated Creat Clear 28, Estimated GFR 29 L, Est GFR ( Amer) 36 L, Glucose 246 H, Calcium 9.7, Magnesium 2.4 H D, Total Bilirubin 0.7, AST 347 H* D, ALT 637 H*, Alkaline Phosphatase 728 H, Total Protein 8.4 H, Albumin 4.0 D, Globulin 4.4 H, Albumin/Globulin Ratio 0.9 L 11/16/24 16:44: POC Glucose 195 H 11/16/24 20:58: POC Glucose 120 H 11/17/24 05:47: WBC 7.8, RBC 2.88 L, Hgb 8.9 L D, Hct 26.3 L, MCV 91.3, MCH 30.9, MCHC 33.8, RDW 14.6, Plt Count 369, MPV 8.2, Neut % (Auto) 73.6, Lymph % (Auto) 12.3, [place] % (Auto) 11.3 H, Eos % (Auto) 1.5, Baso % (Auto) 0.5, Neut # (Auto) 5.7, Lymph # (Auto) 1.0, [place] # (Auto) 0.9, Eos # (Auto) 0.1, Baso # (Auto) 0.0, Sodium 128 L, Potassium 4.0 D, Chloride 82 L, Carbon Dioxide 36 H, Anion Gap 14.0, BUN 64 H, Creatinine 2.40 H, Estimated Creat Clear 24, Estimated GFR 27 L, Est GFR ( Amer) 32 L, Glucose 140 H D, Calcium 9.1, Magnesium 2.5 H, Total Bilirubin 0.6, AST 208 H D, ALT 411 H*, Alkaline Phosphatase 515 H, Total Protein 6.8, Albumin 3.3 L D, Globulin 3.5 H, Albumin/Globulin Ratio 0.9 L 11/17/24 06:53: POC Glucose 154 H 11/17/24 08:24: POC Glucose 148 H I & O for Last 24 hours: Intake & Output 11/14/24 11/15/24 11/16/24 11/17/24 23:59 23:59 23:59 23:59 Intake Total 1480 / 1730 1280 / 1780 1130 / 1250 120 / 120 Output Total 1300 / 2200 4850 / 5400 3200 / 3625 725 / 725 Balance 180 / -470 -3570 / -3620 -2070 / -2375 -605 / -605 Weight 65.572 kg 65.453 kg 68.084 kg 62.641 kg Microbiology Reports for the Last 24 Hours: Microbiology 11/11/24 18:33 Blood Blood Culture - Final NO GROWTH AFTER 5 DAYS Constitutional Constitutional: no acute distress, thin, chronically ill appearing and cooperative *Routine HEENT Exam Head: Present normocephalic Eye: Present EOMI and PERRL ENT: Present mucous membranes moist Comments: Poor dentition, missing front mandibular teeth *Routine Neck Exam Neck: Present supple; Absent lymphadenopathy Routine Chest/Breast/Axilla Exam Comments: Prominent ribs, *Routine Respiratory Exam Respiratory: Present CTA bilaterally; Absent rhonchi, wheezes or crackles *Routine Cardiovascular Exam Cardiovascular: Present RRR *Routine Abdominal Exam Abdominal: Present soft and normoactive bowel sounds; Absent tenderness Comments: Scaphoid *Routine Rectal Exam Patient deferred: visual exam *Routine Exam Patient deferred: penile exam *Routine Extremities Exam Extremities: Absent cyanosis, clubbing or edema Comments: Thin, sarcopenia *Routine Skin Exam Skin: Present intact and warm; Absent rash *Routine Neurological Exam Neurological: Present alert, oriented X3, abnormal gait (Gait shuffling), moving all extremities and tremors; Absent altered mental status Results Data Completed and Pending Labs on day of discharge: Labs from last 24 hours 11/17/24 11/17/24 11/17/24 08:24 06:53 05:47 WBC 7.8 RBC 2.88 L Hgb 8.9 L D Hct 26.3 L MCV 91.3 MCH 30.9 MCHC 33.8 RDW 14.6 Plt Count 369 MPV 8.2 Neut % (Auto) 73.6 Lymph % (Auto) 12.3 [place] % (Auto) 11.3 H Eos % (Auto) 1.5 Baso % (Auto) 0.5 Neut # (Auto) 5.7 Lymph # (Auto) 1.0 [place] # (Auto) 0.9 Eos # (Auto) 0.1 Baso # (Auto) 0.0 Total Counted Neutrophils % (Manual) Lymphocytes % (Manual) Monocytes % (Manual) Eosinophils % (Manual) Platelet Estimate RBC Morphology Sodium 128 L Potassium 4.0 D Chloride 82 L Carbon Dioxide 36 H Anion Gap 14.0 BUN 64 H Creatinine 2.40 H Estimated Creat Clear 24 Estimated GFR 27 L Est GFR ( Amer) 32 L Glucose 140 H D POC Glucose 148 H 154 H Calcium 9.1 Magnesium 2.5 H Total Bilirubin 0.6 AST 208 H D ALT 411 H* Alkaline Phosphatase 515 H Total Protein 6.8 Albumin 3.3 L D Globulin 3.5 H Albumin/Globulin Ratio 0.9 L TB Test (QFT) Nil TB Test (QFT) Mitogen TB Test (QFT) Ag 1 TB Test (QFT) Ag 2 TB Positive Criteria TB Test (QFT) Interp 11/16/24 11/16/24 11/16/24 20:58 16:44 12:13 WBC 8.5 RBC 3.39 L Hgb 10.5 L Hct 31.5 L MCV 92.9 MCH 31.0 MCHC 33.3 RDW 14.7 Plt Count 376 MPV 8.5 Neut % (Auto) 89.6 H Lymph % (Auto) 4.3 L [place] % (Auto) 4.0 Eos % (Auto) 1.1 Baso % (Auto) 0.4 Neut # (Auto) 7.7 Lymph # (Auto) 0.4 L [place] # (Auto) 0.3 Eos # (Auto) 0.1 Baso # (Auto) 0.0 Total Counted 100 Neutrophils % (Manual) 90 H Lymphocytes % (Manual) 4 L Monocytes % (Manual) 5 Eosinophils % (Manual) 1 Platelet Estimate Normal RBC Morphology Normal Sodium 124 L Potassium 5.5 H Chloride 84 L Carbon Dioxide 27 Anion Gap 18.5 H BUN 69 H Creatinine 2.20 H Estimated Creat Clear 28 Estimated GFR 29 L Est GFR ( Amer) 36 L Glucose 246 H POC Glucose 120 H 195 H Calcium 9.7 Magnesium 2.4 H D Total Bilirubin 0.7 AST 347 H* D ALT 637 H* Alkaline Phosphatase 728 H Total Protein 8.4 H Albumin 4.0 D Globulin 4.4 H Albumin/Globulin Ratio 0.9 L TB Test (QFT) Nil TB Test (QFT) Mitogen TB Test (QFT) Ag 1 TB Test (QFT) Ag 2 TB Positive Criteria TB Test (QFT) Interp 11/16/24 11/16/24 11/14/24 11:35 05:49 06:48 WBC RBC Hgb Hct MCV MCH MCHC RDW Plt Count MPV Neut % (Auto) Lymph % (Auto) [place] % (Auto) Eos % (Auto) Baso % (Auto) Neut # (Auto) Lymph # (Auto) [place] # (Auto) Eos # (Auto) Baso # (Auto) Total Counted Neutrophils % (Manual) Lymphocytes % (Manual) Monocytes % (Manual) Eosinophils % (Manual) Platelet Estimate RBC Morphology Sodium 124 L Potassium 5.4 H Chloride 85 L Carbon Dioxide 27 Anion Gap 17.4 H BUN 69 H Creatinine 2.30 H Estimated Creat Clear 27 Estimated GFR 28 L Est GFR ( Amer) 34 L Glucose 228 H POC Glucose 247 H Calcium 9.2 Magnesium Total Bilirubin AST ALT Alkaline Phosphatase Total Protein Albumin Globulin Albumin/Globulin Ratio TB Test (QFT) Nil 0.08 TB Test (QFT) Mitogen 2.48 TB Test (QFT) Ag 1 0.08 TB Test (QFT) Ag 2 0.08 TB Positive Criteria Comment TB Test (QFT) Interp Negative Preliminary micro results at discharge 11/11/24 18:30 Blood Culture - Preliminary Blood Staphylococcus aureus DS: Diagnosis Discharge Diagnosis (1) Emphysematous pyelonephritis: Status: Acute Code(s): N12 - Tubulo-interstitial nephritis, not specified as acute or chronic (2) Cholestatic hepatitis: Status: Acute Code(s): K75.89 - Other specified inflammatory liver diseases (3) RINA (acute kidney injury): Status: Acute Code(s): N17.9 - Acute kidney failure, unspecified (4) Acute uremia: Status: Acute Code(s): N19 - Unspecified kidney failure (5) Insulin dependent type 2 diabetes mellitus: Status: Acute Code(s): E11.9 - Type 2 diabetes mellitus without complications; Z79.4 - [facility] (current) use of insulin (6) Tremor: Status: Chronic Code(s): R25.1 - Tremor, unspecified (7) Alzheimers disease: Status: Chronic Code(s): G30.9 - Alzheimer's disease, unspecified; F02.80 - Dementia in other diseases classified elsewhere, unspecified severity, without behavioral disturbance, psychotic disturbance, mood disturbance, and anxiety (8) Acute UTI: Status: Acute Code(s): N39.0 - Urinary tract infection, site not specified (9) Severe protein-calorie malnutrition: Status: Acute Code(s): E43 - Unspecified severe protein-calorie malnutrition Meds Home Medications and Allergies Home Medications ?Medication ?Instructions ?Recorded ?Confirmed ?Type tamsulosin 0.4 mg capsule 1 tab PO HS 10/03/17 11/12/24 History famotidine 20 mg tablet 20 mg PO BID 06/14/20 11/12/24 History lansoprazole 30 mg capsule,delayed 30 mg PO DAILY 06/14/20 11/12/24 History release donepezil 10 mg tablet 10 mg PO HS 09/29/24 11/12/24 History montelukast 10 mg tablet 10 mg PO HS 09/29/24 11/12/24 History mirabegron 25 mg tablet,extended 25 mg PO DAILY 09/30/24 11/12/24 History release 24 hr (Myrbetriq) womvyovi-hw-zwamd 300 mcg-K 60 1 tab PO DAILY 09/30/24 11/12/24 History mcg-lycop 600 mcg-lutein 300 mcg tablet (Centrum Silver Ultra Men's) insulin lispro 100 unit/mL 15 unit (0.15 mL) SQ AC 30 days 10/02/24 11/12/24 Rx subcutaneous pen #15 mL aspirin 81 mg chewable tablet 1 tab PO DAILY 10/27/24 11/12/24 History atorvastatin 80 mg tablet 80 mg PO HS 10/27/24 11/12/24 History clopidogrel 75 mg tablet 75 mg PO DAILY 10/27/24 11/12/24 History midodrine 10 mg tablet 10 mg PO BID 11/04/24 11/12/24 History polyethylene glycol 3350 17 17 g PO DAILY #119 grams 11/04/24 11/12/24 Rx gram/dose oral powder sodium bicarbonate 650 mg tablet 1,300 mg PO BID 11/04/24 11/12/24 History finasteride 5 mg tablet 5 mg PO DAILY 30 days #30 tabs 11/17/24 Rx insulin glargine 100 unit/mL (3 60 unit (0.6 mL) SQ DAILY #15 mL 11/17/24 Rx mL) subcutaneous pen (Lantus Solostar U-100 Insulin) prednisone 20 mg tablet 40 mg (2 x 20 mg) PO DAILY 30 days 11/17/24 Rx #60 tabs primidone 250 mg tablet 250 mg PO BID 30 days #0 tabs 11/17/24 11/12/24 Rx sennosides 8.6 mg-docusate sodium 1 tab PO BID 30 days #60 tabs 11/17/24 Rx 50 mg tablet (Stimulant Laxative Plus) New Prescriptions to Start Prescriptions: Yaya Chu insulin glargine [Lantus Solostar U-100 Insulin] Yaya Lee prednisone Yaya Lee sennosides-docusate sodium [Stimulant Laxative Plus] Yaya Lee Allergies Allergy/AdvReac Type Severity Reaction Status Date / Time ezetimibe (From Zetia) AdvReac Severe muscle Verified 11/10/24 08:54 cramps methocarbamol AdvReac Verified 11/10/24 08:54 Discharge Plan Disposition Patient Disposition: Hospice - Home Condition: Fair Discharge Order Discharge Orders: Discharge Order (Routine); Ordered 11/17/24 Ordered By: Yaya Lee Follow up Plan Follow up with: Ascencion Ariza II, MD [Staff Physician, Gastroenterology] - 12/05/24 12:00 pm Referral Note: Yonathan Smith DO [Primary Care Provider, Family Practice] - 11/24/24 11:30 am Lucas Reis MD [Physician, Pulmonology] - 12/02/24 10:40 am Prescriptions/Medication Reconciliation: New sennosides-docusate sodium [Stimulant Laxative Plus] 8.6-50 mg Tablet 1 tab PO BID 30 Days Qty: 60 0RF finasteride 5 mg Tablet 5 mg PO DAILY 30 Days Qty: 30 0RF prednisone 20 mg tablet 40 mg PO DAILY 30 Days Qty: 60 0RF insulin glargine [Lantus Solostar U-100 Insulin] 100 unit/mL (3 mL) Insulin Pen 60 unit SQ DAILY Qty: 15 0RF Continued montelukast 10 mg tablet 10 mg PO HS Patient Comments: TAKE ONE TABLET BY MOUTH EVERY DAY donepezil 10 mg tablet 10 mg PO HS Patient Comments: TAKE ONE TABLET BY MOUTH AT BEDTIME atorvastatin 80 mg tablet 80 mg PO HS Patient Comments: TAKE ONE TABLET BY MOUTH EVERY NIGHT clopidogrel 75 mg tablet 75 mg PO DAILY Patient Comments: TAKE ONE TABLET BY MOUTH EVERY DAY aspirin 81 mg tablet,chewable 1 tab PO DAILY sodium bicarbonate 650 mg tablet 1,300 mg PO BID Patient Comments: TAKE TWO TABLETS BY MOUTH TWICE DAILY midodrine 10 mg tablet 10 mg PO BID Patient Comments: TAKE ONE TABLET BY MOUTH TWICE DAILY polyethylene glycol 3350 17 gram/dose powder 17 g PO DAILY Qty: 119 0RF Centrum Silver Ultra Men's [id number] mcg Tablet 1 tab PO DAILY mirabegron [Myrbetriq] 25 mg tablet extended release 24 hr 25 mg PO DAILY Patient Comments: TAKE ONE TABLET BY MOUTH EVERY DAY insulin lispro 100 unit/mL insulin pen 15 unit SQ AC 30 Days Qty: 15 0RF tamsulosin 0.4 MG capsule 1 tab PO HS famotidine 20 MG tablet 20 mg PO BID lansoprazole 30 MG capsule,delayed release(DR/EC) 30 mg PO DAILY Changed primidone 250 MG tablet 250 mg PO BID 30 Days Qty: 0 0RF Discontinued senna 8.6 mg capsule 8.6 mg PO BID PRN (Reason: constipation) Qty: 60 0RF propranolol 20 mg tablet 20 mg PO BID Patient Comments: TAKE ONE TABLET BY MOUTH TWICE DAILY insulin glargine [Lantus Solostar U-100 Insulin] 100 unit/mL (3 mL) Insulin Pen 40 unit SQ DAILY Qty: 15 0RF Problem Reconciliation Problems Reviewed?: Yes Patient Discharge Instructions ACTIVITY: Continue current activity DIET: continue same diet Patient Instructions: DI for Kidney Infection, DI for Urinary Tract Infection (UTI), DI for Malnutrition - Older Adults, DI for Sepsis -- Adult, Catheter-Associated Urinary Tract Infection, Stop Light Infection Print Language: Gabonese Providers Primary Care Provider: Yonathan Smith Admit Provider: Yaya Lee Attending Provider: Yaya Lee
--- NOTE | 2024-11-17 09:23 | EXP.PULM.PN ---
Subjective *Date: 11/17/24 *Time: 13:39 Interval history: No acute respiratory vents overnight. Patient denies any new respiratory complaints. Pulmonology Exam Inpatient Vital signs and Labs for Last 24 Hours: Temp Pulse Resp BP Pulse Ox O2 Del Method 97.5 F L 96 H 16 135/75 98 Room Air 11/17/24 08:00 11/17/24 08:00 11/17/24 08:00 11/17/24 08:00 11/17/24 08:00 11/17/24 08:00 Laboratory Results - last 24 hr 11/14/24 06:48: TB Test (QFT) Nil 0.08, TB Test (QFT) Mitogen 2.48, TB Test (QFT) Ag 1 0.08, TB Test (QFT) Ag 2 0.08, TB Positive Criteria Comment, TB Test (QFT) Interp Negative 11/16/24 05:49: Sodium 124 L, Potassium 5.4 H, Chloride 85 L, Carbon Dioxide 27, Anion Gap 17.4 H, BUN 69 H, Creatinine 2.30 H, Estimated Creat Clear 27, Estimated GFR 28 L, Est GFR ( Amer) 34 L, Glucose 228 H, Calcium 9.2 11/16/24 11:35: POC Glucose 247 H 11/16/24 12:13: WBC 8.5, RBC 3.39 L, Hgb 10.5 L, Hct 31.5 L, MCV 92.9, MCH 31.0, MCHC 33.3, RDW 14.7, Plt Count 376, MPV 8.5, Neut % (Auto) 89.6 H, Lymph % (Auto) 4.3 L, [place] % (Auto) 4.0, Eos % (Auto) 1.1, Baso % (Auto) 0.4, Neut # (Auto) 7.7, Lymph # (Auto) 0.4 L, [place] # (Auto) 0.3, Eos # (Auto) 0.1, Baso # (Auto) 0.0, Total Counted 100, Neutrophils % (Manual) 90 H, Lymphocytes % (Manual) 4 L, Monocytes % (Manual) 5, Eosinophils % (Manual) 1, Platelet Estimate Normal, RBC Morphology Normal, Sodium 124 L, Potassium 5.5 H, Chloride 84 L, Carbon Dioxide 27, Anion Gap 18.5 H, BUN 69 H, Creatinine 2.20 H, Estimated Creat Clear 28, Estimated GFR 29 L, Est GFR ( Amer) 36 L, Glucose 246 H, Calcium 9.7, Magnesium 2.4 H D, Total Bilirubin 0.7, AST 347 H* D, ALT 637 H*, Alkaline Phosphatase 728 H, Total Protein 8.4 H, Albumin 4.0 D, Globulin 4.4 H, Albumin/Globulin Ratio 0.9 L 11/16/24 16:44: POC Glucose 195 H 11/16/24 20:58: POC Glucose 120 H 11/17/24 05:47: WBC 7.8, RBC 2.88 L, Hgb 8.9 L D, Hct 26.3 L, MCV 91.3, MCH 30.9, MCHC 33.8, RDW 14.6, Plt Count 369, MPV 8.2, Neut % (Auto) 73.6, Lymph % (Auto) 12.3, [place] % (Auto) 11.3 H, Eos % (Auto) 1.5, Baso % (Auto) 0.5, Neut # (Auto) 5.7, Lymph # (Auto) 1.0, [place] # (Auto) 0.9, Eos # (Auto) 0.1, Baso # (Auto) 0.0, Sodium 128 L, Potassium 4.0 D, Chloride 82 L, Carbon Dioxide 36 H, Anion Gap 14.0, BUN 64 H, Creatinine 2.40 H, Estimated Creat Clear 24, Estimated GFR 27 L, Est GFR ( Amer) 32 L, Glucose 140 H D, Calcium 9.1, Magnesium 2.5 H, Total Bilirubin 0.6, AST 208 H D, ALT 411 H*, Alkaline Phosphatase 515 H, Total Protein 6.8, Albumin 3.3 L D, Globulin 3.5 H, Albumin/Globulin Ratio 0.9 L 11/17/24 06:53: POC Glucose 154 H 11/17/24 08:24: POC Glucose 148 H Temp Pulse Resp BP Pulse Ox O2 Del Method 97.5 F L 89 16 135/86 96 Room Air 11/16/24 08:00 11/16/24 08:00 11/16/24 08:00 11/16/24 08:00 11/16/24 08:00 11/16/24 08:00 Laboratory Results - last 24 hr 11/14/24 10:33: Angiotensin Convert Enz 68, LUIS E Comment Comment, LISSETH-1 Antibody <0.2, SS-A Antibody <0.2, SS-B Antibody <0.2, Sm (Snow) Antibody <0.2, [employer] EN[employer]OR Antibody <0.2, Scl-70 Scleroderma Ab <0.2, Double Strand DNA Ab <1, Chromatin Antibody <0.2, Centromere B Antibody <0.2, Mitochondria M2 Ab <20.0, Anti-Smooth Muscle Ab 6, Liver/Kid Microsomes Ab 1.2 11/15/24 06:03: Cortisol 35.4 H 11/15/24 11:46: POC Glucose 319 H* 11/15/24 16:33: POC Glucose 253 H 11/15/24 20:20: POC Glucose 176 H 11/16/24 05:29: POC Glucose 219 H 11/16/24 05:49: Vancomycin Trough 11.3 H I & O for Labs for Last 24 Hours: Intake & Output 11/14/24 11/15/24 11/16/24 11/17/24 23:59 23:59 23:59 23:59 Intake Total 1480 / 1730 1280 / 1780 1130 / 1250 120 / 120 Output Total 1300 / 2200 4850 / 5400 3200 / 3625 725 / 725 Balance 180 / -470 -3570 / -3620 -2070 / -2375 -605 / -605 Weight 144 lb 9 oz 144 lb 4.8 oz 150 lb 1.6 oz 138 lb 1.6 oz Intake & Output 11/13/24 11/14/24 11/15/24 11/16/24 23:59 23:59 23:59 23:59 Intake Total 897 / 897 1480 / 1730 1280 / 1780 500 / 500 Output Total 2970 / 2970 1300 / 2200 4850 / 5400 1550 / 1550 Balance -207 / -2073 180 / -470 -3570 / -3620 -1050 / -1050 Weight 184 lb 11.958 oz 144 lb 9 oz 144 lb 4.8 oz 150 lb 1.6 oz Microbiology Reports for the Last 24 Hours: Microbiology 11/11/24 18:33 Blood Blood Culture - Final NO GROWTH AFTER 5 DAYS Microbiology 11/11/24 18:33 Blood Blood Culture - Preliminary NO GROWTH AFTER 4 DAYS 11/11/24 18:30 Blood Blood Culture - Preliminary Staphylococcus aureus Constitutional: Present mild distress Head: Present normocephalic and atraumatic ENT: Present normal exam, normal oropharynx and mucous membranes moist Neck: Present normal inspection and full ROM Respiratory: Present prolonged expiratory phase, diminished air movement and able to speak in complete sentences; Absent respiratory distress, wheezes or crackles Cardiac: Present S1/S2, Tachycardia and radial pulses present GI: Present soft and distention; Absent tenderness or guarding Skin: Present intact; Absent cyanosis or jaundice Neuro: Present alert, awake and oriented x 3 Extremities: Present normal inspection; Absent clubbing or cyanosis Psychiatric: Present normal affect and cooperative Assessment and Plan *Assessment and plan (1) Abnormal findings on imaging test: Status: Acute Category: Medical Code(s): R93.89 - Abnormal findings on diagnostic imaging of other specified body structures (2) Cavitary lesion of lung: Status: Acute Category: Medical Code(s): J98.4 - Other disorders of lung Plan Mr. Howell is a 74-year-old male no significant smoking history, last month greater than 30 years ago with reported hypertension dyslipidemia CKD diabetes Alzheimer's recent stroke presented to the hospital abnormal labs, found to multiorgan failure with renal dysfunction liver injury pyelonephritis being managed in the hospital had a CT abdomen performed that showed concerning right lower lobe pleural-based opacity and pulmonary was called for further evaluation and management. CT chest concerning right lower lobe medial pleural-based opacity with central cavitation noted. No other airspace or consolidative changes appreciated no significant mediastinal or hilar lymphadenopathy appreciated. No recent prior imaging other than CT abdomen from earlier this admission available for review. Noted findings more likely infectious and malignant etiology however cannot completely rule out. Afebrile. Hemodynamically stable. No evidence of leukocytosis. Interval update: No acute respiratory events overnight. Continue to receive levofloxacin. Continue to remain on room air. Plan: Continue levofloxacin to complete a total of 10-day course Follow with repeat CT chest in 6 weeks to further determine the need for biopsy. # Thank you for involving pulmonary in this patient care. Follow patient in pulmonary clinic 1 to 2 weeks postdischarge.
[2024-11-17 11:11] LABS: POC Glucose,Bedside 157 (70-110)
--- NOTE | 2024-11-17 11:28 | EXP.HP ---
History of Present Illness *Admission Date: 11/11/24 *Reason for visit:: Constipation/anemia and abnormal CAT scan of rectum *History of present illness: Mr. Howell is a 74-year-old gentleman who is admitted with DKA and uncontrolled diabetes. He recently had a stroke. Incidentally, he has had elevated liver chemistries that are more than 10 times the upper limit of normal with both hepatocellular and cholestatic hepatic injury. This is new and first noted in September 2024. He reports no abdominal pain and CAT scan showed normal liver. He also has renal failure and emphysematous pyelonephritis. The patient has lost 20 to 30 pounds over the last couple of months. He reports no abdominal pain. He reports no alcohol. His ultrasound showed uncomplicated cholelithiasis with no evidence of biliary obstruction. His CAT scan did show severe constipation and moderate bloating. He also had mild circumferential wall thickening at the distal rectum near the anorectal junction (possible mild stercoral proctitis). [facility] Disclaimer: The information contained in this section may have been updated after the patient was seen, as this information can be updated by other users. Medical History (Updated 11/17/24 @ 11:29 by Ascencion Ariza II, MD) Cavitary lesion of lung Severe protein-calorie malnutrition Occasional tremors Diabetes Alzheimers disease Hypertension Surgical History History of testicular surgery Social History Smoking Status: Former smoker second hand exposure: No alcohol intake: former substance use type: denies use current occupational status: retired and disabled Travel in the last 8 weeks?: None household members: spouse housing: house marital status: caffeine: Yes Other Medical History Have you received the Flu Vaccine for this season: Yes Have you received the Pneumonia Vaccine: No Review of Systems Review of Systems Review of systems (narrative): Negative *Cardiovascular Comments: Negative *Gastrointestinal Comments: Negative *Genitourinary Comments: Negative *Musculoskeletal Comments: Negative *Neurologic Comments: Negative Meds Home Medications and Allergies Home Medications ?Medication ?Instructions ?Recorded ?Confirmed ?Type primidone 250 mg tablet 500 mg PO BID 10/03/17 11/12/24 History tamsulosin 0.4 mg capsule 1 tab PO HS 10/03/17 11/12/24 History famotidine 20 mg tablet 20 mg PO BID 06/14/20 11/12/24 History lansoprazole 30 mg capsule,delayed 30 mg PO DAILY 06/14/20 11/12/24 History release donepezil 10 mg tablet 10 mg PO HS 09/29/24 11/12/24 History montelukast 10 mg tablet 10 mg PO HS 09/29/24 11/12/24 History mirabegron 25 mg tablet,extended 25 mg PO DAILY 09/30/24 11/12/24 History release 24 hr (Myrbetriq) [id number] 300 mcg-K 60 1 tab PO DAILY 09/30/24 11/12/24 History mcg-lycop 600 mcg-lutein 300 mcg tablet (Centrum Silver Ultra Men's) propranolol 20 mg tablet 20 mg PO BID 09/30/24 11/12/24 History insulin glargine 100 unit/mL (3 40 unit (0.4 mL) SQ DAILY #15 mL 10/02/24 11/12/24 Rx mL) subcutaneous pen (Lantus Solostar U-100 Insulin) insulin lispro 100 unit/mL 15 unit (0.15 mL) SQ AC 30 days 10/02/24 11/12/24 Rx subcutaneous pen #15 mL aspirin 81 mg chewable tablet 1 tab PO DAILY 10/27/24 11/12/24 History atorvastatin 80 mg tablet 80 mg PO HS 10/27/24 11/12/24 History clopidogrel 75 mg tablet 75 mg PO DAILY 10/27/24 11/12/24 History midodrine 10 mg tablet 10 mg PO BID 11/04/24 11/12/24 History polyethylene glycol 3350 17 17 g PO DAILY #119 grams 11/04/24 11/12/24 Rx gram/dose oral powder sennosides 8.6 mg capsule (senna) 8.6 mg PO BID PRN constipation #60 11/04/24 11/12/24 Rx caps sodium bicarbonate 650 mg tablet 1,300 mg PO BID 11/04/24 11/12/24 History New Prescriptions to Start Prescriptions: Allergies Allergy/AdvReac Type Severity Reaction Status Date / Time ezetimibe (From Zetia) AdvReac Severe muscle Verified 11/10/24 08:54 cramps methocarbamol AdvReac Verified 11/10/24 08:54 Exam Data for Last 24 hours Vital signs and Labs for Last 24 Hours: Temp Pulse Resp BP Pulse Ox O2 Del Method 97.5 F L 96 H 16 135/75 98 Room Air 11/17/24 11:09 11/17/24 11:09 11/17/24 11:09 11/17/24 11:09 11/17/24 11:09 11/17/24 11:09 Laboratory Results - last 24 hr 11/14/24 06:48: TB Test (QFT) Nil 0.08, TB Test (QFT) Mitogen 2.48, TB Test (QFT) Ag 1 0.08, TB Test (QFT) Ag 2 0.08, TB Positive Criteria Comment, TB Test (QFT) Interp Negative 11/16/24 05:49: Sodium 124 L, Potassium 5.4 H, Chloride 85 L, Carbon Dioxide 27, Anion Gap 17.4 H, BUN 69 H, Creatinine 2.30 H, Estimated Creat Clear 27, Estimated GFR 28 L, Est GFR ( Amer) 34 L, Glucose 228 H, Calcium 9.2 11/16/24 11:35: POC Glucose 247 H 11/16/24 12:13: WBC 8.5, RBC 3.39 L, Hgb 10.5 L, Hct 31.5 L, MCV 92.9, MCH 31.0, MCHC 33.3, RDW 14.7, Plt Count 376, MPV 8.5, Neut % (Auto) 89.6 H, Lymph % (Auto) 4.3 L, [place] % (Auto) 4.0, Eos % (Auto) 1.1, Baso % (Auto) 0.4, Neut # (Auto) 7.7, Lymph # (Auto) 0.4 L, [place] # (Auto) 0.3, Eos # (Auto) 0.1, Baso # (Auto) 0.0, Total Counted 100, Neutrophils % (Manual) 90 H, Lymphocytes % (Manual) 4 L, Monocytes % (Manual) 5, Eosinophils % (Manual) 1, Platelet Estimate Normal, RBC Morphology Normal, Sodium 124 L, Potassium 5.5 H, Chloride 84 L, Carbon Dioxide 27, Anion Gap 18.5 H, BUN 69 H, Creatinine 2.20 H, Estimated Creat Clear 28, Estimated GFR 29 L, Est GFR ( Amer) 36 L, Glucose 246 H, Calcium 9.7, Magnesium 2.4 H D, Total Bilirubin 0.7, AST 347 H* D, ALT 637 H*, Alkaline Phosphatase 728 H, Total Protein 8.4 H, Albumin 4.0 D, Globulin 4.4 H, Albumin/Globulin Ratio 0.9 L 11/16/24 16:44: POC Glucose 195 H 11/16/24 20:58: POC Glucose 120 H 11/17/24 05:47: WBC 7.8, RBC 2.88 L, Hgb 8.9 L D, Hct 26.3 L, MCV 91.3, MCH 30.9, MCHC 33.8, RDW 14.6, Plt Count 369, MPV 8.2, Neut % (Auto) 73.6, Lymph % (Auto) 12.3, [place] % (Auto) 11.3 H, Eos % (Auto) 1.5, Baso % (Auto) 0.5, Neut # (Auto) 5.7, Lymph # (Auto) 1.0, [place] # (Auto) 0.9, Eos # (Auto) 0.1, Baso # (Auto) 0.0, Sodium 128 L, Potassium 4.0 D, Chloride 82 L, Carbon Dioxide 36 H, Anion Gap 14.0, BUN 64 H, Creatinine 2.40 H, Estimated Creat Clear 24, Estimated GFR 27 L, Est GFR ( Amer) 32 L, Glucose 140 H D, Calcium 9.1, Magnesium 2.5 H, Total Bilirubin 0.6, AST 208 H D, ALT 411 H*, Alkaline Phosphatase 515 H, Total Protein 6.8, Albumin 3.3 L D, Globulin 3.5 H, Albumin/Globulin Ratio 0.9 L 11/17/24 06:53: POC Glucose 154 H 11/17/24 08:24: POC Glucose 148 H 11/17/24 11:03: POC Glucose 157 H I & O for Last 24 hours: Intake & Output 11/14/24 11/15/24 11/16/24 11/17/24 23:59 23:59 23:59 23:59 Intake Total 1480 / 1730 1280 / 1780 1130 / 1250 120 / 120 Output Total 1300 / 2200 4850 / 5400 3200 / 3625 1225 / 1225 Balance 180 / -470 -3570 / -3620 -2070 / -2375 -1105 / -1105 Weight 144 lb 9 oz 144 lb 4.8 oz 150 lb 1.6 oz 138 lb 1.6 oz Microbiology Reports for the Last 24 Hours: Microbiology 11/11/24 18:33 Blood Blood Culture - Final NO GROWTH AFTER 5 DAYS *Routine HEENT Exam Head: Present normocephalic Eye: Present EOMI and PERRL ENT: Present mucous membranes moist *Routine Neck Exam Neck: Present supple *Routine Respiratory Exam Respiratory: Present CTA bilaterally *Routine Cardiovascular Exam Cardiovascular: Present RRR *Routine Abdominal Exam Abdominal: Present soft and normoactive bowel sounds; Absent tenderness *Routine Rectal Exam Rectal:: deferred *Routine Genitalia Exam Genitalia:: deferred *Routine Extremities Exam Extremities: Absent cyanosis, clubbing or edema *Routine Skin Exam Skin: Present warm; Absent rash *Routine Neurological Exam Neurological: Present alert and oriented X3 Assessment and Plan *Assessment and plan (1) Constipation: Status: Acute Category: Medical Code(s): K59.00 - Constipation, unspecified (2) Anemia: Status: Acute Category: Medical Code(s): D64.9 - Anemia, unspecified (3) Abnormal findings on imaging test: Status: Acute Category: Medical Code(s): R93.89 - Abnormal findings on diagnostic imaging of other specified body structures Plan A/P: 1. Intractable constipation, anemia and abnormal findings on CAT scan in the rectum with wall thickening is the preprocedural diagnosis. The patient will be anesthetized/sedated using MAC sedation. The patient has been seen and examined. Cardiac and lung assessment prior to the examination is stable. Proceed with planned diagnostic sigmoidoscopy.
--- NOTE | 2024-11-17 11:30 | HMH.PROCNOTE ---
[facility] Procedure Note Date: 11/17/24 Time: 11:41 Procedure Note:: Flexible Sigmoidoscopy Procedure Report: Sigmoidoscopy with TTS balloon dilation and manual dilation of anal canal Endoscopist: Ascencion Ariza II, MD Referring physician: Yonathan Smith DO Date of Procedure: November 17, 2024 Equipment: Olympus 180 variable stiffness pediatric colonoscope Sedation: MAC sedation Indication: Mr. Howell is a 74-year-old gentleman who is here for diagnostic sigmoidoscopy or colonoscopy because of his intractable constipation, anemia and abnormal findings on his CAT scan. His CAT scan had shown circumferential wall thickening of the distal rectum at the anorectal junction. The patient reports no rectal bleeding. The patient's colonoscopy with md in June 2020 had shown some mild anal stenosis and anal fibrosis with marked colonic redundancy. Procedure: Prior to the procedure, a history and physical exam was performed, and patient's medications and allergies were reviewed. The risks, benefits and alternatives of the sedation and procedure were discussed with the patient. All questions were answered and informed consent was obtained. The patient was brought to the procedure room. Patient identification and proposed procedure were verified by the physician and the nurse. The patient was placed in a left lateral decubitus position and the scope was passed under direct vision. Throughout the procedure, the patient's blood pressure, pulse, and oxygen saturations were monitored continuously. The colonoscopy was accomplished without difficulty. The patient tolerated the procedure well. Findings: On digital rectal examination there was mild anal stenosis. The scope was then inserted through the anal canal to the rectum and advanced to 25 to 30 cm. The preparation was very poor with a lot of lot of liquid brown stool impairing visualization. Upon withdrawal of the distal sigmoid, rectosigmoid and rectum are normal with no evidence of colitis, polyps or masses. Upon retroflexion within the rectum there was no anal papilla or masses. There were grade 1-2 internal hemorrhoids. Because of the anal stenosis, the anal canal was dilated to 20 mm with a TTS hydrostatic balloon. I also perform some manual dilation of the anal canal. Impression: 1. Mild anal stenosis otherwise normal sigmoidoscopy to 30 cm Plan: I do feel that some of his constipation is related to mild anal stenosis and I dilated this manually. The patient did have good results with the bowel preparation and I would resume a fiber bowel regimen (combined MiraLAX plus Citrucel mixed together twice daily). We are seeing a precipitous decline in his transaminases with methylprednisolone.
--- NOTE | 2024-11-17 11:32 | EXP.ANES.CKL ---
[facility] Disclaimer: The information contained in this section may have been updated after the patient was seen, as this information can be updated by other users. Medical History (Updated 11/17/24 @ 11:29 by Ascencion Ariza II, MD) Cavitary lesion of lung Severe protein-calorie malnutrition Occasional tremors Diabetes Alzheimers disease Hypertension Surgical History History of testicular surgery Social History Smoking Status: Former smoker second hand exposure: No alcohol intake: former substance use type: denies use current occupational status: retired and disabled Travel in the last 8 weeks?: None household members: spouse housing: house marital status: caffeine: Yes [facility] Anesthesia Checklist Patient Identification Patient Identification: Arm Band and Verbal (Name & ) Structural Data Admitted From: Inpatient Planned Operative Procedure/s: Flex sigmoidoscopy Verified Documents: Surgical Consent NPO Status Verified Time NPO: 00:00 Additional verifications Anesthesia Reactions: No Airway Assessment Mallampati Score:: Class II C-Spine Mobility Assessed: Yes TMJ Mobility Assessed: Yes Dentition: Poor Dentition Neurological Assessment Level of Consciousness: Awake, Alert and Appropriate Hx Seizures: No Numbness or tingling in extremities: No Anesthesia Plan Anesthesia Risk discussed: Yes Anesthesia Plan: Verified ASA Class: III Anesthesia Type: MAC
[2024-11-17 16:27] LABS: POC Glucose,Bedside 318 (70-110)
[2024-11-17] MEDS: humaLOG 100 UNITS/ML 10ML VIAL (SSI) SUBCUT (16:28)
[2024-11-17] MEDS: humaLOG 100 UNITS/ML 10ML VIAL (SSI) 6 UNIT SUBCUT (16:28)
== END 2024-11-17 17:30 | disposition hospice, home (50) | DRG 689 ==
LOC: ER 15:58 → ICU 18:36 → 2ND 11-13 13:08
PROVIDERS: Internal Medicine Gastroenterology; Admitting Provider Internal Medicine Adolescent Medicine; Emergency Provider Emergency Medicine; PCP Internal Medicine; Visit Provider Internal Medicine Adolescent Medicine
PROC: 0DJD8ZZ Inspection of Lower Intestinal Tract, Via Natural or Artificial Opening Endoscopic (ICD-10-PCS; CPT 45330; principal; 2024-11-17 15:00)
DX: N12 Tubulo-interstitial nephritis, not specified as acute or chronic (principal); E43 Unspecified severe protein-calorie malnutrition; E87.1 Hypo-osmolality and hyponatremia; E87.20 Acidosis, unspecified; K75.89 Other specified inflammatory liver diseases; N17.9 Acute kidney failure, unspecified; R25.1 Tremor, unspecified; G30.9 Alzheimer's disease, unspecified; F02.80 Dementia in other diseases classified elsewhere, unspecified severity, without behavioral disturbance, psychotic disturbance, mood disturbance, and anxiety; B96.20 Unspecified Escherichia coli [E. coli] as the cause of diseases classified elsewhere; E11.22 Type 2 diabetes mellitus with diabetic chronic kidney disease; N18.4 Chronic kidney disease, stage 4 (severe); K59.00 Constipation, unspecified; I12.9 Hypertensive chronic kidney disease with stage 1 through stage 4 chronic kidney disease, or unspecified chronic kidney disease; D63.1 Anemia in chronic kidney disease; E87.8 Other disorders of electrolyte and fluid balance, not elsewhere classified; Z66 Do not resuscitate; E78.5 Hyperlipidemia, unspecified; J98.4 Other disorders of lung; E11.65 Type 2 diabetes mellitus with hyperglycemia; Z79.82 Long term (current) use of aspirin; Z79.02 Long term (current) use of antithrombotics/antiplatelets; Z79.4 Long term (current) use of insulin; Z79.899 Other long term (current) drug therapy; Z88.8 Allergy status to other drugs, medicaments and biological substances; Z87.891 Personal history of nicotine dependence; Z86.73 Personal history of transient ischemic attack (TIA), and cerebral infarction without residual deficits
CPT/HCPCS: 36415; 36430; 51702; 71250; 74176; 80048; 80053; 80074; 80202; 81001; 82103; 82104; 82164; 82378; 82390; 82533; 82550; 82728; 82803; 82962; 82977; 83540; 83550; 83690; 83735; 84100; 85007; 85014; 85018; 85025; 86140; 86225; 86235; 86255; 86256; 86301; 86376; 86480; 86705; 86709; 86850; 87040; 87077; 87086; 87088; 87154; 87186; 87340; 87380; 93306; 93308; 97162; 97166; 97530; C1726; J0696; J1650; J1956; J2003; J2185; J2704; J2919; J3372; J3475; J7030; J7120; P9016

== ENCOUNTER 2024-11-24 10:04 | Emergency (ER) | payer MEDICARE, MEDICAID, SELFPAY ==
[2024-11-24] VITALS (8 sets, daily range): BP systolic 111–143; BP diastolic 78–89; PULSE 81–99; RESP 15–26; TEMP 37.1; O2SAT 96–100; BMI 17.9
[2024-11-24] MEDS: DEXTROSE 50% 50ML SYRINGE (CRASH CART) 50 ML IVP (10:05)
--- NOTE | 2024-11-24 10:14 | PC.NURSE ---
DR HENRIQUEZ AT BEDSIDE
--- NOTE | 2024-11-24 10:18 | PC.NURSE ---
spoke with respiratory regarding VBG
[2024-11-24] MEDS: LACTATED RINGERS 1000ML 1,000 ML 999 ML IV (10:20)
--- NOTE | 2024-11-24 10:20 | HMH.EDGENADL ---
Discharge Plan Disposition Patient Disposition: Home, Self-Care Condition: Good Prescriptions Prescriptions: New (DME) blood-glucose meter [Gluco Navii Glucose Monitor] Kit See Rx Instructions .Route Qty: 1 0RF Rx Instructions: As directed No Action montelukast 10 mg tablet 10 mg PO HS Patient Comments: TAKE ONE TABLET BY MOUTH EVERY DAY donepezil 10 mg tablet 10 mg PO HS Patient Comments: TAKE ONE TABLET BY MOUTH AT BEDTIME atorvastatin 80 mg tablet 80 mg PO HS Patient Comments: TAKE ONE TABLET BY MOUTH EVERY NIGHT clopidogrel 75 mg tablet 75 mg PO DAILY Patient Comments: TAKE ONE TABLET BY MOUTH EVERY DAY aspirin 81 mg tablet,chewable 1 tab PO DAILY sodium bicarbonate 650 mg tablet 1,300 mg PO BID Patient Comments: TAKE TWO TABLETS BY MOUTH TWICE DAILY midodrine 10 mg tablet 10 mg PO BID Patient Comments: TAKE ONE TABLET BY MOUTH TWICE DAILY polyethylene glycol 3350 17 gram/dose powder 17 g PO DAILY Qty: 119 0RF Centrum Silver Ultra Men's [id number] mcg Tablet 1 tab PO DAILY mirabegron [Myrbetriq] 25 mg tablet extended release 24 hr 25 mg PO DAILY Patient Comments: TAKE ONE TABLET BY MOUTH EVERY DAY insulin lispro 100 unit/mL insulin pen 15 unit SQ AC 30 Days Qty: 15 0RF sennosides-docusate sodium [Stimulant Laxative Plus] 8.6-50 mg Tablet 1 tab PO BID 30 Days Qty: 60 0RF finasteride 5 mg Tablet 5 mg PO DAILY 30 Days Qty: 30 0RF primidone 250 MG tablet 250 mg PO BID 30 Days Qty: 0 0RF prednisone 20 mg tablet 40 mg PO DAILY 30 Days Qty: 60 0RF insulin glargine [Lantus Solostar U-100 Insulin] 100 unit/mL (3 mL) Insulin Pen 60 unit SQ DAILY Qty: 15 0RF tamsulosin 0.4 MG capsule 1 tab PO HS famotidine 20 MG tablet 20 mg PO BID lansoprazole 30 MG capsule,delayed release(DR/EC) 30 mg PO DAILY Referrals Follow up/Referrals: Yonathan Smith DO [Primary Care Provider, Family Practice] - See instructions Activity Restrictions/Add. Instructions Additional Instructions/Restrictions: Please pick go the Clinic Pharmacy to get the glucometer. I want you to monitor your blood sugar closely at home. If you have any new or worsening symptoms please return. Clinical Impressions Clinical Impression: Hypoglycemia Instructions Patient Instructions: DI for Hypoglycemia Print Language Print Language: Mohawk Discharge ED Provider: Murali Garcia General Adult HPI General Chief complaint: Hyper/Hypoglycemia Stated complaint: HYPOGLYCEMIA Time Seen by Provider: 11/24/24 10:10 History of Present Illness HPI narrative: This is a 74-year-old male patient, with past medical history of hypertension, Alzheimer's disease, and type 2 diabetes for which he is insulin-dependent, who is presenting to the emergency department Aday for evaluation of hypoglycemia. The patient states that he woke up this morning and took his morning dose of 15 units of insulin. He did not eat following administration of his insulin and he began feeling profoundly weak in a short period of time after receiving this medication. When EMS arrived to the scene the patient's blood sugar was in the 50s and administered an ampule of D50. They brought him here for further evaluation. The patient states the right now he feels cold and weak. Over the last several days he has been in a usual state of health. He has not experienced cough, chest pain, shortness of breath, production of phlegm, dysuria, urinary frequency, hematuria, abdominal pain, nausea, vomiting, or diarrhea. Related Data Home Medications ?Medication ?Instructions ?Recorded ?Confirmed tamsulosin 0.4 mg capsule 1 tab PO HS 10/03/17 11/12/24 famotidine 20 mg tablet 20 mg PO BID 06/14/20 11/12/24 lansoprazole 30 mg capsule,delayed 30 mg PO DAILY 06/14/20 11/12/24 release donepezil 10 mg tablet 10 mg PO HS 09/29/24 11/12/24 montelukast 10 mg tablet 10 mg PO HS 09/29/24 11/12/24 mirabegron 25 mg tablet,extended 25 mg PO DAILY 09/30/24 11/12/24 release 24 hr (Myrbetriq) emkcojbc-vo-lifld 300 mcg-K 60 1 tab PO DAILY 09/30/24 11/12/24 mcg-lycop 600 mcg-lutein 300 mcg tablet (Centrum Silver Ultra Men's) aspirin 81 mg chewable tablet 1 tab PO DAILY 10/27/24 11/12/24 atorvastatin 80 mg tablet 80 mg PO HS 10/27/24 11/12/24 clopidogrel 75 mg tablet 75 mg PO DAILY 10/27/24 11/12/24 midodrine 10 mg tablet 10 mg PO BID 11/04/24 11/12/24 sodium bicarbonate 650 mg tablet 1,300 mg PO BID 11/04/24 11/12/24 Previous Rx's ?Medication ?Instructions ?Recorded insulin lispro 100 unit/mL 15 unit (0.15 mL) SQ AC 30 days 10/02/24 subcutaneous pen #15 mL polyethylene glycol 3350 17 17 g PO DAILY #119 grams 11/04/24 gram/dose oral powder finasteride 5 mg tablet 5 mg PO DAILY 30 days #30 tabs 11/17/24 insulin glargine 100 unit/mL (3 60 unit (0.6 mL) SQ DAILY #15 mL 11/17/24 mL) subcutaneous pen (Lantus Solostar U-100 Insulin) prednisone 20 mg tablet 40 mg (2 x 20 mg) PO DAILY 30 days 11/17/24 #60 tabs primidone 250 mg tablet 250 mg PO BID 30 days #0 tabs 11/17/24 sennosides 8.6 mg-docusate sodium 1 tab PO BID 30 days #60 tabs 11/17/24 50 mg tablet (Stimulant Laxative Plus) blood-glucose meter (Gluco Navii #1 ea 11/24/24 Glucose Monitor kit) Allergies Allergy/AdvReac Type Severity Reaction Status Date / Time ezetimibe (From Zetia) AdvReac Severe muscle Verified 11/10/24 08:54 cramps methocarbamol AdvReac Verified 11/10/24 08:54 PFS PFS Disclaimer: The information contained in this section may have been updated after the patient was seen, as this information can be updated by other users. Medical History (Updated 11/24/24 @ 12:41 by Murali Garcia DO) Cavitary lesion of lung Severe protein-calorie malnutrition Occasional tremors Diabetes Alzheimers disease Hypertension Surgical History History of testicular surgery Social History Smoking Status: Never smoker second hand exposure: No alcohol intake: former substance use type: denies use current occupational status: retired and disabled Travel in the last 8 weeks?: None household members: spouse housing: house marital status: caffeine: Yes Have you lived/traveled outside [place] in past 30 days?: No Contact w/someone who lives/traveled outside US past 30 days?: No Exposure to someone with infectious disease in past 14 days?: No Do you have a fever (greater than 100.4 F or 38 C)?: No Have you tested positive for COVID-19?: No Exposed to someone with COVID-19 in past 14 days?: No Do you have a sore throat?: No Do you have a cough?: No Do you have any weakness?: Yes Do you have any diarrhea?: No Are you experiencing any unusual bleeding?: No Do you have any muscle aches/pain?: No Do you have any abdominal pain?: No Are you experiencing loss of taste or smell?: No Other Medical History Have you received the Flu Vaccine for this season: No Have you received the Pneumonia Vaccine: No ROS Obtained: Yes Systems reviewed as appropriate & no additional complaints except as documented Physical Exam General General appearance: alert Respiratory Respiratory exam: Present normal lung sounds bilaterally Cardiovascular Cardiovascular exam: Present regular rate Neurological Exam Neurological exam: Present alert and oriented X3 Medical Decision Making Medical Records Screening: Per USPSTF and CDC recommendations, given the prevalence of disease in our region, it is our hospital?s policy to screen for HIV and viral Hepatitis for all patients aged 18 and over and those with ongoing risk factors. Palmer Inquiry Pt receiving controlled substance: No Palmer was queried for this patient: No Vital Signs: 11/24/24 10:12 11/24/24 10:31 11/24/24 11:00 Temperature 98.7 F Temperature Source Oral Pulse Rate 90 87 Pulse Rate [Right] 99 H Respiratory Rate 26 H 21 16 Blood Pressure 134/86 131/78 Blood Pressure [Right Arm] 111/89 Blood Pressure Mean 102 103 Blood Pressure Mean [Right Arm] 96 Blood Pressure Source [Right Arm] Automatic Cuff 02 Sat by Pulse Oximetry 96 100 99 Oxygen Delivery Method Room Air Room Air Room Air 11/24/24 11:30 11/24/24 12:00 11/24/24 12:30 Temperature Temperature Source Pulse Rate 81 89 93 H Pulse Rate [Right] Respiratory Rate 16 16 15 Blood Pressure 132/81 133/84 143/81 H Blood Pressure [Right Arm] Blood Pressure Mean 98 103 101 Blood Pressure Mean [Right Arm] Blood Pressure Source [Right Arm] 02 Sat by Pulse Oximetry 99 98 97 Oxygen Delivery Method Room Air Room Air Lab Data Lab Results 11/24/24 10:12: WBC Cancelled, Corrected WBC Cancelled, RBC Cancelled, Hgb Cancelled, Hct Cancelled, MCV Cancelled, MCH Cancelled, MCHC Cancelled, RDW Cancelled, Plt Count Cancelled, MPV Cancelled, Neut % (Auto) Cancelled, Lymph % (Auto) Cancelled, [place] % (Auto) Cancelled, Eos % (Auto) Cancelled, Baso % (Auto) Cancelled, Neut # (Auto) Cancelled, Lymph # (Auto) Cancelled, [place] # (Auto) Cancelled, Eos # (Auto) Cancelled, Baso # (Auto) Cancelled, Total Counted Cancelled, Neutrophils % (Manual) Cancelled, Band Neutrophils % Cancelled, Lymphocytes % (Manual) Cancelled, Atypical Lymphs % Cancelled, Monocytes % (Manual) Cancelled, Eosinophils % (Manual) Cancelled, Basophils % (Manual) Cancelled, Metamyelocytes % Cancelled, Myelocytes % Cancelled, Promyelocytes % Cancelled, Blast Cells % Cancelled, Nucleated RBCs Cancelled, Differential Comment Cancelled, Hypersegmented Neuts Cancelled, Toxic Granulation Cancelled, Toxic Vacuolation Cancelled, Dohle Bodies Cancelled, Lakia Rods Cancelled, Platelet Estimate Cancelled, Giant Platelets Cancelled, RBC Morphology Cancelled, Polychromasia Cancelled, Hypochromasia Cancelled, Poikilocytosis Cancelled, Basophilic Stippling Cancelled, Anisocytosis Cancelled, Microcytosis Cancelled, Macrocytosis Cancelled, Spherocytes Cancelled, Pappenheimer Bodies Cancelled, Sickle Cells Cancelled, Target Cells Cancelled, Tear Drop Cells Cancelled, Ovalocytes Cancelled, Stomatocytes Cancelled, Helmet Cells Cancelled, Carter-Pope Bodies Cancelled, Howell Rings Cancelled, Andrew Cells Cancelled, Elliptocytes Cancelled, Acanthocytes (Spur) Cancelled, Rouleaux Cancelled, Schistocytes Cancelled, Sodium Cancelled, Potassium Cancelled, Chloride Cancelled, Carbon Dioxide Cancelled, Anion Gap Cancelled, BUN Cancelled, Creatinine Cancelled, Estimated Creat Clear Cancelled, Estimated GFR Cancelled, Est GFR ( Amer) Cancelled, Glucose Cancelled, Calcium Cancelled, Total Bilirubin Cancelled, AST Cancelled, ALT Cancelled, Alkaline Phosphatase Cancelled, Total Protein Cancelled, Albumin Cancelled, Globulin Cancelled, Albumin/Globulin Ratio Cancelled 11/24/24 10:35: VBG pH Cancelled, VBG pCO2 Cancelled, VBG pO2 Cancelled, VBG HCO3 Cancelled, VBG Total CO2 Cancelled, VBG O2 Saturation Cancelled, VBG Base Excess Cancelled, VBG Lactic Acid Cancelled 11/24/24 11:19: WBC 9.3, RBC 2.94 L, Hgb 9.0 L, Hct 27.9 L, MCV 94.9 H, MCH 30.6, MCHC 32.3, RDW 14.6, Plt Count 504 H, MPV 8.4, Neut % (Auto) 92.6 H, Lymph % (Auto) 2.5 L, [place] % (Auto) 3.9, Eos % (Auto) 0.1, Baso % (Auto) 0.3, Neut # (Auto) 8.6 H, Lymph # (Auto) 0.2 L, [place] # (Auto) 0.4, Eos # (Auto) 0.0, Baso # (Auto) 0.0, Total Counted 100, Neutrophils % (Manual) 95 H, Lymphocytes % (Manual) 3 L, Monocytes % (Manual) 2, Platelet Estimate Moderate increase, RBC Morphology Normal, VBG pH 7.52 H, VBG pCO2 34.6 L, VBG pO2 29.6, VBG HCO3 27.5, VBG Total CO2 28.6 H, VBG O2 Saturation 64.3, VBG Base Excess 4.6 H, VBG Lactic Acid 5.7 H, Sodium 129 L, Potassium 3.9, Chloride 87 L, Carbon Dioxide 28, Anion Gap 17.9 H, BUN 56 H, Creatinine 1.70 H, Estimated Creat Clear 34, Estimated GFR 40 L, Est GFR ( Amer) 48 L, Glucose 240 H, Calcium 9.4, Total Bilirubin 0.4, AST 279 H, ALT 253 H, Alkaline Phosphatase 408 H, Total Protein 7.3, Albumin 3.9, Globulin 3.4 H, Albumin/Globulin Ratio 1.1 11/24/24 11:19 11/24/24 11:19 Orders (Tests/Meds): ED MEDICATIONS Discontinued Medications Generic Name Dose Route Start Last Admin Trade Name Freq PRN Reason Stop Dose Admin Dextrose 50 ml 11/24/24 10:10 11/24/24 10:05 Dextrose 50% 50ml Syringe (Crash Cart) IVP 11/24/24 10:11 50 ml ONCE ONE Administration Lactated Ringer's 1,000 mls @ 999 mls/hr 11/24/24 10:16 11/24/24 10:20 Lactated Ringer's 1000 Ml Bag IV 11/24/24 11:16 999 mls/hr .Q1H1M ONE Administration ORDERS Category Date Time Status CMP [Comprehensive Metabolic Panel] Stat Lab 11/24/24 11:19 Completed Complete Blood Count Auto Diff Stat Lab 11/24/24 11:19 Completed VBG [Venous Blood Gas] Stat RT 11/24/24 11:19 Completed ECG Data Tracing #1: I reviewed this ECG and interpreted as documented below: EKG personally interpreted by me demonstrates sinus rhythm with a rate of 91 bpm. Normal axis, no NE prolongation, narrow QRS, no QTc elongation. EKG is difficult to interpret secondary to significant baseline artifact. There does not appear to be any overt ischemic changes Medical Decision Narrative: In summary, this is a 74-year-old male patient who is presenting to the emergency department today for weakness in the setting of hypoglycemia after taking 15 units of insulin and not eating following administration of this medication. His comorbidities include hypertension, Alzheimer's disease, and type 2 diabetes for which she is insulin-dependent. On initial evaluation of the patient they were resting comfortably in no acute distress and nontoxic in appearance. They are hemodynamically stable, saturating well room air, and are neurologically intact. On examination of the patient he is tachypneic and appears cold. He is mildly tachycardic. His heart and lungs are clear to auscultation otherwise. He has no lower extremity erythema or edema. He does appear tremulous. Differential diagnosis includes hypoglycemia secondary to insulin administration without eating, I have a low suspicion for infectious etiology as the cause of his hypoglycemia at this time. Based off of information provided in the history and physical portion of this note, I do not feel this patient's presentation is consistent with pneumonia or urinary tract infection. On arrival to the emergency department the patient's fingerstick glucose was 49. We did proceed with hematologic labs which were personally interpreted by me and demonstrate no actionable abnormalities. The patient's creatinine is 1.6 but this is significantly improved from his prior hospitalization this past week where he had an acute kidney injury with a creatinine above 2. He does have hyponatremia but this seems to be consistent with his baseline. He also has a transaminitis but this is significantly improved from prior. CBC is unremarkable. After 2 A of D50 and orange juice we did recheck the patient's blood glucose and it was 94. We did observe the patient in the emergency department for a period of 2 and half hours. On serial blood sugar monitoring his blood sugar was 200. He feels significantly improved and states that his symptoms have resolved. He is eating and drinking without difficulty. The patient is now requesting to be discharged home. At this time all questions have been answered and all parties are agreeable with the decision to discharge home. Critical Care Critical Care Time Critical Care Time: No
--- NOTE | 2024-11-24 10:31 | PC.NURSE ---
FSBG 95
--- NOTE | 2024-11-24 10:43 | PC.NURSE ---
Patient alert and oriented, FSBG 95, patient consumed 240mL of [place] Juice. VSS. Respirations even and unlabored. Family at bedside.
--- NOTE | 2024-11-24 11:05 | PC.NURSE ---
FSBG 127 now, patient alert and oriented. VSS. Patient denies complaints at this time. Family at bedside.
--- NOTE | 2024-11-24 11:14 | PC.NURSE ---
NEW BLOOD COLLECTED AT THIS TIME. PREVIOUS BLOOD DRAW FROM IV SITE WAS CONTAMINATED FROM D50 GIVEN BY EMS, ED MD NOTIFIED AND SENT TO LAB
[2024-11-24 11:29] LABS: VBG HCO3 27.5 mmol/L (23-30); VBG PCO2 34.6 mmol/L (35-51); VBG PH 7.52 mmol/L (7.31-7.41); VBG PO2 29.6 mmol/L (28-40)
[2024-11-24 11:32] LABS: Lactate Venous 5.7 mmol/L (0.4-2.0)
--- NOTE | 2024-11-24 11:34 | PC.NURSE ---
FSBG 182, Patient alert and oriented. VSS. Respirations even and unlabored. Family at bedside.
--- NOTE | 2024-11-24 12:04 | PC.NURSE ---
FSBS is 208, RN notified
--- NOTE | 2024-11-24 12:23 | PC.NURSE ---
Patient cleared to eat per Dr. Garcia, patient given sandwich, chips, and water. Patient denies complaints at this time. Call light in reach. Family at bedside.
[2024-11-24 12:24] LABS: Hematocrit 27.9 % (42.0-52.0); Hemoglobin 9.0 g/dL (14.1-18.0); Immature Granulocytes % 0.6 %; Mean Corpuscular HGB Conc 32.3 g/dL (31.8-35.4); Mean Corpuscular Hemoglobin 30.6 pg (27.0-31.2); Mean Corpuscular Volume 94.9 fl (80-94); Nucleated Red Blood Cells % 0 %; Platelet Count 504 K/mm3 (142-424); Red Blood Count 2.94 M/mm3 (4.60-6.20); Red Cell Distribution Width-SD 50.1 fL; White Blood Count 9.3 K/mm3 (4.8-10.8)
[2024-11-24 12:28] LABS: Chloride 87 mmol/L (98-107)
[2024-11-24 12:29] LABS: Albumin Level 3.9 g/dl (3.5-5.0); Potassium 3.9 mmoL/L (3.5-5.1); Sodium 129 mmol/L (136-145)
[2024-11-24 12:31] LABS: Alanine Aminotransferase 253 U/L (12-78); Anion Gap 17.9 mEq/L (5-15); Aspartate Amino Transferase 279 U/L (17-59); Blood Urea Nitrogen 56 mg/dl (9-20); Carbon Dioxide 28 mmol/L (22.0-30.0); Creatinine Clearance Estimated 34 mL/min (50-200); Creatinine,Serum 1.70 mg/dl (0.66-1.25); Estimated Glomerular Filt Rate 40 ml/min (>60); GFR (African American) 48 ML/MIN (>60)
[2024-11-24 12:32] LABS: Albumin/Globulin Ratio 1.1 (1.1-1.8); Alkaline Phosphatase 408 U/L (38-126); Bilirubin,Total 0.4 mg/dl (0.2-1.3); Calcium 9.4 mg/dl (8.4-10.2); Globulin 3.4 g/dL (1.3-3.2); Glucose 240 mg/dl (74-100); Total Protein,Serum 7.3 g/dl (6.3-8.2)
[2024-11-24 12:52] LABS: Total Cells Counted 100
[2024-11-24 12:53] LABS: RBC Morphology Normal
--- NOTE | 2024-11-24 13:13 | PC.NURSE ---
Dr. Garcia notified patient states he is unable to urinate, reports he had a Tracey placed during his last admission and wanted it taken out this AM at home. Reports his removed it without speaking to the MD. Bladder Scan shows 461mL. Dr. Garcia gives order to replace Tracey now.
[2024-11-24 13:37] LABS: Microscopic,Cath URINE MICROSCOPIC (MICROSCOPIC)
[2024-11-24 13:42] LABS: Appearance,Urine/Cath CLEAR (Clear); Bilirubin,Cath Negative (Negative); Blood, Urine/Cath 3+ (Negative); Color,Urine/Cath YELLOW (Yellow); Glucose,Urine/Cath (UA) 1+ (Negative); Ketones,Urine/Cath Negative (Negative); Leukocyte Esterase,Cath 3+ (Negative); Nitrate,Cath Negative (Negative); PH,Urine/Cath 6.5 (5.0-8.5); Protein,Urine/Cath 1+ (Negative); Specific Gravity, Urine/Cath 1.010 (1.005-1.030); Urobilinogen,Cath 0.2 EU/dl (0.2)
[2024-11-24 13:58] LABS: Bacteria,Urine/Cath 1+ /lpf; Renal Epithelial Cells,Ur/Cath Occasional #/lpf (0); Squamous Epithelial Ur./Cath Occasional #/hpf (0-5); WBC,Urine/Cath TNTC #/hpf (0-3)
--- NOTE | 2024-11-24 14:00 | PC.WOUNDNOTE ---
Tracey Catheter placed, patient tolerated well. Education given on care and use. Patient, , and son verbalize understanding.
== END 2024-11-24 14:02 | disposition home or self-care (01) ==
PROVIDERS: Emergency Provider Student in an Organized Health Care Education/Training Program; PCP Internal Medicine
DX: E16.2 Hypoglycemia, unspecified (principal); D64.9 Anemia, unspecified; G30.9 Alzheimer's disease, unspecified; E87.1 Hypo-osmolality and hyponatremia; E11.9 Type 2 diabetes mellitus without complications
CPT/HCPCS: 51702; 80053; 81001; 82803; 85007; 85025; 85027; 87086; 96361; 96374; 99284; J7120

== ENCOUNTER 2025-01-03 13:20 | Outpatient (CLI) | payer MEDICARE, MEDICAID, SELFPAY ==
--- OUTSIDE RECORDS SUMMARY | 2025-01-03 13:24 | XMS_ITS ---
[facility] Care Plan Created on: December 13, 2024 Rene Howell : 1950 Sex: Male Author Organization [employer]. Address [address] [facility] [address] [facility] [address] [place] [address] Phone Health Concerns Health Status CKD 3 Health Concerns None
--- OUTSIDE RECORDS SUMMARY | 2025-01-03 13:24 | XMS_ITS | Encounter Summary ---
Author Organization [facility] Address [address] [place] [address] Care Team Providers Care Concrete Panel Installer Name Role Phone LuisYonathan solorio Nicola Primary Care Provider + Encounter Details Date Type Department Care Team (Late st Contact Info) Description 11/22/2024 Telephone [facility] [address] [place] [address] Daisy Carpenter, PUBLIC RELATIONS SPECIALIST [address] [place] [address] Social History Tobacco Use Types Packs/Day Years Used Date Smoking Tobacco: Former Cigarettes Smokeless Tobacco: Never Alcohol Use Standard Drinks/Week Comments Never 0 (1 standard drink = 0.6 oz pur e alcohol) [facility] Utilities Answer Date Recorded In the past 12 months has [facility], gas, oil, or water [employer] threatened to shut off services in your home? No 10/18/2024 AUDIT-C Answer Date Recorded Q1: How often do you have a drink containing alcohol? Never 10/17/2024 Q2: How many drinks containi ng alcohol do you have on a typical day when you are drinking? Patient does not drink Q3: How often do you have si x or more drinks on one occasion? Never 10/17/2024 Hunger Vital Sign Answer Date Recorded Within the past 12 months, y ou worried that your food would run out before you got the money to buy more. Never true 10/19/19 25 Within the past 12 months, t he food you bought just didn't last and you didn't have money to get more. Never true 10/18/2024 PRAPARE - Transportation Answer Date Re corded In the past 12 months, has l ack of transportation kept you from medical appointments or from getting medications? No 07/2024 In the past 12 months, has l ack of transportation kept you from meetings, work, or from getting things needed for daily living? No 10/18/2024 Abuse Screen Answer Date Recorded Feels Unsafe at Home or Work/School no 10/17/2024 Feels Threatened by Someone no 06/2024 Does Anyone Try to Keep You From Having Contact with Others or Doing Things Outside Your Home? no 10/17/2024 Physical Signs of Abuse Present no 10/17/2024 Housing Stability Answer Date Recorded Current Living Arrangements home 07/2024 Potentially Unsafe Housing Conditions none 10/18/2024 Family and Community Support Answer Del e Recorded If for any reason you need h elp with day-to-day activities such as bathing, preparing meals, shopping, managing finances, etc., do you get the help you need? I get all the help I need 10/18/2024 Lonely or Isolated Not on file 10/18/2024 Employment Answer Date Recorded Do you want help finding or keeping work or a job? I do not need or want help 10/18/2024 Disabilities Answer Date Recorded Difficulty Concentrating, Remembering or Making Decisions no 10/17/2024 Difficulty Managing Errands Independently no 10/17/2024 Education Answer Date Recorded Do you want help with school or training? For example, starting or completing job training or getting a high school diploma, GED or equivalent No 10/18/2024 Preferred Language Malagasy 10/18/2024 Sex and Gender Information Value Date Recorded Sex Assigned at Not on file Legal Sex Male 11:08 AM EDT Gender Identity Not on file Sexual Orientation Not on file documented as of this encounter Miscellaneous Notes * Telephone Encounter - Mabel Javier RegSched Rep - 11/22/2024 11:20 AM EDT CALLED PT ON 11/22/24 AT 11:20 AM TO RESCHEDULE HIS HOSP F/U 11/29/24 AND PATIENT STATED HE IS TOO TIRED TO MAKE THE TRIP TO [place] AND TO CANCEL HIS APPT. CANCELLED HOSP F/U 11/22/24TJ documented in this encounter Plan of Treatment Not on file documented as of this encounter Visit Diagnoses Not on filedocumented in this encounter Care Teams Concrete Panel Installer Relationship Specialty Start Date End Date Yonathan Smith DO [address] [place] [id number] PCP - General Internal Medicine 10/17/24 documented as of this encounter
--- OUTSIDE RECORDS SUMMARY | 2025-01-03 13:24 | XMS_ITS | Clinical Summary ---
Author Organization [facility] Address [address] [place] [address] Care Team Providers Care Front Facer Name Role Phone LuisYonathan solorio Nicola Primary Care Provider + Allergies No known active allergies Medications PRIMIDONE PO Take 500 mg by mouth 2 (Two) Times a Day. Active tamsulosin (FLOMAX) 0.4 MG capsule 24 hr capsule Take 1 capsule by mouth Daily. Active famotidine (PEPCID) 20 MG tablet Take 1 tablet by mouth 2 (Two) Times a Day. Active lansoprazole (PREVACID) 30 MG capsule Take 1 capsule by mouth Daily. Active amLODIPine (NORVASC) 5 MG tablet Take 1 tablet by mouth Daily. Active donepezil (ARICEPT) 10 MG tablet Take 1 tablet by mouth Every Night. Active montelukast (SINGULAIR) 10 MG tablet Take 1 tablet by mouth Every Night. Active Mirabegron ER (MYRBETRIQ) 25 MG tablet sustained-relea se 24 hour 24 hr tablet Take 1 tablet by mouth Daily. Active multivitamin with minerals (CENTRUM SILVER 50+MEN PO) Take 1 tablet by mouth Daily. Active propranolol (INDERAL) 20 MG tablet Take 1 tablet by mouth 2 (Two) Times a Day. Active Insulin Lispro (humaLOG) 100 UNIT/ML injection Inject 5 Units under the skin into the appropriate area as directed 3 (Three) Times a Day With Meals. 1350 Units 5 Active aspirin 81 MG chewable tablet Chew 1 tablet Daily. 90 tablet Active atorvastatin (LIPITOR) 80 MG tablet Take 1 tablet by mouth Every Night. 90 tablet Active clopidogrel (PLAVIX) 75 MG tablet Take 1 tablet by mouth Daily. 90 tablet Active insulin glargine (LANTUS, SEMGLEE) 100 UNIT/ML injection Inject 10 Units under the skin into the appropriate area as directed Every Night. Active Active Problems Problem Noted Date Diagnosed Date Aneurysm of right popliteal artery, with mural t hrombus 10/19/2024 Suspected cerebrovascular accident (CVA) 025 CKD (chronic kidney disease) 10/17/2024 T2DM (type 2 diabetes mellitus) 10/17/2024 Dyslipidemia 10/17/2024 Hyperkalemia 10/17/2024 RINA (acute kidney injury) 10/17/2024 History of CVA (cerebrovascular accident) 2024 CVA (cerebral vascular accident) 10/17/2024 Encounters Date Type Department Care Team Description 11/22/2024 Telephone [facility]UR[facility] [address] [facility] [place] [address] Daisy Carpenter, YARD HOSTLER 10/25/2024 Readmission Management [facility] [address] [place] [address] Gabi Ash, VLADIMIR 10/24/2024 Documentation [facility] CASE MAN [address] [place] [id number] Idalia Ruth RN 10/24/2024 Readmission Management [facility] [address] [place] [address] Gabi Ash, VLADIMIR 10/21/2024 Readmission Management [facility] [address] [place] [address] Helen Nguyen, VLADIMIR 10/17/2024 12:08 PM EDT - 10/21/2024 2:20 PM EDT Hospital Encounter [facility] 2B ICU [address] [place] [id number] Yousif Arteaga MD Cognitive communication deficit (Primary Dx); Dysarthria; Stroke aborted by administration of thrombolytic agent [place] Dis[place] [facility] [place] Travel from Last 3 Months Social History Tobacco Use Types Packs/Day Years Used Date Smoking Tobacco: Former Cigarettes Smokeless Tobacco: Never Tobacco Cessation:Counseling Given: No Alcohol Use Standard Drinks/Week Comments Never 0 (1 standard drink = 0.6 oz pur e alcohol) [facility] Utilities Answer Date Recorded In the past 12 months has th e electric, gas, oil, or water company threatened to shut off services in your [...] GED or equivalent No 10/18/2024 Preferred Language Syriac 10/18/2024 Sex and Gender Information Value Date Recorded Sex Assigned at Not on file Legal Sex Male 11:08 AM EDT Gender Identity Not on file Sexual Orientation Not on file Last Filed Vital Signs Vital Sign Reading Time Taken Comments Blood Pressure 117/81 10/21/2024 12:00 PM EDT Pulse 92 10/21/2024 12:00 PM EDT Temperature 36.4 C (97.6 F) 10/21/2024 11:00 AM EDT Respiratory Rate 16 10/21/2024 11:00 AM EDT Oxygen Saturation 98% 10/21/2024 12:00 PM EDT Inhaled Oxygen Concentration - - Weight 79.8 kg (176 lb) 10/18/2024 5:42 PM EDT Height 182.9 cm (6' 0.01 ) 10/18/2024 5:42 PM ED T Body Mass Index 23.86 10/18/2024 5:42 PM EDT Plan of Treatment Health Maintenance Due Date Last Done Comments DIABETIC EYE EXAM 1960 DIABETIC FOOT EXAM 1960 COLOGUARD 09/03/1995 COLON CANCER SCREENING 5 YEA R SIGMOIDOSCOPY 09/03/1995 COLONOSCOPY 09/03/1995 COLORECTAL CANCER SCREENING 09/03/1995 CT COLONOGRAPHY 09/03/1995 FECAL OCCULT BLOOD TEST 09/03/1995 FIT Testing (1 year) 09/03/1995 AAA SCREEN ONCE 09/03/2015 COVID-19 Vaccine (2 - 2024-2 5 season) 2024 08/24/2020 ANNUAL WELLNESS VISIT 10/21/2024 HEPATITIS C SCREENING 10/21/2024 INFLUENZA VACCINE 02/15/2025 03/09/2024, , 02/03/2022, Additional history exists HEMOGLOBIN A1C 04/19/2025 10/18/2024 URINE MICROALBUMIN-CREATININ E RATIO (uACR) 10/18/2025 10/18/2024 TDAP/TD VACCINES (2 - Td or Tdap) 12/06/2033 024 Pneumococcal Vaccine 50+ Completed 06/08/2019, 07/2016 ZOSTER VACCINE Completed 08/03/2023, 02/02/2023 Procedures Procedure Name Priority Date/Time Associated Diagnosis Comments POCT GLUCOSE FINGERSTICK Routine 10/21/2024 11:28 AM EDT POCT GLUCOSE FINGERSTICK Routine 10/21/2024 7:23 AM EDT BASIC METABOLIC PANEL Routine 10/21/2024 3:41 AM EDT MAGNESIUM Routine 10/21/2024 3:41 AM EDT CBC (NO DIFF) Routine 10/21/2024 3:25 AM EDT US RENAL LIMITED Routine 10/20/2024 9:54 PM EDT POCT GLUCOSE FINGERSTICK Routine 10/20/2024 7:19 PM EDT POCT GLUCOSE FINGERSTICK Routine 10/20/2024 4:17 PM EDT HEMOGLOBIN AND HEMATOCRIT, BLOOD Routine 10/20/2024 3:11 PM EDT POCT GLUCOSE FINGERSTICK Routine 10/20/2024 11:38 AM EDT POCT GLUCOSE FINGERSTICK Routine 10/20/2024 7:21 AM EDT MAGNESIUM Routine 10/20/2024 3:34 AM EDT IRON PROFILE Routine 10/20/2024 3:34 AM EDT CBC (NO DIFF) Routine 10/20/2024 3:34 AM EDT RENAL FUNCTION PANEL Routine 10/20/2024 3:34 AM EDT POCT GLUCOSE FINGERSTICK Routine 10/19/2024 8:31 PM EDT POCT GLUCOSE FINGERSTICK Routine 10/19/2024 5:31 PM EDT HEMOGLOBIN AND HEMATOCRIT, BLOOD Timed 10/19/2024 3:53 PM EDT POCT GLUCOSE FINGERSTICK Routine 10/19/2024 12:01 PM EDT DUPLEX VENOUS LOWER EXTREMITY BILATERAL CAR Routine 10/19/2024 10:01 AM EDT POCT GLUCOSE FINGERSTICK Routine 10/19/2024 7:59 AM EDT RENAL FUNCTION PANEL Routine 10/19/2024 3:20 AM EDT CBC (NO DIFF) Routine 10/19/2024 3:20 AM EDT POCT GLUCOSE FINGERSTICK Routine 10/18/2024 8:03 PM EDT DUPLEX CAROTID BILATERAL CAR - PERFORMED PROCEDURE Routine 10/18/2024 5:42 PM EDT ECHO COMPLETE W/ DOPPLER, COLOR FLOW AND CONTRAST Routine 10/18/2024 4:42 PM EDT POCT GLUCOSE FINGERSTICK Routine 10/18/2024 4:35 PM EDT BASIC METABOLIC PANEL Routine 10/18/2024 1:56 PM EDT SODIUM, URINE, RANDOM Add-On 10/18/2024 1:37 PM EDT MICROALBUMIN / CREATININE URINE RATIO Add-On 10/18/2024 1:37 PM EDT URINALYSIS, MICROSCOPIC ONLY Routine 10/18/2024 1:37 PM EDT URINALYSIS W/ MICROSCOPIC IF INDICATED (NO CULTURE) Routine 10/18/2024 1:37 PM EDT POCT GLUCOSE FINGERSTICK Routine 10/18/2024 11:[address] HEAD WO CONTRAST Routine 10/18/2024 1 1:10 AM EDT POCT GLUCOSE FINGERSTICK Routine 10/18/2024 7:32 AM EDT BASIC METABOLIC PANEL Routine 10/18/2024 3:21 AM EDT CBC (NO DIFF) Routine 10/18/2024 3:21 AM EDT MAGNESIUM Routine 10/18/2024 3:21 AM EDT LIPID PANEL Routine 10/18/2024 3:21 AM EDT HEMOGLOBIN A1C Routine 10/18/2024 3:21 AM EDT MRI BRAIN WO CONTRAST Routine 10/17/2024 11:20 PM EDT BLOOD GAS, VENOUS W/CO-OXIMETRY Routine 10/17/2024 8:40 PM EDT BASIC METABOLIC PANEL Routine 10/17/2024 8:37 PM EDT POCT GLUCOSE FINGERSTICK Routine 10/17/2024 7:54 PM EDT POCT GLUCOSE FINGERSTICK Routine 10/17/2024 6:38 PM EDT POCT GLUCOSE FINGERSTICK Routine 10/17/2024 5:48 PM EDT ECG 12-LEAD STAT 10/17/2024 5:06 PM EDT POCT GLUCOSE FINGERSTICK Routine 10/17/2024 4:[address] OUTSIDE HEAD Routine 10/17/2024 4:[address] OUTSIDE NECK Routine 10/17/2024 4:[address] OUTSIDE HEAD Routine 10/17/2024 4:24 PM EDT CBC AND DIFFERENTIAL STAT 10/17/2024 2:15 PM EDT CK STAT 10/17/2024 2:15 PM EDT PROTIME-INR STAT 10/17/2024 2:15 PM EDT CBC WITH AUTO DIFFERENTIAL STAT 10/17/2024 2:15 PM EDT PHOSPHORUS STAT 10/17/2024 2:15 PM EDT COMPREHENSIVE METABOLIC PANEL STAT 10/17/2024 2:15 PM EDT SCANNED EKG 10/17/2024 SCANNED - LABS 10/17/2024 SCANNED - IMAGING 10/17/2024 SCANNED - IMAGING 10/17/2024 SCANNED - IMAGING 10/17/2024 from Last 3 Months Results * (ABNORMAL) POC Glucose Once (10/21/2024 11:28 AM EDT) Only the most recent of18 resultswithin the time period is included. [facility] Signature Glucose 218(H) 70 - 130 mg/dL 10/21/2024 11:35 AM EDT [facility] Blood 10/21/2024 11:2 8 AM EDT 10/21/2024 11:35 AM EDT Yousif Arteaga MD POINT OF CARE TEST ORDERABLES F inal Result Performing Organization Address [facility] Co de Phone Number [facility]
[address] [place] [address], * Magnesium (10/21/2024 3:41 AM EDT) Only the most recent of3 resultswithin the time period is included. Magnesium 2.0 1.6 - 2.4 mg/dL 10/21/2024 4:49 AM EDT [facility] Blood Venipuncture / Unknown 10/21/2024 3:41 AM EDT 10/21/2024 4:21 AM EDT Akanksha Linares MD LAB BLOOD ORDERABLES Fin al Result Performing Organization Address [facility] Co de Phone Number [facility]
[address] [place] [address], * (ABNORMAL) Basic Metabolic Panel (10/21/2024 3:41 AM EDT) Only the most recent of4 resultswithin the time period is included. Glucose 174(H) 65 - 99 mg/dL 10/21/2024 4:49 AM EDT [facility] BUN 59.5(H) 8.0 - 23.0 mg/dL 10/21/2024 4:49 AM EDT [facility] Creatinine 2.54(H) 0.76 - 1.27 mg/dL 10/21/2024 4:49 AM EDT [facility] Sodium 133(L) 136 - 145 mmol/L 10/21/2024 4:49 AM EDT [facility] Potassium 4.5 3.5 - 5.2 mmol/L 10/21/2024 4:49 AM EDT [facility] Chloride 103 98 - 107 mmol/L 10/21/2024 4:49 AM EDT [facility] CO2 17.0(L) 22.0 - 29.0 mmol/L 10/21/2024 4:49 AM EDT [facility] Calcium 9.1 8.6 - 10.5 mg/dL 10/21/2024 4:49 AM EDT [facility] BUN/Creatinine Ratio 23.4 7.0 - 25.0 10/21/2024 4:49 AM EDT [facility] Anion Gap 13.0 5.0 - 15.0 mmol/L 10/21/2024 4:49 AM EDT [facility] eGFR 25.8(L) >60.0 mL/min/1.7 3 10/21/2024 4:49 AM EDT [facility] Blood Venipuncture / Unknown 10/21/2024 3:41 AM EDT 10/21/2024 4:21 AM EDT [facility] - 10/21/2024 4:49 AM EDT GFR Categories in Chronic Kidney Disease (CKD) GFR Category GFR (mL/min/1.73) Interpretation G1 90 or greater Normal or high (1) G2 60-89 Mild decrease (1) G3a 45-59 Mild to moderate decrease G3b 30-44 Moderate to severe decrease G4 15-29 Severe decrease G5 14 or less Kidney failure (1)In the absence of evidence of kidney disease, neither GFR category G1 or G2 fulfill the criteria for CKD. eGFR calculation 2020 CKD-EPI creatinine equation, which does not include race as a factor us Mer Miranda YARD HOSTLER LAB BLOOD ORDERABLES Final Result [facility]
[address] [place] [address], * (ABNORMAL) CBC (No Diff) (10/21/2024 3:25 AM EDT) Only the most recent of4 resultswithin the time period is included. WBC 6.45 3.40 - 10.80 10*3/mm3 10/21/2024 7:23 AM EDT [facility] RBC 2.61(L) 4.14 - 5.80 10*6/mm3 10/21/2024 7:23 AM EDT [facility] Hemoglobin 8.5(L) 13.0 - 17.7 g/dL 10/21/2024 7:23 AM EDT [facility] Hematocrit 25.6(L) 37.5 - 51.0 % 10/21/2024 7:23 AM EDT [facility] MCV 98.1(H) 79.0 - 97.0 fL 10/21/2024 7:23 AM EDT [facility] MCH 32.6 26.6 - 33.0 pg 10/21/2024 7:23 AM EDT [facility] MCHC 33.2 31.5 - 35.7 g/dL 10/21/2024 7:23 AM EDT [facility] RDW 13.7 12.3 - 15.4 % 10/21/2024 7:23 AM EDT [facility] RDW-SD 49.2 37.0 - 54.0 fl 10/21/2024 7:23 AM EDT [facility] MPV 9.0 6.0 - 12.0 fL 10/21/2024 7:23 AM EDT [facility] Platelets 242 140 - 450 10*3/mm3 10/21/2024 7:23 AM EDT [facility] Blood Venipuncture / Unknown 10/21/2024 3:25 AM EDT 10/21/2024 7:20 AM EDT us Mer Miranda APRN LAB BLOOD ORDERABLES Final Result [facility]
[address] [place] [address], * US Renal Limited (10/20/2024 9:54 PM EDT) Anatomical Region Laterality Modality Body, Abdomen Ultrasound 10/20/2024 10:0 9 PM EDT Impressions 10/20/2024 10:13 PM EDT Impression: 1.Right renal cortical thinning measuring 8 mm. No right-sided hydronephrosis. 2.Mild prominence of the left lower pole renal calyces. No dilation of the renal pelvis or proximal ureter. 3.Bilateral nonobstructing renal calculi measuring up to 1.7 cm on the right and 1.3 cm on the left. 4.Dependent sludge or debris within the urinary bladder. Electronically Signed: Donnell Wallace MD 10/20/2024 10:13 PM EDT Workstation ID: [id number] Narrative 10/20/2024 10:13 PM EDT US RENAL LIMITED Date of Exam: 10/20/2024 9:23 PM EDT Indication: RINA on CKD. Comparison: None available Technique: Grayscale and color Doppler ultrasound evaluation of the kidneys and urinary bladder was performed. Findings: The right kidney measures 11.0 x 5.3 x 5.2 cm. There is renal cortical thinning measuring 8 mm. There is an echogenic nonobstructing stone measuring 1.4 x 1.7 cm within the upper pole of the right kidney. The left kidney measures 11.2 x 4.8 x 6.4 cm. There is normal renal cortical thickness measuring 1.1 cm. There is mild prominence of the lower pole renal calyces. There is a echogenic shadowing stone measuring 1.3 cm within the mid left kidney. The urinary bladder wall is thickened. There is dependent sludge or debris. Procedure Note Donnell Wallace MD - 10/20/2024 US RENAL LIMITED Date of Exam: 10/20/2024 9:23 PM EDT Indication: RINA on CKD. Comparison: None available Technique: Grayscale and color Doppler ultrasound evaluation of thekidneys and urinary bladder was performed. Findings: The right kidney measures 11.0 x 5.3 x 5.2 cm. There is renal corticalthinning measuring 8 mm. There is an echogenic nonobstructing stonemeasuring 1.4 x 1.7 cm within the upper pole of the right kidney. The left kidney measures 11.2 x 4.8 x 6.4 cm. There is normal renalcortical thickness measuring 1.1 cm. There is mild prominence of the lowerpole renal calyces. There is a echogenic shadowing stone measuring 1.3 cmwithin the mid left kidney. The urinary bladder wall is thickened. There is dependent sludge ordebris. IMPRESSION: Impression: 1.Right renal cortical thinning measuring 8 mm. No right-sidedhydronephrosis. 2.Mild prominence of the left lower pole renal calyces. No dilation of therenal pelvis or proximal ureter. 3.Bilateral nonobstructing renal calculi measuring up to 1.7 cm on theright and 1.3 cm on the left. 4.Dependent sludge or debris within the urinary bladder. Electronically Signed: Donnell Wallace MD 10/20/2024 10:13 PM EDT Workstation ID: [id number] Jan Watts MD [facility] US ORDERABLES Final Result * (ABNORMAL) Hemoglobin & Hematocrit, Blood (10/20/2024 3:11 PM EDT) Only the most recent of2 resultswithin the time period is included. [facility] Hemoglobin 8.9(L) 13.0 - 17.7 g/dL 10/20/2024 4:25 PM EDT [facility] Hematocrit 28.5(L) 37.5 - 51.0 % 10/20/2024 4:25 PM EDT [facility] Blood Venipuncture / Unknown 10/20/2024 3:11 PM EDT 10/20/2024 4:15 PM EDT Douglas Alexander PharmD LAB BLOOD ORDERABLES Fin al Result [facility]
[address] [place] [address], * (ABNORMAL) Iron Profile w/o Ferritin (10/20/2024 3:34 AM EDT) Iron 74 59 - 158 mcg/dL 10/20/2024 4:48 AM EDT [facility] Iron Saturation (TSAT) 28 20 - 50 % 10/20/2024 4:48 AM EDT [facility] Transferrin 176(L) 200 - 360 mg/dL 10/20/2024 4:48 AM EDT [facility] TIBC 262(L) 298 - 536 mcg/dL 10/20/2024 4:48 AM EDT [facility] Blood Venipuncture / Unknown 10/20/2024 3:34 AM EDT 10/20/2024 3:42 AM EDT Akanksha Linares MD LAB BLOOD ORDERABLES Fin al Result [facility]
[address] [place] [address], * (ABNORMAL) Renal Function Panel (10/20/2024 3:34 AM EDT) Only the most recent of2 resultswithin the time period is included. Glucose 153(H) 65 - 99 mg/dL 10/20/2024 4:08 AM EDT [facility] BUN 68.6(H) 8.0 - 23.0 mg/dL 10/20/2024 4:08 AM EDT [facility] Creatinine 2.74(H) 0.76 - 1.27 mg/dL 10/20/2024 4:08 AM EDT [facility] Sodium 134(L) 136 - 145 mmol/L 10/20/2024 4:08 AM EDT [facility] Potassium 4.6 3.5 - 5.2 mmol/L 10/20/2024 4:08 AM EDT [facility] Chloride 105 98 - 107 mmol/L 10/20/2024 4:08 AM EDT [facility] CO2 16.0(L) 22.0 - 29.0 mmol/L 10/20/2024 4:08 AM EDT [facility] Calcium 8.5(L) 8.6 - 10.5 mg/dL 10/20/2024 4:08 AM EDT [facility] Albumin 3.0(L) 3.5 - 5.2 g/dL 10/20/2024 4:08 AM EDT [facility] Phosphorus 2.5 2.5 - 4.5 mg/dL 10/20/2024 4:08 AM EDT [facility] Anion Gap 13.0 5.0 - 15.0 mmol/L 10/20/2024 4:08 AM EDT [facility] BUN/Creatinine Ratio 25.0 7.0 - 25.0 10/20/2024 4:08 AM EDT [facility] eGFR 23.6(L) >60.0 mL/min/1.7 3 10/20/2024 4:08 AM EDT [facility] Blood Venipuncture / Unknown 10/20/2024 3:34 AM EDT 10/20/2024 3:42 AM EDT Narrative [facility] - 10/20/2024 4:08 AM EDT GFR Categories in Chronic Kidney Disease (CKD) GFR Category GFR (mL/min/1.73) Interpretation G1 90 or greater Normal or high (1) G2 60-89 Mild decrease (1) G3a 45-59 Mild to moderate decrease G3b 30-44 Moderate to severe decrease G4 15-29 Severe decrease G5 14 or less Kidney failure (1)In the absence of evidence of kidney disease, neither GFR category G1 or G2 fulfill the criteria for CKD. eGFR calculation 2020 CKD-EPI creatinine equation, which does not include race as a factor us Akanksha Linares MD LAB BLOOD ORDERABLES Fin al Result [facility]
[address] [place] [address], * Duplex Venous Lower Extremity - Bilateral CAR (10/19/2024 10:01 AM EDT) Right Common Femoral Spont Y Right Common Femoral Competent Y Right Common Femoral Phasic Y Right Common Femoral Compress C Right Common Femoral Augment Y Right Saphenofemoral Junction Compress C Right Profunda Femoral Compress C Right Proximal Femoral Compress C Right Mid Femoral Spont Y Right Mid Femoral Competent Y Right Mid Femoral Phasic Y Right Mid Femoral Compress C Right Mid Femoral Augment Y Right Distal Femoral Compress C Right Popliteal Spont Y Right Popliteal Competent Y Right Popliteal Phasic Y Right Popliteal Compress C Right Popliteal Augment Y Right Posterior Tibial Compress C Right Peroneal Compress C Right Gastronemius Compress C Right Greater Saph AK Compress C Right Greater Saph BK Compress C Right Lesser Saph Compress C Left Common Femoral Spont Y Left Common Femoral Competent Y Left Common Femoral Phasic Y Left Common Femoral Compress C Left Common Femoral Augment Y Left Saphenofemoral Junction Compress C Left Profunda Femoral Compress C Left Proximal Femoral Compress C Left Mid Femoral Spont Y Left Mid Femoral Competent Y Left Mid Femoral Phasic Y Left Mid Femoral Compress C Left Mid Femoral Augment Y Left Distal Femoral Compress C Left Popliteal Spont Y Left Popliteal Competent Y Left Popliteal Phasic Y Left Popliteal Compress C Left Popliteal Augment Y Left Posterior Tibial Compress C Left Peroneal Compress C Left Gastronemius Compress C Left Greater Saph AK Compress C Left Greater Saph BK Compress C Left Lesser Saph Compress C BH CV VAS PRELIMINARY FINDINGS SCRIPTING 1.0 Anatomical Region Laterality Modality Ultrasound Narrative 10/19/2024 10:35 AM EDT No evidence of DVT or thrombophlebitis bilaterally Incidentally noted right popliteal artery aneurysm measuring 1.4 x 1.3 cm. There is associated mural thrombus. Study Findings - Right Right sided additional findings: Incidental Finding: Right Popliteal artery aneurysm measuring 1.35 x 1.27. There is mural thrombus noted. Additional Study Details Study findings given to Tiff Ivey on 10/19/2024 at 10:28 EDT. Study performed at bedside. The study is technically excellent for diagnosis. INCIDENTAL FINDING: Right popliteal aneurysm. us Tiff Ivey MD CV VASCULAR ORDERABLES Stephanie l Result * DUPLEX CAROTID BILATERAL CAR - PERFORMED PROCEDURE (10/18/2024 5:42 PM EDT) Prox CCA PSV 101.4 cm/sec Prox CCA EDV 11.3 cm/sec Right Mid CCA PSV 94.0 cm/sec right Mid CCA EDV 18.2 cm/sec Dist CCA PSV 72.9 cm/sec Dist CCA EDV 15.1 cm/sec Prox ICA PSV 95.8 cm/sec Prox ICA EDV 32.3 cm/sec Mid ICA PSV 68.7 cm/sec Mid ICA EDV 25.8 cm/sec Dist ICA PSV 46.4 cm/sec Dist ICA EDV 15.4 cm/sec Prox ECA PSV 109.3 cm/sec Prox ECA EDV 13.4 cm/sec Vertebral A PSV 89.0 cm/sec Vertebral A EDV 21.4 cm/sec Prox CCA PSV 145.4 cm/sec Prox CCA EDV 14.1 cm/sec left Mid CCA PSV 94.8 cm/sec left Mid CCA EDV 12.4 cm/sec Dist CCA PSV 89.6 cm/sec Dist CCA EDV 20.2 cm/sec Prox ICA PSV 111.7 cm/sec Prox ICA EDV 29.9 cm/sec Mid ICA PSV 88.9 cm/sec Mid ICA EDV 24.6 cm/sec Dist ICA PSV 97.9 cm/sec Dist ICA EDV 24.7 cm/sec Prox ECA PSV 121.3 cm/sec Prox ECA EDV 10.7 cm/sec Vertebral A PSV 72.7 cm/sec Vertebral A EDV 15.8 cm/sec XLRA MELY RIGHT CAROTID BULB PSV 74.3 cm/sec XLRA MELY RIGHT CAROTID BULB EDV 19.7 cm/sec Prox SCLA PSV 95.2 cm/sec ICA/CCA ratio 0.94 Diastolic ICA/CCA Ratio 2.86 Prox SCLA PSV 168.3 cm/sec ICA/CCA ratio 1.25 ICA/CCA diastolic ratio 1.48 Right arm BP 106/86 mmHg Anatomical Region Laterality Modality Ultrasound Narrative 10/18/2024 10:55 PM EDT Right internal carotid artery demonstrates a less than 50% stenosis. Antegrade right vertebral flow. Left internal carotid artery demonstrates a less than 50% stenosis. Antegrade left vertebral flow. Study Impression Right ICA: Imaging indicates <50% stenosis. Left ICA: Imaging indicates <50% stenosis. Study Findings Right CCA Prox: Irregular calcified heterogeneous plaque present. Right CCA Mid: Calcified plaque present. Right CCA Dist: Irregular calcified plaque present. Right Carotid Bulb: Heterogeneous plaque present. Right ICA Prox: Calcified plaque present. Right ICA Mid: No plaque visualized. Right ICA Dist: No plaque visualized. Right ECA: Calcific plaque present. Right Vertebral: Antegrade flow noted. Left CCA Prox: Calcified heterogeneous plaque present. Left CCA Mid: Calcified plaque present. Left CCA Dist: Calcified heterogeneous plaque present. Left Carotid Bulb: Irregular calcified heterogeneous plaque present. Left ICA Prox: Irregular calcified heterogeneous plaque present. Left ICA Mid: No plaque visualized. Left ICA Dist: No plaque visualized. Left ECA: Calcific plaque present. Left Vertebral: Antegrade flow noted. Additional Study Details Study performed at bedside. The study is technically good for diagnosis. No prior for comparison. us Tiff Ivey MD CV VASCULAR ORDERABLES Stephanie livingston Result * ECHO COMPLETE W/ DOPPLER, COLOR FLOW AND CONTRAST (10/18/2024 4:42 PM EDT) Pathologist [facility] EF(MOD-bp) 71.4 % LV Sys Vol (BSA corrected) 8.7 cm2 LV Bach Vol (BSA corrected) 33.8 cm2 LVOT area 3.1 cm2 LVOT diam 2.00 cm EDV(MOD-sp2) 81.0 ml EDV(MOD-sp4) 68.3 ml ESV(MOD-sp2) 24.0 ml ESV(MOD-sp4) 17.6 ml SV(MOD-sp2) 57.0 ml SV(MOD-sp4) 50.7 ml SVi(MOD-SP2) 28.2 ml/m2 SVi(MOD-SP4) 25.1 ml/m2 SVi (LVOT) 43.4 ml/m2 EF(MOD-sp2) 70.4 % EF(MOD-sp4) 74.2 % MV E max adri 43.5 cm/sec MV A max adri 60.8 cm/sec MV dec time 0.18 sec MV E/A 0.72 SV(LVOT) 87.7 ml TAPSE (>1.6) 2.34 cm LV V1 max 147.0 cm/sec LV V1 max PG 8.6 mmHg LV V1 mean PG 5.0 mmHg LV V1 VTI 27.9 cm Ao pk adri 152.0 cm/sec Ao max PG 9.2 mmHg Ao mean PG 5.0 mmHg Ao V2 VTI 24.3 cm DEE(I,D) 3.6 cm2 Dimensionless Index 1.15 (DI) MV max PG 2.6 mmHg MV mean PG 1.00 mmHg MV V2 VTI 15.4 cm MV P1/2t 50.6 msec MVA(P1/2t) 4.3 cm2 MVA(VTI) 5.7 cm2 MV dec slope 422.0 cm/sec2 PA V2 max 124.0 cm/sec PA acc time 0.09 sec LVIDd 3.0 cm LVIDs 1.80 cm IVSd 0.90 cm LVPWd 1.00 cm FS 40.0 % IVS/LVPW 0.90 cm ESV(cubed) 5.8 ml EDV(cubed) 27.0 ml LV mass(C)d 76.0 grams RV Base 3.3 cm RV Mid 3.0 cm RV Length 6.5 cm BH CV ECHO SHUNT ASSESSMENT PERFORMED (HIDDEN SCRIPTING) 1 BH CV VAS BP RIGHT ARM 125/69 mmHg Anatomical Region Laterality Modality Ultrasound Narrative 10/18/2024 10:59 PM EDT Left ventricular systolic function is normal. Left ventricular ejection fraction appears to be 61 - 65%. Saline test results are positive. Left Ventricle Left ventricular systolic function is normal. Left ventricular ejection fraction appears to be 61 - 65%. Normal left ventricular cavity size and wall thickness noted. All left ventricular wall segments contract normally. Left ventricular diastolic function was indeterminate. Right Ventricle Right ventricle not well visualized. Normal right ventricular cavity size and systolic function noted. Left Atrium Normal left atrial size and volume noted. Saline test results are positive. Right Atrium Normal right atrial cavity size noted. Mitral Valve Mitral valve is not well visualized. The mitral valve is grossly normal in structure. No mitral valve regurgitation or significant stenosis is present. Tricuspid Valve Tricuspid valve not well visualized. No significant tricuspid valve regurgitation or significant stenosis present. The tricuspid valve is grossly normal in structure. Insufficient TR velocity profile to estimate the right ventricular systolic pressure. Aortic Valve No aortic valve regurgitation or stenosis is present. The aortic valve is grossly normal in structure. Pulmonic Valve The pulmonic valve is not well visualized. The pulmonic valve is grossly normal in structure. No pulmonic valve regurgitation or significant stenosis is present. Pericardium The pericardium was not well visualized. Greater Vessels The aortic root not well visualized. Study Quality The study is technically suboptimal for diagnosis. The quality of the study is limited with poor acoustic windows in the parasternal window and apical window. Enhancement Agent Details Verbal consent was obtained from the patient to use Lumason image enhancer in order to optimize the study. The use of Lumason was indicated to improve delineation of the left ventricular endocardial border. 5 mL of Lumason was manually activated. A total of 2 mL of the activated Lumason was administered and the remaining contrast was wasted and discarded. No adverse reaction to image enhancer was noted. Shunt Assessment Verbal consent was obtained from the patient for use of agitated saline to assess for shunting. A total of 20 mL of agitated saline was administered. Lori Munson APRN CV ECHO ORDERABLES Final Result * (ABNORMAL) Urinalysis, Microscopic Only - Urine, Clean Catch (10/18/2024 1:37 PM EDT) RBC, UA 6-10(A) None Seen, 0-2 /HPF 10/18/2024 1:58 PM EDT [facility] WBC, UA Too Numerous to Count(A) None Seen, 0-2 /HPF 10/18/2024 1:58 PM EDT [facility] Bacteria, UA None Seen None Seen, Trace /HPF 10/18/2024 1:58 PM EDT [facility] Squamous Epithelial Cells, UA None Seen None Seen, 0-2 /HPF 10/18/2024 1:58 PM EDT [facility] Hyaline Casts, UA None Seen 0 - 6 /LPF 10/18/2024 1:58 PM EDT [facility] Methodology Automated Microscopy 10/18/2024 1:58 PM EDT [facility] Urine Urine specimen obtained by clean catch procedure / Unknown Collection / Unknown 10/18/2024 1:37 PM EDT 10/18/2024 1:49 PM EDT Akanksha Linares MD URINE ORDERABLES Final R esult [facility]
[id number] [id number], * (ABNORMAL) Urinalysis With Microscopic If Indicated (No Culture) - Urine, Clean Catch (10/18/2024 1:37 PM EDT) Color, UA Yellow Yellow, Straw 10/18/2024 1:58 PM EDT [facility] Appearance, UA Cloudy(A) Clear 10/18/2024 1:58 PM EDT [facility] pH, UA 6.0 5.0 - 8.0 10/18/2024 1:58 PM EDT [facility] Specific [place], UA 1.014 1.001 - 1.030 10/18/2024 1:58 PM EDT [facility] Glucose, UA 100 mg/dL (Trace)(A) Negative 10/18/2024 1:58 PM EDT [facility] Ketones, UA Negative Negative 10/18/2024 1:58 PM EDT [facility] Bilirubin, UA Negative Negative 10/18/2024 1:58 PM EDT [facility] Blood, UA Small (1+)(A) Negative 10/18/2024 1:58 PM EDT [facility] Protein, UA 30 mg/dL (1+)(A) Negative 10/18/2024 1:58 PM EDT [facility] Leuk Esterase, UA Large (3+)(A) Negative 10/18/2024 1:58 PM EDT [facility] Nitrite, UA Negative Negative 10/18/2024 1:58 PM EDT [facility] Urobilinogen, UA 0.2 E.U./dL 0.2 - 1.0 E.U./dL 10/18/2024 1:58 PM EDT [facility] Urine Urine specimen obtained by clean catch procedure / Unknown Collection / Unknown 10/18/2024 1:37 PM EDT 10/18/2024 1:49 PM EDT Akanksha Linares MD URINE ORDERABLES Final R esult [facility]
[address] [place] [address], [place] [phone] * (ABNORMAL) Microalbumin / Creatinine Urine Ratio - Urine, Clean Catch (10/18/2024 1:37 PM EDT) Microalbumin/C reatinine Ratio 184.1(H) 0.0 - 29.0 mg/g 10/19/2024 11:37 PM EDT [facility] Creatinine, Urine 31.5 mg/dL 10/19/2024 11:37 PM EDT [facility] Microalbumin, Urine 5.8 mg/dL 10/19/2024 11:37 PM EDT [facility] Urine Urine specimen obtained by clean catch procedure / Unknown Collection / Unknown 10/18/2024 1:37 PM EDT 10/19/2024 7:40 PM EDT Jan Watts MD URINE ORDERABLES Final Result Performing Organization Address City/[facility]/ZIP Co de Phone Number [facility]
[address] [place] [address], [place] [phone] * Sodium, Urine, Random - Urine, Clean Catch (10/18/2024 1:37 PM EDT) Sodium, Urine 51 mmol/L 10/19/2024 8:49 PM EDT [facility] Urine Urine specimen obtained by clean catch procedure / Unknown Collection / Unknown 10/18/2024 1:37 PM EDT 10/18/2024 1:49 PM EDT Narrative [facility] - 10/19/2024 8:49 PM EDT Reference intervals for random urine have not been established. Clinical usage is dependent upon physician's interpretation in combination with other laboratory tests. us Jan Watts MD URINE ORDERABLES Final Result [facility]
[address] [id number], [place] [phone] * CT Head Without Contrast (10/18/2024 11:10 AM EDT) Anatomical Region Laterality Modality Head N/A Computed Tomogra phy 10/18/2024 12:2 0 PM EDT Impressions 10/18/2024 12:24 PM EDT Impression: 1.No acute intracranial abnormality identified by noncontrast CT. no evidence of intracranial hemorrhage. 2.Stable chronic changes as above. Electronically Signed: Juan Calderon MD 10/18/2024 12:24 PM EDT Workstation ID: [id number] Narrative 10/18/2024 12:[address] HEAD WO CONTRAST Date of Exam: 10/18/2024 10:58 AM EDT Indication: Stroke, follow up 24 hour post-TNK 24 Hours Post Thrombolytic Administration. Comparison: 10/17/2024 Technique: Axial CT images were obtained of the head without contrast administration. Automated exposure control and iterative construction methods were used. Findings: There is no evidence of mass effect, midline shift, acute hemorrhage. Large area of encephalomalacia again noted in the left frontal region consistent with chronic ischemic change. There is moderate to advanced periventricular white matter hypodensity, most commonly secondary to chronic small vessel ischemic change. No abnormal fluid collections are identified. Ventricles are appropriate in size and configuration. Chronic lacunar type infarct in the left caudate head. Visualized paranasal sinuses and mastoid air cells are clear. Orbits are grossly unremarkable. No acute calvarial defects are seen. Atherosclerotic vascular calcification is noted. Procedure Note Juan Calderon MD - 10/18/2024 CT HEAD WO CONTRAST Date of Exam: 10/18/2024 10:58 AM EDT Indication: Stroke, follow up 24 hour post-TNK 24 Hours Post Thrombolytic Administration. Comparison: 10/17/2024 Technique: Axial CT images were obtained of the head without contrastadministration. Automated exposure control and iterative constructionmethods were used. Findings: There is no evidence of mass effect, midline shift, acute hemorrhage.Large area of encephalomalacia again noted in the left frontal regionconsistent with chronic ischemic change. There is moderate to advancedperiventricular white matter hypodensity, most commonly secondary to chronic small vessel ischemic change. Noabnormal fluid collections are identified. Ventricles are appropriate insize and configuration. Chronic lacunar type infarct in the left caudatehead. Visualized paranasal sinuses and mastoid air cells are clear. Orbits are grossly unremarkable. No acutecalvarial defects are seen. Atherosclerotic vascular calcification isnoted. IMPRESSION: Impression: 1.No acute intracranial abnormality identified by noncontrast CT. noevidence of intracranial hemorrhage. 2.Stable chronic changes as above. Electronically Signed: Juan Calderon MD 10/18/2024 12:24 PM EDT Workstation ID: [id number] Lori Munson APRN IMG CT ORDERABLES F inal Result * (ABNORMAL) Hemoglobin A1c (10/18/2024 3:21 AM EDT) Pathologist [facility] Hemoglobin A1C 10.90(H) 4.80 - 5.60 % 10/18/2024 4:44 AM EDT [facility] Blood Venipuncture / Unknown 10/18/2024 3:21 AM EDT 10/18/2024 3:51 AM EDT Narrative [facility] - 10/18/2024 4:44 AM EDT Hemoglobin A1C Ranges: Increased Risk for Diabetes 5.7% to 6.4% Diabetes >= 6.5% Diabetic Goal < 7.0% Lori Munson APRN LAB BLOOD ORDERABLE S Final Result [facility]
[address] [place] [address], * (ABNORMAL) Lipid Panel (10/18/2024 3:21 AM EDT) Total Cholesterol 120 0 - 200 mg/dL 10/18/2024 4:31 AM EDT [facility] Triglycerides 179(H) 0 - 150 mg/dL 10/18/2024 4:31 AM EDT [facility] HDL Cholesterol 34(L) 40 - 60 mg/dL 10/18/2024 4:31 AM EDT [facility] LDL Cholesterol 56 0 - 100 mg/dL 10/18/2024 4:31 AM EDT [facility] VLDL Cholesterol 30 5 - 40 mg/dL 10/18/2024 4:31 AM EDT [facility] LDL/HDL Ratio 1.48 10/18/2024 4:31 AM T [facility] Blood Venipuncture / Unknown 10/18/2024 3:21 AM EDT 10/18/2024 3:51 AM EDT Narrative [facility] - 10/18/2024 4:31 AM EDT Cholesterol Reference Ranges (U.S. Department of Health and Human Services ATP III Classifications) Desirable <200 mg/dL Borderline High 200-239 mg/dL High Risk >240 mg/dL Triglyceride Reference Ranges (U.S. Department of Health and Human Services ATP III Classifications) Normal <150 mg/dL Borderline High 150-199 mg/dL High 200-499 mg/dL Very High >500 mg/dL HDL Reference Ranges (U.S. Department of Health and Human Services ATP III Classifications) Low <40 mg/dl (major risk factor for CHD) High >60 mg/dl ('negative' risk factor for CHD) LDL Reference Ranges (U.S. Department of Health and Human Services ATP III Classifications) Optimal <100 mg/dL Near Optimal 100-129 mg/dL Borderline High 130-159 mg/dL High 160-189 mg/dL Very High >189 mg/dL LDL is calculated using the NIH LDL-C calculation. us Lori Munson APRN LAB BLOOD ORDERABLE S Final Result [facility]
[address] [place], [place] [address] [phone] * MRI Brain Without Contrast (10/17/2024 11:20 PM EDT) Anatomical Region Laterality Modality Head, Neck N/A Magnetic Resonan ce 10/18/2024 2:13 AM EDT Impressions 10/18/2024 2:18 AM EDT Impression: Atrophy and chronic microvascular ischemic change. Old left frontal infarct. No acute intracranial process. Electronically Signed: Juan Burgos MD 10/18/2024 2:18 AM EDT Workstation ID: [id number] Narrative 10/18/2024 2:18 AM EDT MRI BRAIN WO CONTRAST Date of Exam: 10/17/2024 10:57 PM EDT Indication: Stroke, follow up Dysarthria, left-sided numbness, left superior visual deficit. Comparison: CT head 10/17/2024 Technique: Routine multiplanar/multisequence sequence images of the brain were obtained without contrast administration. Findings: There is mild diffuse generalized atrophy. There are areas of increased T2 and FLAIR signal throughout the bilateral periventricular white matter consistent with chronic microvascular ischemic change. There is a focal area of encephalomalacia at in the left frontal lobe consistent with a previous infarct. There is no evidence of mass, mass effect or midline shift. There are no areas of acute hemorrhage. There is no pathologic extra-axial fluid collection. The major intracranial flow voids are preserved. The diffusion weighted sequences are normal. The paranasal sinuses and mastoid air cells are clear. Procedure Note Juan Burgos MD - 10/18/2024 MRI BRAIN WO CONTRAST Date of Exam: 10/17/2024 10:57 PM EDT Indication: Stroke, follow up Dysarthria, left-sided numbness, left superior visual deficit. Comparison: CT head 10/17/2024 Technique: Routine multiplanar/multisequence sequence images of the brainwere obtained without contrast administration. Findings: There is mild diffuse generalized atrophy. There are areas of increased T2and FLAIR signal throughout the bilateral periventricular white matterconsistent with chronic microvascular ischemic change. There is a focalarea of encephalomalacia at in the left frontal lobe consistent with a previous infarct. There is no evidenceof mass, mass effect or midline shift. There are no areas of acutehemorrhage. There is no pathologic extra-axial fluid collection. The majorintracranial flow voids are preserved. The diffusion weighted sequences are normal. The paranasalsinuses and mastoid air cells are clear. IMPRESSION: Impression: Atrophy and chronic microvascular ischemic change. Old left frontalinfarct. No acute intracranial process. Electronically Signed: Juan Burgos MD 10/18/2024 2:18 AM EDT Workstation ID: [id number] Lori Munson [facility] IMG MRI ORDERABLES Final Result * (ABNORMAL) Blood Gas, Venous With Co-Ox (10/17/2024 8:40 PM EDT) Site Nurse/Dr Barcenas 10/17/2024 8:39 PM EDT [facility] pH, Venous 7.241(LL) 7.310 - 7.410 pH Units 10/17/2024 8:39 PM EDT [facility] Comment:85 Value below criti marty limit pCO2, Venous 42.2 41.0 - 51.0 mm Hg 10/17/2024 8:39 PM EDT [facility] pO2, Venous 25.8(L) 27.0 - 53.0 mm Hg 10/17/2024 8:39 PM EDT [facility] Comment:84 Value below refer ence range HCO3, Venous 18.1(L) 22.0 - 28.0 mmol/L 10/17/2024 8:39 PM EDT [facility] Base Excess, Venous -8.7(L) -2.0 - 2.0 mmol/L 10/17/2024 8:39 PM EDT [facility] Hemoglobin, Blood Gas 9.6(L) 13.5 - 17.5 g/dL 10/17/2024 8:39 PM EDT [facility] Oxyhemoglobin Venous 46.0 % 06/2024 8:39 PM EDT [facility] Methemoglobin Venous 0.2 % 06/2024 8:39 PM EDT [facility] Carboxyhemoglobin Venous 1.7 % 10/17/2024 8:39 PM EDT [facility] CO2 Content 19.4(L) 22 - 33 mmol/L 10/17/2024 8:39 PM EDT [facility] Temperature 37.0 10/17/2024 8:39 PM EDT [facility] Barometric Pressure for Blood Gas 10/17/2024 8:39 PM EDT [facility] Comment:N/A Modality Room Air 10/17/2024 8:39 PM EDT [facility] FIO2 21 % 10/17/2024 8:39 PM EDT [facility] Rate 0 Breaths/ minute 10/17/2024 8:39 PM EDT [facility] PIP 0 cmH2O 10/17/2024 8:39 PM EDT [facility] Comment:Meter: [id number] Crisis Manager: [id number] IPAP 0 10/17/2024 8:39 PM EDT [facility] EPAP 0 10/17/2024 8:39 PM EDT [facility] Notified Who GARETT GUILLEN 10/17/2024 8:39 PM EDT [facility] Notified By [id number] 10/17/2024 8:39 PM EDT [facility] Notified Time 20:41 10/17/2024 8:39 PM EDT [facility] Venous Blood 10/17/2024 8:40 PM EDT 10/17/2024 8:41 PM EDT us Yousif Arteaga MD LAB BLOOD ORDERABLES Final Resu lt [facility]
[address] [place] [address], * ECG 12 Lead Electrolyte Imbalance (10/17/2024 5:06 PM EDT) QT Interval 322 ms ECG QTC Interval 406 ms ECG 10/17/2024 5:06 PM EDT 10/19/2024 4:28 PM EDT Narrative ECG - 10/19/2024 4:28 PM EDT Test Reason : Electrolyte Imbalance Blood Pressure : */* mmHG Vent. Rate : 96 BPM Atrial Rate : 96 BPM P-R Int : 152 ms QRS Dur : 76 ms QT Int : 322 ms P-R-T Axes : 69 24 69 degrees QTcB Int : 406 ms Normal sinus rhythm Normal ECG No previous ECGs available Confirmed by JOCE SCHULZ MD ([id number]) on 10/19/2024 4:28:17 PM Referred By: Confirmed By: JOCE SCHULZ MD Procedure Note Joce Schulz MD - 10/19/2024 Test Reason : Electrolyte Imbalance Blood Pressure : */* mmHG Vent. Rate : 96 BPM Atrial Rate : 96 BPM P-R Int : 152 ms QRS Dur : 76 ms QT Int : 322 ms P-R-T Axes : 69 24 69 degrees QTcB Int : 406 ms Normal sinus rhythm Normal ECG No previous ECGs available Confirmed by JOCE SCHULZ MD ([id number]) on 10/19/2024 4:28:17 PM Referred By: Confirmed By: JOCE SCHULZ MD us Yousif Arteaga MD ECG ORDERABLES Final Result ECG * CT Outside Head (10/17/2024 4:25 PM EDT) Only the most recent of2 resultswithin the time period is included. Narrative SYSTEMGENERATED, DOCUMENTATION - 10/17/2024 4:25 PM EDT This procedure was auto-finalized with no dictation required. us [employer] IMG CT ORDERABLES Final Re sult * CT Outside Neck (10/17/2024 4:24 PM EDT) Narrative SYSTEMGENERATED, DOCUMENTATION - 10/17/2024 4:24 PM EDT This procedure was auto-finalized with no dictation required. us [employer] IMG CT ORDERABLES Final Re sult * (ABNORMAL) CBC Auto Differential (10/17/2024 2:15 PM EDT) WBC 8.00 3.40 - 10.80 10*3/mm3 10/17/2024 3:00 PM EDT [facility] RBC 3.33(L) 4.14 - 5.80 10*6/mm3 10/17/2024 3:00 PM EDT [facility] Hemoglobin 10.7(L) 13.0 - 17.7 g/dL 10/17/2024 3:00 PM EDT [facility] Hematocrit 32.6(L) 37.5 - 51.0 % 10/17/2024 3:00 PM EDT [facility] MCV 97.9(H) 79.0 - 97.0 fL 10/17/2024 3:00 PM EDT [facility] MCH 32.1 26.6 - 33.0 pg 10/17/2024 3:00 PM EDT [facility] MCHC 32.8 31.5 - 35.7 g/dL 10/17/2024 3:00 PM EDT [facility] RDW 13.2 12.3 - 15.4 % 10/17/2024 3:00 PM EDT [facility] RDW-SD 47.7 37.0 - 54.0 fl 10/17/2024 3:00 PM EDT [facility] MPV 9.2 6.0 - 12.0 fL 10/17/2024 3:00 PM EDT [facility] Platelets 281 140 - 450 10*3/mm3 10/17/2024 3:00 PM EDT [facility] Neutrophil % 80.4(H) 42.7 - 76.0 % 10/17/2024 3:00 PM EDT [facility] Lymphocyte % 10.1(L) 19.6 - 45.3 % 10/17/2024 3:00 PM EDT [facility] Monocyte % 6.1 5.0 - 12.0 % 10/17/2024 3:00 PM EDT [facility] Eosinophil % 2.3 0.3 - 6.2 % 10/17/2024 3:00 PM EDT [facility] Basophil % 0.6 0.0 - 1.5 % 10/17/2024 3:00 PM EDT [facility] Immature Grans % 0.5 0.0 - 0.5 % 10/17/2024 3:00 PM EDT [facility] Neutrophils, Absolute 6.43 1.70 - 7.00 10*3/mm3 10/17/2024 3:00 PM EDT [facility] Lymphocytes, Absolute 0.81 0.70 - 3.10 10*3/mm3 10/17/2024 3:00 PM EDT [facility] Monocytes, Absolute 0.49 0.10 - 0.90 10*3/mm3 10/17/2024 3:00 PM EDT [facility] Eosinophils, Absolute 0.18 0.00 - 0.40 10*3/mm3 10/17/2024 3:00 PM EDT [facility] Basophils, Absolute 0.05 0.00 - 0.20 10*3/mm3 10/17/2024 3:00 PM EDT [facility] Immature Grans, Absolute 0.04 0.00 - 0.05 10*3/mm3 10/17/2024 3:00 PM EDT [facility] nRBC 0.0 0.0 - 0.2 /100 WBC 10/17/2024 3:00 PM EDT [facility] Blood Line / Unknown 10/17/2024 2: 15 PM EDT 10/17/2024 2:25 PM EDT us Christi Cerna DNP, [facility] LAB BLOOD ORDERABLES Fi nal Result [facility]
[address] [place] [address], * Protime-INR (10/17/2024 2:15 PM EDT) Pathologist [facility] Protime 13.6 12.2 - 15.3 Seconds 10/17/2024 2:39 PM EDT [facility] INR 0.98 0.89 - 1.12 10/17/2024 2:39 PM EDT [facility] Blood Line / Unknown 10/17/2024 2: 15 PM EDT 10/17/2024 2:25 PM EDT us Christi Cerna DNP, [facility] [employer] LAB BLOOD ORDERABLES Fi nal Result Performing Organization Address [facility] Co de Phone Number [facility]
[address] [place] [address], * Phosphorus (10/17/2024 2:15 PM EDT) Pathologist [facility] Phosphorus 3.4 2.5 - 4.5 mg/dL 10/17/2024 3:02 PM EDT [facility] Blood Line / Unknown 10/17/2024 2: 15 PM EDT 10/17/2024 2:25 PM EDT Christi Cerna DNP, [facility] LAB BLOOD ORDERABLES Fi nal Result [facility]
[address] [place] [address], [place] [phone] * CK (10/17/2024 2:15 PM EDT) Pathologist [facility] Creatine Kinase 48 20 - 200 U/L 10/17/2024 4:51 PM EDT [facility] Blood Line / Unknown 10/17/2024 2: 15 PM EDT 10/17/2024 2:25 PM EDT us Yousif Arteaga MD LAB BLOOD ORDERABLES Final Resu lt [facility]
[address] [id number], [place] [phone] * (ABNORMAL) Comprehensive Metabolic Panel (10/17/2024 2:15 PM EDT) Glucose 192(H) 65 - 99 mg/dL 10/17/2024 3:25 PM EDT [facility] BUN 136.8(H) 8.0 - 23.0 mg/dL 10/17/2024 3:25 PM EDT [facility] Creatinine 3.23(H) 0.76 - 1.27 mg/dL 10/17/2024 3:25 PM EDT [facility] Sodium 122(L) 136 - 145 mmol/L 10/17/2024 3:25 PM EDT [facility] Potassium 6.6(HH) 3.5 - 5.2 mmol/L 10/17/2024 3:25 PM EDT [facility] Comment:Slight hemolysis det ected by analyzer. Result may be falsely elevated. Chloride 95(L) 98 - 107 mmol/L 10/17/2024 3:25 PM EDT [facility] CO2 12.0(L) 22.0 - 29.0 mmol/L 10/17/2024 3:25 PM EDT [facility] Calcium 9.7 8.6 - 10.5 mg/dL 10/17/2024 3:25 PM EDT [facility] Total Protein 7.3 6.0 - 8.5 g/dL 10/17/2024 3:25 PM EDT [facility] [facility] Albumin 3.4(L) 3.5 - 5.2 g/dL 10/17/2024 3:25 PM EDT [facility] ALT (SGPT) 45(H) 1 - 41 U/L 10/17/2024 3:25 PM EDT [facility] AST (SGOT) 30 1 - 40 U/L 10/17/2024 3:25 PM EDT [facility] Comment:Slight hemolysis det ected by analyzer. Result may be falsely elevated. Alkaline Phosphatase 261(H) 39 - 117 U/L 10/17/2024 3:25 PM EDT [facility] Total Bilirubin 0.2 0.0 - 1.2 mg/dL 10/17/2024 3:25 PM EDT [facility] Globulin 3.9 gm/dL 10/17/2024 3:25 PM EDT [facility] Comment:Calculated Result A/G Ratio 0.9 g/dL 10/17/2024 3:25 PM EDT [facility] BUN/Creatinine Ratio 42.4(H) 7.0 - 25.0 10/17/2024 3:25 PM EDT [facility] Anion Gap 15.0 5.0 - 15.0 mmol/L 10/17/2024 3:25 PM EDT [facility] eGFR 19.3(L) >60.0 mL/min/1. 73 10/17/2024 3:25 PM EDT [facility] Blood Line / Unknown 10/17/2024 2: 15 PM EDT 10/17/2024 2:25 PM EDT Narrative [facility] - 10/17/2024 3:25 PM EDT GFR Categories in Chronic Kidney Disease (CKD) GFR Category GFR (mL/min/1.73) Interpretation G1 90 or greater Normal or high (1) G2 60-89 Mild decrease (1) G3a 45-59 Mild to moderate decrease G3b 30-44 Moderate to severe decrease G4 15-29 Severe decrease G5 14 or less Kidney failure (1)In the absence of evidence of kidney disease, neither GFR category G1 or G2 fulfill the criteria for CKD. eGFR calculation 2020 CKD-EPI creatinine equation, which does not include race as a factor us Christi Cerna DNP, [facility] LAB BLOOD ORDERABLES Fi nal Result [facility]
[address] [place] [address], * ECG Scan (10/17/2024) [facility] New Onbase ECG ORDERABLES Final Result * IMAGING SCANNED (10/17/2024) Only the most recent of3 resultswithin the time period is included. Anatomical Region Laterality Modality Radiographic Dior ging [facility] New Onbase IMG DIAGNOSTIC IMAGING ORDERA BLES Final Result * LABS SCANNED (10/17/2024) [facility] BLOOD ORDERABLES Final Re sult from Last 3 Months Insurance [facility] MEDICARE ADVANTAGE HMO [place] MEDICA[place] Advance Directives * No CPR (Do Not Attempt to Resuscitate) (Latest Code Status on File) Date Activated Date Inactivated Comments 10/17/2024 1:22 PM 10/21/2024 4:20 PM Question Answer Comments Code Status (Patient has no pulse and is not breathing): No CPR (Do Not Attempt to Resuscitate) Medical Interventions (Patie nt has pulse or is breathing): Limited Support Medical Intervention Limits: No intubation (DNI) Level Of Support Discussed With: Patient Care Teams Front Facer Relationship Specialty Start Date End Date Yonathan Smith DO [address] [place] [address] PCP - General Internal Medicine 10/17/24
--- OUTSIDE RECORDS SUMMARY | 2025-01-03 13:24 | XMS_ITS ---
[facility] Care Plan Created on: December 22, 2024 Rene Howell : 1950 Sex: Male Author Organization [employer] Address [address] [facility] [address] [place] [address] Phone Health Concerns Health Status CKD 3 Health Concerns None
== END 2025-01-03 23:59 | disposition home or self-care (01) ==
LOC: LAB.DROPOF 13:22
PROVIDERS: PCP Family Medicine Hospice and Palliative Medicine; Visit Provider Family Medicine Hospice and Palliative Medicine
DX: Z04.89 Encounter for examination and observation for other specified reasons (principal)

== ENCOUNTER 2025-01-03 15:03 | Outpatient (CLI) | payer MEDICARE, MEDICAID, SELFPAY ==
--- OUTSIDE RECORDS SUMMARY | 2025-01-03 15:05 | XMS_ITS ---
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 Operator Name Role Phone Herminia Pineda Unavailable [phone] Joce Sosa Unavailable [phone] Yonathan Smith Unavailable Functional Status No Results Mental Status No Results Allergies and Intolerances Name Onset Date Reaction Severity Zetia (Allergy) ThuNov 27 23:35:00 EDT 2024 Other Mild Encounters Program Name Primary Diagnosis Admission Date/Time Dis charge Date/Time Home-based Hospice Cerebral infarction, unspecified [facility] Nov 26 20:00:00 EDT 2024 Medications Medication Directions Start Date End Date lactulose 10 gram/15 mL oral solution 30 Milliliter Oral 2 Times Daily Indication: constipation, may increase to q 4 hrs prn ThuDec 29 00:00:00 EDT 2024 Milk of Magnesia 400 mg/5 mL oral suspension 30 Milliliter Oral PRN 1 Time Daily Indication: constipation ThuDec 21 00:00:00 EDT 2024 oxyCODONE 5 mg tablet 1 Tablet Oral PRN Every 6 Hours Indication: pain/soa ThuDec 07 00:00:00 EDT 2024 Senna Laxative-Stool Softener 8.6 mg-50 mg tablet 2 Tablet Oral 1 Time Daily Indication: may increase to 4 tabs daily if needed constipation ThuDec 07 00:00:00 EDT 2024 HumaLOG KwikPen (U-100) Insulin 100 unit/mL subcutaneous 15 Unit Subcutaneous Before Meals Indication: IDDM ThuNov 28 00:00:00 EDT 2024 Miralax 17 gram oral powder packet 17 Gram Oral Every Morning Indication: Constipation ThuNov 27 00:00:00 EDT 2024 atorvastatin 80 mg tablet 1 Tablet Oral Hour Of Sleep Indication: high cholesterol ThuNov 27 00:00:00 EDT 2024Nov 30 15:23:00 EDT 2024 Centrum Silver Men 300 mcg-60 mcg-600 mcg-300 mcg tablet 1 Tablet Oral Every Morning Indication: Supplement ThuNov 27 00:00:00 EDT 2024 famotidine 20 mg tablet 1 Tablet Oral Ev kahlil 12 Hours Indication: GERD ThuNov 27 00:00:00 EDT 2024 donepeziL 10 mg tablet 1 Tablet Oral Adilia r Of Sleep Indication: Dementia ThuNov 27 00:00:00 EDT 2024 predniSONE 20 mg tablet 2 Tablet Oral E very Morning for 3 Days Indication: Anti-inflammatory 11/28/ take 10mg for 3 days then stop medication. ThuNov 27 00:00:00 EDT 2024Nov 29 23:59:00 EDT 2024 sodium bicarbonate 650 mg tablet 2 Tablet Oral Every Morning Indication: Supplement ThuNov 27 00:00:00 EDT 2024 lansoprazole 30 mg capsule,delayed release 1 Capsule Oral Every Afternoon Indication: PPI ThuNov 27 00:00:00 EDT 2024Dec 21 15:00:00 EDT 2024 aspirin 81 mg tablet 1 Tablet Oral Every Morning Indication: Blood thinner ThuNov 27 00:00:00 EDT 2024 Myrbetriq 25 mg tablet,extended release 1 Tablet Oral Every Morning Indication: Overactive bladder ThuNov 27 00:00:00 EDT 2024Nov 30 15:23:00 EDT 2024 primidone 250 mg tablet 2 Tablet Oral Ev kahlil 12 Hours Indication: Seizures ThuNov 27 00:00:00 EDT 2024 midodrine 10 mg tablet 1 Tablet Oral PRN Every 12 Hours Indication: Orthostatic hypotension ThuNov 27 00:00:00 EDT 2024Nov 30 15:23:00 EDT 2024 finasteride 5 mg tablet 1 Tablet Oral Ev akhlil Morning Indication: BPH ThuNov 27 00:00:00 EDT 2024Nov 30 15:23:00 EDT 2024 clopidogreL 75 mg tablet 1 Tablet Oral E very Morning Indication: blood thinner ThuNov 27 00:00:00 EDT 2024 montelukast 10 mg tablet 1 Tablet Oral E very Morning Indication: allergies ThuNov 27 00:00:00 EDT 2024Dec 07 15:18:00 EDT 2024 tamsulosin 0.4 mg capsule 1 Capsule Oral Every Morning Indication: Urinary retention ThuNov 27 00:00:00 EDT 2024Nov 30 15:23:00 EDT 2024 sennosides 8.6 mg-docusate sodium 50 mg tablet 1 Tablet Oral Hour Of Sleep Indication: constipation ThuNov 27 00:00:00 EDT 2024Dec 07 15:19:00 EDT 2024 Lantus Solostar U-100 Insulin 100 unit/mL (3 mL) subcutaneous pen 60 Unit Subcutaneous Hour Of Sleep Indication: IDDM ThuNov 27 00:00:00 EDT 2024 Treatment Plan Problems No Known Problems Vital Signs Vital Sign Measurement Date Systolic blood pressure 132 mm[Hg] ThuDec 14 11:00:00 EDT 2024 Diastolic blood pressure 64 mm[Hg] ThuDec 14 11:00:00 EDT 2024 Respiratory rate 18 /min ThuDec 14 11:0 0:00 EDT 2024 Heart rate 86 /min ThuDec 14 11:00 :00 EDT 2024 Systolic blood pressure 158 mm[Hg] Karen Dec 14 10:40:00 EDT 2024 Diastolic blood pressure 88 mm[Hg] Thu 14 10:40:00 EDT 2024 Respiratory rate 20 /min Thu 14 10:4 0:00 EDT 2024 Heart rate 88 /min Thu 14 10:40 :00 EDT 2024 Systolic blood pressure 148 mm[Hg] ThuDec 21 10:15:00 EDT 2024 Diastolic blood pressure 82 mm[Hg] ThuDec 21 10:15:00 EDT 2024 Respiratory rate 20 /min ThuDec 21 10:1 5:00 EDT 2024 Heart rate 80 /min ThuDec 21 10:15 :00 EDT 2024 Systolic blood pressure 128 mm[Hg] ThuNov 30 09:45:00 EDT 2024 Diastolic blood pressure 70 mm[Hg] ThuNov 30 09:45:00 EDT 2024 Respiratory rate 20 /min ThuNov 30 09:4 5:00 EDT 2024 Heart rate 96 /min ThuNov 30 09:45 :00 EDT 2024 Systolic blood pressure 122 mm[Hg] ThuDec 07 09:20:00 EDT 2024 Diastolic blood pressure 62 mm[Hg] ThuDec 07 09:20:00 EDT 2024 Respiratory rate 20 /min ThuDec 07 09:2 0:00 EDT 2024 Heart rate 92 /min ThuDec 07 09:20 :00 EDT 2024 Systolic blood pressure 150 mm[Hg] ThuNov 27 07:30:00 EDT 2024 Diastolic blood pressure 80 mm[Hg] ThuNov 27 07:30:00 EDT 2024 Respiratory rate 20 /min ThuNov 27 07:3 0:00 EDT 2024 Heart rate 88 /min ThuNov 27 07:30 :00 EDT 2024 Reason for Referral
--- OUTSIDE RECORDS SUMMARY | 2025-01-03 15:06 | XMS_ITS | Encounter Summary ---
[facility] Address [address] [place] [address] Care Team Providers Care Felt Hat Mellowing Machine Operator Name Role Phone LuisYonathan solorio Nicola Primary Care Provider + Encounter Details Date Type Department Care Team (Late st Contact Info) Description 11/22/[address] [facility] [address] [place] [address] Daisy Carpenter, ADVANCED PRACTICE PROVIDER [address] [place] [address] Social History Tobacco Use Types Packs/Day Years Used Date Smoking Tobacco: Former Cigarettes Smokeless Tobacco: Never Alcohol Use Standard Drinks/Week Comments Never 0 (1 standard drink = 0.6 oz pur e alcohol) [facility] Utilities Answer Date Recorded In the past 12 months has [employer], gas, oil, or water [employer] threatened to shut off services in your [...] GED or equivalent No 10/18/2024 Preferred Language Guatemalan 10/18/2024 Sex and Gender Information Value Date [...] TOO TIRED TO MAKE THE TRIP TO [place] AND TO CANCEL HIS APPT. CANCELLED HOSP F/U 11/22/24TJ documented in this encounter Plan of Treatment Not on file documented as of this encounter Visit Diagnoses Not on filedocumented in this encounter Care Teams Felt Hat Mellowing Machine Operator Relationship Specialty Start Date End Date Yonathan Smith DO [address] [place] [address] PCP - General Internal Medicine 10/17/24 documented as of this encounter
--- OUTSIDE RECORDS SUMMARY | 2025-01-03 15:06 | XMS_ITS | Clinical Summary ---
Author Organization [facility] Address [address] [place] [address] Care Team Providers Care Software Security Architect Name Role Phone LuisYonathan solorio Nicola Primary [...] Type Department Care Team Description 11/22/2024 Telephone [facility] [address] [facility] [address] [place] [address] Daisy Carpenter, ORIENTATION & MOBILITY SPECIALIST 10/25/2024 Readmission Management [facility] NURSE CALL CENTER [address] [place] [address] Gabi Ash, VLADIMIR 10/24/2024 Documentation [facility] CASE MAN [address] [place] [id number] Idalia Ruth RN 10/24/2024 Readmission Management [facility] CALL [facility] [address] [place] [address] Gabi Ash, VLADIMIR 10/21/2024 Readmission Management [facility] CALL [facility] [address] [place] [address] Helen Nguyen, VLADIMIR 10/17/2024 12:08 PM EDT - 10/21/2024 2:20 PM EDT Hospital Encounter [facility] 2B ICU [address] [place] [id number] Yousif Arteaga MD Cognitive communication deficit (Primary Dx); Dysarthria; Stroke aborted by administration of thrombolytic agent Discharge Disposition: Home-Health Care [place] 10/17/2024 Travel from Last 3 Months Social History Tobacco Use Types Packs/Day Years Used Date Smoking Tobacco: Former Cigarettes Smokeless Tobacco: Never Tobacco Cessation:Counseling Given: No Alcohol Use Standard Drinks/Week Comments Never 0 (1 standard drink = 0.6 oz pur e alcohol) [facility] Utilities Answer Date Recorded In [...] GED or equivalent No 10/18/2024 Preferred Language Divehi 10/18/2024 Sex and Gender Information Value Date [...] of18 resultswithin the time period is included. [facility] Signature Glucose 218(H) 70 - 130 mg/dL 10/21/2024 11:35 AM EDT [facility] Blood 10/21/2024 11:2 8 AM EDT 10/21/2024 11:35 AM EDT Yousif Artaega MD POINT OF CARE TEST ORDERABLES F inal Result Performing Organization Address [facility] Co de Phone Number [facility]
[address] [place] [address], * Magnesium (10/21/2024 3:41 AM EDT) Only the most recent of3 resultswithin the time period is included. Magnesium 2.0 1.6 - 2.4 mg/dL 10/21/2024 4:49 AM EDT [facility] Blood Venipuncture / Unknown 10/21/2024 3:41 AM EDT 10/21/2024 4:21 AM EDT Akanksha Lniares MD LAB BLOOD ORDERABLES Fin al Result Performing Organization Address [facility] Co de Phone Number [facility]
[address] [place] [address], * (ABNORMAL) Basic Metabolic Panel (10/21/2024 3:41 AM EDT) Only the most recent of4 resultswithin the time period is included. Glucose 174(H) 65 - 99 mg/dL 10/21/2024 4:49 AM EDT [facility] BUN 59.5(H) 8.0 - 23.0 mg/dL 10/21/2024 4:49 AM EDT [facility] Creatinine 2.54(H) 0.76 - 1.27 mg/dL 10/21/2024 4:49 AM EDT [facility] Sodium 133(L) 136 - 145 mmol/L 10/21/2024 4:49 AM EDT [facility] Potassium 4.5 3.5 - 5.2 mmol/L 10/21/2024 4:49 AM EDT [facility] Chloride 103 98 - 107 mmol/L 10/21/2024 4:49 AM EDT [facility] CO2 17.0(L) 22.0 - 29.0 mmol/L 10/21/2024 4:49 AM EDT [facility] Calcium 9.1 8.6 - 10.5 mg/dL 10/21/2024 4:49 AM EDT [facility] BUN/Creatinine Ratio 23.4 7.0 - 25.0 10/21/2024 4:49 AM EDT [facility] Anion Gap 13.0 5.0 - 15.0 mmol/L 10/21/2024 4:49 AM EDT [facility] eGFR 25.8(L) >60.0 mL/min/1.7 3 10/21/2024 4:49 AM EDT [facility] Blood Venipuncture / Unknown 10/21/2024 3:41 AM EDT 10/21/2024 4:21 AM EDT [facility] - 10/21/2024 4:49 AM EDT [...] race as a factor us Mer Miranda ORIENTATION & MOBILITY SPECIALIST LAB BLOOD ORDERABLES Final Result [facility]
[address] [place] [address], * (ABNORMAL) CBC (No Diff) (10/21/2024 3:25 AM EDT) Only the most recent of4 resultswithin the time period is included. WBC 6.45 3.40 - 10.80 10*3/mm3 10/21/2024 7:23 AM EDT [facility] RBC 2.61(L) 4.14 - 5.80 10*6/mm3 10/21/2024 7:23 AM EDT [facility] Hemoglobin 8.5(L) 13.0 - 17.7 g/dL 10/21/2024 7:23 AM EDT [facility] Hematocrit 25.6(L) 37.5 - 51.0 % 10/21/2024 7:23 AM EDT [facility] MCV 98.1(H) 79.0 - 97.0 fL 10/21/2024 7:23 AM EDT [facility] MCH 32.6 26.6 - 33.0 pg 10/21/2024 7:23 AM EDT [facility] MCHC 33.2 31.5 - 35.7 g/dL 10/21/2024 7:23 AM EDT [facility] RDW 13.7 12.3 - 15.4 % 10/21/2024 7:23 AM EDT [facility] RDW-SD 49.2 37.0 - 54.0 fl 10/21/2024 7:23 AM EDT [facility] MPV 9.0 6.0 - 12.0 fL 10/21/2024 7:23 AM EDT [facility] Platelets 242 140 - 450 10*3/mm3 10/21/2024 7:23 AM EDT [facility] Blood Venipuncture / Unknown 10/21/2024 3:25 AM EDT 10/21/2024 7:20 AM EDT us Mer Miranda APRN LAB BLOOD ORDERABLES Final Result [facility]
[address] [place] [address], * US Renal Limited (10/20/2024 9:54 PM [...] MD 10/20/2024 10:13 PM EDT Workstation ID: [id number] Narrative 10/20/2024 10:13 PM EDT US RENAL [...] MD 10/20/2024 10:13 PM EDT Workstation ID: [id number] Jan Watts MD [facility] US ORDERABLES Final Result * (ABNORMAL) Hemoglobin & Hematocrit, Blood (10/20/2024 3:11 PM EDT) Only the most recent of2 resultswithin the time period is included. [facility] Hemoglobin 8.9(L) 13.0 - 17.7 g/dL 10/20/2024 4:25 PM EDT [facility] Hematocrit 28.5(L) 37.5 - 51.0 % 10/20/2024 4:25 PM EDT [facility] Blood Venipuncture / Unknown 10/20/2024 3:11 PM EDT 10/20/2024 4:15 PM EDT Douglas Alexander PharmD LAB BLOOD ORDERABLES Fin al Result [facility]
[address] [place] [address], * (ABNORMAL) Iron Profile w/o Ferritin (10/20/2024 3:34 AM EDT) Iron 74 59 - 158 mcg/dL 10/20/2024 4:48 AM EDT [facility] Iron Saturation (TSAT) 28 20 - 50 % 10/20/2024 4:48 AM EDT [facility] Transferrin 176(L) 200 - 360 mg/dL 10/20/2024 4:48 AM EDT [facility] TIBC 262(L) 298 - 536 mcg/dL 10/20/2024 4:48 AM EDT [facility] Blood Venipuncture / Unknown 10/20/2024 3:34 AM EDT 10/20/2024 3:42 AM EDT Akanksha Linares MD LAB BLOOD ORDERABLES Fin al Result [facility]
[address] [place] [address], * (ABNORMAL) Renal Function Panel (10/20/2024 3:34 AM EDT) Only the most recent of2 resultswithin the time period is included. Glucose 153(H) 65 - 99 mg/dL 10/20/2024 4:08 AM EDT [facility] BUN 68.6(H) 8.0 - 23.0 mg/dL 10/20/2024 4:08 AM EDT [facility] Creatinine 2.74(H) 0.76 - 1.27 mg/dL 10/20/2024 4:08 AM EDT [facility] Sodium 134(L) 136 - 145 mmol/L 10/20/2024 4:08 AM EDT [facility] Potassium 4.6 3.5 - 5.2 mmol/L 10/20/2024 4:08 AM EDT [facility] Chloride 105 98 - 107 mmol/L 10/20/2024 4:08 AM EDT [facility] CO2 16.0(L) 22.0 - 29.0 mmol/L 10/20/2024 4:08 AM EDT [facility] Calcium 8.5(L) 8.6 - 10.5 mg/dL 10/20/2024 4:08 AM EDT [facility] Albumin 3.0(L) 3.5 - 5.2 g/dL 10/20/2024 4:08 AM EDT [facility] Phosphorus 2.5 2.5 - 4.5 mg/dL 10/20/2024 4:08 AM EDT [facility] Anion Gap 13.0 5.0 - 15.0 mmol/L 10/20/2024 4:08 AM EDT [facility] BUN/Creatinine Ratio 25.0 7.0 - 25.0 10/20/2024 4:08 AM EDT [facility] eGFR 23.6(L) >60.0 mL/min/1.7 3 10/20/2024 4:08 AM EDT [facility] Blood Venipuncture / Unknown 10/20/2024 3:34 AM EDT 10/20/2024 3:42 AM EDT Narrative [facility] - 10/20/2024 4:08 AM EDT [...] MD LAB BLOOD ORDERABLES Fin al Result [facility]
[address] [place] [address], * Duplex Venous Lower Extremity - Bilateral [...] AND CONTRAST (10/18/2024 4:42 PM EDT) Pathologist [facility] EF(MOD-bp) 71.4 % LV Sys Vol (BSA [...] Seen, 0-2 /HPF 10/18/2024 1:58 PM EDT [facility] WBC, UA Too Numerous to Count(A) None Seen, 0-2 /HPF 10/18/2024 1:58 PM EDT [facility] Bacteria, UA None Seen None Seen, Trace /HPF 10/18/2024 1:58 PM EDT [facility] Squamous Epithelial Cells, UA None Seen None Seen, 0-2 /HPF 10/18/2024 1:58 PM EDT [facility] Hyaline Casts, UA None Seen 0 - 6 /LPF 10/18/2024 1:58 PM EDT [facility] Methodology Automated Microscopy 10/18/2024 1:58 PM EDT [facility] Urine Urine specimen obtained by clean catch procedure / Unknown Collection / Unknown 10/18/2024 1:37 PM EDT 10/18/2024 1:49 PM EDT Akanksha Linares MD URINE ORDERABLES Final R esult [facility]
[address] [id number], * (ABNORMAL) Urinalysis With Microscopic If Indicated (No Culture) - Urine, Clean Catch (10/18/2024 1:37 PM EDT) Color, UA Yellow Yellow, Straw 10/18/2024 1:58 PM EDT [facility] Appearance, UA Cloudy(A) Clear 10/18/2024 1:58 PM EDT [facility] pH, UA 6.0 5.0 - 8.0 10/18/2024 1:58 PM EDT [facility] Specific [place], UA 1.014 1.001 - 1.030 10/18/2024 1:58 PM EDT [facility] Glucose, UA 100 mg/dL (Trace)(A) Negative 10/18/2024 1:58 PM EDT [facility] Ketones, UA Negative Negative 10/18/2024 1:58 PM EDT [facility] Bilirubin, UA Negative Negative 10/18/2024 1:58 PM EDT [facility] Blood, UA Small (1+)(A) Negative 10/18/2024 1:58 PM EDT [facility] Protein, UA 30 mg/dL (1+)(A) Negative 10/18/2024 1:58 PM EDT [facility] Leuk Esterase, UA Large (3+)(A) Negative 10/18/2024 1:58 PM EDT [facility] Nitrite, UA Negative Negative 10/18/2024 1:58 PM EDT [facility] Urobilinogen, UA 0.2 E.U./dL 0.2 - 1.0 E.U./dL 10/18/2024 1:58 PM EDT [facility] Urine Urine specimen obtained by clean catch procedure / Unknown Collection / Unknown 10/18/2024 1:37 PM EDT 10/18/2024 1:49 PM EDT Akanksha Linares MD URINE ORDERABLES Final R esult [facility]
[address] [place] [address], [place] [phone] * (ABNORMAL) Microalbumin / Creatinine Urine Ratio - Urine, Clean Catch (10/18/2024 1:37 PM EDT) Microalbumin/C reatinine Ratio 184.1(H) 0.0 - 29.0 mg/g 10/19/2024 11:37 PM EDT [facility] Creatinine, Urine 31.5 mg/dL 10/19/2024 11:37 PM EDT [facility] Microalbumin, Urine 5.8 mg/dL 10/19/2024 11:37 PM EDT [facility] Urine Urine specimen obtained by clean catch procedure / Unknown Collection / Unknown 10/18/2024 1:37 PM EDT 10/19/2024 7:40 PM EDT Jan Watts MD URINE ORDERABLES Final Result Performing Organization Address City/[facility]/ZIP Co de Phone Number [facility]
[address] [place] [address], [place] [phone] * Sodium, Urine, Random - Urine, Clean Catch (10/18/2024 1:37 PM EDT) Sodium, Urine 51 mmol/L 10/19/2024 8:49 PM EDT [facility] Urine Urine specimen obtained by clean catch procedure / Unknown Collection / Unknown 10/18/2024 1:37 PM EDT 10/18/2024 1:49 PM EDT Narrative [facility] - 10/19/2024 8:49 PM EDT Reference intervals for random urine have not been established. Clinical usage is dependent upon physician's interpretation in combination with other laboratory tests. us Jan Watts MD URINE ORDERABLES Final Result [facility]
[address] [id number], [place] [phone] * CT Head Without Contrast (10/18/2024 11:10 AM EDT) Anatomical Region Laterality Modality Head N/A Computed Tomogra phy 10/18/2024 12:2 0 PM EDT Impressions 10/18/2024 12:24 PM EDT Impression: 1.No acute intracranial abnormality identified by noncontrast CT. no evidence of intracranial hemorrhage. 2.Stable chronic changes as above. Electronically Signed: Juan Calderon MD 10/18/2024 12:24 PM EDT Workstation ID: [id number] Narrative 10/18/2024 12:[address] HEAD [...] MD 10/18/2024 12:24 PM EDT Workstation ID: [id number] Lori Munson APRN IMG CT ORDERABLES F inal Result * (ABNORMAL) Hemoglobin A1c (10/18/2024 3:21 AM EDT) Pathologist [facility] Hemoglobin A1C 10.90(H) 4.80 - 5.60 % 10/18/2024 4:44 AM EDT [facility] Blood Venipuncture / Unknown 10/18/2024 3:21 AM EDT 10/18/2024 3:51 AM EDT Narrative [facility] - 10/18/2024 4:44 AM EDT Hemoglobin A1C Ranges: Increased Risk for Diabetes 5.7% to 6.4% Diabetes >= 6.5% Diabetic Goal < 7.0% Lori Munson APRN LAB BLOOD ORDERABLE S Final Result [facility]
[address] [place] [address], * (ABNORMAL) Lipid Panel (10/18/2024 3:21 AM EDT) Total Cholesterol 120 0 - 200 mg/dL 10/18/2024 4:31 AM EDT [facility] Triglycerides 179(H) 0 - 150 mg/dL 10/18/2024 4:31 AM EDT [facility] HDL Cholesterol 34(L) 40 - 60 mg/dL 10/18/2024 4:31 AM EDT [facility] LDL Cholesterol 56 0 - 100 mg/dL 10/18/2024 4:31 AM EDT [facility] VLDL Cholesterol 30 5 - 40 mg/dL 10/18/2024 4:31 AM EDT [facility] LDL/HDL Ratio 1.48 10/18/2024 4:31 AM T [facility] Blood Venipuncture / Unknown 10/18/2024 3:21 AM EDT 10/18/2024 3:51 AM EDT Narrative [facility] - 10/18/2024 4:31 AM EDT [...] APRN LAB BLOOD ORDERABLE S Final Result [facility]
[address] [place], [place] [address] [phone] * MRI Brain Without Contrast (10/17/2024 11:20 PM EDT) Anatomical Region Laterality Modality Head, Neck N/A Magnetic Resonan ce 10/18/2024 2:13 AM EDT Impressions 10/18/2024 2:18 AM EDT Impression: Atrophy and chronic microvascular ischemic change. Old left frontal infarct. No acute intracranial process. Electronically Signed: Juan Burgos MD 10/18/2024 2:18 AM EDT Workstation ID: [id number] Narrative 10/18/2024 2:18 AM EDT MRI BRAIN [...] MD 10/18/2024 2:18 AM EDT Workstation ID: [id number] Lori Munson ORIENTATION & MOBILITY SPECIALIST IMG MRI ORDERABLES Final Result * (ABNORMAL) Blood Gas, Venous With Co-Ox (10/17/2024 8:40 PM EDT) Site Nurse/Dr Barcenas 10/17/2024 8:39 PM EDT [facility] THERAPY pH, Venous 7.241(LL) 7.310 - 7.410 pH Units 10/17/2024 8:39 PM EDT [facility] THERAPY Comment:85 Value below criti marty limit pCO2, Venous 42.2 41.0 - 51.0 mm Hg 10/17/2024 8:39 PM EDT [facility] THERAPY pO2, Venous 25.8(L) 27.0 - 53.0 mm Hg 10/17/2024 8:39 PM EDT [facility] THERAPY Comment:84 Value below refer ence range HCO3, Venous 18.1(L) 22.0 - 28.0 mmol/L 10/17/2024 8:39 PM EDT [facility] THERAPY Base Excess, Venous -8.7(L) -2.0 - 2.0 mmol/L 10/17/2024 8:39 PM EDT [facility] RESP[facility] THERAPY Hemoglobin, Blood Gas 9.6(L) 13.5 - 17.5 g/dL 10/17/2024 8:39 PM EDT [facility] THERAPY Oxyhemoglobin Venous 46.0 % 06/2024 8:39 PM EDT [facility] THERAPY Methemoglobin Venous 0.2 % 06/2024 8:39 PM EDT [facility] THERAPY Carboxyhemoglobin Venous 1.7 % 10/17/2024 8:39 PM EDT [facility] THERAPY CO2 Content 19.4(L) 22 - 33 mmol/L 10/17/2024 8:39 PM EDT [facility] THERAPY Temperature 37.0 10/17/2024 8:39 PM EDT [facility] THERAPY Barometric Pressure for Blood Gas 10/17/2024 8:39 PM EDT [facility] THERAPY Comment:N/A Modality Room Air 10/17/2024 8:39 PM EDT [facility] THERAPY FIO2 21 % 10/17/2024 8:39 PM EDT [facility] THERAPY Rate 0 Breaths/ minute 10/17/2024 8:39 PM EDT [facility] RES[facility] THERAPY PIP 0 cmH2O 10/17/2024 8:39 PM EDT [facility] THERAPY Comment:Meter: [id number] [id number] Researcher: [id number] IPAP 0 10/17/2024 8:39 PM EDT [facility] THERAPY EPAP 0 10/17/2024 8:39 PM EDT [facility] THERAPY Notified Who GARETT GUILLEN 10/17/2024 8:39 PM EDT [facility] RESPIRATORY THERAPY Notified By [id number] 10/17/2024 8:39 PM EDT [facility] RES[facility] THERAPY Notified Time 20:41 10/17/2024 8:39 PM EDT [facility] THERAPY Venous Blood 10/17/2024 8:40 PM EDT 10/17/2024 8:41 PM EDT us Yousif Arteaga MD LAB BLOOD ORDERABLES Final Resu lt [facility] RESPIR[facility]ORY THERAPY
[address] [place] [address], * ECG 12 Lead Electrolyte Imbalance (10/17/2024 [...] ECGs available Confirmed by JOCE SCHULZ MD ([id number]) on 10/19/2024 4:28:17 PM Referred By: Confirmed [...] ECGs available Confirmed by JOCE SCHULZ MD ([id number]) on 10/19/2024 4:28:17 PM Referred By: Confirmed [...] - 10.80 10*3/mm3 10/17/2024 3:00 PM EDT [facility] RBC 3.33(L) 4.14 - 5.80 10*6/mm3 10/17/2024 3:00 PM EDT [facility] Hemoglobin 10.7(L) 13.0 - 17.7 g/dL 10/17/2024 3:00 PM EDT [facility] Hematocrit 32.6(L) 37.5 - 51.0 % 10/17/2024 3:00 PM EDT [facility] MCV 97.9(H) 79.0 - 97.0 fL 10/17/2024 3:00 PM EDT [facility] MCH 32.1 26.6 - 33.0 pg 10/17/2024 3:00 PM EDT [facility] MCHC 32.8 31.5 - 35.7 g/dL 10/17/2024 3:00 PM EDT [facility] RDW 13.2 12.3 - 15.4 % 10/17/2024 3:00 PM EDT [facility] RDW-SD 47.7 37.0 - 54.0 fl 10/17/2024 3:00 PM EDT [facility] MPV 9.2 6.0 - 12.0 fL 10/17/2024 3:00 PM EDT [facility] Platelets 281 140 - 450 10*3/mm3 10/17/2024 3:00 PM EDT [facility] Neutrophil % 80.4(H) 42.7 - 76.0 % 10/17/2024 3:00 PM EDT [facility] Lymphocyte % 10.1(L) 19.6 - 45.3 % 10/17/2024 3:00 PM EDT [facility] Monocyte % 6.1 5.0 - 12.0 % 10/17/2024 3:00 PM EDT [facility] Eosinophil % 2.3 0.3 - 6.2 % 10/17/2024 3:00 PM EDT [facility] Basophil % 0.6 0.0 - 1.5 % 10/17/2024 3:00 PM EDT [facility] Immature Grans % 0.5 0.0 - 0.5 % 10/17/2024 3:00 PM EDT [facility] Neutrophils, Absolute 6.43 1.70 - 7.00 10*3/mm3 10/17/2024 3:00 PM EDT [facility] Lymphocytes, Absolute 0.81 0.70 - 3.10 10*3/mm3 10/17/2024 3:00 PM EDT [facility] Monocytes, Absolute 0.49 0.10 - 0.90 10*3/mm3 10/17/2024 3:00 PM EDT [facility] Eosinophils, Absolute 0.18 0.00 - 0.40 10*3/mm3 10/17/2024 3:00 PM EDT [facility] Basophils, Absolute 0.05 0.00 - 0.20 10*3/mm3 10/17/2024 3:00 PM EDT [facility] Immature Grans, Absolute 0.04 0.00 - 0.05 10*3/mm3 10/17/2024 3:00 PM EDT [facility] nRBC 0.0 0.0 - 0.2 /100 WBC 10/17/2024 3:00 PM EDT [facility] Blood Line / Unknown 10/17/2024 2: 15 PM EDT 10/17/2024 2:25 PM EDT us Christi Cerna DNP, ORIENTATION & MOBILITY SPECIALIST LAB BLOOD ORDERABLES Fi nal Result [facility]
[address] [place] [address], * Protime-INR (10/17/2024 2:15 PM EDT) Pathologist [facility] Protime 13.6 12.2 - 15.3 Seconds 10/17/2024 2:39 PM EDT [facility] INR 0.98 0.89 - 1.12 10/17/2024 2:39 PM EDT [facility] Blood Line / Unknown 10/17/2024 2: 15 PM EDT 10/17/2024 2:25 PM EDT us Christi Cerna DNP, ORIENTATION & MOBILITY SPECIALIST LAB BLOOD ORDERABLES Fi nal Result Performing Organization Address [facility] Co de Phone Number [facility]
[address] [place] [address], * Phosphorus (10/17/2024 2:15 PM EDT) Pathologist [facility] Phosphorus 3.4 2.5 - 4.5 mg/dL 10/17/2024 3:02 PM EDT [facility] Blood Line / Unknown 10/17/2024 2: 15 PM EDT 10/17/2024 2:25 PM EDT Christi Cerna DNP, ORIENTATION & MOBILITY SPECIALIST LAB BLOOD ORDERABLES Fi nal Result [facility]
[address] [place] [address], [place] [phone] * CK (10/17/2024 2:15 PM EDT) Pathologist [facility] Creatine Kinase 48 20 - 200 U/L 10/17/2024 4:51 PM EDT [facility] Blood Line / Unknown 10/17/2024 2: 15 PM EDT 10/17/2024 2:25 PM EDT us Yousif Arteaga MD LAB BLOOD ORDERABLES Final Resu lt [facility]
[id number] [id number], [place] [phone] * (ABNORMAL) Comprehensive Metabolic Panel (10/17/2024 2:15 PM EDT) Glucose 192(H) 65 - 99 mg/dL 10/17/2024 3:25 PM EDT [facility] BUN 136.8(H) 8.0 - 23.0 mg/dL 10/17/2024 3:25 PM EDT [facility] Creatinine 3.23(H) 0.76 - 1.27 mg/dL 10/17/2024 3:25 PM EDT [facility] Sodium 122(L) 136 - 145 mmol/L 10/17/2024 3:25 PM EDT [facility] Potassium 6.6(HH) 3.5 - 5.2 mmol/L 10/17/2024 3:25 PM EDT [facility] Comment:Slight hemolysis det ected by analyzer. Result may be falsely elevated. Chloride 95(L) 98 - 107 mmol/L 10/17/2024 3:25 PM EDT [facility] CO2 12.0(L) 22.0 - 29.0 mmol/L 10/17/2024 3:25 PM EDT [facility] [facility] Calcium 9.7 8.6 - 10.5 mg/dL 10/17/2024 3:25 PM EDT [facility] Total Protein 7.3 6.0 - 8.5 g/dL 10/17/2024 3:25 PM EDT [facility] Albumin 3.4(L) 3.5 - 5.2 g/dL 10/17/2024 3:25 PM EDT [facility] ALT (SGPT) 45(H) 1 - 41 U/L 10/17/2024 3:25 PM EDT [facility] AST (SGOT) 30 1 - 40 U/L 10/17/2024 3:25 PM EDT [facility] Comment:Slight hemolysis det ected by analyzer. Result may be falsely elevated. Alkaline Phosphatase 261(H) 39 - 117 U/L 10/17/2024 3:25 PM EDT [facility] Total Bilirubin 0.2 0.0 - 1.2 mg/dL 10/17/2024 3:25 PM EDT [facility] Globulin 3.9 gm/dL 10/17/2024 3:25 PM EDT [facility] Comment:Calculated Result A/G Ratio 0.9 g/dL 10/17/2024 3:25 PM EDT [facility] BUN/Creatinine Ratio 42.4(H) 7.0 - 25.0 10/17/2024 3:25 PM EDT [facility] Anion Gap 15.0 5.0 - 15.0 mmol/L 10/17/2024 3:25 PM EDT [facility] eGFR 19.3(L) >60.0 mL/min/1. 73 10/17/2024 3:25 PM EDT [facility] Blood Line / Unknown 10/17/2024 2: 15 PM EDT 10/17/2024 2:25 PM EDT Narrative [facility] - 10/17/2024 3:25 PM EDT [...] as a factor us Christi Cerna DNP, ORIENTATION & MOBILITY SPECIALIST LAB BLOOD ORDERABLES Fi nal Result [facility]
[address] [place] [address], * ECG Scan (10/17/2024) [facility] New Onbase ECG ORDERABLES Final Result * IMAGING SCANNED (10/17/2024) Only the most recent of3 resultswithin the time period is included. Anatomical Region Laterality Modality Radiographic Dior ging [facility] New Onbase IMG DIAGNOSTIC IMAGING ORDERA BLES Final Result * LABS SCANNED (10/17/2024) [facility] Onbase LAB BLOOD ORDERABLES Final Re sult from Last 3 Months Insurance [facility] MEDICARE ADVANTAGE HMO [place] [...] Of Support Discussed With: Patient Care Teams Software Security Architect Relationship Specialty Start Date End Date Yonathan Smith DO [address] [place] [id number] PCP - General Internal Medicine 10/17/24
[2025-01-03 15:10] LABS: Microscopic, Urine URINE MICROSCOPIC (MICROSCOPIC)
[2025-01-03 15:24] LABS: Bilirubin,Urine Negative (Negative); Color,Urine YELLOW (Yellow); Glucose,Urine (UA) Negative (Negative); Ketones,Urine Negative (Negative); Leukocyte Esterase,Urine 3+ (Negative); PH,Urine 6.5 (5.0-8.5); Protein,Urine Negative (Negative); Specific Gravity, Urine <= 1.005 (1.005-1.030); Urobilinogen,Urine 0.2 EU/dl (0.2)
[2025-01-03 16:06] LABS: Bacteria,Urine 2+ /lpf; Squamous Epithelial Cell,Urine Occasional #/hpf (0-5); WBC,Urine 50-100 #/hpf (0-3)
== END 2025-01-03 23:59 | disposition home or self-care (01) ==
LOC: LAB.DROPOF 15:04
PROVIDERS: PCP Family Medicine Hospice and Palliative Medicine; Visit Provider Family Medicine Hospice and Palliative Medicine
DX: Z13.89 Encounter for screening for other disorder (principal)
CPT/HCPCS: 81001; 87086; 87088; 87186

== ENCOUNTER 2025-02-07 11:16 | Outpatient (CLI) | payer MEDICARE, MEDICAID, SELFPAY ==
[2025-02-07 14:30] LABS: Chloride 98 mmol/L (98-107); Potassium 5.4 mmoL/L (3.5-5.1); Sodium 138 mmol/L (136-145)
[2025-02-07 14:32] LABS: Blood Urea Nitrogen 38 mg/dl (9-20); Creatinine,Serum 2.10 mg/dl (0.66-1.25); Estimated Glomerular Filt Rate 31 ml/min (>60); GFR (African American) 38 ML/MIN (>60)
[2025-02-07 14:33] LABS: Alkaline Phosphatase 111 U/L (38-126); Anion Gap 18.4 mEq/L (5-15); Aspartate Amino Transferase 33 U/L (17-59); Bilirubin,Total 0.5 mg/dl (0.2-1.3); Calcium 10.1 mg/dl (8.4-10.2); Carbon Dioxide 27 mmol/L (22.0-30.0); Glucose 145 mg/dl (74-100); Total Protein,Serum 7.5 g/dl (6.3-8.2)
[2025-02-07 14:38] LABS: Albumin Level 4.6 g/dl (3.5-5.0); Albumin/Globulin Ratio 1.6 (1.1-1.8); Globulin 2.9 g/dL (1.3-3.2)
[2025-02-07 14:41] LABS: Alanine Aminotransferase 35 U/L (12-78)
--- OUTSIDE RECORDS SUMMARY | 2025-02-08 10:36 | XMS_ITS | Clinical Summary ---
Author Organization [facility] Address [address] [place] [address] Care Team Providers Care Seed District Sales Manager Name Role Phone LuisYonathan solorio Nicola Primary [...] Type Department Care Team Description 11/22/2024 Telephone [facility] [address] [facility] [address] [place] [address] Daisy Carpenter APRN from Last 3 Months Social History Tobacco Use Types Packs/Day Years Used Date Smoking Tobacco: Former Cigarettes Smokeless Tobacco: Never Tobacco Cessation:Counseling Given: No Alcohol Use Standard Drinks/Week Comments Never 0 (1 standard drink = 0.6 oz pur e alcohol) [facility] Utilities Answer Date Recorded In the past 12 months has [employer], or water [employer] threatened to shut off services in your [...] GED or equivalent No 10/18/2024 Preferred Language Tanzanian 10/18/2024 Sex and Gender Information Value Date [...] (1 year) 09/03/1995 AAA SCREEN ONCE 09/03/2015 ANNUAL WELLNESS VISIT 10/21/2024 HEPATITIS C SCREENING 10/21/2024 INFLUENZA VACCINE 12/16/2024 03/09/2024, , 02/03/2022, Additional history exists COVID-19 Vaccine (2 - 2024-2 6 season) 2025 08/24/2020 HEMOGLOBIN A1C 04/19/2025 10/18/2024 URINE MICROALBUMIN-CREATININ E RATIO (uACR) 10/18/2025 10/18/2024 TDAP/TD VACCINES (2 - Td or Tdap) 12/06/2033 024 Pneumococcal Vaccine 50+ Completed 06/08/2019, 07/2016 ZOSTER VACCINE Completed 08/03/2023, 02/02/2023 Procedures Procedure Name Priority Date/Time Associated Diagnosis Comments MICROALBUMIN / CREATININE URINE RATIO Add-On 10/18/2024 1:37 PM EDT HEMOGLOBIN A1C Routine 10/18/2024 3:21 AM EDT from Last 3 Months or Most Recently Relevant to Health Maintenance Results * (ABNORMAL) Microalbumin / Creatinine Urine Ratio - Urine, Clean Catch (10/18/2024 1:37 PM EDT) Microalbumin/C reatinine Ratio 184.1(H) 0.0 - 29.0 mg/g 10/19/2024 11:37 PM EDT [facility] Creatinine, Urine 31.5 mg/dL 10/19/2024 11:37 PM EDT [facility] Microalbumin, Urine 5.8 mg/dL 10/19/2024 11:37 PM EDT [facility] Urine Urine specimen obtained by clean catch procedure / Unknown Collection / Unknown 10/18/2024 1:37 PM EDT 10/19/2024 7:40 PM EDT Jan Watts MD URINE ORDERABLES Final Result [facility]
[address] [place] [address], * (ABNORMAL) Hemoglobin A1c (10/18/2024 3:21 AM EDT) Hemoglobin A1C 10.90(H) 4.80 - 5.60 % 10/18/2024 4:44 AM EDT [facility] Blood Venipuncture / Unknown 10/18/2024 3:21 AM EDT 10/18/2024 3:51 AM EDT Narrative [facility] - 10/18/2024 4:44 AM EDT Hemoglobin A1C Ranges: Increased Risk for Diabetes 5.7% to 6.4% Diabetes >= 6.5% Diabetic Goal < 7.0% Lori Munson APRN LAB BLOOD ORDERABLE S Final Result [facility]
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
== END 2025-02-07 23:59 ==
LOC: LAB.DROPOF 02-08 10:31
PROVIDERS: PCP Internal Medicine; Visit Provider Internal Medicine
DX: N18.9 Chronic kidney disease, unspecified (principal)
CPT/HCPCS: 80053

== ENCOUNTER 2025-02-17 23:17 | Emergency (ER) | payer OTHER, MEDICARE, MEDICAID, SELFPAY ==
--- OUTSIDE RECORDS SUMMARY | 2025-02-17 23:27 | XMS_ITS | Clinical Summary ---
Author Organization [facility] Address [address] [place] [address] Care Team Providers Care Perioperative Educator Name Role Phone LuisYonathan solorio Nicola Primary [...] Type Department Care Team Description 11/22/2024 Telephone [facility] [address] [facility] [address] [place] [address] Daisy Carpenter APRN from Last 3 Months Social History Tobacco Use Types Packs/Day Years Used Date Smoking Tobacco: Former Cigarettes Smokeless Tobacco: Never Tobacco Cessation:Counseling Given: No Alcohol Use Standard Drinks/Week Comments Never 0 (1 standard drink = 0.6 oz pur e alcohol) [facility] Utilities Answer Date Recorded In the past 12 months has [employer], [employer], or water [employer] threatened to shut off services in your [...] GED or equivalent No 10/18/2024 Preferred Language Grenadian 10/18/2024 Sex and Gender Information Value Date [...] - 29.0 mg/g 10/19/2024 11:37 PM EDT [facility] Creatinine, Urine 31.5 mg/dL 10/19/2024 11:37 PM EDT [facility] Microalbumin, Urine 5.8 mg/dL 10/19/2024 11:37 PM EDT [facility] Urine Urine specimen obtained by clean catch procedure / Unknown Collection / Unknown 10/18/2024 1:37 PM EDT 10/19/2024 7:40 PM EDT Jan Watts MD URINE ORDERABLES Final Result [facility]
[address] [place] [address], * (ABNORMAL) Hemoglobin A1c (10/18/2024 3:21 AM EDT) Hemoglobin A1C 10.90(H) 4.80 - 5.60 % 10/18/2024 4:44 AM EDT [facility] Blood Venipuncture / Unknown 10/18/2024 3:21 AM EDT 10/18/2024 3:51 AM EDT Narrative [facility] - 10/18/2024 4:44 AM EDT Hemoglobin A1C Ranges: Increased Risk for Diabetes 5.7% to 6.4% Diabetes >= 6.5% Diabetic Goal < 7.0% Lori Munson APRN LAB BLOOD ORDERABLE S Final Result [facility]
[address] [place] [address], [place] [phone] from Last 3 Months or Most Recently [...] Of Support Discussed With: Patient Care Teams Perioperative Educator Relationship Specialty Start Date End Date Yonathan Smith DO [address] [place] [address] PCP - General Internal Medicine 10/17/24
--- NOTE | 2025-02-17 23:29 | HMH.EDGENADL ---
Discharge Plan Disposition Patient Disposition: Home, Self-Care Prescriptions Prescriptions: New levofloxacin 750 mg tablet 750 mg PO Q48H 10 Days Qty: 5 0RF No Action donepezil 10 mg tablet 10 mg PO HS Patient Comments: TAKE ONE TABLET BY MOUTH AT BEDTIME clopidogrel 75 mg tablet 75 mg PO DAILY Patient Comments: TAKE ONE TABLET BY MOUTH EVERY DAY aspirin 81 mg tablet,chewable 1 tab PO DAILY (DME) Dexcom G7 Sensor Device See Rx Instructions .ROUTE .MEDSUPPLY Qty: 1 Patient Comments: USE DIRECTED TO TEST BLOOD GLUCOSE LEVEL CHANGE SENSOR EVERY 10 DAYS Rx Instructions: As directed nitrofurantoin monohyd/m-cryst [Macrobid] 100 mg capsule 100 mg PO Q12H 7 Days Qty: 14 0RF Rx Instructions: must administer with a meal/food sodium bicarbonate 650 mg tablet 1,300 mg PO BID Patient Comments: TAKE TWO TABLETS BY MOUTH TWICE DAILY polyethylene glycol 3350 17 gram/dose powder 17 g PO DAILY Qty: 119 0RF (DME) lancets [Accu-Chek Softclix Lancets] Misc See Rx Instructions .ROUTE .COMPLEX Qty: 200 12RF Dose Instruction: USE 1 new lancet TO test blood sugar FOUR TIMES DAILY OR NEEDED Rx Instructions: USE 1 new lancet TO test blood sugar FOUR TIMES DAILY OR NEEDED (DME) Blood Glucose Test Strip See Rx Instructions .ROUTE .MEDSUPPLY Qty: 50 12RF Rx Instructions: As directed Centrum Silver Ultra Men's [phone] mcg Tablet 1 tab PO DAILY insulin lispro 100 unit/mL insulin pen 15 unit SQ AC 30 Days Qty: 15 0RF sennosides-docusate sodium [Stimulant Laxative Plus] 8.6-50 mg Tablet 1 tab PO BID 30 Days Qty: 60 0RF primidone 250 MG tablet 250 mg PO BID 30 Days Qty: 0 0RF insulin glargine [Lantus Solostar U-100 Insulin] 100 unit/mL (3 mL) Insulin Pen 60 unit SQ DAILY Qty: 15 0RF (DME) blood-glucose meter [Gluco Navii Glucose Monitor] Kit See Rx Instructions .Route Qty: 1 0RF Rx Instructions: As directed Referrals Follow up/Referrals: Yonathan Smith DO [Primary Care Provider, Family Practice] - See instructions Activity Restrictions/Add. Instructions Additional Instructions/Restrictions: Please begin taking the Levaquin antibiotic for your urinary tract infection tomorrow. Take it every other day after that for 5 total doses. Please call and talk with your hospice team. Let them know that your catheter was blocked off and your urinary tract infection is still there despite the antibiotics you were previously on. They may want to change your antibiotics or do IV infusions/shots at home. Clinical Impressions Clinical Impression: Acute urinary obstruction UTI (urinary tract infection) Qualifiers: Urinary tract infection type: catheter-associated UTI Indwelling urinary catheter type: indwelling urethral catheter Encounter type: initial encounter Qualified Code(s): T83.511A - Infection and inflammatory reaction due to indwelling urethral catheter, initial encounter Instructions Patient Instructions: DI for Urinary Tract Infection (UTI), DI for Urinary Tract Infection in Children Print Language Print Language: Telugu Discharge ED Provider: Bentley Peck General Adult HPI General Chief complaint: Urogenital-Male Stated complaint: kidney infection, pain, cathater malfunction Time Seen by Provider: 02/17/25 23:29 History of Present Illness HPI narrative: 74-year-old male, history of Alzheimer's, diabetes, cavitary lung lesion, chronic indwelling Tracey with recurrent UTI, on hospice, presents for urinary catheter obstruction. He reports that 2 hours ago he stopped having urinary output and he has severe lower abdominal pain. Denies fever at home. He just finished a 10-day course of antibiotics, based on chart review it may be Macrobid. No reported fever at home. Related Data Home Medications ?Medication ?Instructions ?Recorded ?Confirmed donepezil 10 mg tablet 10 mg PO HS 09/29/24 02/07/25 oyedzrmz-os-lebta 300 mcg-K 60 1 tab PO DAILY 09/30/24 02/07/25 mcg-lycop 600 mcg-lutein 300 mcg tablet (Centrum Silver Ultra Men's) aspirin 81 mg chewable tablet 1 tab PO DAILY 10/27/24 02/07/25 clopidogrel 75 mg tablet 75 mg PO DAILY 10/27/24 02/07/25 sodium bicarbonate 650 mg tablet 1,300 mg PO BID 11/04/24 02/07/25 blood-glucose sensor (Dexcom G7 #1 ea 02/07/25 02/07/25 Sensor device) Previous Rx's ?Medication ?Instructions ?Recorded insulin lispro 100 unit/mL 15 unit (0.15 mL) SQ AC 30 days 10/02/24 subcutaneous pen #15 mL polyethylene glycol 3350 17 17 g PO DAILY #119 grams 11/04/24 gram/dose oral powder insulin glargine 100 unit/mL (3 60 unit (0.6 mL) SQ DAILY #15 mL 11/17/24 mL) subcutaneous pen (Lantus Solostar U-100 Insulin) primidone 250 mg tablet 250 mg PO BID 30 days #0 tabs 11/17/24 sennosides 8.6 mg-docusate sodium 1 tab PO BID 30 days #60 tabs 11/17/24 50 mg tablet (Stimulant Laxative Plus) blood-glucose meter (Gluco Navii #1 ea 11/24/24 Glucose Monitor kit) blood sugar diagnostic (Blood #50 ea 01/02/25 Glucose Test strips) lancets (Accu-Chek Softclix #200 ea 01/02/25 Lancets) nitrofurantoin 100 mg PO Q12H 7 days #14 caps 02/07/25 monohydrate/macrocrystals 100 mg capsule (Macrobid) levofloxacin 750 mg tablet 750 mg PO Q48H 10 days #5 tabs 02/18/25 Allergies Allergy/AdvReac Type Severity Reaction Status Date / Time ezetimibe (From Zetia) AdvReac Severe muscle Verified 11/10/24 08:54 cramps methocarbamol AdvReac unknown Verified 02/07/25 10:07 allergy [facility] Disclaimer: The information contained in this section may have been updated after the patient was seen, as this information can be updated by other users. Medical History Cavitary lesion of lung Severe protein-calorie malnutrition Occasional tremors Diabetes Alzheimers disease Hypertension Surgical History History of testicular surgery Social History Smoking Status: Former smoker second hand exposure: No alcohol intake: former substance use type: denies use current occupational status: retired and disabled Travel in the last 8 weeks?: None household members: spouse housing: house marital status: caffeine: Yes Other Medical History Have you received the Flu Vaccine for this season: No Have you received the Pneumonia Vaccine: Yes ROS Obtained: Yes All systems reviewed & no additional complaints except as documented Physical Exam General General appearance: alert and in no apparent distress Head Head exam: atraumatic and normocephalic Eye Eye exam: Present normal appearance, PERRL and EOMI ENT ENT exam: Present normal oropharynx and normal external ear exam Neck Neck exam: Present normal inspection and full ROM Chest Chest inspection: Present normal inspection and symmetric chest wall rise; Absent tenderness Respiratory Respiratory exam: Present normal lung sounds bilaterally; Absent respiratory distress Cardiovascular Cardiovascular exam: Present regular rate and normal rhythm Abdominal Exam Abdominal exam: Present soft, distention (Distended suprapubic area with tenderness.) and tenderness; Absent guarding Extremities Exam Extremities exam: Present normal inspection; Absent edema or joint swelling Back Exam Back exam: Present normal inspection; Absent tenderness Neurological Exam Neurological exam: Present alert and oriented X3; Absent motor sensory deficit Psychiatric Psychiatric exam: Present normal affect and normal mood Skin Skin exam: Present warm, dry and normal color Lymphatic Lymphatic Findings: no adenopathy Medical Decision Making Medical Records Medical records reviewed: Yes I reviewed the patient's medical records. Screening: Per USPSTF and CDC recommendations, given the prevalence of disease in our region, it is our hospital?s policy to screen for HIV and viral Hepatitis for all patients aged 18 and over and those with ongoing risk factors. Palmer Inquiry Pt receiving controlled substance: No Palmer was queried for this patient: No Vital Signs: 02/17/25 23:37 02/17/25 23:56 02/18/25 00:00 Temperature 98.4 F 99 F Temperature Source Temporal Artery Scan Oral Pulse Rate 100 H 102 H Pulse Rate [Right] 114 H Respiratory Rate 24 13 Blood Pressure 163/94 H 150/93 H Blood Pressure [Right Arm] 182/115 H Blood Pressure Mean [Right Arm] 137 02 Sat by Pulse Oximetry 97 96 95 Oxygen Delivery Method Room Air Lab Data Lab results reviewed: Yes I reviewed the patient's lab results. Lab Results 02/17/25 23:46: Urine Color Yellow, Urine Appearance Cloudy, Urine pH 6.0, Ur Specific [place] 1.020, Urine Protein 2+ A, Urine Glucose (UA) Negative, Urine Ketones Negative, Urine Blood 3+ A, Urine Nitrate Positive A, Urine Bilirubin Negative, Urine Urobilinogen 0.2, Ur Leukocyte Esterase 3+ A, Urine RBC 20-50, Urine WBC 20-50, Urine Bacteria 2+ 02/17/25 23:58: WBC 9.4, RBC 3.17 L, Hgb 10.3 L, Hct 29.8 L, MCV 94.0, MCH 32.5 H, MCHC 34.6, RDW 13.2, Plt Count 226, MPV 8.8, Neut % (Auto) 85.5 H, Lymph % (Auto) 6.3 L, [place] % (Auto) 7.0, Eos % (Auto) 0.5, Baso % (Auto) 0.3, Neut # (Auto) 8.1 H, Lymph # (Auto) 0.6 L, [place] # (Auto) 0.7, Eos # (Auto) 0.1, Baso # (Auto) 0.0, Sodium 134 L, Potassium 4.0, Chloride 97 L, Carbon Dioxide 25, Anion Gap 16.0 H, BUN 34 H, Creatinine 2.50 H, Estimated Creat Clear 25, Estimated GFR 25 L, Est GFR ( Amer) 31 L, Glucose 195 H, Lactate 1.9, Calcium 9.2, Total Bilirubin 0.6, AST 27, ALT 33, Alkaline Phosphatase 139 H, Total Protein 6.9, Albumin 4.1, Globulin 2.8, Albumin/Globulin Ratio 1.5 02/17/25 23:58 02/17/25 23:58 Orders (Tests/Meds): ED MEDICATIONS Generic Name Dose Route Start Last Admin Trade Name Freq PRN Reason Stop Dose Admin Ceftriaxone Sodium 2 gm/ 100 mls @ 200 mls/hr 02/18/25 00:31 02/18/25 00:38 Sodium Chloride IV 02/18/25 01:00 200 mls/hr ONCE ONE Administration ORDERS Category Date Time Status CBC w/Auto Diff [Complete Blood Count Auto Diff] Stat Lab 02/17/25 23:58 Completed CMP [Comprehensive Metabolic Panel] Stat Lab 02/17/25 23:58 Completed Lactic Acid Stat Lab 02/17/25 23:58 Completed UA [Urinalysis and Microscopic] Stat Lab 02/17/25 23:46 Completed Blood Culture Stat Micro 02/17/25 23:50 Received Urine Culture Stat Micro 02/17/25 23:46 Received Medical Decision Narrative: 74-year-old male, history of Alzheimer's, diabetes, cavitary lung lesion, chronic indwelling Tracey with recurrent UTI, on hospice, presents for urinary catheter obstruction. History was obtained via interactive discussion with patient, family, extensive chart review. On arrival, patient is [afebrile, hemodynamically stable, satting appropriately, alert, oriented x4, GCS 15], moving all extremities spontaneously. Full physical exam performed and significant for suprapubic fullness and tenderness. Differential includes but is not limited to urinary catheter obstruction, UTI, pyelonephritis. The patient's Tracey catheter was immediately replaced with relief of obstruction. Patient had foul creamy urine resulting. Workup initiated including CBC CMP blood culture urinalysis. Patient was initiated on IV ceftriaxone for treatment of urinary tract infection. On re-evaluation, patient [remains afebrile, HD stable.] Laboratory workup independently interpreted by me and significant for urinalysis consistent with UTI, no significant leukocytosis, stable renal function without significant electrolyte derangement from baseline. Admission for UTI with failure of outpatient antibiotic therapy was considered. I discussed this with family and they would prefer to be out of the hospital if possible. There are stronger oral antibiotics such as Levaquin that we can discharge the patient on. Based on his prior urinary culture results, he has most recently had multiple episodes of pansensitive E. coli. Additionally, he has no leukocytosis, is afebrile and normotensive, and as such he is not septic. Given patient history, exam and workup, patient's presentation most likely represents UTI due to chronic indwelling Tracey catheter and acute urinary obstruction relieved after catheter exchange. Patient was discharged prescription for renally dosed Levaquin. He was encouraged to follow-up with his hospice team in the morning to discuss whether or not he needs infusions/injections of stronger IV antibiotic at home. Procedures Risk/Benefits of Procedure(s) Were Explained: Yes Critical Care Critical Care Time Critical Care Time: No
[2025-02-17 23:37] VITALS: BP 182/115; PULSE 114; RESP 24; TEMP 36.9; O2SAT 97; BMI 19.2
[2025-02-17 23:52] LABS: Microscopic, Urine URINE MICROSCOPIC (MICROSCOPIC)
[2025-02-17 23:54] LABS: Bilirubin,Urine Negative (Negative); Color,Urine YELLOW (Yellow); Glucose,Urine (UA) Negative (Negative); Ketones,Urine Negative (Negative); Leukocyte Esterase,Urine 3+ (Negative); PH,Urine 6.0 (5.0-8.5); Protein,Urine 2+ (Negative); Specific Gravity, Urine 1.020 (1.005-1.030); Urobilinogen,Urine 0.2 EU/dl (0.2)
[2025-02-17 23:56] VITALS: BP 163/94; PULSE 100; O2SAT 96
[2025-02-18] VITALS: BP 150/93; PULSE 102; RESP 13; TEMP 37.2; O2SAT 95
[2025-02-18 00:17] LABS: Hematocrit 29.8 % (42.0-52.0); Hemoglobin 10.3 g/dL (14.1-18.0); Immature Granulocytes % 0.4 %; Mean Corpuscular HGB Conc 34.6 g/dL (31.8-35.4); Mean Corpuscular Hemoglobin 32.5 pg (27.0-31.2); Mean Corpuscular Volume 94.0 fl (80-94); Nucleated Red Blood Cells % 0 %; Platelet Count 226 K/mm3 (142-424); Red Blood Count 3.17 M/mm3 (4.60-6.20); Red Cell Distribution Width-SD 45.1 fL; White Blood Count 9.4 K/mm3 (4.8-10.8)
[2025-02-18 00:18] LABS: Bacteria,Urine 2+ /lpf; RBC,Urine 20-50 #/hpf (0-3); WBC,Urine 20-50 #/hpf (0-3)
[2025-02-18 00:25] LABS: Alanine Aminotransferase 33 U/L (12-78); Albumin Level 4.1 g/dl (3.5-5.0); Albumin/Globulin Ratio 1.5 (1.1-1.8); Alkaline Phosphatase 139 U/L (38-126); Anion Gap 16.0 mEq/L (5-15); Aspartate Amino Transferase 27 U/L (17-59); Bilirubin,Total 0.6 mg/dl (0.2-1.3); Blood Urea Nitrogen 34 mg/dl (9-20); Calcium 9.2 mg/dl (8.4-10.2); Carbon Dioxide 25 mmol/L (22.0-30.0); Chloride 97 mmol/L (98-107); Creatinine Clearance Estimated 25 mL/min (50-200); Creatinine,Serum 2.50 mg/dl (0.66-1.25); Estimated Glomerular Filt Rate 25 ml/min (>60); GFR (African American) 31 ML/MIN (>60); Globulin 2.8 g/dL (1.3-3.2); Glucose 195 mg/dl (74-100); Potassium 4.0 mmoL/L (3.5-5.1); Sodium 134 mmol/L (136-145); Total Protein,Serum 6.9 g/dl (6.3-8.2)
[2025-02-18 01:20] VITALS: BP 157/78; PULSE 99; RESP 18; TEMP 37.2; O2SAT 96
--- NOTE | 2025-02-21 04:50 | PC.NURSE ---
Prelim CX results discussed w Dr. Peck, abs treatment is sufficient. No changes needed at this time.
--- NOTE | 2025-02-21 08:26 | PC.NURSE ---
Urine culture results reviewed. Patient discharged home on Levaquin, which is appropriate.
== END 2025-02-18 01:21 | disposition home or self-care (01) ==
PROVIDERS: Emergency Provider Emergency Medicine; PCP Internal Medicine
DX: R10.30 Lower abdominal pain, unspecified (principal); T83.511A Infection and inflammatory reaction due to indwelling urethral catheter, initial encounter; N39.0 Urinary tract infection, site not specified; T83.091A Other mechanical complication of indwelling urethral catheter, initial encounter; B96.20 Unspecified Escherichia coli [E. coli] as the cause of diseases classified elsewhere
CPT/HCPCS: 51702; 80053; 81001; 83605; 85025; 87040; 87086; 87088; 87186; 96365; 99284; J0696